=== PATIENT | female | born 1970 | race Caucasian/White ===

== ENCOUNTER → 2022-08-19 18:09 | Outpatient (CLI) | payer OTHER, BC, SELFPAY ==
[2022-08-19 14:36] LABS: Basophils # 0.1 K/mm3 (0-0.2); Basophils % 0.7 % (0.1-2.0); Eosinophils # 0.2 K/mm3 (0.0-0.4); Eosinophils % 1.8 % (0.1-12.0); Hemoglobin 14.3 g/dL (12.2-16.2); Lymphocytes # 2.1 K/mm3 (0.7-4.5); Mean Corpuscular HGB Conc 32.6 g/dL (31.8-35.4); Mean Corpuscular Hemoglobin 27.9 pg (27.0-31.2); Mean Corpuscular Volume 85.5 fl (81-99); Mean Platelet Volume 13.2 fl (7.4-10.4); Monocytes # 0.3 K/mm3 (0.1-1.0); Monocytes % 3.9 % (1.7-9.3); Neutrophils # 6.2 K/mm3 (1.8-7.8); Neutrophils % 69.6 % (37.0-80.0); Platelet Count 173 K/mm3 (142-424); Red Blood Count 5.15 M/mm3 (4.20-5.40); Red Cell Distribution Width 13.9 % (11.5-17.5); White Blood Count 8.8 K/mm3 (4.8-10.8)
[2022-08-19 14:56] LABS: Chloride 99 mmol/L (98-107); Potassium 4.9 mmoL/L (3.5-5.1); Sodium 131 mmol/L (136-145)
[2022-08-19 14:58] LABS: Alanine Aminotransferase 26 U/L (12-78); Aspartate Amino Transferase 27 U/L (14-36); Blood Urea Nitrogen 20 mg/dl (7-17); Estimated Glomerular Filt Rate 105 ml/min (>60); GFR (African American) 127 ML/MIN (>60)
[2022-08-19 14:59] LABS: Albumin Level 3.7 g/dl (3.5-5.0); Albumin/Globulin Ratio 1.1 (1.1-1.8); Alkaline Phosphatase 229 U/L (38-126); Anion Gap 10.9 mEq/L (5-15); Bilirubin,Total 1.2 mg/dl (0.2-1.3); Calcium 9.1 mg/dl (8.4-10.2); Carbon Dioxide 26 mmol/L (22.0-30.0); Cholesterol 180 mg/dl (140-200); Globulin 3.3 g/dL (1.3-3.2); HDL Cholesterol 36 mg/dl (40-60); Triglycerides 245 mg/dl (30-150); VLDL Cholesterol 49 mg/dL (0-40)
[2022-08-19 15:10] LABS: Glucose 560 mg/dl (74-100)
[2022-08-19 15:11] LABS: Direct LDL Cholesterol 103.53 mg/dL (100-129)
[2022-08-19 15:30] LABS: Thyroid Stimulating Hormone < 0.02 uIU/mL (0.465-4.68)
[2022-08-19 18:35] LABS: Hemoglobin A1C 12.8 % (4.0-6.0)
== END ==
PROVIDERS: PCP Family Medicine; Visit Provider Family Medicine
DX: E11.9 Type 2 diabetes mellitus without complications (principal); R53.83 Other fatigue; Z79.4 Long term (current) use of insulin; Z79.899 Other long term (current) drug therapy
CPT/HCPCS: 80053; 80061; 83036; 84443; 85025

== ENCOUNTER 2022-08-20 12:36 | Emergency (ER) | payer MEDICARE, BC, SELFPAY ==
[2022-08-20 12:38] VITALS: BP 108/55; PULSE 72; RESP 16; TEMP 36.7; O2SAT 99; BMI 38.9
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
--- NOTE | 2022-08-20 13:00 | PC.NURSE ---
DAKOTA CASTRO at
[2022-08-20 13:11] VITALS: BP 100/60; PULSE 74; RESP 16; TEMP 36.7
== END 2022-08-20 13:23 | disposition home or self-care (01) ==
PROVIDERS: Emergency Provider Student in an Organized Health Care Education/Training Program; PCP Family Medicine
DX: E11.40 Type 2 diabetes mellitus with diabetic neuropathy, unspecified (principal); K21.9 Gastro-esophageal reflux disease without esophagitis; Z86.79 Personal history of other diseases of the circulatory system
CPT/HCPCS: 99283; 99284

== ENCOUNTER → 2022-09-03 12:38 | Outpatient (CLI) | payer MEDICARE, BC, SELFPAY ==
--- NOTE | 2022-09-03 12:50 | CA_ITS ---
APPROVED REPORT EXAM: Comprehensive 2D, Doppler, and color-flow Echocardiogram Product Line Manager: Sara Vazquez RVT Ht: 5 ft 4 in Wt: 232lbs BSA: 2.08 BP: 128/82 mmHg Indications: MURMUR,DM,GERD,CABG,CAD,OBESITY 2D Dimensions LVOT 2.02 cm (M/F) 1.5-2.5 LA Volume 40.50 mL LA Volume Index 19.38 mL/m2 (M/F) 16-34 M-Mode Dimensions RVDd 4.59 cm (0.9-2.6) LA Diam 4.52 cm (1.9-4.0) LVDd 5.31 cm (3.5-5.7) Ao Diam 2.83 cm (2.0-3.7) LVDs 3.61 cm (3.5-5.7) IVSd 0.85 cm (0.6-1.1) PWd 1.02 cm (0.6-1.1) EF (Teich) 59.70% FS 32.00% EDV (Teich) 135.90 mL TAPSE 2.04 (<1.7) ESV (Teich) 54.80 mL LV Diastology E Decel Time 150.00 (160-240 msec) E/A Ratio 1.5 MED E' 6.20 (< 7 cm/sec) E'/MED E' Ratio 17.94 (>14) LAT E' 11.80 (<10 cm/sec) E/LAT E' Ratio 9.42 (>14) Aortic Valve AO Peak GR. 15.00 mmHg Mitral Valve MV E Max Zac. 111.00 (40-130 cm/s) MV A Velocity 74.00 (40-130 cm/s) E/A Ratio 1.49 MV Decel. Time 150.00 (160-240 ms) MV PHT 44.00 ms Pulmonary Valve PV Peak Velocity 126.00 (50-150 cm/s) Tricuspid Valve TR P. Velocity 252.00 cm/s RAP Estimate 10.00 mmHg RVSP 35.40 mmHg Left Ventricle Left atrium is mildly enlarged, left ventricle is normal size, mild concentric left ventricular hypertrophy, estimated ejection fraction 55% with no regional wall motion abnormality, there is abnormal septal motion. Right Ventricle Right atrium and right ventricle are moderately enlarged, contractility of the right ventricle is mildly reduced. Aortic Valve Aortic valve is minimally thickened and fibrosed there is no aortic stenosis aortic insufficiency. Mitral Valve Mitral valve is grossly normal, there is trace mitral regurgitation. Tricuspid Valve Tricuspid valve grossly normal, there is mid tricuspid regurgitation, tricuspid regurgitation jet velocity is inadequate for calculation of the right ventricular systolic pressure. Pulmonic Valve Pulmonic valve is poorly visualized. Great Vessels Aortic root is normal size. Inferior vena cava is normal size with normal inspiratory collapse. Pericardium No significant pericardial effusion noted. Conclusion 1. Biatrial enlargement, normal left ventricular size, mild concentric left ventricular hypertrophy, estimated ejection fraction 55% with no regional wall motion abnormality, there is abnormal septal motion. 2. Moderately enlarged right ventricle with mild reduced contractility. 3. Mild mitral and tricuspid regurgitation. 4. No significant pericardial effusion. 5. Inferior vena cava is normal size with normal inspiratory collapse. Electronically signed by : Hu Garg MD 09/03/2022 13:34:56
== END ==
PROVIDERS: PCP Family Medicine; Visit Provider Family Medicine
DX: R01.1 Cardiac murmur, unspecified (principal)
CPT/HCPCS: 93306

== ENCOUNTER 2022-09-10 10:31 | Emergency (ER) | payer MEDICARE, BC, SELFPAY ==
[2022-09-10 10:45] VITALS: BMI 40.1
[2022-09-10 11:02] VITALS: BP 148/68; PULSE 76; RESP 20; TEMP 36.9; O2SAT 99; BMI 40.5
--- NOTE | 2022-09-10 11:07 | EXP.UTC ---
Discharge Plan Disposition Patient Disposition: Home, Self-Care Condition: Good Prescriptions Prescriptions: New azithromycin [Zithromax] 250 mg tablet 250 mg PO UD DOSE PK Qty: 6 0RF Rx Instructions: Take two (2) tablets today, then one (1) tablet days #2 thru #5 benzonatate [benzonatate] 100 mg capsule 100 mg PO TIDP PRN (Reason: Cough) Qty: 30 0RF prednisone 10 mg tablet 10 mg PO BID 5 Days Qty: 10 0RF No Action glimepiride 4 mg tablet 4 mg PO DAILY isosorbide mononitrate 30 mg tablet extended release 24 hr 30 mg PO DAILY Jardiance 25 mg tablet 25 mg PO DAILY medroxyprogesterone 10 mg tablet 10 mg PO DAILY naproxen 500 mg tablet 500 mg PO BID aspirin [Adult Aspirin Regimen] 81 mg tablet,delayed release (DR/EC) 81 mg PO DAILY metoprolol succinate 25 mg tablet extended release 24 hr 25 mg PO BID furosemide 40 mg tablet 40 mg PO BID ferrous sulfate [Feosol] 325 mg (65 mg iron) tablet 325 mg PO BID quinapril 40 mg tablet 20 mg PO BID omeprazole 40 mg capsule,delayed release(DR/EC) 40 mg PO DAILY atorvastatin 40 mg tablet 40 mg PO DAILY (DME) Dexcom G6 Transformer Molder Misc See Rx Instructions .Route Qty: 1 0RF Rx Instructions: As directed (DME) Dexcom G6 Sensor Device See Rx Instructions .Route Qty: 3 3RF Rx Instructions: As directed (DME) Dexcom G6 Transmitter Device See Rx Instructions .Route Qty: 1 3RF Rx Instructions: As directed gabapentin 600 mg tablet 600 mg PO TID insulin degludec [Tresiba FlexTouch U-100] 100 unit/mL (3 mL) insulin pen 100 unit SQ HS Ozempic 2 mg/dose (8 mg/3 mL) pen injector 2 mg SQ WEEKLY Referrals Follow up/Referrals: Cong Trinh MD [Primary Care Provider] - See instructions Activity Restrictions/Add. Instructions Additional Instructions/Restrictions: Drink plenty of fluids. Take tylenol for pain or fever. Take the medications as directed. Follow up with your regular doctor. GO TO THE ER FOR ANY WORSENING SYMPTOMS Clinical Impressions Clinical Impression: Sinusitis, Bronchitis, Acute viral syndrome Instructions Patient Instructions: DI for Sinusitis, DI for Acute Bronchitis, DI for Viral Syndrome Discharge ED Provider: Alberto Morton [facility] [place] HPI General Stated complaint: Bodyaches headache coughing blood Mode of Arrival: Ambulatory Source of Information: Patient Limitations: No Limitations Time Seen by Provider: 09/10/22 11:02 Description of Symptoms (Recalled from Triage Doc. by RN): [place], body aches, stiffness, vomit, diarrhea, tired HEENT Symptoms (Recalled from RN notes): Yes Resp Symptoms (Recalled from RN notes): No Skin Symptoms (Recalled from RN notes): No MS Symptoms (Recalled from RN notes): No Functional Status (Recalled from RN notes): n/a History of Present Illness Provider Complaint: She states that for the past 4 days she has had sinus congestion, sore throat and chest congestion. She had a nose bleed yesterday, and since then she has had blood tinged sputum from her nose at times. Related Data Home Medications Medication Instructions Recorded Confirmed aspirin 81 mg tablet,delayed 81 mg PO DAILY . 08/12/22 09/10/22 release (Adult Aspirin Regimen) ferrous sulfate 325 mg (65 mg 325 mg PO BID . 08/12/22 09/10/22 iron) tablet (Feosol) furosemide 40 mg tablet 40 mg PO BID . 08/12/22 09/10/22 metoprolol succinate 25 mg 25 mg PO BID . 08/12/22 09/10/22 tablet,extended release 24 hr omeprazole 40 mg capsule,delayed 40 mg PO DAILY . 08/12/22 09/10/22 release quinapril 40 mg tablet 20 mg PO BID . 08/12/22 09/10/22 empagliflozin 25 mg tablet 25 mg PO DAILY . 08/19/22 09/10/22 (Jardiance) glimepiride 4 mg tablet 4 mg PO DAILY . 08/19/22 09/10/22 isosorbide mononitrate 30 mg 30 mg PO DAILY . 08/19/22 09/10/22 tablet,extended release 24 hr medroxyprogesterone 10 mg tablet
[2022-09-10 11:09] LABS: UTC Influenza A Antigen Negative (Negative)
[2022-09-10 11:10] LABS: UTC Influenza B Antigen Negative (Negative)
[2022-09-10 11:53] VITALS: BP 148/68; PULSE 76; RESP 20; TEMP 36.9; O2SAT 99
== END 2022-09-10 11:52 | disposition home or self-care (01) ==
PROVIDERS: Emergency Provider Nurse Practitioner Family; PCP Family Medicine
DX: J32.9 Chronic sinusitis, unspecified (principal); J40 Bronchitis, not specified as acute or chronic; B34.9 Viral infection, unspecified
CPT/HCPCS: 87804; 99212; 99214; C9803; G0463; U0003; U0005

== ENCOUNTER → 2022-10-01 07:21 | Outpatient (CLI) | payer MEDICARE, BC, SELFPAY ==
--- NOTE | 2022-10-01 07:24 | NM_ITS ---
APPROVED REPORT Exam: Nuclear Stress Test Indication: angina Patient Location: Outpatient Stress Tech: Keli Peters [place] Tech:GAURANG Mak RT(R)(N) Ht: 5 ft 4 in Wt: 235 lbs Bra Size: 4x HR: 77 bpm BP: 118/58 mmHg BSA: 2.10 m2 TID: 1.08 BMI: 40.3 History: angina Procedure: Patient received 0.4 mg of intravenous Lexiscan, resting heart rate 77 bpm, resting blood pressure 118/58 mmHg, with Lexiscan maximum heart rate achieved was 105 bpm which is Less than 85 % of the maximum predicted heart rate and blood pressure was 118/58 mmHg. With Lexiscan, patient denied any complaint of chest pain. Electrocardiogram Resting electrocardiogram shows sinus rhythm, with Lexiscan there is less than 1.[address] segment depression from the baseline EKG. The EKG portion of the Lexiscan is nondiagnostic. Cardiac Stress and Resting SPECT Images: Cardiac Stress and Resting SPECT images were obtained using technetium 99m Myoview 30.1 mCi stress and 10.82 mCi at rest. Gated SPECT analysis of segmental wall motion and calculation of the ejection fraction also done. Prone images were also obtained. Cardiac stress and rest SPECT and show uniform myocardial activity without segmental perfusion abnormality, computer derived ejection fraction is 57% with no regional wall motion abnormality, right ventricle is mildly enlarged with normal contractility. Conclusion: 1. The EKG portion of the Lexiscan is nondiagnostic. 2. No scintigraphic evidence of reversible ischemia seen, computer derived ejection fraction is 57% with no regional wall motion abnormality, right ventricle is mildly enlarged with normal contractility. 3. Normal Lexiscan Myoview study. Electronically signed by : Hu Garg MD 10/01/2022 15:17:19
--- NOTE | 2022-10-01 09:48 | CA_ITS ---
APPROVED REPORT Exam: Pharmacologic Technologist: Keli Rowe, Ht: 5 ft 4 in Wt: 238 lbs BSA: 2.11 m2 HR: 77 bpm BP: 118/58 mmHg Medical History Medications: Omeprazole,,,,, Aspirin,,,,, Gabapentin,,,,, Atorvastatin,,,,, Glimepiride,,,,, Naproxen,,,,, Prednisone,,,,, BenzONATATE,,,,, QuinAPRIL,,,,, JaRDiance,,,,, Tresiba,,,,, Zithromax,,,,, Stress Test Details Test: LEXISCAN Reason for pharmacologic stress test: physical limitation. HR Resting HR: 77 bpm Max Heart Rate (APMHR): 168.229178 bpm Max HR Achieved: 105 bpm Target HR (85% APMHR): 142.342231 bpm % of APMHR: 62.50 Recovery HR: 92 bpm BP Resting BP: 118/58 mmHg Max BP: 118/58 mmHg Recovery BP: 105.0/59.0 mmHg ECG Resting ECG: NSR, IVCD Clinical Reason for Termination: Completed Protocol Exercise duration: 04:01 min Highest Stage Achieved: Stress ECG Conclusion Symptoms: No CP Arrhythmias/Ectopy: None ST-T Changes: <1.5mm ST Segment changes Conclusion: Non-Diagnostic Test Summary REST . . . . . . . Resting REST 03:30 . . 77 . 118/ 58 . . Stage 1 01:00 . . 92 . . . . Stage 2 01:00 . . 99 . 112/ 54 . . Stage 3 01:00 . . 95 . 113/ 57 . . Stage 4 01:00 . . 91 . 114/ 57 . . Stage 4 01:01 . . 92 . 114/ 57 . Stop exercise at 04:01 RECOVERY 01:00 . . 98 . . . . RECOVERY 02:00 . . 95 . 102/ 59 . . RECOVERY 02:05 . . 92 . 102/ 59 . . Electronically signed by : Hu Garg MD 10/01/2022 11:09:54
== END ==
PROVIDERS: PCP Family Medicine; Visit Provider Nurse Practitioner Family
DX: E78.5 Hyperlipidemia, unspecified (principal); I10 Essential (primary) hypertension; Z95.1 Presence of aortocoronary bypass graft; I20.8 Other forms of angina pectoris
CPT/HCPCS: 78452; 93017; A9502; J2785

== ENCOUNTER 2022-10-21 20:40 | Emergency (ER) | payer MEDICARE, BC, SELFPAY ==
[2022-10-21 20:41] VITALS: BP 122/67; PULSE 87; RESP 16; TEMP 36.6; O2SAT 98; BMI 39.4
[2022-10-21 21:22] LABS: Basophils # 0.1 K/mm3 (0-0.2); Basophils % 0.6 % (0.1-2.0); Eosinophils # 0.2 K/mm3 (0.0-0.4); Eosinophils % 2.6 % (0.1-12.0); Hematocrit 42.7 % (37.0-47.0); Hemoglobin 13.6 g/dL (12.2-16.2); Lymphocytes # 2.8 K/mm3 (0.7-4.5); Lymphocytes % 36.4 % (10-50); Mean Corpuscular HGB Conc 31.9 g/dL (31.8-35.4); Mean Corpuscular Hemoglobin 28.1 pg (27.0-31.2); Mean Corpuscular Volume 87.9 fl (81-99); Mean Platelet Volume 10.9 fl (7.4-10.4); Monocytes # 0.4 K/mm3 (0.1-1.0); Monocytes % 5.1 % (1.7-9.3); Neutrophils # 4.3 K/mm3 (1.8-7.8); Neutrophils % 55.2 % (37.0-80.0); Platelet Count 157 K/mm3 (142-424); Red Blood Count 4.86 M/mm3 (4.20-5.40); Red Cell Distribution Width 13.6 % (11.5-17.5); White Blood Count 7.7 K/mm3 (4.8-10.8)
--- NOTE | 2022-10-21 21:25 | HMH.EDEXTP ---
Discharge Plan Disposition Patient Disposition: Home, Self-Care Chief Complaint: Extremity Injury, Lower Prescriptions Prescriptions: No Action glimepiride 4 mg tablet 4 mg PO DAILY Jardiance 25 mg tablet 25 mg PO DAILY medroxyprogesterone 10 mg tablet 10 mg PO DAILY naproxen 500 mg tablet 500 mg PO BID aspirin [Adult Aspirin Regimen] 81 mg tablet,delayed release (DR/EC) 81 mg PO DAILY metoprolol succinate 25 mg tablet extended release 24 hr 25 mg PO BID furosemide 40 mg tablet 40 mg PO BID ferrous sulfate [Feosol] 325 mg (65 mg iron) tablet 325 mg PO BID omeprazole 40 mg capsule,delayed release(DR/EC) 40 mg PO DAILY atorvastatin 40 mg tablet 40 mg PO DAILY gabapentin 600 mg tablet 600 mg PO TID insulin degludec [Tresiba FlexTouch U-100] 100 unit/mL (3 mL) insulin pen 100 unit SQ HS Ozempic 2 mg/dose (8 mg/3 mL) pen injector 2 mg SQ WEEKLY lisinopril 20 mg tablet 20 mg PO BID isosorbide mononitrate 60 mg tablet extended release 24 hr 60 mg PO DAILY (DME) Dexcom G6 Sensor Device See Rx Instructions .ROUTE Rx Instructions: As directed (DME) Dexcom G6 Traveler Changer Misc See Rx Instructions .ROUTE Rx Instructions: As directed (DME) Dexcom G6 Transmitter Device See Rx Instructions .ROUTE Rx Instructions: As directed Referrals Follow up/Referrals: Cong Trinh MD [Primary Care Provider] - See instructions Clinical Impressions Clinical Impression: Deep vein thrombosis, lower left extremity, Diabetes mellitus Instructions Patient Instructions: DI for Deep Vein Thrombosis Discharge ED Provider: Iraida (ED)Varun Extremity Problem HPI General Chief complaint: Extremity Injury, Lower Stated complaint: Leg pain Time Seen by Provider: 10/21/22 21:25 Mode of Arrival: Ambulatory Source of Information: Patient and Medical Record Limitations: No Limitations Description of Symptoms (Recalled from ER Triage Doc. by RN): pt arrives via private vehicle. c/o right knee pain for several days, denies injury. states she woke up today and she had a knot behind her left knee with severe pain swelling and redness. states she had a blood clot in 2017 in left leg. Denies any injury. History of Present Illness HPI Narrative: pt with atypical rt knee pain over the last few days and has pain and swelling lt lower leg with hx of dvt in past - has chronic venous stasis - MD Complaint: extremity pain, extremity swelling and joint swelling Onset (ago): day(s) Consistency: intermittent Location: left and lower extremity Associated symptoms: denies other symptoms Context: history of DVT Related Data Home Medications Medication Instructions Recorded Confirmed aspirin 81 mg tablet,delayed 81 mg PO DAILY heart health 08/12/22 10/21/22 release (Adult Aspirin Regimen) ferrous sulfate 325 mg (65 mg 325 mg PO BID Supplement 08/12/22 10/21/22 iron) tablet (Feosol) furosemide 40 mg tablet 40 mg PO BID swelling 08/12/22 10/21/22 metoprolol succinate 25 mg 25 mg PO BID High blood pressure 08/12/22 10/21/22 tablet,extended release 24 hr omeprazole 40 mg capsule,delayed 40 mg PO DAILY gerd 08/12/22 10/21/22 release empagliflozin 25 mg tablet 25 mg PO DAILY Diabetes 08/19/22 10/21/22 (Jardiance) glimepiride 4 mg tablet 4 mg PO DAILY high blood glucose 08/19/22 10/21/22 medroxyprogesterone 10 mg tablet 10 mg PO DAILY estrogen 08/19/22 10/21/22 naproxen 500 mg tablet 500 mg PO BID Pain 08/19/22 10/21/22 atorvastatin 40 mg tablet 40 mg PO DAILY High cholesterol 09/07/22 10/21/22 gabapentin 600 mg tablet 600 mg PO TID nerve pain 09/10/22 10/21/22 insulin degludec 100 unit/mL (3 100 unit SQ HS high blood glucose 09/10/22 10/21/22 mL) subcutaneous pen (Tresiba FlexTouch U-100 insulin) semaglutide 2 mg/dose (8 mg/3 mL) 2 mg SQ WEEKLY Diabetes 09/10/22 10/21/22 subcutaneous pen injector (
[2022-10-21 21:29] LABS: Alanine Aminotransferase 17 U/L (12-78); Albumin Level 3.7 g/dl (3.5-5.0); Albumin/Globulin Ratio 1.1 (1.1-1.8); Alkaline Phosphatase 149 U/L (38-126); Anion Gap 6.2 mEq/L (5-15); Aspartate Amino Transferase 23 U/L (14-36); Blood Urea Nitrogen 21 mg/dl (7-17); Calcium 8.8 mg/dl (8.4-10.2); Carbon Dioxide 28 mmol/L (22.0-30.0); Chloride 103 mmol/L (98-107); Creatinine Clearance Estimated 181 mL/min (50-200); Estimated Glomerular Filt Rate 105 ml/min (>60); GFR (African American) 127 ML/MIN (>60); Globulin 3.3 g/dL (1.3-3.2); Glucose 252 mg/dl (74-100); Potassium 4.2 mmoL/L (3.5-5.1); Sodium 133 mmol/L (136-145)
[2022-10-21 21:30] VITALS: BP 115/61; PULSE 82; O2SAT 96
[2022-10-21 21:35] LABS: C-Reactive Protein 10.5 mg/L (0-4)
[2022-10-21 21:59] LABS: Erythrocyte Sedimentation Rate 27 mm/hr (0-30)
[2022-10-21 22:00] VITALS: BP 109/67; PULSE 81; O2SAT 98
[2022-10-21 22:12] LABS: Hemoglobin A1C 11.7 % (4.0-6.0)
--- NOTE | 2022-10-21 22:14 | PC.NURSE ---
Pt/visitor updated on POC
[2022-10-21 22:16] VITALS: BP 110/70; PULSE 80; RESP 18; TEMP 36.6; O2SAT 99
== END 2022-10-21 22:29 | disposition home or self-care (01) ==
PROVIDERS: Emergency Provider Emergency Medicine; PCP Family Medicine
DX: M25.561 Pain in right knee (principal); R22.41 Localized swelling, mass and lump, right lower limb
CPT/HCPCS: 80053; 83036; 84145; 85025; 85651; 86140; 96372; 99284; 99285

== ENCOUNTER → 2022-10-22 12:56 | Outpatient (CLI) | payer MEDICARE, BC, SELFPAY ==
--- NOTE | 2022-10-22 | CA_ITS ---
FINAL REPORT TECHNIQUE: Ultrasound images of the deep venous system were obtained from the left groin to the calf veins. CLINICAL HISTORY: HTN, hyperlipidemia, DM II, 81 mg ASA daily, morbid obesity. Patient states her left leg became swollen yesterday with no known trauma. She noticed a knot behind the left knee. She states the leg has become discolored and hot to the touch. Patient also states he has a history of DVT in LLE many years ago. FINDINGS: The deep venous system is normally compressible. Normal flow is identified. IMPRESSION: No evidence of left lower extremity DVT. Reviewed, Interpreted and Dictated by Erick Rodgers MD Transcribed by Karen Mayberry Authenticated and [facility]
[2022-10-22 14:44] LABS: Alanine Aminotransferase 15 U/L (12-78); Albumin Level 3.5 g/dl (3.5-5.0); Albumin/Globulin Ratio 1.2 (1.1-1.8); Alkaline Phosphatase 149 U/L (38-126); Anion Gap 6.4 mEq/L (5-15); Aspartate Amino Transferase 22 U/L (14-36); Bilirubin,Total 1.1 mg/dl (0.2-1.3); Blood Urea Nitrogen 19 mg/dl (7-17); Calcium 8.5 mg/dl (8.4-10.2); Carbon Dioxide 27 mmol/L (22.0-30.0); Chloride 106 mmol/L (98-107); Chol/HDL Ratio 4.8 (1-3.5); Cholesterol 130 mg/dl (140-200); Estimated Glomerular Filt Rate 130 ml/min (>60); GFR (African American) 157 ML/MIN (>60); Glucose 113 mg/dl (74-100); HDL Cholesterol 27 mg/dl (40-60); Potassium 4.4 mmoL/L (3.5-5.1); Sodium 135 mmol/L (136-145); Total Protein,Serum 6.5 g/dl (6.3-8.2); Triglycerides 120 mg/dl (30-150); VLDL Cholesterol 24 mg/dL (0-40)
[2022-10-22 14:54] LABS: Direct LDL Cholesterol 74.98 mg/dL (100-129)
[2022-10-22 15:08] LABS: Basophils % 0.6 % (0.1-2.0); Eosinophils # 0.2 K/mm3 (0.0-0.4); Eosinophils % 2.6 % (0.1-12.0); Hematocrit 43.5 % (37.0-47.0); Lymphocytes # 2.1 K/mm3 (0.7-4.5); Lymphocytes % 35.6 % (10-50); Mean Corpuscular Hemoglobin 26.6 pg (27.0-31.2); Mean Corpuscular Volume 88.5 fl (81-99); Mean Platelet Volume 11.3 fl (7.4-10.4); Monocytes # 0.4 K/mm3 (0.1-1.0); Monocytes % 6.2 % (1.7-9.3); Neutrophils # 3.2 K/mm3 (1.8-7.8); Platelet Count 157 K/mm3 (142-424); Red Blood Count 4.91 M/mm3 (4.20-5.40); Red Cell Distribution Width 13.3 % (11.5-17.5); White Blood Count 5.9 K/mm3 (4.8-10.8)
[2022-10-22 17:43] LABS: Hemoglobin A1C 11.7 % (4.0-6.0)
== END ==
PROVIDERS: PCP Family Medicine; Visit Provider Family Medicine
DX: E78.5 Hyperlipidemia, unspecified (principal); I10 Essential (primary) hypertension; E11.9 Type 2 diabetes mellitus without complications; Z79.4 Long term (current) use of insulin; M79.605 Pain in left leg; Z86.718 Personal history of other venous thrombosis and embolism
CPT/HCPCS: 80053; 80061; 83036; 85025; 93971

== ENCOUNTER 2022-12-28 08:05 | Day surgery (SDC) | payer MEDICARE, BC, SELFPAY ==
[2022-12-27 10:21] VITALS: BMI 38.2
[2022-12-28 08:38] VITALS: BP 126/63; PULSE 68; RESP 18; TEMP 36.6; O2SAT 97
[2022-12-28 08:45] LABS: POC Glucose,Bedside 155 (70-110)
[2022-12-28 09:59] VITALS: BP 134/58; PULSE 72; RESP 16; O2SAT 100
[2022-12-28 10:04] VITALS: BP 124/58; PULSE 76; RESP 17; O2SAT 100
[2022-12-28 10:09] VITALS: BP 146/64; PULSE 75; RESP 16; O2SAT 100
[2022-12-28 10:14] VITALS: BP 131/60; PULSE 75; RESP 17; O2SAT 100
[2022-12-28 10:15] VITALS: BP 145/73; PULSE 65; RESP 18; TEMP 36.2; O2SAT 98
== END 2022-12-28 10:24 | disposition home or self-care (01) ==
LOC: OR 08:07
PROVIDERS: PCP Family Medicine; Visit Provider Ophthalmology
PROC: (CPT 66984; principal; 2022-12-28 10:00)
DX: E11.36 Type 2 diabetes mellitus with diabetic cataract (principal); H25.9 Unspecified age-related cataract
CPT/HCPCS: 66984; 82962; V2632

== ENCOUNTER → 2023-02-11 13:39 | Outpatient (CLI) | payer MEDICARE, BC, SELFPAY | PROVIDERS: PCP Family Medicine; Visit Provider Nurse Practitioner Family | DX: G47.30 Sleep apnea, unspecified (principal); R53.83 Other fatigue; R06.83 Snoring; R40.0 Somnolence; I25.10 Atherosclerotic heart disease of native coronary artery without angina pectoris; I10 Essential (primary) hypertension | CPT/HCPCS: G0399 ==

== ENCOUNTER → 2023-02-17 23:38 | Outpatient (CLI) | payer MEDICARE, BC, SELFPAY ==
[2023-02-17 17:54] LABS: Basophils % 0.3 % (0.1-2.0); Eosinophils # 0.1 K/mm3 (0.0-0.4); Eosinophils % 1.9 % (0.1-12.0); Hematocrit 40.9 % (37.0-47.0); Hemoglobin 13.2 g/dL (12.2-16.2); Lymphocytes # 1.6 K/mm3 (0.7-4.5); Lymphocytes % 25.2 % (10-50); Mean Corpuscular HGB Conc 32.3 g/dL (31.8-35.4); Mean Corpuscular Hemoglobin 27.2 pg (27.0-31.2); Mean Corpuscular Volume 84.1 fl (81-99); Mean Platelet Volume 12.6 fl (7.4-10.4); Monocytes # 0.3 K/mm3 (0.1-1.0); Monocytes % 5.1 % (1.7-9.3); Neutrophils # 4.3 K/mm3 (1.8-7.8); Neutrophils % 67.5 % (37.0-80.0); Platelet Count 156 K/mm3 (142-424); Red Blood Count 4.86 M/mm3 (4.20-5.40); Red Cell Distribution Width 13.5 % (11.5-17.5); White Blood Count 6.4 K/mm3 (4.8-10.8)
[2023-02-17 17:55] LABS: Alanine Aminotransferase 36 U/L (12-78); Albumin Level 3.4 g/dl (3.5-5.0); Alkaline Phosphatase 239 U/L (38-126); Anion Gap 12.3 mEq/L (5-15); Aspartate Amino Transferase 33 U/L (14-36); Blood Urea Nitrogen 16 mg/dl (7-17); Calcium 8.8 mg/dl (8.4-10.2); Carbon Dioxide 26 mmol/L (22.0-30.0); Chloride 107 mmol/L (98-107); Estimated Glomerular Filt Rate 105 ml/min (>60); GFR (African American) 127 ML/MIN (>60); Globulin 3.3 g/dL (1.3-3.2); Glucose 229 mg/dl (74-100); Potassium 4.3 mmoL/L (3.5-5.1); Sodium 141 mmol/L (136-145); Total Protein,Serum 6.7 g/dl (6.3-8.2)
== END ==
PROVIDERS: PCP Student in an Organized Health Care Education/Training Program; Visit Provider Student in an Organized Health Care Education/Training Program
DX: R19.7 Diarrhea, unspecified (principal)
CPT/HCPCS: 80053; 85025

== ENCOUNTER → 2023-02-18 14:28 | Outpatient (CLI) | payer MEDICARE, BC, SELFPAY ==
[2023-02-18 15:21] LABS: Occult Blood,Stool Negative (Negative)
== END ==
PROVIDERS: PCP Student in an Organized Health Care Education/Training Program; Visit Provider Student in an Organized Health Care Education/Training Program
DX: R19.7 Diarrhea, unspecified (principal)
CPT/HCPCS: 82272; 87045; G0328

== ENCOUNTER 2023-03-08 07:13 | Day surgery (SDC) | payer MEDICARE, BC, SELFPAY ==
[2023-03-02 09:26] VITALS: BMI 36.0
[2023-03-08 08:27] VITALS: BP 126/70; PULSE 65; RESP 18; TEMP 36.4; O2SAT 96
[2023-03-08 08:37] LABS: POC Glucose,Bedside 235 (70-110)
[2023-03-08 10:25] VITALS: BP 106/53; PULSE 56; RESP 17; O2SAT 100
[2023-03-08 10:30] VITALS: BP 106/54; PULSE 63; RESP 17; O2SAT 100
[2023-03-08 10:35] VITALS: BP 113/58; PULSE 57; RESP 17; O2SAT 100
[2023-03-08 10:40] VITALS: BP 102/50; PULSE 56; RESP 18; O2SAT 100
[2023-03-08 10:46] VITALS: BP 106/46; PULSE 56; RESP 16; TEMP 36.2; O2SAT 95
== END 2023-03-08 10:53 | disposition home or self-care (01) ==
LOC: OR 07:16
PROVIDERS: PCP Family Medicine; Visit Provider Ophthalmology
DX: E11.36 Type 2 diabetes mellitus with diabetic cataract (principal); H25.9 Unspecified age-related cataract
CPT/HCPCS: 66984; 82962; V2632

== ENCOUNTER 2023-03-29 20:48 | Emergency (ER) | payer MEDICARE, BC, SELFPAY ==
[2023-03-29 20:55] VITALS: BP 108/60; PULSE 88; RESP 17; TEMP 36.7; O2SAT 98; BMI 43.9
--- NOTE | 2023-03-29 21:08 | PC.NURSE ---
rounded on pt , no needs at this time
--- NOTE | 2023-03-29 21:09 | XR_ITS ---
PROCEDURE INFORMATION: Exam: XR Left Foot Exam date and time: 03/29/2023 9:13 PM Age: 52 years old Clinical indication: Injury or trauma; Other: Shut in door; Blunt trauma; Toes; Left; Additional info: Injury L big toe TECHNIQUE: Imaging protocol: Radiologic exam of the left foot. Views: 3 or more views. Total images: 3 COMPARISON: CA VENOUS DOPPLER LE LT 10/22/2022 1:14 PM FINDINGS: Bones/joints: Osteopenia. Acute nondisplaced fracture at the base of the proximal phalanx along the medial aspect of the MTP joint. No additional fracture or joint dislocation. Remote deformity proximal phalanx 3rd toe. Developmental fusion DIP joint 5th toe. Mild age-related degenerative changes at the tarsal articulations of the mid and hindfoot. No concerning bone lesions or calcifications. Large plantar calcaneal enthesophyte. Small calcaneal enthesophyte at the Achilles tendon insertion. Soft tissues: Mild soft tissue swelling of the great toe and 1st MTP joint. IMPRESSION: 1. Tiny acute nondisplaced fracture base of the proximal phalanx great toe. 2. Additional chronic findings.
--- NOTE | 2023-03-29 21:17 | PC.NURSE ---
cleaned toe with hibcleanse & saline
--- NOTE | 2023-03-29 22:25 | HMH.EDGENADL ---
Discharge Plan Disposition Patient Disposition: Home, Self-Care Condition: Good Prescriptions Prescriptions: New clindamycin HCl 300 mg capsule 300 mg PO Q12H 7 Days Qty: 14 0RF hydrocodone-acetaminophen 5-325 mg tablet 1 tab PO Q8H PRN (Reason: pain) Qty: 12 0RF No Action nitroglycerin 0.4 mg tablet, sublingual 0.4 mg sublingual Q5-15M PRN (Reason: .) Rx Instructions: do not exceed 3 doses per episode insulin aspart U-100 [Novolog PenFill U-100 Insulin] 100 unit/mL cartridge 25 unit SQ TID aspirin [Adult Aspirin Regimen] 81 mg tablet,delayed release (DR/EC) 81 mg PO DAILY Qty: 90 3RF atorvastatin 40 mg tablet 40 mg PO DAILY Qty: 90 3RF Rx Instructions: TAKE 1 TABLET BY MOUTH DAILY FOR HIGH CHOLESTEROL duloxetine 30 mg capsule,delayed release(DR/EC) 30 mg PO DAILY Qty: 90 3RF Jardiance 25 mg tablet 25 mg PO DAILY Qty: 90 0RF ferrous sulfate [Feosol] 325 mg (65 mg iron) tablet 325 mg PO BID Qty: 180 0RF furosemide 40 mg tablet 40 mg PO BID Qty: 180 0RF glimepiride 4 mg tablet 4 mg PO DAILY Qty: 90 0RF isosorbide mononitrate 60 mg tablet extended release 24 hr 60 mg PO DAILY Qty: 90 1RF lisinopril 20 mg tablet 20 mg PO BID Qty: 180 0RF omeprazole 40 mg capsule,delayed release(DR/EC) 40 mg PO DAILY Qty: 90 0RF Brilinta 90 mg tablet 90 mg PO BID Qty: 180 0RF medroxyprogesterone 10 mg tablet 10 mg PO DAILY Qty: 90 0RF gabapentin 600 mg tablet 600 mg PO TID Qty: 90 1RF insulin degludec [Tresiba FlexTouch U-100] 100 unit/mL (3 mL) insulin pen See Rx Instructions .ROUTE .COMPLEX Qty: 15 2RF Rx Instructions: INJECT 100 UNITS UNDER THE SKIN AT BEDTIME NIGHTLY KEEP IN REFRIGERATOR metoprolol tartrate 25 mg tablet 25 mg PO BID (DME) pen needle, diabetic [Unifine Pentips] 32 gauge x 1/4 needle See Rx Instructions .ROUTE Rx Instructions: Use 4 times daily or As directed Ozempic 1 mg/dose (4 mg/3 mL) pen injector 1 mg SQ WEEKLY Referrals Follow up/Referrals: Lilibeth Barger PA [Primary Care Provider] - See instructions Esther Thomas DPM [Staff Physician] - See instructions Activity Restrictions/Add. Instructions Additional Instructions/Restrictions: You were evaluated in the emergency department today. At this time, it is likely that your toenail will fall off. The wound was copiously irrigated and a dressing was applied. Please follow-up over the next 48 hours with podiatry. We are providing you with the information for Dr. Thomas. As recommend close follow-up with your primary care provider. Please product picker your prescription for antibiotics at the pharmacy and take the full course as prescribed. I sent in a pain medication for you to have as needed for severe pain. Do not drive or operate heavy machinery while taking narcotic pain medication. Return to the emergency department for new or worsening symptoms, such as significant increase in pain, increasing redness/warmth, pus draining from the wound, or other concerns. Clinical Impressions Clinical Impression: Injury of nail bed of toe, Fracture of left great toe Instructions Patient Instructions: DI for Toe Fracture, DI for Nail Avulsion Injury, DI for Nail Bed Injury Discharge ED Provider: Kelli Rivero General Adult HPI General Chief complaint: Extremity Injury, Lower Stated complaint: [id number]@home injured L big toe Time Seen by Provider: 03/29/23 21:07 Mode of Arrival: Family Vehicle Source of Information: Patient Limitations: No Limitations Description of Symptoms (Recalled from ER Triage Doc. by RN): 52 yo female presents with left great toe injury; my foot met a door . Patient states she is on Brilinta and has spent the last hour trying to get the bleeding to stop. No previous injuries/surgeries to the foot. Ambulated, albeit painful 8/10 with movement. History of Present Illness HPI narrat
[2023-03-29 22:42] VITALS: BP 118/68; PULSE 88; RESP 16; TEMP 36.6; O2SAT 99
--- NOTE | 2023-03-29 22:42 | PC.NURSE ---
post op shoe applied to left foot, neurovascular intact.
== END 2023-03-29 22:43 | disposition home or self-care (01) ==
PROVIDERS: Emergency Provider Emergency Medicine; PCP Physician Assistant
DX: S92.415A Nondisplaced fracture of proximal phalanx of left great toe, initial encounter for closed fracture (principal); E11.9 Type 2 diabetes mellitus without complications; I10 Essential (primary) hypertension; E78.5 Hyperlipidemia, unspecified; I20.9 Angina pectoris, unspecified; Z23 Encounter for immunization; W22.8XXA Striking against or struck by other objects, initial encounter
CPT/HCPCS: 73630; 90715; 96372; 99283

== ENCOUNTER → 2023-04-19 07:51 | Outpatient (CLI) | payer MEDICARE, BC, SELFPAY | PROVIDERS: PCP Physician Assistant; Visit Provider Internal Medicine Pulmonary Disease | DX: R06.09 Other forms of dyspnea (principal) | CPT/HCPCS: 94060; 94618; 94727; 94729 ==

== ENCOUNTER 2023-05-11 19:52 | Emergency (ER) | payer MEDICARE, BC, SELFPAY ==
[2023-05-11 19:53] VITALS: BP 115/76; PULSE 85; RESP 18; TEMP 36.9; O2SAT 98; BMI 34.3
[2023-05-11 19:57] VITALS: BP 115/76; PULSE 86; RESP 18; O2SAT 97
[2023-05-11 20:01] VITALS: BP 126/79; PULSE 91; RESP 20; O2SAT 96
--- NOTE | 2023-05-11 20:04 | XR_ITS ---
PROCEDURE INFORMATION: Exam: XR Left Hand Exam date and time: 05/11/2023 8:32 PM Age: 52 years old Clinical indication: Injury or trauma; Fall; Blunt trauma (contusions or hematomas); Hand; Left; Additional info: Fall left wrist/forearm pain TECHNIQUE: Imaging protocol: Radiologic exam of the left hand. Views: 3 or more views. COMPARISON: No relevant prior studies available. FINDINGS: Bones/joints: Small osseous density at the radioulnar articulation is better evaluated on the dedicated wrist radiographs. No additional fracture or dislocation. No aggressive osseous lesion. Soft tissues: Soft tissues otherwise within normal limits. IMPRESSION: No definite fracture of the carpal bones or more distal osseous structures.
--- NOTE | 2023-05-11 20:04 | XR_ITS ---
PROCEDURE INFORMATION: Exam: XR Left Wrist Exam date and time: 05/11/2023 8:32 PM Age: 52 years old Clinical indication: Injury or trauma; Fall; Blunt trauma (contusions or hematomas); Wrist; Left; Additional info: Fall left wrist/forearm pain TECHNIQUE: Imaging protocol: Radiologic exam of the left wrist. Views: 3 or more views. COMPARISON: No relevant prior studies available. FINDINGS: Bones/joints: There is a small osseous density projecting adjacent to the radioulnar articulation which could reflect a small minimally displaced fracture without a discrete donor site identified. No additional fracture or dislocation. No aggressive osseous lesion. Soft tissues: There is mild soft tissue swelling. Soft tissues otherwise within normal limits. IMPRESSION: Soft tissue swelling with a small osseous density adjacent to the radioulnar articulation. Findings could reflect a small minimally displaced fracture without a discrete donor site identified.
--- NOTE | 2023-05-11 20:05 | XR_ITS ---
PROCEDURE INFORMATION: Exam: XR Left Forearm Exam date and time: 05/11/2023 8:32 PM Age: 52 years old Clinical indication: Injury or trauma; Fall; Blunt trauma (contusions or hematomas); Arm, lower; Left; Additional info: Fall left wrist/forearm pain TECHNIQUE: Imaging protocol: Radiologic exam of the left forearm. Views: 2 views. COMPARISON: No relevant prior studies available. FINDINGS: Bones/joints: Normal. Soft tissues: Normal. IMPRESSION: No acute findings.
--- NOTE | 2023-05-11 20:20 | HMH.EDGENADL ---
Discharge Plan Disposition Patient Disposition: Home, Self-Care Chief Complaint: Extremity Injury, Upper Prescriptions Prescriptions: No Action nitroglycerin 0.4 mg tablet, sublingual 0.4 mg sublingual Q5-15M PRN (Reason: .) Rx Instructions: do not exceed 3 doses per episode insulin aspart U-100 [Novolog PenFill U-100 Insulin] 100 unit/mL cartridge 25 unit SQ TID aspirin [Adult Aspirin Regimen] 81 mg tablet,delayed release (DR/EC) 81 mg PO DAILY Qty: 90 3RF atorvastatin 40 mg tablet 40 mg PO DAILY Qty: 90 3RF Rx Instructions: TAKE 1 TABLET BY MOUTH DAILY FOR HIGH CHOLESTEROL duloxetine 30 mg capsule,delayed release(DR/EC) 30 mg PO DAILY Qty: 90 3RF Jardiance 25 mg tablet 25 mg PO DAILY Qty: 90 0RF ferrous sulfate [Feosol] 325 mg (65 mg iron) tablet 325 mg PO BID Qty: 180 0RF furosemide 40 mg tablet 40 mg PO BID Qty: 180 0RF glimepiride 4 mg tablet 4 mg PO DAILY Qty: 90 0RF isosorbide mononitrate 60 mg tablet extended release 24 hr 60 mg PO DAILY Qty: 90 1RF lisinopril 20 mg tablet 20 mg PO BID Qty: 180 0RF Brilinta 90 mg tablet 90 mg PO BID Qty: 180 0RF insulin degludec [Tresiba FlexTouch U-100] 100 unit/mL (3 mL) insulin pen See Rx Instructions .ROUTE .COMPLEX Qty: 15 2RF Rx Instructions: INJECT 100 UNITS UNDER THE SKIN AT BEDTIME NIGHTLY KEEP IN REFRIGERATOR medroxyprogesterone 10 mg tablet See Rx Instructions .ROUTE .COMPLEX Qty: 90 0RF Dose Instruction: TAKE 1 TABLET BY MOUTH DAILY FOR ESTROGEN Rx Instructions: TAKE 1 TABLET BY MOUTH DAILY FOR ESTROGEN omeprazole 40 mg capsule,delayed release(DR/EC) See Rx Instructions .ROUTE .COMPLEX Qty: 90 0RF Dose Instruction: TAKE 1 CAPSULE ORALLY DAILY FOR GERD Rx Instructions: TAKE 1 CAPSULE ORALLY DAILY FOR GERD gabapentin 600 mg tablet 600 mg PO TID Qty: 90 1RF metoprolol tartrate 25 mg tablet 25 mg PO BID (DME) pen needle, diabetic [Unifine Pentips] 32 gauge x 1/4 needle See Rx Instructions .Route Rx Instructions: Use 4 times daily or As directed Ozempic 1 mg/dose (4 mg/3 mL) pen injector 1 mg SQ WEEKLY Referrals Follow up/Referrals: Lilibeth Barger PA [Primary Care Provider] - See instructions Activity Restrictions/Add. Instructions Additional Instructions/Restrictions: Call your family doctor to establish care for this visit to the emergency department and schedule follow-up within 48 hours to ensure improvement. If you have any worsening of your condition or any other concerning signs or symptoms, return to the emergency department or your primary care doctor for further evaluation. Take Tylenol 1000 mg every 6 hours (4 times daily) and ibuprofen 400 mg every 6 hours (4 times daily) as needed with food and water to prevent GI upset and kidney damage. Clinical Impressions Clinical Impression: Left wrist sprain, Left elbow pain Discharge ED Provider: Timmy Catalan General Adult HPI General Chief complaint: Extremity Injury, Upper Stated complaint: AO05/11@1930 LT arm inj Time Seen by Provider: 05/11/23 19:54 Mode of Arrival: Ambulatory Source of Information: Patient Limitations: No Limitations Description of Symptoms (Recalled from ER Triage Doc. by RN): Patient was knocked over by family dog earlier today and landed on left wrist and arm. Patient is having left wrist and forearm 04/26 no treatment [employer]. History of Present Illness HPI narrative: Patient is 52 years old history of hypertension, hyperlipidemia, hypothyroidism, CAD, CO status post CABG currently on Plavix presenting with fall. Patient states that her dog tripped her just prior to arrival. Landed on outstretched left hand. Did not hit her head. Having pain in her left wrist and left elbow. No neurologic deficits. Related Data Home Medications Medication Instructions Recorded Confirmed nitroglycerin 0.4 mg sublingua
[2023-05-11 20:30] VITALS: BP 123/73; PULSE 77; RESP 16; O2SAT 99
[2023-05-11 21:00] VITALS: BP 120/79; PULSE 90; RESP 18; O2SAT 98
[2023-05-11 21:04] VITALS: BP 120/79; PULSE 85; RESP 14; TEMP 36.5; O2SAT 98
== END 2023-05-11 21:20 | disposition home or self-care (01) ==
PROVIDERS: Emergency Provider Emergency Medicine; PCP Physician Assistant
DX: S63.502A Unspecified sprain of left wrist, initial encounter (principal); M25.522 Pain in left elbow; I25.10 Atherosclerotic heart disease of native coronary artery without angina pectoris; I11.9 Hypertensive heart disease without heart failure; E78.5 Hyperlipidemia, unspecified; E11.9 Type 2 diabetes mellitus without complications; E03.9 Hypothyroidism, unspecified; K21.9 Gastro-esophageal reflux disease without esophagitis; G47.33 Obstructive sleep apnea (adult) (pediatric); Z79.01 Long term (current) use of anticoagulants; Z95.5 Presence of coronary angioplasty implant and graft; Z79.4 Long term (current) use of insulin; W19.XXXA Unspecified fall, initial encounter
CPT/HCPCS: 73090; 73110; 73130; 99283

== ENCOUNTER → 2023-06-13 10:14 | Outpatient (CLI) | payer MEDICARE, BC, SELFPAY ==
[2023-06-13 18:07] LABS: Influenza A, PCR Not Detected (NotDetected); Influenza B, PCR Not Detected (NotDetected)
[2023-06-13 19:50] LABS: Coronavirus 19, PCR Detected (NotDetected)
== END ==
PROVIDERS: PCP Internal Medicine; Visit Provider Internal Medicine
DX: U07.1 COVID-19 (principal); R06.09 Other forms of dyspnea; R11.2 Nausea with vomiting, unspecified; R09.81 Nasal congestion
CPT/HCPCS: 87636

== ENCOUNTER 2023-06-24 15:06 | Emergency (ER) | payer MEDICARE, BC, SELFPAY ==
--- NOTE | 2023-06-24 15:09 | XR_ITS ---
PROCEDURE INFORMATION: Exam: XR Right Knee Exam date and time: 06/24/2023 3:41 PM Age: 52 years old Clinical indication: Difficulty in walking and other: Pain and swelling at knee joint, anterior TECHNIQUE: Imaging protocol: Radiologic exam of the right knee. Views: 3 views. COMPARISON: No relevant prior studies available. FINDINGS: Bones/joints: There is tricompartmental osteoarthritis of the knee with loss of joint space, subchondral sclerosis, and productive changes. The osseous structures are intact, with no signs of acute fracture, dislocation, or malalignment. Age-related degenerative changes are observed. There is no evidence of abnormal bone density or destructive lesions. Small osseous excrescence of the medial tibia. Soft tissues: The soft tissues appear within normal limits. Surgical clips project in the soft tissues of the medial leg. IMPRESSION: At the time of imaging, the study shows no acute osseous abnormalities but does reveal signs of age-related degenerative changes.
[2023-06-24 15:20] VITALS: BP 102/64; PULSE 83; RESP 22; TEMP 36.5; O2SAT 98; BMI 35.2
--- NOTE | 2023-06-24 15:54 | EXP.UTC ---
Discharge Plan Disposition Patient Disposition: Home, Self-Care Condition: Good Prescriptions Prescriptions: No Action nitroglycerin 0.4 mg tablet, sublingual 0.4 mg sublingual Q5-15M PRN (Reason: .) Rx Instructions: do not exceed 3 doses per episode azithromycin [Zithromax Z-Jose] 250 mg tablet 250 mg PO .COMPLEX Qty: 6 0RF Rx Instructions: 2 tablets on day 1, one tablets on day 2 to 5. insulin aspart U-100 [Novolog PenFill U-100 Insulin] 100 unit/mL cartridge 25 unit SQ TID aspirin [Adult Aspirin Regimen] 81 mg tablet,delayed release (DR/EC) 81 mg PO DAILY Qty: 90 3RF atorvastatin 40 mg tablet 40 mg PO DAILY Qty: 90 3RF Rx Instructions: TAKE 1 TABLET BY MOUTH DAILY FOR HIGH CHOLESTEROL duloxetine 30 mg capsule,delayed release(DR/EC) 30 mg PO DAILY Qty: 90 3RF Jardiance 25 mg tablet 25 mg PO DAILY Qty: 90 0RF ferrous sulfate [Feosol] 325 mg (65 mg iron) tablet 325 mg PO BID Qty: 180 0RF furosemide 40 mg tablet 40 mg PO BID Qty: 180 0RF glimepiride 4 mg tablet 4 mg PO DAILY Qty: 90 0RF isosorbide mononitrate 60 mg tablet extended release 24 hr 60 mg PO DAILY Qty: 90 1RF lisinopril 20 mg tablet 20 mg PO BID Qty: 180 0RF Brilinta 90 mg tablet 90 mg PO BID Qty: 180 0RF insulin degludec [Tresiba FlexTouch U-100] 100 unit/mL (3 mL) insulin pen See Rx Instructions .ROUTE .COMPLEX Qty: 15 2RF Rx Instructions: INJECT 100 UNITS UNDER THE SKIN AT BEDTIME NIGHTLY KEEP IN REFRIGERATOR medroxyprogesterone 10 mg tablet See Rx Instructions .ROUTE .COMPLEX Qty: 90 0RF Dose Instruction: TAKE 1 TABLET BY MOUTH DAILY FOR ESTROGEN Rx Instructions: TAKE 1 TABLET BY MOUTH DAILY FOR ESTROGEN omeprazole 40 mg capsule,delayed release(DR/EC) See Rx Instructions .ROUTE .COMPLEX Qty: 90 0RF Dose Instruction: TAKE 1 CAPSULE ORALLY DAILY FOR GERD Rx Instructions: TAKE 1 CAPSULE ORALLY DAILY FOR GERD gabapentin 600 mg tablet 600 mg PO TID Qty: 90 1RF metoprolol tartrate 25 mg tablet 25 mg PO BID (DME) pen needle, diabetic [Unifine Pentips] 32 gauge x 1/4 needle See Rx Instructions .Route Rx Instructions: Use 4 times daily or As directed Ozempic 1 mg/dose (4 mg/3 mL) pen injector 1 mg SQ WEEKLY Referrals Follow up/Referrals: Lilibeth Barger PA [Primary Care Provider] - See instructions Activity Restrictions/Add. Instructions Additional Instructions/Restrictions: *weight bearing as tolerated *RICE, Rest the extremity, Ice 15-20 minutes 3-4 times daily, Compress- wear the janine wrap as discussed as much as possible to help reduce swelling and pain, Elevate the extremity when at rest *Knee immobilizer is for support and help control swelling, use it except in the shower. Be sure that is not to tight but not to loose either cannot use it for driving *Elevate when resting? *Ibuprofen 600-800mg every 6-8 hours as needed for pain an inflammation if you can take it. If need something more can take Tylenol in between doses of Ibuprofen to help Immediately follow up with your family doctor for new or worsening of symptoms, or no noticeable improvement over the next 3-5 days Clinical Impressions Clinical Impression: Knee sprain Qualifiers: Encounter type: initial encounter Involved ligament of knee: unspecified ligament Laterality: right Qualified Code(s): S83.91XA - Sprain of unspecified site of right knee, initial encounter Instructions Patient Instructions: How To Perform RICE (Rest, Ice, Compress, Elevate), How to Use a Knee Immobilizer, How to Use Crutches Discharge ED Provider: Inna Vaughn [facility] [place] Stated complaint: RT knee pain Mode of Arrival: Ambulatory Source of Information: Patient Limitations: No Limitations Time Seen by Provider: 06/24/23 15:54 Description of Symptoms (Recalled from Triage Doc. by RN): PATIENT C/O PAIN AND
[2023-06-24 16:20] VITALS: BP 102/64; PULSE 83; RESP 22; TEMP 36.5; O2SAT 98
== END 2023-06-24 16:49 | disposition home or self-care (01) ==
PROVIDERS: Emergency Provider Nurse Practitioner; PCP Physician Assistant
DX: S83.91XA Sprain of unspecified site of right knee, initial encounter (principal); M25.561 Pain in right knee; X50.0XXA Overexertion from strenuous movement or load, initial encounter; E11.9 Type 2 diabetes mellitus without complications; K21.9 Gastro-esophageal reflux disease without esophagitis; I10 Essential (primary) hypertension; E78.5 Hyperlipidemia, unspecified; Z79.4 Long term (current) use of insulin; Z79.85 Long-term (current) use of injectable non-insulin antidiabetic drugs; Z79.84 Long term (current) use of oral hypoglycemic drugs
CPT/HCPCS: 73562; 99212; 99214; G0463

== ENCOUNTER → 2023-06-30 23:00 | Outpatient (CLI) | payer MEDICARE, BC, SELFPAY ==
[2023-06-30 19:07] LABS: Amphetamine/Metha Screen,Urine Negative ng/ml (<1000)
[2023-06-30 19:09] LABS: Cannabinoid Screen,Urine Negative ng/ml (<50)
[2023-06-30 19:10] LABS: Barbiturates Screen,Urine Negative ng/ml (<200); Benzodiazepines Screen,Urine Negative ng/ml (<200)
[2023-06-30 19:11] LABS: Opiate Screen,Urine Negative ng/ml (<300)
[2023-06-30 19:12] LABS: Cocaine Screen,Urine Negative ng/ml (<300); Methadone Screen,Urine Negative ng/ml (<300)
[2023-06-30 19:14] LABS: Phencyclidine Screen,Urine Negative ng/ml (<25)
== END ==
PROVIDERS: Visit Provider Family Medicine
DX: Z79.899 Other long term (current) drug therapy (principal)
CPT/HCPCS: 80305; 87086

== ENCOUNTER 2023-07-26 13:13 | Outpatient (CLI) | payer MEDICARE, BC, SELFPAY ==
--- NOTE | 2023-07-26 13:13 | MM_ITS ---
PROCEDURE INFORMATION: Exam: MG Bilateral Screening 3D Mammography Exam date and time: 07/26/2023 1:22 PM Age: 53 years old Clinical indication: Screening examination TECHNIQUE: Imaging protocol: Bilateral Screening tomosynthesis and 2D mammography including computer-aided detection (CAD) when performed. COMPARISON: No relevant prior studies available. FINDINGS: MAMMOGRAPHY: Breast composition: There are scattered areas of fibroglandular density. Mass: None. Architectural distortion: None. Calcifications: No suspicious calcifications. Asymmetric density: None. Skin thickening: None. Axillary adenopathy: None. IMPRESSION: No mammographic evidence of malignancy. Annual screening is recommended unless otherwise clinically indicated. ASSESSMENT: BI-RADS Category 1: Negative
== END 2023-07-26 23:59 ==
LOC: RAD 13:13
PROVIDERS: Visit Provider Family Medicine
DX: Z12.31 Encounter for screening mammogram for malignant neoplasm of breast (principal)
CPT/HCPCS: 77063; 77067

== ENCOUNTER 2023-09-09 19:33 | Outpatient (CLI) | payer MEDICARE, BC, SELFPAY ==
[2023-09-09 17:27] LABS: Coronavirus 19, PCR Not Detected (NotDetected); Influenza A, PCR Not Detected (NotDetected); Influenza B, PCR Not Detected (NotDetected)
== END 2023-09-09 23:59 ==
LOC: LAB.DROPOF 19:34
PROVIDERS: PCP Family Medicine; Visit Provider Family Medicine
DX: R06.02 Shortness of breath (principal); J06.9 Acute upper respiratory infection, unspecified; J01.90 Acute sinusitis, unspecified
CPT/HCPCS: 87636

== ENCOUNTER 2023-09-10 04:25 | Emergency (ER) | payer MEDICARE, BC, SELFPAY ==
[2023-09-10 04:27] VITALS: BP 101/74; PULSE 88; RESP 17; TEMP 36.6; O2SAT 100; BMI 34.3
--- NOTE | 2023-09-10 04:31 | ED_ITS ---
Discharge Plan Disposition Patient Disposition: Home, Self-Care Prescriptions Prescriptions: No Action nitroglycerin 0.4 mg tablet, sublingual 0.4 mg sublingual Q5-15M PRN (Reason: .) Rx Instructions: do not exceed 3 doses per episode aspirin [Adult Aspirin Regimen] 81 mg tablet,delayed release (DR/EC) 81 mg PO DAILY Qty: 90 3RF duloxetine 30 mg capsule,delayed release(DR/EC) 30 mg PO DAILY Qty: 90 3RF Jardiance 25 mg tablet 25 mg PO DAILY Qty: 90 0RF ferrous sulfate [Feosol] 325 mg (65 mg iron) tablet 325 mg PO BID Qty: 180 0RF furosemide 40 mg tablet 40 mg PO BID Qty: 180 0RF glimepiride 4 mg tablet 4 mg PO DAILY Qty: 90 0RF insulin degludec [Tresiba FlexTouch U-100] 100 unit/mL (3 mL) insulin pen See Rx Instructions .ROUTE .COMPLEX Qty: 15 2RF Rx Instructions: INJECT 100 UNITS UNDER THE SKIN AT BEDTIME NIGHTLY KEEP IN REFRIGERATOR isosorbide mononitrate 60 mg tablet extended release 24 hr 60 mg PO DAILY Qty: 90 1RF lisinopril 20 mg tablet 20 mg PO BID Qty: 180 0RF medroxyprogesterone 10 mg tablet See Rx Instructions .ROUTE .COMPLEX Qty: 90 0RF Dose Instruction: TAKE 1 TABLET BY MOUTH DAILY FOR ESTROGEN Rx Instructions: TAKE 1 TABLET BY MOUTH DAILY FOR ESTROGEN metoprolol tartrate 25 mg tablet 25 mg PO BID Qty: 60 4RF omeprazole 40 mg capsule,delayed release(DR/EC) See Rx Instructions .ROUTE .COMPLEX Qty: 90 0RF Dose Instruction: TAKE 1 CAPSULE ORALLY DAILY FOR GERD Rx Instructions: TAKE 1 CAPSULE ORALLY DAILY FOR GERD clopidogrel [Plavix] 75 mg tablet 75 mg PO DAILY Qty: 90 3RF Ozempic 2 mg/dose (8 mg/3 mL) pen injector 2 mg SQ WEEKLY Qty: 3 2RF amoxicillin 500 mg tablet 500 mg PO BID 10 Days Qty: 20 0RF gabapentin 600 mg tablet See Rx Instructions .ROUTE .COMPLEX Qty: 90 0RF Dose Instruction: TAKE 1 TABLET BY MOUTH THREE TIMES DAILY FOR NERVE PAIN Rx Instructions: TAKE 1 TABLET BY MOUTH THREE TIMES DAILY FOR NERVE PAIN insulin aspart U-100 [Novolog PenFill U-100 Insulin] 100 unit/mL cartridge 25 unit SQ TID atorvastatin 40 mg tablet 40 mg PO DAILY Qty: 90 3RF Rx Instructions: TAKE 1 TABLET BY MOUTH DAILY FOR HIGH CHOLESTEROL (DME) pen needle, diabetic [Unifine Pentips] 32 gauge x 1/4 needle See Rx Instructions .Route Rx Instructions: Use 4 times daily or As directed Referrals Follow up/Referrals: Lilibeth Barger PA [Primary Care Provider] - See instructions Activity Restrictions/Add. Instructions Additional Instructions/Restrictions: Please use warm compresses today to help resolve your stye. Please keep your groin clean and dry. Recommend using [id number] antifungal cream. Clinical Impressions Clinical Impression: Hordeolum externum left upper eyelid, Tinea cruris Discharge ED Provider: Gerald Choe General Adult HPI General Chief complaint: Eye Problems Stated complaint: pain, swelling left eye Time Seen by Provider: 09/10/23 04:29 History of Present Illness HPI narrative: 53-year-old female with history as reported below presents with left eye pain and inguinal yeast infection. Reports she woke up with left eye pain and swelling in her left upper eyelid. She also reports chronic yeast infections in her groins. She denies any other symptoms. Reports normal vision. Reports no trauma to the eye. Related Data Home Medications Medication Instructions Recorded Confirmed nitroglycerin 0.4 mg sublingual 0.4 mg sublingual Q5-15M PRN . 12/24/22 09/09/23 tablet insulin aspart U-100 100 unit/mL 25 unit SQ TID Diabetes 02/03/23 09/09/23 subcutaneous cartridge (Novolog PenFill U-100 Insulin aspart) pen needle, diabetic 32 gauge x 03/29/23 09/09/23/4 (Unifine Pentips) Previous Rx's Medication Instructions Recorded atorvastatin 40 mg tablet 40 mg PO DAILY Cholesterol #90 tabs 03/22/23 aspirin 81 mg tablet,delayed 81 mg PO DAILY heart health #90 06/30/23 release (Adult Aspirin Regimen) tabs clopidogrel 75 mg tablet (Plavix) 75 mg PO DAILY #90 tabs 06/30/23 duloxetine 30 mg capsule,delayed 30 mg PO DAILY . #90 caps 06/30/23 release empagliflozin 25 mg tablet 25 mg PO DAILY Diabetes #90 tabs 06/30/23 (Jardiance) ferrous sulfate 325 mg (65 mg 325 mg PO BID Supplement #180 tabs 06/30/23 iron) tablet (Feosol) furosemide 40 mg tablet 40 mg PO BID swelling #180 tabs 06/30/23 glimepiride 4 mg tablet 4 mg PO DAILY high blood glucose 06/30/23 #90 tabs insulin degludec 100 unit/mL (3 See Rx Instructions .Route 06/30/23 mL) subcutaneous pen (Tresiba .COMPLEX Diabetes #15 mL FlexTouch U-100 insulin) isosorbide mononitrate 60 mg 60 mg PO DAILY High blood pressure 06/30/23 tablet,extended release 24 hr #90 tabs lisinopril 20 mg tablet 20 mg PO BID High blood pressure 06/30/23 #180 tabs medroxyprogesterone 10 mg tablet See Rx Instructions .Route 06/30/23 .COMPLEX #90 tabs metoprolol tartrate 25 mg tablet 25 mg PO BID htn #60 tabs 06/30/23 omeprazole 40 mg capsule,delayed See Rx Instructions .Route 06/30/23 release .COMPLEX #90 caps semaglutide 2 mg/dose (8 mg/3 mL) 2 mg (0.75 mL) SQ WEEKLY #3 mL 06/30/23 subcutaneous pen injector (Ozempic) amoxicillin 500 mg tablet 500 mg PO BID 10 days #20 tabs 09/09/23 gabapentin 600 mg tablet See Rx Instructions .Route 09/09/23 .COMPLEX #90 tabs Allergies Allergy/AdvReac Type Severity Reaction Status Date / Time metformin Allergy Intermediate Rash Verified 09/09/23 09:20 cephalexin [From Keflex] Allergy Verified 09/09/23 09:20 [facility] Disclaimer: The information contained in this section may have been updated after the patient was seen, as this information can be updated by other users. Medical History Dyspnea Edema of both lower extremities GERD (gastroesophageal reflux disease) HLD (hyperlipidemia) HTN (hypertension) PASHA (obstructive sleep apnea) Right ventricular dysfunction Type 2 diabetes mellitus Typical angina Surgical History History of open heart surgery History of right cataract extraction Family History Other Family history of diabetes mellitus type II Family history of hypertension Family history of myocardial infarction Social History Smoking Status: Never smoker alcohol intake: never current occupational status: unemployed Travel in the last 8 weeks: None caffeine: Yes ROS Obtained: Yes All systems reviewed & no additional complaints except as documented Physical Exam General General appearance: alert and in no apparent distress Head Head exam: atraumatic and normocephalic Eye Eye exam: Present PERRL, EOMI and other (Left upper eyelid hordeolum noted,); Absent conjunctival injection ENT ENT exam: Present normal oropharynx and normal external ear exam Neck Neck exam: Present normal inspection and full ROM Chest Chest inspection: Present normal inspection and symmetric chest wall rise; Absent tenderness Respiratory Respiratory exam: Present normal lung sounds bilaterally; Absent respiratory distress Cardiovascular Cardiovascular exam: Present regular rate and normal rhythm Abdominal Exam Abdominal exam: Present soft; Absent distention, tenderness or guarding Extremities Exam Extremities exam: Present normal inspection and other (Inguinal yeast infection noted); Absent edema or joint swelling Back Exam Back exam: Present normal inspection; Absent tenderness Neurological Exam Neurological exam: Present alert and oriented X3; Absent motor sensory deficit Psychiatric Psychiatric exam: Present normal affect and normal mood Skin Skin exam: Present warm, dry and normal color Lymphatic Lymphatic Findings: no adenopathy Medical Decision Making Medical Records Medical records reviewed: Yes I reviewed the patient's medical records. Papi Inquiry Pt receiving controlled substance: No Papi was queried for this patient: No Vital Signs: 09/10/23 04:27 Temperature 97.8 F Temperature Source Oral Pulse Rate [Left Radial] 88 Respiratory Rate 17 Blood Pressure [Right Arm] 101/74 L Blood Pressure Mean [Right Arm] 83 Blood Pressure Source [Right Arm] Automatic Cuff Blood Pressure Position [Right Arm] Sitting 02 Sat by Pulse Oximetry 100 Oxygen Delivery Method Room Air Lab Data Lab results reviewed: Yes I reviewed the patient's lab results. Orders (Tests/Meds): ED MEDICATIONS Discontinued Medications Generic Name Dose Route Start Last Admin Trade Name Freq PRN Reason Stop Dose Admin Erythromycin 1 gm 09/10/23 04:47 09/10/23 04:57 Erythromycin Base 1 Gm Oint...G. OP 09/10/23 04:48 1 gm ONCE ONE Administration Medical Decision Narrative: 53-year-old female with history as reported above presents with acute left upper eyelid pain and redness and swelling as well as chronic inguinal yeast infection. History was obtained interactive discussion with patient. On arrival, patient is [afebrile, hemodynamically stable, satting appropriately, alert, oriented x4, GCS 15], moving all extremities spontaneously. Full physical exam performed and significant for findings consistent with left upper eyelid hordeolum and chronic inguinal yeast infection. Differential includes but is not limited to hordeolum, chalazion, conjunctivitis, corneal abrasion, yeast infection, cellulitis. Patient was given erythromycin ointment for symptomatic management and correction of underlying abnormalities. Exam consistent with left upper eyelid hordeolum and yeast infection of the groin. Patient was instructed to use warm compresses multiple times per day at the left eye to improve symptoms as well as utilizing erythromycin ointment. Patient instructed regarding cleanliness keeping the groin dry, and using [id number] topical antifungals. Patient discharged in stable condition. Procedures Risk/Benefits of Procedure(s) Were Explained: Yes Critical Care Critical Care Time Critical Care Time: No
[2023-09-10] MEDS: ERYTHROMYCIN BASE 1 GM OINT...G. OP (04:57)
[2023-09-10 05:02] VITALS: BP 110/70; PULSE 80; RESP 17; TEMP 36.7; O2SAT 98
== END 2023-09-10 05:03 | disposition home or self-care (01) ==
PROVIDERS: Emergency Provider Emergency Medicine; PCP Physician Assistant
DX: H00.014 Hordeolum externum left upper eyelid (principal); B35.6 Tinea cruris; K21.9 Gastro-esophageal reflux disease without esophagitis; I10 Essential (primary) hypertension; E78.5 Hyperlipidemia, unspecified; E11.9 Type 2 diabetes mellitus without complications; G47.33 Obstructive sleep apnea (adult) (pediatric); I20.9 Angina pectoris, unspecified
CPT/HCPCS: 99283

== ENCOUNTER 2023-09-12 18:06 | Outpatient (CLI) | payer MEDICARE, BC, SELFPAY ==
[2023-09-26 19:06] LABS: Free Thyroxine Index 8.4 ug/dL (5.93-13.13); T4 (Thyroxine) 17.5 ug/dl (5.53-11.0); Triiodothryronine (T3) Uptake 48 % (23.5-40.5)
[2023-09-26 19:19] LABS: Thyroid Stimulating Hormone < 0.02 uIU/mL (0.465-4.68)
== END 2023-09-12 23:59 ==
LOC: LAB.DROPOF 09-26 18:06
PROVIDERS: PCP Family Medicine; Visit Provider Family Medicine
DX: E03.8 Other specified hypothyroidism (principal)
CPT/HCPCS: 84436; 84443; 84479

== ENCOUNTER 2023-10-04 10:13 | Outpatient (CLI) | payer MEDICARE, BC, SELFPAY ==
[2023-10-04 10:19] VITALS: BMI 35.6
[2023-10-04 11:01] VITALS: BP 123/68; PULSE 91; RESP 16; TEMP 36.8; O2SAT 98
[2023-10-04] MEDS: ONDANSETRON 4MG/2ML VIAL 8 MG IV (11:01)
[2023-10-04] MEDS: 0.9 % SODIUM CHLORIDE 1000ML 1,000 ML 999 ML IV (11:01)
[2023-10-04] MEDS: PANTOPRAZOLE 40MG VIAL 40 MG IV (11:15)
[2023-10-04 11:21] LABS: Basophils # 0.1 K/mm3 (0-0.2); Basophils % 0.7 % (0.1-2.0); Eosinophils # 0.1 K/mm3 (0.0-0.4); Eosinophils % 1.3 % (0.1-12.0); Hematocrit 42.8 % (37.0-47.0); Lymphocytes % 21.4 % (10-50); Mean Corpuscular HGB Conc 32.7 g/dL (31.8-35.4); Mean Corpuscular Hemoglobin 29.6 pg (27.0-31.2); Mean Corpuscular Volume 90.5 fl (81-99); Mean Platelet Volume 10.5 fl (7.4-10.4); Monocytes # 0.5 K/mm3 (0.1-1.0); Monocytes % 4.9 % (1.7-9.3); Neutrophils # 6.6 K/mm3 (1.8-7.8); Neutrophils % 71.6 % (37.0-80.0); Platelet Count 151 K/mm3 (142-424); Red Blood Count 4.73 M/mm3 (4.20-5.40); Red Cell Distribution Width 13.3 % (11.5-17.5); White Blood Count 9.2 K/mm3 (4.8-10.8)
[2023-10-04 11:24] LABS: Chloride 107 mmol/L (98-107); Potassium 3.9 mmoL/L (3.5-5.1); Sodium 137 mmol/L (136-145)
[2023-10-04 11:26] LABS: Amylase 40 U/L (30-110); Blood Urea Nitrogen 14 mg/dl (7-17); Creatinine Clearance Estimated 194 mL/min (50-200); Estimated Glomerular Filt Rate 129 ml/min (>60); GFR (African American) 156 ML/MIN (>60); Hemoglobin A1C 9.2 % (4.0-6.0)
[2023-10-04 11:27] LABS: Alanine Aminotransferase 34 U/L (12-78); Albumin Level 3.5 g/dl (3.5-5.0); Alkaline Phosphatase 219 U/L (38-126); Anion Gap 6.9 mEq/L (5-15); Aspartate Amino Transferase 36 U/L (14-36); Bilirubin,Total 1.9 mg/dl (0.2-1.3); Calcium 9.2 mg/dl (8.4-10.2); Carbon Dioxide 27 mmol/L (22.0-30.0); Globulin 3.4 g/dL (1.3-3.2); Glucose 185 mg/dl (74-100); Lipase 33 U/L (23-300); Total Protein,Serum 6.9 g/dl (6.3-8.2)
[2023-10-04 11:57] LABS: Thyroid Stimulating Hormone < 0.02 uIU/mL (0.465-4.68)
[2023-10-04 12:10] VITALS: BP 115/69; PULSE 81; RESP 16; TEMP 36.8; O2SAT 98
== END 2023-10-04 12:10 | disposition home or self-care (01) ==
LOC: INF 10:14
PROVIDERS: PCP Physician Assistant; Visit Provider Physician Assistant
DX: E86.0 Dehydration; R11.2 Nausea with vomiting, unspecified; R19.7 Diarrhea, unspecified; E11.40 Type 2 diabetes mellitus with diabetic neuropathy, unspecified; E66.9 Obesity, unspecified; Z68.35 Body mass index [BMI] 35.0-35.9, adult; Z79.4 Long term (current) use of insulin; R94.6 Abnormal results of thyroid function studies
CPT/HCPCS: 36415; 80053; 82150; 83036; 83690; 84443; 85025; 96360; 96375; J2405

== ENCOUNTER 2023-10-06 10:54 | Outpatient (CLI) | payer MEDICARE, BC, SELFPAY ==
[2023-10-06 11:00] LABS: Adenovirus F 40/41, stool Not Detected (NotDetected); Astrovirus Not Detected (NotDetected); Campylobacter Not Detected (NotDetected); Clostridium Difficile A/B, PCR Not Detected (NotDetected); Cryptosporidium Not Detected (NotDetected); Cyclospora Cayetanesis Not Detected (NotDetected); Entamoeba histolytica Not Detected (NotDetected); Enteroaggregative E coli Not Detected (NotDetected); Enteropathogenic E coli Not Detected (NotDetected); Enterotoxigenic E coli Not Detected (NotDetected); Giardia lamblia Not Detected (NotDetected); Norovirus Not Detected (NotDetected); Plesimonas Shigalloides, PCR Not Detected (NotDetected); Rotavirus A Not Detected (NotDetected); Salmonella, PCR Not Detected (NotDetected); Sapovirus Not Detected (NotDetected); Shiga-like toxin E coli Not Detected (NotDetected); Shigella Enterovasive E coli Not Detected (NotDetected); Vibrio Cholerae Not Detected (NotDetected); Vibrio, PCR Not Detected (NotDetected); Yersinia Entercolitica, PCR Not Detected (NotDetected)
== END 2023-10-06 23:59 ==
LOC: LAB.DROPOF 10:55
PROVIDERS: PCP Physician Assistant; Visit Provider Physician Assistant
DX: R19.7 Diarrhea, unspecified (principal); Z79.899 Other long term (current) drug therapy
CPT/HCPCS: 87506

== ENCOUNTER 2023-10-17 08:10 | Outpatient (CLI) | payer MEDICARE, BC, SELFPAY ==
--- NOTE | 2023-10-17 08:10 | US_ITS ---
FINAL REPORT CLINICAL HISTORY: Elevated liver enzymes COMPARISON: None FINDINGS: Sonographic images of the right upper quadrant were obtained. The pancreas is partially obscured.The liver has an unremarkable appearance. Multiple gallstones are noted in the gallbladder. There is no evidence of biliary ductal dilatation.The common duct measures 4mm. Limited images of the right kidney are unremarkable. IMPRESSION: Cholelithiasis. Reviewed, Interpreted and Dictated by Jeovany Self III, MD Transcribed by Ofelia Chambers Authenticated and [facility]
[2023-10-17 09:30] LABS: Alanine Aminotransferase 26 U/L (12-78); Albumin Level 3.2 g/dl (3.5-5.0); Alkaline Phosphatase 177 U/L (38-126); Aspartate Amino Transferase 27 U/L (14-36); Bilirubin,Indirect 1.6 mg/dL (0.0-0.9); Bilirubin,Total 1.6 mg/dl (0.2-1.3); Bilirubin,Unconjugated 1.5 mg/dL (0.0-1.1); Total Protein,Serum 6.2 g/dl (6.3-8.2)
[2023-10-18 05:13] LABS: HBsAg Screen Negative (Negative); HCV Ab Non Reactive (Non Reactive); Hep A Ab, IGM Negative (Negative); Hep B Core Ab, IgM Negative (Negative)
== END 2023-10-17 23:59 ==
PROVIDERS: PCP Physician Assistant; Visit Provider Physician Assistant
DX: R74.8 Abnormal levels of other serum enzymes (principal); R10.11 Right upper quadrant pain
CPT/HCPCS: 36415; 76705; 80074; 80076

== ENCOUNTER 2023-10-22 09:26 | Outpatient (CLI) | payer MEDICARE, BC, SELFPAY ==
[2023-10-22 11:24] LABS: Lactate Dehydrogenase 175 U/L (313-618)
== END 2023-10-22 23:59 ==
LOC: LAB 09:28
PROVIDERS: PCP Physician Assistant; Visit Provider Physician Assistant
DX: R17 Unspecified jaundice (principal)
CPT/HCPCS: 36415; 83615

== ENCOUNTER 2023-10-28 08:55 | Observation (INO) | payer MEDICARE, BC, SELFPAY ==
[2023-10-28] VITALS (19 sets, daily range): BP systolic 110–150; BP diastolic 43–90; PULSE 110–151; RESP 12–24; TEMP 36.7–36.9; O2SAT 98–100; BMI 36.0; BMI 35.5; BMI 35.3
--- NOTE | 2023-10-28 09:00 | ECG_ITS ---
APPROVED REPORT Exam: Resting ECG HR:140 bpm ECG Measurements Heart Rate 140 AXES WI 134 P 71 QRSd 95 QRS 72 QT 294 T 42 QTc 376 Conclusion Sinus tachycardia Incomplete right bundle branch block Electronically signed by : MAGNOLIA CARREON, 10/28/2023 14:29:50
--- NOTE | 2023-10-28 09:08 | XR_ITS ---
FINAL REPORT CLINICAL HISTORY: palpitations FINDINGS: SINGLE-VIEW CHEST There is cardiomegaly. The patient is status post median sternotomy. The lungs are clear. There is no pneumothorax. IMPRESSION: No acute cardiopulmonary process. Reviewed, Interpreted and Dictated by Jeovany Self III, MD Transcribed by Karen Mayberry Authenticated and . [facility]
[2023-10-28 09:12] LABS: Microscopic, Urine URINE MICROSCOPIC (MICROSCOPIC)
--- NOTE | 2023-10-28 09:12 | PC.NURSE ---
Dr. Catalan at [facility] for pt eval
[2023-10-28 09:15] LABS: Appearance,Urine CLEAR (Clear); Blood, Urine TRACE-I (Negative); Color,Urine YELLOW (Yellow); Glucose,Urine (UA) 3+ (Negative); Ketones,Urine 3+ (Negative); Leukocyte Esterase,Urine Negative (Negative); Nitrate,Urine Negative (Negative); PH,Urine 5.5 (5.0-8.5); Protein,Urine Negative (Negative); Specific Gravity, Urine 1.025 (1.005-1.030); Urobilinogen,Urine 0.2 EU/dl (0.2)
--- NOTE | 2023-10-28 09:18 | HMH.EDGENADL ---
Discharge Plan Disposition Patient Disposition: Admitted Chief Complaint: Nausea/Vomiting/Diarrhea Prescriptions Prescriptions: No Action clopidogrel [Plavix] 75 mg tablet 75 mg PO DAILY Qty: 90 3RF Ozempic 2 mg/dose (8 mg/3 mL) pen injector 2 mg SQ WEEKLY Qty: 3 2RF insulin glargine [Lantus Solostar U-100 Insulin] 100 unit/mL (3 mL) insulin pen 80 unit SQ HS Qty: 15 2RF insulin aspart U-100 [Novolog PenFill U-100 Insulin] 100 unit/mL cartridge 25 unit SQ TID (DME) pen needle, diabetic [BD Ultra-Fine Sary Pen Needle] 32 gauge x 5/32 needle See Rx Instructions .ROUTE .MEDSUPPLY Qty: 1200 Rx Instructions: As directed (DME) Monoject Safety Syringes 3 mL 21 gauge x 1 syringe See Rx Instructions .Route Qty: 30 1RF Rx Instructions: once daily or As directed (DME) pen needle, diabetic [Unifine Pentips] 32 gauge x 1/4 needle See Rx Instructions .Route Rx Instructions: Use 4 times daily or As directed furosemide 40 mg tablet 40 mg PO BID medroxyprogesterone 10 mg tablet 10 mg PO DAILY atorvastatin 40 mg tablet 40 mg PO DAILY gabapentin 600 mg tablet 600 mg PO TID lisinopril 20 mg tablet 20 mg PO BID omeprazole 40 mg capsule,delayed release(DR/EC) 40 mg PO DAILY aspirin [Adult Aspirin Regimen] 81 mg tablet,delayed release (DR/EC) 81 mg PO DAILY isosorbide mononitrate 60 mg tablet extended release 24 hr 60 mg PO DAILY ferrous sulfate [Feosol] 325 mg (65 mg iron) tablet 325 mg PO BID glimepiride 4 mg tablet 4 mg PO DAILY ondansetron 4 mg tablet,disintegrating 4 mg PO Q8HP PRN (Reason: nausea and vomiting) metoprolol tartrate 25 mg tablet 25 mg PO BID duloxetine 30 mg capsule,delayed release(DR/EC) 30 mg PO DAILY Jardiance 25 mg tablet 25 mg PO DAILY Referrals Follow up/Referrals: Lilibeth Barger PA [Primary Care Provider] - See instructions Clinical Impressions Clinical Impression: DKA (diabetic ketoacidosis), Vomiting, Metabolic acidosis Instructions Patient Instructions: DI for Diarrhea and Traveler's Diarrhea -- Adult, DI for Diarrhea and Traveler's Diarrhea -- Child, DI for Nausea -- Adult, DI for Nausea -- Child Discharge ED Provider: Timmy Catalan General Adult HPI General Chief complaint: Nausea/Vomiting/Diarrhea Stated complaint: abd pain, vomiting Time Seen by Provider: 10/28/23 09:04 Mode of Arrival: Ambulatory Source of Information: Patient Limitations: No Limitations Description of Symptoms (Recalled from ER Triage Doc. by RN): Patient states she has been having stomach pains, nausea and vomiting since Tuesday night. Unable to tolerate PO. Patient reports she has been taking ozempic since 2021 and has these episodes frequently. History of Present Illness HPI narrative: 53-year-old female history of 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 Patient states that she received her semaglutide injection 2 days previously. Shortly thereafter, started having severe epigastric pain and vomiting. Has been vomiting with any p.o. intake since that time. No pain, shortness of breath, diarrhea, flank pain, urinary symptoms, fevers or chills, cough, recent sick contacts, recent travel, any other medication changes patient states this happens every time she receives Ozempic injections, but reports she is told it is unrelated to her injections. Please note that above description of symptoms, in this electronic medical record under categorization of recalled from ER triage doctor by RN are reflective of an initial nursing assessment, however, is not reflective of my full history and physical exam that was personally taken and clarified. Consequentially, this preceding description of symptoms, which may include the patient's categorized chief complaint in the EMR, do not reflect my personal clinical impression, and the ultimate description of history of present illness and patient stated complaints should be deferred to this section of the note. Unless stated otherwise or congruent with this section of the note, additional signs, symptoms, or incongruence should be interpreted as inaccurate with my clinical impression. Related Data Home Medications Medication Instructions Recorded Confirmed insulin aspart U-100 100 unit/mL 25 unit SQ TID 02/03/23 10/28/23 subcutaneous cartridge (Novolog PenFill U-100 Insulin aspart) pen needle, diabetic 32 gauge x 03/29/23 10/28/23/ (Unifine Pentips) pen needle, diabetic 32 gauge x #1,200 ea 10/27/23 10/28/2332 (BD Ultra-Fine Sary Pen Needle) aspirin 81 mg tablet,delayed 81 mg PO DAILY 10/28/23 10/28/23 release (Adult Aspirin Regimen) atorvastatin 40 mg tablet 40 mg PO DAILY 10/28/23 10/28/23 duloxetine 30 mg capsule,delayed 30 mg PO DAILY 10/28/23 10/28/23 release empagliflozin 25 mg tablet 25 mg PO DAILY 10/28/23 10/28/23 (Jardiance) ferrous sulfate 325 mg (65 mg 325 mg PO BID 10/28/23 10/28/23 iron) tablet (Feosol) furosemide 40 mg tablet 40 mg PO BID 10/28/23 10/28/23 gabapentin 600 mg tablet 600 mg PO TID 10/28/23 10/28/23 glimepiride 4 mg tablet 4 mg PO DAILY 10/28/23 10/28/23 isosorbide mononitrate 60 mg 60 mg PO DAILY 10/28/23 10/28/23 tablet,extended release 24 hr lisinopril 20 mg tablet 20 mg PO BID 10/28/23 10/28/23 medroxyprogesterone 10 mg tablet 10 mg PO DAILY 10/28/23 10/28/23 metoprolol tartrate 25 mg tablet 25 mg PO BID 10/28/23 10/28/23 omeprazole 40 mg capsule,delayed 40 mg PO DAILY 10/28/23 10/28/23 release ondansetron 4 mg disintegrating 4 mg PO Q8HP PRN nausea and 10/28/23 10/28/23 tablet vomiting Previous Rx's Medication Instructions Recorded clopidogrel 75 mg tablet (Plavix) 75 mg PO DAILY #90 tabs 06/30/23 semaglutide 2 mg/dose (8 mg/3 mL) 2 mg (0.75 mL) SQ WEEKLY #3 mL 06/30/23 subcutaneous pen injector (Ozempic) syringe with needle, safety 3 mL #30 ea 09/19/23 21 gauge x 1 (Monoject Safety Syringes) insulin glargine 100 unit/mL (3 80 unit (0.8 mL) SQ HS #15 mL 10/04/23 mL) subcutaneous pen (Lantus Solostar U-100 Insulin) Allergies Allergy/AdvReac Type Severity Reaction Status Date / Time metformin Allergy Intermediate Rash Verified 10/27/23 13:41 cephalexin [From Keflex] Allergy Verified 10/27/23 13:41 PFSH PFS Disclaimer: The information contained in this section may have been updated after the patient was seen, as this information can be updated by other users. Medical History (Updated 10/28/23 @ 11:19 by Timmy Catalan MD) Hemolytic anemia Right ventricular dysfunction PASHA (obstructive sleep apnea) Edema of both lower extremities Dyspnea Typical angina HLD (hyperlipidemia) HTN (hypertension) GERD (gastroesophageal reflux disease) Type 2 diabetes mellitus Surgical History History of right cataract extraction History of open heart surgery Family History Other Family history of diabetes mellitus type II Family history of hypertension Family history of myocardial infarction Social History (Updated 10/04/23 @ 15:06 by Amee Jordan RN) Smoking Status: Never smoker alcohol intake: never current occupational status: unemployed Travel in the last 8 weeks: None caffeine: Yes ROS Obtained: Yes All systems reviewed & no additional complaints except as documented Physical Exam General General appearance: alert, in distress and other (Intermittently retching) Head Head exam: atraumatic and normocephalic Eye Eye exam: Present normal appearance, PERRL and EOMI ENT ENT exam: Present mucous membranes moist Neck Neck exam: Present normal inspection, full ROM and trachea midline Respiratory Respiratory exam: Present normal lung sounds bilaterally; Absent respiratory distress, wheezes, stridor, accessory muscle use or prolonged expiratory phase Cardiovascular Cardiovascular exam: Present normal rhythm and tachycardia Abdominal Exam Abdominal exam: Present soft and tenderness; Absent distention, guarding, rebound or rigidity Abdominal tenderness: Present epigastrium and mild Extremities Exam Extremities exam: Absent edema Neurological Exam Neurological exam: Present alert, oriented X3, CN II-XII intact and normal gait; Absent motor sensory deficit Skin Skin exam: Present warm and dry; Absent diaphoresis or erythema Medical Decision Making Medical Records Medical records reviewed: Yes I reviewed the patient's medical records. Papi Inquiry Pt receiving controlled substance: No Papi was queried for this patient: No Vital Signs: 10/28/23 08:56 10/28/23 09:02 10/28/23 10:04 Temperature 98.3 F Temperature Source Tympanic Pulse Rate 147 H 133 H Pulse Rate [Right] 151 H Respiratory Rate 20 20 Blood Pressure 144/83 H 150/72 H Blood Pressure [Right Arm] 144/83 H Blood Pressure Mean [Right Arm] 103 Blood Pressure Source [Right Arm] Automatic Cuff 02 Sat by Pulse Oximetry 98 99 100 Oxygen Delivery Method Room Air Room Air 10/28/23 10:57 10/28/23 11:00 Temperature Temperature Source Pulse Rate 128 H 130 H Pulse Rate [Right] Respiratory Rate 20 18 Blood Pressure 131/77 150/69 H Blood Pressure [Right Arm] Blood Pressure Mean [Right Arm] Blood Pressure Source [Right Arm] 02 Sat by Pulse Oximetry 99 100 Oxygen Delivery Method Lab Data Lab Results 10/28/23 08:59: Urine Color Yellow, Urine Appearance Clear, Urine pH 5.5, Ur Specific [place] 1.025, Urine Protein Negative, Urine Glucose (UA) 3+, Urine Ketones 3+, Urine Blood Trace-i, Urine Nitrate Negative, Urine Bilirubin Negative, Urine Urobilinogen 0.2, Ur Leukocyte Esterase Negative, Urine RBC None, Urine WBC Occasional, Ur Squamous Epith Cells Occasional, Urine Bacteria Trace 10/28/23 09:13: WBC 18.1 H, RBC 5.20, Hgb 15.2, Hct 48.7 H, MCV 93.5, MCH 29.1, MCHC 31.2 L, RDW 13.7, Plt Count 217, MPV 10.9 H, Neut % (Auto) 88.6 H, Lymph % (Auto) 8.9 L, [place] % (Auto) 2.1, Eos % (Auto) 0.0 L, Baso % (Auto) 0.4, Neut # (Auto) 16.1 H, Lymph # (Auto) 1.6, [place] # (Auto) 0.4, Eos # (Auto) 0.0, Baso # (Auto) 0.1, Total Counted 100, Neutrophils % (Manual) 90 H, Band Neutrophils % 1.0, Lymphocytes % (Manual) 5 L, Monocytes % (Manual) 4, Platelet Estimate Normal, RBC Morphology Normal, Sodium 145, Potassium 4.4, Chloride 108 H, Carbon Dioxide 14 L, Anion Gap 27.4 H, BUN 24 H, Creatinine 0.90, Estimated Creat Clear 109, Estimated GFR 65, Est GFR ( Amer) 79, Glucose 363 H, Lactate 4.4 H, Calcium 10.4 H, Total Bilirubin 2.3 H, AST 44 H, ALT 53, Alkaline Phosphatase 265 H, Troponin I < 0.01, Total Protein 7.9 D, Albumin 4.1, Globulin 3.8 H, Albumin/Globulin Ratio 1.1, Lipase 25 10/28/23 10:08: VBG pH 7.18 L, VBG pCO2 38.7, VBG pO2 65.1 H, VBG HCO3 14.1 L, VBG Total CO2 15.3 L, VBG O2 Saturation 88.3 H, VBG Base Excess -14.2 L, VBG Lactic Acid 5.4 H 10/28/23 09:13 10/28/23 09:13 Orders (Tests/Meds): ED MEDICATIONS Generic Name Dose Route Start Last Admin Trade Name Freq PRN Reason Stop Dose Admin Insulin Human Regular 100 unit 101 mls @ 9.621 mls/hr 10/28/23 10:16 / Sodium Chloride IV 11/27/23 10:15 .[id number] [facility] Protocol 0.1 UNITS/KG/HR Potassium Chloride/Sodium Chloride 1,000 mls @ 150 mls/hr 10/28/23 11:15 Kcl 20 Meq In Ns 1,000 Ml Iv Soln IV 11/27/23 11:14 .[id number] [facility] Discontinued Medications Generic Name Dose Route Start Last Admin Trade Name Freq PRN Reason Stop Dose Admin Aspirin 324 mg 10/28/23 09:06 10/28/23 09:22 Aspirin 81mg Chewable Tablet PO 10/28/23 09:07 324 mg ONCE ONE Administration Lactated Ringer's 1,000 mls @ 999 mls/hr 10/28/23 09:11 10/28/23 09:20 Lactated Ringer's 1000 Ml Bag IV 10/28/23 10:11 999 mls/hr .Q1H1M ONE Administration Lactated Ringer's 1,000 mls @ 999 mls/hr 10/28/23 10:11 Lactated Ringer's 1000 Ml Bag IV 10/28/23 11:11 .Q1H1M ONE Ampicillin Sodium/Sulbactam 100 mls @ 200 mls/hr 10/28/23 10:12 10/28/23 10:55 Sodium 3 gm/ Sodium Chloride IV 10/28/23 10:13 200 mls/hr ONCE ONE Administration Metoclopramide HCl 10 mg 10/28/23 09:16 10/28/23 09:22 Metoclopramide Hcl 10mg/2ml Vial IVP 10/28/23 09:17 10 mg ONCE ONE Administration Ondansetron HCl 4 mg 10/28/23 09:08 10/28/23 09:22 Ondansetron 4mg/2ml Vial IV 10/28/23 09:09 4 mg ONCE ONE Administration ORDERS Category Date Time Status XR chest portable Stat Exams 10/28/23 09:08 Completed Complete Blood Count Auto Diff Stat Lab 10/28/23 09:13 Completed Comprehensive Metabolic Panel Stat Lab 10/28/23 09:13 Completed Hemoglobin A1C Stat Lab 10/28/23 11:05 Ordered Lactic Acid Stat Lab 10/28/23 09:13 Completed Lipase Stat Lab 10/28/23 09:13 Completed Troponin I Q3H Lab 10/28/23 12:15 Ordered Troponin I Q3H Lab 10/28/23 15:15 Ordered Troponin I Stat Lab 10/28/23 09:13 Completed Urinalysis and Microscopic Stat Lab 10/28/23 08:59 Completed Blood Culture Stat Micro 10/28/23 10:35 Received VBG [Venous Blood Gas] Stat RT 10/28/23 10:08 Completed Venous Blood Gas Stat RT 10/28/23 11:05 Ordered Medical Decision Narrative: 53-year-old female history of 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 Patient states that she received her semaglutide injection 2 days previously. Shortly thereafter, started having severe epigastric pain and vomiting. Has been vomiting with any p.o. intake since that time. No pain, shortness of breath, diarrhea, flank pain, urinary symptoms, fevers or chills, cough, recent sick contacts, recent travel, any other medication changes patient states this happens every time she receives Ozempic injections, but reports she is told it is unrelated to her injections. History was obtained via conversation with patient. On arrival, patient hemodynamically stable, alert, oriented x4, appropriate, GCS 15, moving all extremities spontaneously, pupils equal and reactive to light. Full physical exam performed and significant for tired appearing woman in no acute distress. Actively vomiting. Tachycardic, abdomen is soft, but mildly tender in the epigastrium. No flank tenderness. Lungs are clear to auscultation bilaterally. Cardiac exam otherwise normal. Differential includes gastroparesis, medicine side effect, pancreatitis, esophagitis UTI, gastritis, enteritis, microvascular coronary artery disease, CHF, ACS, MO, coronary artery dissection, pneumothorax, PE, dissection, pericarditis, myocarditis, pneumothorax, aortic aneurysm, pneumonia, bronchitis, among others. Patient was given Zofran, 1 L LR, 10 mg Reglan for symptomatic management and correction of underlying abnormalities. Workup independently interpreted and significant for leukocytosis 18.1 with neutrophilia. Patient has VBG with pH 7.18, CO2 normal, bicarb low at 14, lactate 5.4. Uncompensated metabolic acidosis. Chemistry with glucose elevated at 363, kidney function normal, sodium 145, potassium 4.4. LFTs mildly elevated with alkaline phosphatase 265. Anion gap nearly 30. Troponin negative. Urinalysis with ketones without signs of infection. Chest x-ray without acute cardiopulmonary airspace disease. See radiology read for full review of final results. Independent interpretation of EKG shows sinus tachycardia 140 bpm with incomplete right bundle branch block morphology. No ST or T wave changes concerning for acute ischemia. AL, QRS, QT intervals within normal limits. [place] normal. Nexus/Macanese CT head/heart/[id number]/Wells/PERC/Age adjusted/YEARS/MELD. Patient's labs and appearance likely secondary to medication side effect and severe dehydration precipitating DKA. Hospitalist was contacted, case was discussed at length patient started on insulin drip. IV fluids with potassium started at a rate. On reevaluation, patient feeling much better, able to tolerate p.o. intake with sips and chips. Given patient presentation, workup, history, this most likely represents gastroparesis, vomiting, dehydration, medication side effect, and DKA. Because patient high risk for clinical decompensation, deemed appropriate for inpatient admission. Results were relayed to patient who voiced understanding and patient was agreeable to inpatient admission and management. Patient was admitted to the hospital for further definitive management. Critical Care Critical Care Time Critical Care Time: Yes (gi, endo) Attestation: On 10/28/23, the high probability of a clinically significant, sudden or life threatening deterioration of the following system(s) required my full and direct attention, intervention and personal management. The time I documented below is in addition to time spent performing reported procedures but includes the following listed in this critical care notation. Total Time Total Critical Care Time: 45
[2023-10-28] MEDS: LACTATED RINGERS 1000ML 1,000 ML 999 ML IV (09:20)
[2023-10-28 09:21] LABS: Bilirubin,Urine Negative (Negative)
--- NOTE | 2023-10-28 09:21 | PC.NURSE ---
Rounded on patient, cup of ice chips given at this time.
[2023-10-28] MEDS: METOCLOPRAMIDE HCL 10MG/2ML VIAL 10 MG IVP (09:22)
[2023-10-28] MEDS: ASPIRIN 81MG CHEWABLE TABLET 324 MG PO (09:22)
[2023-10-28] MEDS: ONDANSETRON 4MG/2ML VIAL 4 MG IV (09:22)
[2023-10-28 09:24] LABS: Basophils # 0.1 K/mm3 (0-0.2); Basophils % 0.4 % (0.1-2.0); Hematocrit 48.7 % (37.0-47.0); Hemoglobin 15.2 g/dL (12.2-16.2); Lymphocytes # 1.6 K/mm3 (0.7-4.5); Lymphocytes % 8.9 % (10-50); Mean Corpuscular HGB Conc 31.2 g/dL (31.8-35.4); Mean Corpuscular Hemoglobin 29.1 pg (27.0-31.2); Mean Corpuscular Volume 93.5 fl (81-99); Mean Platelet Volume 10.9 fl (7.4-10.4); Monocytes # 0.4 K/mm3 (0.1-1.0); Monocytes % 2.1 % (1.7-9.3); Neutrophils # 16.1 K/mm3 (1.8-7.8); Neutrophils % 88.6 % (37.0-80.0); Platelet Count 217 K/mm3 (142-424); Red Cell Distribution Width 13.7 % (11.5-17.5); White Blood Count 18.1 K/mm3 (4.8-10.8)
[2023-10-28 09:30] LABS: Bacteria,Urine Trace /lpf; Squamous Epithelial Cell,Urine Occasional #/hpf (0-5); WBC,Urine Occasional #/hpf (0-3)
[2023-10-28 09:34] LABS: MANUAL DIFFERENTIAL MANUAL DIFFERENTIAL (MANUAL DIFF)
[2023-10-28 09:35] LABS: Alanine Aminotransferase 53 U/L (12-78); Albumin Level 4.1 g/dl (3.5-5.0); Albumin/Globulin Ratio 1.1 (1.1-1.8); Alkaline Phosphatase 265 U/L (38-126); Anion Gap 27.4 mEq/L (5-15); Aspartate Amino Transferase 44 U/L (14-36); Bilirubin,Total 2.3 mg/dl (0.2-1.3); Blood Urea Nitrogen 24 mg/dl (7-17); Calcium 10.4 mg/dl (8.4-10.2); Carbon Dioxide 14 mmol/L (22.0-30.0); Chloride 108 mmol/L (98-107); Creatinine Clearance Estimated 109 mL/min (50-200); Estimated Glomerular Filt Rate 65 ml/min (>60); GFR (African American) 79 ML/MIN (>60); Globulin 3.8 g/dL (1.3-3.2); Glucose 363 mg/dl (74-100); Lipase 25 U/L (23-300); Potassium 4.4 mmoL/L (3.5-5.1); Sodium 145 mmol/L (136-145); Total Protein,Serum 7.9 g/dl (6.3-8.2)
[2023-10-28 09:47] LABS: Troponin I < 0.01 ng/ml (0.00-0.034)
--- NOTE | 2023-10-28 09:47 | PC.NURSE ---
Rounded on patient. Ice chips given.
[2023-10-28 10:08] LABS: VBG Base Excess -14.2 mmol/L (-2.4-2.3); VBG HCO3 14.1 mmol/L (23-30); VBG Oxygen Saturation 88.3 % (50-70); VBG PCO2 38.7 mmol/L (35-51); VBG PO2 65.1 mmol/L (28-40); VBG Total CO2 15.3 mmol/L (23-27)
[2023-10-28 10:11] LABS: Lactate Venous 5.4 mmol/L (0.4-2.0); VBG PH 7.18 mmol/L (7.31-7.41)
--- NOTE | 2023-10-28 10:15 | PC.NURSE ---
DR Catalan on phone with Dr Owens
--- NOTE | 2023-10-28 10:15 | PC.NURSE ---
lab contacted for collection of blood cultures
--- NOTE | 2023-10-28 10:32 | HMH.PHAINT1 ---
Pharmacy Intervention Comments: MEDICATION RECONCILIATION COMPLETED ON PATIENT USING EXTERNAL FILL HISTORY FROM PHARMACY. -SAMINA SANTIAGO, NURISD
[2023-10-28 10:36] LABS: Lactic Acid 4.4 mmol/L (0.7-2.1); Lymphocytes % 5 % (10-50); Monocytes % 4 % (2-9); Neutrophils % 90 % (42-76); Total Cells Counted 100
[2023-10-28 10:46] LABS: Platelet Estimate Normal; RBC Morphology Normal
[2023-10-28] MEDS: AMPICILLIN/SULBACTAM 3 GM in 0.9 % SODIUM CHLORIDE 100 ML IV (10:55)
[2023-10-28] MEDS: INSULIN REGULAR, HUMAN 100 UNIT in 0.9 % SODIUM CHLORIDE 100 ML 9 UNIT IV (11:20)
[2023-10-28] MEDS: 0.9% NaCl w/20mEq KCL 1,000 ML 150 ML IV ×2 (11:26→18:52)
--- NOTE | 2023-10-28 11:35 | PC.NURSE ---
on phone with Roman for admission
--- NOTE | 2023-10-28 11:40 | PC.NURSE ---
Called house for bed assignment.
--- NOTE | 2023-10-28 11:43 | P.HP_ITS ---
History of Present Illness *Admission Date: 10/28/23 *Reason for visit:: nausea and vomiting *History of present illness: Ms. Moraes is a 53-year-old female with history of obesity, diabetes, depression, neuropathy, hyperlipidemia, history of CABG, hypertension, who presented to the ER for evaluation of worsening abdominal pain, intractable nausea and vomiting, inability to tolerate p.o. intake for over 2 days. States she has been taking Ozempic for little over a year but has these episodes occasionally. She states she has been taking Ozempic for weight loss and diabetes. Recently took her Ozempic 2 to 3 days ago and within hours of her dose started having severe epigastric pain and vomiting. Developed nausea and vomiting to the point she was unable to tolerate any p.o. intake. Denied any blood in her vomit or stool. No shortness of breath or chest pain. No fever or chills. Presented to the ER because of inability to tolerate p.o. intake. Found to have high anion gap metabolic acidosis. Concern for DKA. Patient initiated on DKA drip/protocol and medicine was consulted for admission and further management. On arrival to the floor, patient is feeling better after receiving IV fluids. No further nausea or vomiting and is requesting ice chips. Stable on room air. [facility] Disclaimer: The information contained in this section may have been updated after the patient was seen, as this information can be updated by other users. Medical History CHF (congestive heart failure) Hemolytic anemia Right ventricular dysfunction PASHA (obstructive sleep apnea) Edema of both lower extremities Dyspnea Typical angina HLD (hyperlipidemia) HTN (hypertension) GERD (gastroesophageal reflux disease) Type 2 diabetes mellitus Surgical History H/O tubal ligation Previous section History of right cataract extraction History of open heart surgery Family History Other Breast cancer Family history of diabetes mellitus type II Family history of hypertension Family history of myocardial infarction Gout Hyperlipidemia Lung cancer Thyroid disorder Social History Smoking Status: Never smoker alcohol intake: never current occupational status: unemployed Travel in the last 8 weeks: None caffeine: Yes Review of Systems Review of Systems Review of systems (narrative): 14 point review of systems performed, pertinent positives and negatives as per HPI Meds Home Medications and Allergies Home Medications Medication Instructions Recorded Confirmed Type insulin aspart U-100 100 unit/mL 25 unit SQ TID 02/03/23 10/28/23 History subcutaneous cartridge (Novolog PenFill U-100 Insulin aspart) pen needle, diabetic 32 gauge x 03/29/23 10/28/23 History 1/ (Unifine Pentips) clopidogrel 75 mg tablet (Plavix) 75 mg PO DAILY #90 tabs 06/30/23 10/28/23 Rx syringe with needle, safety 3 mL #30 ea 09/19/23 10/28/23 Rx 21 gauge x 1 (Monoject Safety Syringes) insulin glargine 100 unit/mL (3 80 unit (0.8 mL) SQ HS #15 mL 10/04/23 10/28/23 Rx mL) subcutaneous pen (Lantus Solostar U-100 Insulin) pen needle, diabetic 32 gauge x #1,200 ea 10/27/23 10/28/23 History (BD Ultra-Fine Sary Pen Needle) aspirin 81 mg tablet,delayed 81 mg PO DAILY 10/28/23 10/28/23 History release (Adult Aspirin Regimen) atorvastatin 40 mg tablet 40 mg PO DAILY 10/28/23 10/28/23 History duloxetine 30 mg capsule,delayed 30 mg PO DAILY 10/28/23 10/28/23 History release empagliflozin 25 mg tablet 25 mg PO DAILY 10/28/23 10/28/23 History (Jardiance) ferrous sulfate 325 mg (65 mg 325 mg PO BID 10/28/23 10/28/23 History iron) tablet (Feosol) furosemide 40 mg tablet 40 mg PO BID 10/28/23 10/28/23 History gabapentin 600 mg tablet 600 mg PO TID 10/28/23 10/28/23 History glimepiride 4 mg tablet 4 mg PO DAILY 10/28/23 10/28/23 History isosorbide mononitrate 60 mg 60 mg PO DAILY 10/28/23 10/28/23 History tablet,extended release 24 hr lisinopril 20 mg tablet 20 mg PO BID 10/28/23 10/28/23 History medroxyprogesterone 10 mg tablet 10 mg PO DAILY 10/28/23 10/28/23 History metoprolol tartrate 25 mg tablet 25 mg PO BID 10/28/23 10/28/23 History omeprazole 40 mg capsule,delayed 40 mg PO DAILY 10/28/23 10/28/23 History release ondansetron 4 mg disintegrating 4 mg PO Q8HP PRN nausea and 10/28/23 10/28/23 History tablet vomiting New Prescriptions to Start Prescriptions: Allergies Allergy/AdvReac Type Severity Reaction Status Date / Time metformin Allergy Intermediate Rash Verified 10/27/23 13:41 cephalexin [From Keflex] Allergy Verified 10/27/23 13:41 Exam Data for Last 24 hours Vital signs and Labs for Last 24 Hours: Temp Pulse Resp BP Pulse Ox O2 Del Method 98.3 F 130 H 18 150/69 H 100 Room Air 10/28/23 08:56 10/28/23 11:00 10/28/23 11:00 10/28/23 11:00 10/28/23 11:00 10/28/23 09:02 Laboratory Results - last 24 hr 10/28/23 08:59: Urine Color Yellow, Urine Appearance Clear, Urine pH 5.5, Ur Specific [place] 1.025, Urine Protein Negative, Urine Glucose (UA) 3+, Urine Ketones 3+, Urine Blood Trace-i, Urine Nitrate Negative, Urine Bilirubin Negative, Urine Urobilinogen 0.2, Ur Leukocyte Esterase Negative, Urine RBC None, Urine WBC Occasional, Ur Squamous Epith Cells Occasional, Urine Bacteria Trace 10/28/23 09:13: WBC 18.1 H, RBC 5.20, Hgb 15.2, Hct 48.7 H, MCV 93.5, MCH 29.1, MCHC 31.2 L, RDW 13.7, Plt Count 217, MPV 10.9 H, Neut % (Auto) 88.6 H, Lymph % (Auto) 8.9 L, [place] % (Auto) 2.1, Eos % (Auto) 0.0 L, Baso % (Auto) 0.4, Neut # (Auto) 16.1 H, Lymph # (Auto) 1.6, [place] # (Auto) 0.4, Eos # (Auto) 0.0, Baso # (Auto) 0.1, Total Counted 100, Neutrophils % (Manual) 90 H, Band Neutrophils % 1.0, Lymphocytes % (Manual) 5 L, Monocytes % (Manual) 4, Platelet Estimate Normal, RBC Morphology Normal, Sodium 145, Potassium 4.4, Chloride 108 H, Carbon Dioxide 14 L, Anion Gap 27.4 H, BUN 24 H, Creatinine 0.90, Estimated Creat Clear 109, Estimated GFR 65, Est GFR ( Amer) 79, Glucose 363 H, Lactate 4.4 H, Calcium 10.4 H, Total Bilirubin 2.3 H, AST 44 H, ALT 53, Alkaline Phosphatase 265 H, Troponin I < 0.01, Total Protein 7.9 D, Albumin 4.1, Globulin 3.8 H, Albumin/Globulin Ratio 1.1, Lipase 25 10/28/23 10:08: VBG pH 7.18 L, VBG pCO2 38.7, VBG pO2 65.1 H, VBG HCO3 14.1 L, VBG Total CO2 15.3 L, VBG O2 Saturation 88.3 H, VBG Base Excess -14.2 L, VBG Lactic Acid 5.4 H I & O for Last 24 hours: Intake & Output 10/25/23 10/26/23 10/27/23 10/28/23 23:59 23:59 23:59 23:59 Weight 95.254 kg Constitutional Constitutional: mild distress, obese, chronically ill appearing and cooperative *Routine HEENT Exam Head: Present normocephalic Eye: Present EOMI and PERRL ENT: Present mucous membranes moist *Routine Neck Exam Neck: Present supple; Absent lymphadenopathy *Routine Respiratory Exam Respiratory: Present CTA bilaterally; Absent rhonchi, wheezes or crackles *Routine Cardiovascular Exam Cardiovascular: Present tachycardia *Routine Abdominal Exam Abdominal: Present soft, normoactive bowel sounds and tenderness *Routine Rectal Exam Rectal:: deferred *Routine Genitalia Exam Genitalia:: deferred *Routine Extremities Exam Extremities: Absent cyanosis, clubbing or edema Comments: Left leg larger than right, present since childhood. Varicose veins present. *Routine Skin Exam Skin: Present warm; Absent rash *Routine Neurological Exam Neurological: Present alert, oriented X3 and moving all extremities; Absent altered mental status Assessment and Plan *Assessment and plan (1) High anion gap metabolic acidosis: Status: Acute Category: Medical Code(s): E87.29 - Other acidosis (2) Vomiting: Status: Acute Category: Medical Code(s): R11.10 - Vomiting, unspecified (3) DKA (diabetic ketoacidosis): Status: Acute Category: Medical Code(s): E11.10 - Type 2 diabetes mellitus with ketoacidosis without coma (4) GERD (gastroesophageal reflux disease): Status: Acute Category: Medical Code(s): K21.9 - Gastro-esophageal reflux disease without esophagitis (5) HTN (hypertension): Status: Acute Qualifiers: Hypertension type: primary hypertension Qualified Code(s): I10 - Essential (primary) hypertension Category: Medical Code(s): I10 - Essential (primary) hypertension (6) HLD (hyperlipidemia): Status: Acute Qualifiers: Hyperlipidemia type: mixed hyperlipidemia Qualified Code(s): E78.2 - Mixed hyperlipidemia Category: Medical Code(s): E78.5 - Hyperlipidemia, unspecified (7) PASHA (obstructive sleep apnea): Status: Chronic Category: Medical Code(s): G47.33 - Obstructive sleep apnea (adult) (pediatric) (8) Neuropathic pain: Status: Chronic Category: Medical Code(s): M79.2 - Neuralgia and neuritis, unspecified (9) Diabetes mellitus: Status: Chronic Qualifiers: Diabetes mellitus complication status: with other specified complication Diabetes mellitus terminal gauger insulin use: without terminal gauger use Diabetes mellitus type: type 2 Qualified Code(s): E11.69 - Type 2 diabetes mellitus with other specified complication Category: Medical Code(s): E11.9 - Type 2 diabetes mellitus without complications (10) Coronary artery disease: Problem Comment: I am very concerned that this may reflect a cardiac origin. Agustina has multiple risk factors as a past history of coronary artery disease has had bypass surgery and I think we need to get an EKG just to make sure. Addendum: EKG does not reveal anything acute. There is an incomplete right bundle branch block. She is scheduled to see Dr. Lewis's team within a month. Status: Acute Qualifiers: Coronary Disease-Associated Artery/Lesion type: unspecified vessel or lesion type [place] vs. transplanted heart: [place] heart Associated angina: unspecified whether angina present Qualified Code(s): I25.10 - Atherosclerotic heart disease of [place] coronary artery without angina pectoris Category: Medical Code(s): I25.10 - Atherosclerotic heart disease of [place] coronary artery without angina pectoris (11) History of coronary artery bypass graft: Status: Acute Category: Surgical Code(s): Z95.1 - Presence of aortocoronary bypass graft Plan 53-year-old female who presented with nausea and vomiting. Found to have high anion gap metabolic acidosis. Discussed case with ER physician who request admission for treatment of DKA and further management with DKA protocol. Medicine agreed to admit for insulin drip, fluid resuscitation, further management. Seeing clinical improvement. Awaiting repeat labs to monitor anion gap closure. Stable on room air. Necessitating inpatient admission. Problems addressed as follows: High anion gap metabolic acidosis Poorly controlled diabetes Lactic acidosis DKA -Initial labs with anion gap of 27, bicarb 14, BUN 24 creatinine 0.9. Glucose 360. Lactate 4.4. Potassium normal at 4.4. Tachycardic. Urine with 3+ ketone s. pH 7.18. - A1c 9.0 -Initiated on DKA protocol with insulin drip and IV fluids. -Fingersticks every hour, titrate drip per protocol. Repeat BMP in 4 hours. Once gap closes, will transition to basal bolus regimen. -Patient on 80 units of glargine at home nightly and 25 units 3 times a day of mealtime insulin. - Discontinue as at this time. Will hold glimepiride and Jardiance movement and closure of anion gap - Zofran for nausea Leukocytosis: Suspect secondary to reactive process/D marginalization. Received Unasyn x 1 in the ER. Low concern for infection per patient's history. Urine does not appear infected. Will hold on further antibiotics. Repeat CBC in the morning to monitor for improvement. Repeat CMP and magnesium to monitor electrolytes and kidney function Hypertension History of CABG CAD -Continue metoprolol 25 mg twice daily, isosorbide mononitrate 60 daily. Hold Lasix in the setting of dehydration. Continue Plavix 75 Brett daily, Lipitor 40 daily as per an 81 mg daily Continue Cymbalta 30 mg daily for mood Class II obesity complicates all aspects of care GERD: Continue PPI with formulary conversion Full code Lovenox 40 mg subcu once Will advance diet pending closure in Gap
--- NOTE | 2023-10-28 12:05 | PC.NURSE ---
Report called to LISA Velasquez waiting stat clean on room for transfer.
--- NOTE | 2023-10-28 12:09 | PC.NURSE ---
BS 359 at this time.
[2023-10-28 12:20] LABS: Anion Gap 22.4 mEq/L (5-15); Blood Urea Nitrogen 23 mg/dl (7-17); Calcium 9.7 mg/dl (8.4-10.2); Carbon Dioxide 15 mmol/L (22.0-30.0); Chloride 107 mmol/L (98-107); Creatinine Clearance Estimated 163 mL/min (50-200); Estimated Glomerular Filt Rate 105 ml/min (>60); GFR (African American) 127 ML/MIN (>60); Glucose 380 mg/dl (74-100); Potassium 4.4 mmoL/L (3.5-5.1); Sodium 140 mmol/L (136-145)
--- NOTE | 2023-10-28 12:21 | PC.NURSE ---
arrived to floor by w/c from ED
[2023-10-28 12:45] LABS: Troponin I < 0.01 ng/ml (0.00-0.034)
[2023-10-28 13:14] LABS: POC Glucose,Bedside 290 (70-110)
--- OUTSIDE RECORDS SUMMARY | 2023-10-28 13:25 | XMS_ITS ---
Author Name Misha Mcgee Address [address] [place] [id number] Organization Unknown Address [address] [place] [id number] ALLERGIES AND ADVERSE REACTIONS No information ASSESSMENT No information CHIEF COMPLAINT No information MEDICATIONS No information OBJECTIVE DATA No information PHYSICAL EXAMINATION No information TREATMENT PLAN Planned Care Start Date Provider Encounter for Check-up [phone] [facility] PROBLEMS No information RESULTS No information REVIEW OF SYSTEMS No information SUBJECTIVE DATA No information VITAL SIGNS No information
[2023-10-28 14:10] LABS: Reflex Lactic Add Lactic Reflex
[2023-10-28 14:13] LABS: POC Glucose,Bedside 240 (70-110)
[2023-10-28 15:05] LABS: POC Glucose,Bedside 192 (70-110)
[2023-10-28 15:21] LABS: Chloride 110 mmol/L (98-107); Sodium 138 mmol/L (136-145)
[2023-10-28 15:22] LABS: Potassium 3.9 mmoL/L (3.5-5.1)
[2023-10-28 15:24] LABS: Blood Urea Nitrogen 24 mg/dl (7-17); Creatinine Clearance Estimated 161 mL/min (50-200); Estimated Glomerular Filt Rate 105 ml/min (>60); GFR (African American) 127 ML/MIN (>60)
[2023-10-28 15:25] LABS: Anion Gap 11.9 mEq/L (5-15); Calcium 9.5 mg/dl (8.4-10.2); Carbon Dioxide 20 mmol/L (22.0-30.0); Glucose 194 mg/dl (74-100)
[2023-10-28 15:45] LABS: Lactic Acid Follow Up (RFLX 1) 1.7 mmol/L (0.7-2.1)
[2023-10-28 15:48] LABS: Troponin I 0.01 ng/ml (0.00-0.034)
[2023-10-28 16:19] LABS: POC Glucose,Bedside 147 (70-110)
[2023-10-28] MEDS: INSULIN GLARGINE 100 UNITS/ML 3ML FLEXPEN 50 UNIT SQ ×2 (16:40→22:11)
--- NOTE | 2023-10-28 17:49 | PC.NURSE ---
insulin drip stopped at this time.
[2023-10-28 19:53] LABS: Chloride 110 mmol/L (98-107); Potassium 4.2 mmoL/L (3.5-5.1); Sodium 136 mmol/L (136-145)
[2023-10-28 19:56] LABS: Anion Gap 10.2 mEq/L (5-15); Blood Urea Nitrogen 22 mg/dl (7-17); Carbon Dioxide 20 mmol/L (22.0-30.0); Creatinine Clearance Estimated 161 mL/min (50-200); Estimated Glomerular Filt Rate 105 ml/min (>60); GFR (African American) 127 ML/MIN (>60)
[2023-10-28 19:57] LABS: Calcium 9.1 mg/dl (8.4-10.2); Glucose 259 mg/dl (74-100)
[2023-10-28] MEDS: PANTOPRAZOLE 40MG TABLET 40 MG PO (22:09)
[2023-10-28] MEDS: GABAPENTIN 600MG TABLET 600 MG PO (22:09)
[2023-10-28] MEDS: METOPROLOL TARTRATE 25MG TABLET 25 MG PO (22:10)
[2023-10-28] MEDS: humaLOG 100 UNITS/ML 3ML VIAL (SSI) SQ (22:11)
[2023-10-29] VITALS (9 sets, daily range): BP systolic 103–138; BP diastolic 55–70; PULSE 90–104; RESP 13–32; TEMP 36.4–36.8; O2SAT 95–100; BMI 35.3
[2023-10-29 06:17] LABS: POC Glucose,Bedside 79 (70-110)
[2023-10-29 06:18] LABS: POC Glucose,Bedside 219 (70-110)
[2023-10-29 07:19] LABS: Eosinophils # 0.2 K/mm3 (0.0-0.4); Red Cell Distribution Width 13.9 % (11.5-17.5)
--- NOTE | 2023-10-29 07:26 | EXP.DC.SUM ---
General Admission date:: 10/28/23 Discharge date: 10/29/23 HPI HPI HPI: Ms. Moraes is a 53-year-old female with history of obesity, diabetes, depression, neuropathy, hyperlipidemia, history of CABG, hypertension, who presented to the ER for evaluation of worsening abdominal pain, intractable nausea and vomiting, inability to tolerate p.o. intake for over 2 days. States she has been taking Ozempic for little over a year but has these episodes occasionally. She states she has been taking Ozempic for weight loss and diabetes. Recently took her Ozempic 2 to 3 days ago and within hours of her dose started having severe epigastric pain and vomiting. Developed nausea and vomiting to the point she was unable to tolerate any p.o. intake. Denied any blood in her vomit or stool. No shortness of breath or chest pain. No fever or chills. Presented to the ER because of inability to tolerate p.o. intake. Found to have high anion gap metabolic acidosis. Concern for DKA. Patient initiated on DKA drip/protocol and medicine was consulted for admission and further management. On arrival to the floor, patient is feeling better after receiving IV fluids. No further nausea or vomiting and is requesting ice chips. Stable on room air. Hospital Course Hospital Course Hospital Course: 53-year-old female who presented with nausea and vomiting. Found to have high anion gap metabolic acidosis. Discussed case with ER physician who request admission for treatment of DKA and further management with DKA protocol. Medicine agreed to admit for insulin drip, fluid resuscitation, further management. Saw clinical improvement with fluid resuscitation. Gap closed within 12 hours. Able to transition to basal bolus regimen. Patient tolerating advancement in diet. Stable to discharge home to continue home diabetes regimen. Glucose well-controlled, 85 on morning of discharge. Problems addressed as follows: High anion gap metabolic acidosis Poorly controlled diabetes Lactic acidosis DKA -Initial labs with anion gap of 27, bicarb 14, BUN 24 creatinine 0.9. Glucose 360. Lactate 4.4. Potassium normal at 4.4. Tachycardic. Urine with 3+ ketones. pH 7.18. A1c 9.0. Initiated on DKA protocol with insulin drip and fluids. Slow rapid improvement in anion gap. Once gap closed, was transitioned back to basal bolus regimen with Lantus administered per home regimen. Tolerating p.o. intake with no further nausea or vomiting. Recommend resuming home regimen at discharge. Would recommend discontinuing Ozempic given her nausea and vomiting after receiving her injection. Strongly concerned this is causing worsening nausea and vomiting and intolerability. May benefit from transitioning to different GLP-1 such as Victoza which she has tolerated in the past per her report. Resume home glimepiride and Jardiance. Close follow-up with PCP for further management. Leukocytosis: Suspect secondary to reactive process/Demarginalization. Received Unasyn x 1 in the ER. Low concern for infection per patient's history. Urine does not appear infected. No further antibiotics during admission. White cell count normalized to 9.5 by following morning. She is afebrile, having no focal symptoms of infection, normalized white count, no antibiotics at discharge. Hypertension History of CABG CAD -Continue metoprolol 25 mg twice daily, isosorbide mononitrate 60 daily. Held Lasix in the setting of dehydration, okay to resume at discharge for fluid management.. Continue Plavix 75 Brett daily, Lipitor 40 daily as per an 81 mg daily Continue Cymbalta 30 mg daily for mood GERD: Continue PPI with formulary conversion Exam Data for Last 24 hours Vital signs and Labs for Last 24 Hours: Temp Pulse Resp BP Pulse Ox O2 Del Method 98.4 F 99 H 20 135/70 100 Room Air 10/28/23 16:00 10/29/23 06:00 10/29/23 06:00 10/29/23 06:00 10/29/23 06:00 10/29/23 06:00 Laboratory Results - last 24 hr 10/28/23 08:59: Urine Color Yellow, Urine Appearance Clear, Urine pH 5.5, Ur Specific [place] 1.025, Urine Protein Negative, Urine Glucose (UA) 3+, Urine Ketones 3+, Urine Blood Trace-i, Urine Nitrate Negative, Urine Bilirubin Negative, Urine Urobilinogen 0.2, Ur Leukocyte Esterase Negative, Urine RBC None, Urine WBC Occasional, Ur Squamous Epith Cells Occasional, Urine Bacteria Trace 10/28/23 09:13: WBC 18.1 H, RBC 5.20, Hgb 15.2, Hct 48.7 H, MCV 93.5, MCH 29.1, MCHC 31.2 L, RDW 13.7, Plt Count 217, MPV 10.9 H, Neut % (Auto) 88.6 H, Lymph % (Auto) 8.9 L, [place] % (Auto) 2.1, Eos % (Auto) 0.0 L, Baso % (Auto) 0.4, Neut # (Auto) 16.1 H, Lymph # (Auto) 1.6, [place] # (Auto) 0.4, Eos # (Auto) 0.0, Baso # (Auto) 0.1, Total Counted 100, Neutrophils % (Manual) 90 H, Band Neutrophils % 1.0, Lymphocytes % (Manual) 5 L, Monocytes % (Manual) 4, Platelet Estimate Normal, RBC Morphology Normal, Sodium 145, Potassium 4.4, Chloride 108 H, Carbon Dioxide 14 L, Anion Gap 27.4 H, BUN 24 H, Creatinine 0.90, Estimated Creat Clear 109, Estimated GFR 65, Est GFR ( Amer) 79, Glucose 363 H, Hemoglobin A1c 9.0 H, Lactate 4.4 H, Calcium 10.4 H, Total Bilirubin 2.3 H, AST 44 H, ALT 53, Alkaline Phosphatase 265 H, Troponin I < 0.01, Total Protein 7.9 D, Albumin 4.1, Globulin 3.8 H, Albumin/Globulin Ratio 1.1, Lipase 25 10/28/23 10:08: VBG pH 7.18 L, VBG pCO2 38.7, VBG pO2 65.1 H, VBG HCO3 14.1 L, VBG Total CO2 15.3 L, VBG O2 Saturation 88.3 H, VBG Base Excess -14.2 L, VBG Lactic Acid 5.4 H 10/28/23 12:05: Sodium 140, Potassium 4.4, Chloride 107, Carbon Dioxide 15 L, Anion Gap 22.4 H, BUN 23 H, Creatinine 0.60 D, Estimated Creat Clear 163, Estimated GFR 105, Est GFR ( Amer) 127 D, Glucose 380 H, Calcium 9.7, Troponin I < 0.01 10/28/23 13:07: POC Glucose 290 H 10/28/23 14:05: POC Glucose 240 H 10/28/23 14:57: POC Glucose 192 H 10/28/23 15:00: Sodium 138, Potassium 3.9, Chloride 110 H, Carbon Dioxide 20 L, Anion Gap 11.9, BUN 24 H, Creatinine 0.60, Estimated Creat Clear 161, Estimated GFR 105, Est GFR ( Amer) 127, Glucose 194 H D, Lactate 1.7, Calcium 9.5, Troponin I 0.01 10/28/23 16:12: POC Glucose 147 H 10/28/23 19:40: Sodium 136, Potassium 4.2, Chloride 110 H, Carbon Dioxide 20 L, Anion Gap 10.2, BUN 22 H, Creatinine 0.60, Estimated Creat Clear 161, Estimated GFR 105, Est GFR ( Amer) 127, Glucose 259 H D, Calcium 9.1 10/28/23 21:40: POC Glucose 219 H 10/29/23 06:01: POC Glucose 79 I & O for Last 24 hours: Intake & Output 10/26/23 10/27/23 10/28/23 10/29/23 23:59 23:59 23:59 23:59 Intake Total 700.508 / 700.508 Output Total 250 / 250 300 / 300 Balance 450.508 / 450.508 -300 / -300 Weight 93.95 kg 93.95 kg Constitutional Constitutional: no acute distress, obese and chronically ill appearing *Routine HEENT Exam Head: Present normocephalic Eye: Present EOMI and PERRL ENT: Present mucous membranes moist *Routine Neck Exam Neck: Present supple; Absent lymphadenopathy *Routine Respiratory Exam Respiratory: Present CTA bilaterally *Routine Cardiovascular Exam Cardiovascular: Present RRR *Routine Abdominal Exam Abdominal: Present soft and normoactive bowel sounds; Absent tenderness *Routine Rectal Exam Patient deferred: visual exam *Routine Exam Patient deferred: external exam *Routine Extremities Exam Extremities: Present edema (Asymmetric, left worse than right. At baseline per report however.); Absent cyanosis or clubbing *Routine Skin Exam Skin: Present intact and warm; Absent rash *Routine Neurological Exam Neurological: Present alert, oriented X3 and moving all extremities; Absent altered mental status Results Data Completed and Pending Labs on day of discharge: Labs from last 24 hours 10/29/23 10/28/23 10/28/23 06:01 21:40 19:40 WBC RBC Hgb Hct MCV MCH MCHC RDW Plt Count MPV Neut % (Auto) Lymph % (Auto) [place] % (Auto) Eos % (Auto) Baso % (Auto) Neut # (Auto) Lymph # (Auto) [place] # (Auto) Eos # (Auto) Baso # (Auto) Total Counted Neutrophils % (Manual) Band Neutrophils % Lymphocytes % (Manual) Monocytes % (Manual) Platelet Estimate RBC Morphology VBG pH VBG pCO2 VBG pO2 VBG HCO3 VBG Total CO2 VBG O2 Saturation VBG Base Excess VBG Lactic Acid Sodium 136 Potassium 4.2 Chloride 110 H Carbon Dioxide 20 L Anion Gap 10.2 BUN 22 H Creatinine 0.60 Estimated Creat Clear 161 Estimated GFR 105 Est GFR ( Amer) 127 Glucose 259 H D POC Glucose 79 219 H Hemoglobin A1c Lactate Calcium 9.1 Total Bilirubin AST ALT Alkaline Phosphatase Troponin I Total Protein Albumin Globulin Albumin/Globulin Ratio Lipase Urine Color Urine Appearance Urine pH Ur Specific [place] Urine Protein Urine Glucose (UA) Urine Ketones Urine Blood Urine Nitrate Urine Bilirubin Urine Urobilinogen Ur Leukocyte Esterase Urine RBC Urine WBC Ur Squamous Epith Cells Urine Bacteria 10/28/23 10/28/23 10/28/23 16:12 15:00 14:57 WBC RBC Hgb Hct MCV MCH MCHC RDW Plt Count MPV Neut % (Auto) Lymph % (Auto) [place] % (Auto) Eos % (Auto) Baso % (Auto) Neut # (Auto) Lymph # (Auto) [place] # (Auto) Eos # (Auto) Baso # (Auto) Total Counted Neutrophils % (Manual) Band Neutrophils % Lymphocytes % (Manual) Monocytes % (Manual) Platelet Estimate RBC Morphology VBG pH VBG pCO2 VBG pO2 VBG HCO3 VBG Total CO2 VBG O2 Saturation VBG Base Excess VBG Lactic Acid Sodium 138 Potassium 3.9 Chloride 110 H Carbon Dioxide 20 L Anion Gap 11.9 BUN 24 H Creatinine 0.60 Estimated Creat Clear 161 Estimated GFR 105 Est GFR ( Amer) 127 Glucose 194 H D POC Glucose 147 H 192 H Hemoglobin A1c Lactate 1.7 Calcium 9.5 Total Bilirubin AST ALT Alkaline Phosphatase Troponin I 0.01 Total Protein Albumin Globulin Albumin/Globulin Ratio Lipase Urine Color Urine Appearance Urine pH Ur Specific [place] Urine Protein Urine Glucose (UA) Urine Ketones Urine Blood Urine Nitrate Urine Bilirubin Urine Urobilinogen Ur Leukocyte Esterase Urine RBC Urine WBC Ur Squamous Epith Cells Urine Bacteria 10/28/23 10/28/23 10/28/23 14:05 13:07 12:05 WBC RBC Hgb Hct MCV MCH MCHC RDW Plt Count MPV Neut % (Auto) Lymph % (Auto) [place] % (Auto) Eos % (Auto) Baso % (Auto) Neut # (Auto) Lymph # (Auto) [place] # (Auto) Eos # (Auto) Baso # (Auto) Total Counted Neutrophils % (Manual) Band Neutrophils % Lymphocytes % (Manual) Monocytes % (Manual) Platelet Estimate RBC Morphology VBG pH VBG pCO2 VBG pO2 VBG HCO3 VBG Total CO2 VBG O2 Saturation VBG Base Excess VBG Lactic Acid Sodium 140 Potassium 4.4 Chloride 107 Carbon Dioxide 15 L Anion Gap 22.4 H BUN 23 H Creatinine 0.60 D Estimated Creat Clear 163 Estimated GFR 105 Est GFR ( Amer) 127 D Glucose 380 H POC Glucose 240 H 290 H Hemoglobin A1c Lactate Calcium 9.7 Total Bilirubin AST ALT Alkaline Phosphatase Troponin I < 0.01 Total Protein Albumin Globulin Albumin/Globulin Ratio Lipase Urine Color Urine Appearance Urine pH Ur Specific [place] Urine Protein Urine Glucose (UA) Urine Ketones Urine Blood Urine Nitrate Urine Bilirubin Urine Urobilinogen Ur Leukocyte Esterase Urine RBC Urine WBC Ur Squamous Epith Cells Urine Bacteria 10/28/23 10/28/23 10/28/23 10:08 09:13 08:59 WBC 18.1 H RBC 5.20 Hgb 15.2 Hct 48.7 H MCV 93.5 MCH 29.1 MCHC 31.2 L RDW 13.7 Plt Count 217 MPV 10.9 H Neut % (Auto) 88.6 H Lymph % (Auto) 8.9 L [place] % (Auto) 2.1 Eos % (Auto) 0.0 L Baso % (Auto) 0.4 Neut # (Auto) 16.1 H Lymph # (Auto) 1.6 [place] # (Auto) 0.4 Eos # (Auto) 0.0 Baso # (Auto) 0.1 Total Counted 100 Neutrophils % (Manual) 90 H Band Neutrophils % 1.0 Lymphocytes % (Manual) 5 L Monocytes % (Manual) 4 Platelet Estimate Normal RBC Morphology Normal VBG pH 7.18 L VBG pCO2 38.7 VBG pO2 65.1 H VBG HCO3 14.1 L VBG Total CO2 15.3 L VBG O2 Saturation 88.3 H VBG Base Excess -14.2 L VBG Lactic Acid 5.4 H Sodium 145 Potassium 4.4 Chloride 108 H Carbon Dioxide 14 L Anion Gap 27.4 H BUN 24 H Creatinine 0.90 Estimated Creat Clear 109 Estimated GFR 65 Est GFR ( Amer) 79 Glucose 363 H POC Glucose Hemoglobin A1c 9.0 H Lactate 4.4 H Calcium 10.4 H Total Bilirubin 2.3 H AST 44 H ALT 53 Alkaline Phosphatase 265 H Troponin I < 0.01 Total Protein 7.9 D Albumin 4.1 Globulin 3.8 H Albumin/Globulin Ratio 1.1 Lipase 25 Urine Color Yellow Urine Appearance Clear Urine pH 5.5 Ur Specific [place] 1.025 Urine Protein Negative Urine Glucose (UA) 3+ Urine Ketones 3+ Urine Blood Trace-i Urine Nitrate Negative Urine Bilirubin Negative Urine Urobilinogen 0.2 Ur Leukocyte Esterase Negative Urine RBC None Urine WBC Occasional Ur Squamous Epith Cells Occasional Urine Bacteria Trace DS: Diagnosis Discharge Diagnosis (1) High anion gap metabolic acidosis: Status: Acute Code(s): E87.29 - Other acidosis (2) Vomiting: Status: Acute Code(s): R11.10 - Vomiting, unspecified (3) DKA (diabetic ketoacidosis): Status: Acute Code(s): E11.10 - Type 2 diabetes mellitus with ketoacidosis without coma (4) GERD (gastroesophageal reflux disease): Status: Acute Code(s): K21.9 - Gastro-esophageal reflux disease without esophagitis (5) HTN (hypertension): Status: Acute Code(s): I10 - Essential (primary) hypertension Qualifiers: Hypertension type: primary hypertension Qualified Code(s): I10 - Essential (primary) hypertension (6) HLD (hyperlipidemia): Status: Acute Code(s): E78.5 - Hyperlipidemia, unspecified Qualifiers: Hyperlipidemia type: mixed hyperlipidemia Qualified Code(s): E78.2 - Mixed hyperlipidemia (7) PASHA (obstructive sleep apnea): Status: Chronic Code(s): G47.33 - Obstructive sleep apnea (adult) (pediatric) (8) Neuropathic pain: Status: Chronic Code(s): M79.2 - Neuralgia and neuritis, unspecified (9) Diabetes mellitus: Status: Chronic Code(s): E11.9 - Type 2 diabetes mellitus without complications Qualifiers: Diabetes mellitus complication status: with other specified complication Diabetes mellitus video games storywriter insulin use: without video games storywriter use Diabetes mellitus type: type 2 Qualified Code(s): E11.69 - Type 2 diabetes mellitus with other specified complication (10) Coronary artery disease: Status: Acute Code(s): I25.10 - Atherosclerotic heart disease of [place] coronary artery without angina pectoris Qualifiers: Associated angina: unspecified whether angina present Coronary Disease-Associated Artery/Lesion type: unspecified vessel or lesion type [place] vs. transplanted heart: [place] heart Qualified Code(s): I25.10 - Atherosclerotic heart disease of [place] coronary artery without angina pectoris Problem details: I am very concerned that this may reflect a cardiac origin. Agustina has multiple risk factors as a past history of coronary artery disease has had bypass surgery and I think we need to get an EKG just to make sure. Addendum: EKG does not reveal anything acute. There is an incomplete right bundle branch block. She is scheduled to see Dr. Lewis's team within a month. (11) History of coronary artery bypass graft: Status: Acute Code(s): Z95.1 - Presence of aortocoronary bypass graft Meds Home Medications and Allergies Home Medications Medication Instructions Recorded Confirmed Type insulin aspart U-100 100 unit/mL 25 unit SQ TID 02/03/23 10/28/23 History subcutaneous cartridge (Novolog PenFill U-100 Insulin aspart) pen needle, diabetic 32 gauge x 03/29/23 10/28/23 History 1/ (Unifine Pentips) clopidogrel 75 mg tablet (Plavix) 75 mg PO DAILY #90 tabs 06/30/23 10/28/23 Rx syringe with needle, safety 3 mL #30 ea 09/19/23 10/28/23 Rx 21 gauge x 1 (Monoject Safety Syringes) insulin glargine 100 unit/mL (3 80 unit (0.8 mL) SQ HS #15 mL 10/04/23 10/28/23 Rx mL) subcutaneous pen (Lantus Solostar U-100 Insulin) pen needle, diabetic 32 gauge x #1,200 ea 10/27/23 10/28/23 History (BD Ultra-Fine Sary Pen Needle) aspirin 81 mg tablet,delayed 81 mg PO DAILY 10/28/23 10/28/23 History release (Adult Aspirin Regimen) atorvastatin 40 mg tablet 40 mg PO DAILY 10/28/23 10/28/23 History duloxetine 30 mg capsule,delayed 30 mg PO DAILY 10/28/23 10/28/23 History release empagliflozin 25 mg tablet 25 mg PO DAILY 10/28/23 10/28/23 History (Jardiance) ferrous sulfate 325 mg (65 mg 325 mg PO BID 10/28/23 10/28/23 History iron) tablet (Feosol) furosemide 40 mg tablet 40 mg PO BID 10/28/23 10/28/23 History gabapentin 600 mg tablet 600 mg PO TID 10/28/23 10/28/23 History glimepiride 4 mg tablet 4 mg PO DAILY 10/28/23 10/28/23 History isosorbide mononitrate 60 mg 60 mg PO DAILY 10/28/23 10/28/23 History tablet,extended release 24 hr lisinopril 20 mg tablet 20 mg PO BID 10/28/23 10/28/23 History medroxyprogesterone 10 mg tablet 10 mg PO DAILY 10/28/23 10/28/23 History metoprolol tartrate 25 mg tablet 25 mg PO BID 10/28/23 10/28/23 History omeprazole 40 mg capsule,delayed 40 mg PO DAILY 10/28/23 10/28/23 History release ondansetron 4 mg disintegrating 4 mg PO Q8HP PRN nausea and 10/28/23 10/28/23 History tablet vomiting New Prescriptions to Start Prescriptions: Allergies Allergy/AdvReac Type Severity Reaction Status Date / Time metformin Allergy Intermediate Rash Verified 10/27/23 13:41 cephalexin [From Keflex] Allergy Verified 10/27/23 13:41 Discharge Plan Disposition Patient Disposition: Home, Self-Care Condition: Fair Follow up Plan Follow up with: Lilibeth Barger PA [Primary Care Provider] - Enter time for follow up Prescriptions/Medication Reconciliation: Continued clopidogrel [Plavix] 75 mg tablet 75 mg PO DAILY Qty: 90 3RF insulin glargine [Lantus Solostar U-100 Insulin] 100 unit/mL (3 mL) insulin pen 80 unit SQ HS Qty: 15 2RF insulin aspart U-100 [Novolog PenFill U-100 Insulin] 100 unit/mL cartridge 25 unit SQ TID (DME) pen needle, diabetic [BD Ultra-Fine Sary Pen Needle] 32 gauge x 5/32 needle See Rx Instructions .ROUTE .MEDSUPPLY Qty: 1200 Rx Instructions: As directed (DME) Monoject Safety Syringes 3 mL 21 gauge x 1 syringe See Rx Instructions .Route Qty: 30 1RF Rx Instructions: once daily or As directed (DME) pen needle, diabetic [Unifine Pentips] 32 gauge x 1/4 needle See Rx Instructions .Route Rx Instructions: Use 4 times daily or As directed furosemide 40 mg tablet 40 mg PO BID medroxyprogesterone 10 mg tablet 10 mg PO DAILY atorvastatin 40 mg tablet 40 mg PO DAILY gabapentin 600 mg tablet 600 mg PO TID lisinopril 20 mg tablet 20 mg PO BID omeprazole 40 mg capsule,delayed release(DR/EC) 40 mg PO DAILY aspirin [Adult Aspirin Regimen] 81 mg tablet,delayed release (DR/EC) 81 mg PO DAILY isosorbide mononitrate 60 mg tablet extended release 24 hr 60 mg PO DAILY ferrous sulfate [Feosol] 325 mg (65 mg iron) tablet 325 mg PO BID glimepiride 4 mg tablet 4 mg PO DAILY ondansetron 4 mg tablet,disintegrating 4 mg PO Q8HP PRN (Reason: nausea and vomiting) metoprolol tartrate 25 mg tablet 25 mg PO BID duloxetine 30 mg capsule,delayed release(DR/EC) 30 mg PO DAILY Jardiance 25 mg tablet 25 mg PO DAILY Problem Reconciliation Problems Reviewed?: Yes Patient Discharge Instructions ACTIVITY: Continue current activity DIET: advance to your usual diet and diabetic diet Patient Instructions: Diabetic Ketoacidosis, DI for Diabetic Ketoacidosis Providers Primary Care Provider: Lilibeth Barger Admit Provider: Alberto Owens Attending Provider: Alberto Owens
[2023-10-29 07:30] LABS: Chloride 111 mmol/L (98-107)
[2023-10-29 07:31] LABS: Sodium 138 mmol/L (136-145)
[2023-10-29 07:33] LABS: Alanine Aminotransferase 42 U/L (12-78); Aspartate Amino Transferase 55 U/L (14-36); Blood Urea Nitrogen 18 mg/dl (7-17); Creatinine Clearance Estimated 193 mL/min (50-200); Estimated Glomerular Filt Rate 129 ml/min (>60); GFR (African American) 156 ML/MIN (>60)
[2023-10-29 07:34] LABS: Albumin Level 3.2 g/dl (3.5-5.0); Alkaline Phosphatase 190 U/L (38-126); Bilirubin,Total 1.8 mg/dl (0.2-1.3); Calcium 9.5 mg/dl (8.4-10.2); Carbon Dioxide 24 mmol/L (22.0-30.0); Globulin 3.3 g/dL (1.3-3.2); Glucose 85 mg/dl (74-100); Magnesium 2.1 mg/dl (1.6-2.3); Total Protein,Serum 6.5 g/dl (6.3-8.2)
[2023-10-29 07:47] LABS: Basophils # 0.1 K/mm3 (0-0.2); Eosinophils % 1.8 % (0.1-12.0); Hematocrit 42.1 % (37.0-47.0); Lymphocytes % 31.6 % (10-50); Mean Corpuscular HGB Conc 31.9 g/dL (31.8-35.4); Mean Corpuscular Hemoglobin 28.5 pg (27.0-31.2); Mean Corpuscular Volume 89.4 fl (81-99); Mean Platelet Volume 10.6 fl (7.4-10.4); Monocytes # 0.5 K/mm3 (0.1-1.0); Monocytes % 5.1 % (1.7-9.3); Neutrophils # 5.7 K/mm3 (1.8-7.8); Neutrophils % 60.5 % (37.0-80.0); Platelet Count 159 K/mm3 (142-424); Red Blood Count 4.71 M/mm3 (4.20-5.40); White Blood Count 9.5 K/mm3 (4.8-10.8)
[2023-10-29 07:50] LABS: Hemoglobin 13.4 g/dL (12.2-16.2)
[2023-10-29] MEDS: EMPAGLIFLOZIN 10MG TABLET 20 MG PO (09:20)
[2023-10-29] MEDS: CLOPIDOGREL 75MG TAB 75 MG PO (09:21)
[2023-10-29] MEDS: GABAPENTIN 600MG TABLET 600 MG PO (09:21)
[2023-10-29] MEDS: ASPIRIN EC 81MG TABLET 81 MG PO (09:21)
[2023-10-29] MEDS: METOPROLOL TARTRATE 25MG TABLET 25 MG PO (09:21)
[2023-10-29] MEDS: ATORVASTATIN 40MG TABLET 40 MG PO (09:21)
[2023-10-29] MEDS: ISOSORBIDE MONO 60MG TAB.ER.24H 60 MG PO (09:21)
[2023-10-29] MEDS: humaLOG 100 UNITS/ML 3ML VIAL (SSI) SQ (12:38)
[2023-10-29 12:40] LABS: POC Glucose,Bedside 159 (70-110)
--- NOTE | 2023-10-31 13:17 | SW/DCPLANNER ---
Follow up phone call: patient stated that she is doing well at home at this time. Patient did not have any further questions/needs.
--- NOTE | 2023-11-01 01:29 | PC.NURSE ---
[id number] to dr landis prelim blood cx reports.
== END 2023-10-29 13:36 | disposition home or self-care (01) ==
LOC: ER 11:18 → 2ND 12:02
PROVIDERS: Admitting Provider Internal Medicine Adolescent Medicine; Emergency Provider Emergency Medicine; PCP Physician Assistant; Visit Provider Internal Medicine Adolescent Medicine
DX: E11.10 Type 2 diabetes mellitus with ketoacidosis without coma (principal); I11.0 Hypertensive heart disease with heart failure; I25.10 Atherosclerotic heart disease of native coronary artery without angina pectoris; Z95.1 Presence of aortocoronary bypass graft; Z79.4 Long term (current) use of insulin; Z79.85 Long-term (current) use of injectable non-insulin antidiabetic drugs; I25.2 Old myocardial infarction; I50.9 Heart failure, unspecified; M79.2 Neuralgia and neuritis, unspecified; E66.9 Obesity, unspecified; Z68.35 Body mass index [BMI] 35.0-35.9, adult; E86.0 Dehydration; Z79.899 Other long term (current) drug therapy
CPT/HCPCS: 36415; 71045; 80048; 80053; 81001; 82803; 82962; 83036; 83605; 83690; 83735; 84484; 85007; 85025; 87040; 93005; 99291; G0378; J2405

== ENCOUNTER 2023-12-01 08:31 | Day surgery (SDC) | payer MEDICARE, BC, SELFPAY ==
[2023-11-30 10:31] VITALS: BMI 36.0
[2023-12-01] VITALS (11 sets, daily range): BP systolic 123–158; BP diastolic 64–78; PULSE 66–83; RESP 16–24; TEMP 36.1–36.6; O2SAT 94–99; BMI 36.0
[2023-12-01 08:53] LABS: POC Glucose,Bedside 123 (70-110)
[2023-12-01] MEDS: LACTATED RINGERS 1000ML 1,000 ML 25 ML IV (09:05)
--- NOTE | 2023-12-01 09:05 | EXP.ANES.CKL ---
[facility] Disclaimer: The information contained in this section may have been updated after the patient was seen, as this information can be updated by other users. Medical History Deep vein thrombosis, lower left extremity CHF (congestive heart failure) Hemolytic anemia Right ventricular dysfunction PASHA (obstructive sleep apnea) Edema of both lower extremities Dyspnea Typical angina HLD (hyperlipidemia) HTN (hypertension) GERD (gastroesophageal reflux disease) Type 2 diabetes mellitus Surgical History H/O tubal ligation Previous section History of right cataract extraction History of open heart surgery Family History Other Breast cancer Family history of diabetes mellitus type II Family history of hypertension Family history of myocardial infarction Gout Hyperlipidemia Lung cancer Thyroid disorder Social History Smoking Status: Never smoker alcohol intake: never substance use type: denies use current occupational status: unemployed Travel in the last 8 weeks: None caffeine: Yes [facility] Anesthesia Checklist Patient Identification Patient Identification: Arm Band Structural Data Admitted From: Home Planned Operative Procedure/s: Laparoscopic Cholecystectomy Consent for Planned Operative Procedure(s) Verified: Yes Verified Documents: Surgical Consent and History and Physical NPO Status Verified Time NPO: 00:00 Additional verifications Anesthesia Reactions: No Hx Blood Transfusions: No Blood Transfusion Reaction: No Airway Assessment Mallampati Score:: Class II C-Spine Mobility Assessed: Yes TMJ Mobility Assessed: Yes Dentition: Edentulous Neurological Assessment Level of Consciousness: Awake, Alert and Appropriate Anesthesia Plan Anesthesia Risk discussed: Yes Anesthesia Plan: Verified ASA Class: III Anesthesia Type: General
[2023-12-01] MEDS: CLINDAMYCIN PHOSPHATE/D5W 900 MG/50 ML PIGGYBACK 106 MG IV (09:35)
[2023-12-01] MEDS: LIDOCAINE 1% 20ML MDV 20 ML (09:59)
--- NOTE | 2023-12-01 10:38 | P.OP_ITS ---
Date of procedure: 12/01/23 Pre-op Diagnosis:: Chronic calculus cholecystitis Post-op Diagnosis:: Same Procedure performed:: Laparoscopic cholecystectomy Surgeon:: Enzo Peterson MD CAREER SERVICES REPRESENTATIVE:: Alberto Chiu Anesthesia: GETUlices Estimated blood loss (mL): 15 Operative findings:: Gallbladder distention Fairly severe infundibular thickening Significant pericholecystic fat stranding Operative note:: After informed consent was obtained, the patient was taken to the operating room and placed in the supine position. General anesthesia was induced and the abdomen was prepped and draped in a sterile fashion. After infiltration with local anesthetic an supraumbilical incision was made. A Veress needle was placed in position. The abdomen was insufflated. A 5 mm optical trocar was placed in position. Under direct visualization, a 12 mm trocar was placed in the subxiphoid position and 2 additional 5 mm trocars were placed in the right upper quadrant. The gallbladder was elevated up and over the liver margin. The tissue around the cystic duct was carefully dissected. 3 clips were placed proximally and the duct was transected with harmonic nimisha. Harmonic nimisha were then utilized to dissect the gallbladder away from the liver margin with careful attention to the control of the cystic artery. The gallbladder was placed in a retrieval bag and removed through the subxiphoid trocar site. The right upper quadrant was thoroughly irrigated. No active bleeding or bile leak was noted. Fascia at the subxiphoid trocar site was reapproximated utilizing the NeoClose device. The remaining trocars were removed. All wounds were irrigated and skin was closed with 4-0 Monocryl in a mattress fashion to facilitate hemostasis. The patient's anesthetic agents were reversed and extubation was completed prior to transfer to recovery in stable condition. Condition: stable Disposition: PACU Specimens:: Gallbladder Complications:: No immediate
--- NOTE | 2023-12-01 10:51 | EXP.ANES.I ---
[facility] Anesthesia Record Part I Anesthesia Record I Intake, IV Amount: 800 Hydration: Adequate Estimated blood loss (mL): 15 Urine output (mL): 0 Blood Products used (#): none Blood Pressure: 123/75 SaO2: 94 Pulse Rate: 81 Airway Patency: Patent Respiratory Rate: 24 Temperature: 97 F Patient is:: Drowsy and Stable Stable to PACU at:: 10:43
[2023-12-01] MEDS: HYDROMORPHONE 2MG/ML SYRINGE 0.5 MG IV (11:05)
--- NOTE | 2023-12-02 08:30 | P.PNANES_ITS ---
[facility] Anesthesia Record Part II Anesthesia Record Part II Discharge Time: 11:13 Destination: Surgical Day Care (OP Surgery) PACU nurse assessment reviewed?: Yes Patient Condition:: Good Anesthesia Complications:: None Swallowing reflex intact?: Yes Airway Patency: Patent Cyanosis?: No Blood Pressure: 144/69 SaO2: 95 Respiratory Rate: 16 Pulse Rate: 80 Temperature: 97.8 F Mental Status: Alert & Oriented Pain level:: 4 Nausea and/or vomitting:: None Intake, IV Amount: 0 Hydration: Adequate
[2023-12-02 08:31] VITALS: BP 144/69; PULSE 80; RESP 16; TEMP 36.6; O2SAT 95
== END 2023-12-01 12:21 | disposition home or self-care (01) ==
PROVIDERS: PCP Physician Assistant; Visit Provider Surgery
PROC: 0FT44ZZ Resection of Gallbladder, Percutaneous Endoscopic Approach (ICD-10-PCS; CPT 47562; principal; 2023-12-01 09:45)
DX: K80.10 Calculus of gallbladder with chronic cholecystitis without obstruction (principal); E11.9 Type 2 diabetes mellitus without complications
CPT/HCPCS: 47562; 82962; 88304; 96374; J3490; J2405

== ENCOUNTER 2023-12-02 06:25 | Emergency (ER) | payer MEDICARE, BC, SELFPAY ==
[2023-12-02] VITALS (7 sets, daily range): BP systolic 97–121; BP diastolic 52–61; PULSE 90–112; RESP 18; TEMP 37; O2SAT 95–100; BMI 36.0
--- NOTE | 2023-12-02 07:06 | ED_ITS ---
Discharge Plan Disposition Patient Disposition: Home, Self-Care Condition: Good Prescriptions Prescriptions: New methocarbamol 500 mg tablet 500 mg PO Q8H Qty: 90 0RF No Action clopidogrel [Plavix] 75 mg tablet 75 mg PO DAILY Qty: 90 3RF (DME) Dexcom G7 Sensor Device See Rx Instructions .Route Qty: 1 0RF Rx Instructions: As directed (DME) Dexcom G7 Servomechanism Assembler Misc See Rx Instructions .Route Qty: 1 0RF Rx Instructions: As directed insulin aspart U-100 [Novolog PenFill U-100 Insulin] 100 unit/mL cartridge See Rx Instructions .ROUTE .COMPLEX Rx Instructions: sliding scale; (DME) pen needle, diabetic [BD Ultra-Fine Sary Pen Needle] 32 gauge x 5/32 needle See Rx Instructions .ROUTE .MEDSUPPLY Qty: 1200 Rx Instructions: As directed (DME) Monoject Safety Syringes 3 mL 21 gauge x 1 syringe See Rx Instructions .Route Qty: 30 1RF Rx Instructions: once daily or As directed ferrous sulfate [FeroSul] 325 mg (65 mg iron) tablet See Rx Instructions .ROUTE .COMPLEX Qty: 180 0RF Dose Instruction: TAKE 1 TABLET BY MOUTH TWICE DAILY Rx Instructions: TAKE 1 TABLET BY MOUTH TWICE DAILY insulin glargine [Lantus Solostar U-100 Insulin] 100 unit/mL (3 mL) insulin pen See Rx Instructions .ROUTE .COMPLEX Qty: 15 5RF Dose Instruction: INJECT 80 UNITS UNDER THE SKIN AT BEDTIME NIGHTLY Rx Instructions: INJECT 80 UNITS UNDER THE SKIN AT BEDTIME NIGHTLY (DME) pen needle, diabetic [Unifine Pentips] 32 gauge x 1/4 needle See Rx Instructions .Route Rx Instructions: Use 4 times daily or As directed furosemide 40 mg tablet 40 mg PO BID medroxyprogesterone 10 mg tablet 10 mg PO DAILY atorvastatin 40 mg tablet 40 mg PO DAILY gabapentin 600 mg tablet 600 mg PO TID lisinopril 20 mg tablet 20 mg PO BID omeprazole 40 mg capsule,delayed release(DR/EC) 40 mg PO DAILY aspirin [Adult Aspirin Regimen] 81 mg tablet,delayed release (DR/EC) 81 mg PO DAILY isosorbide mononitrate 60 mg tablet extended release 24 hr 60 mg PO DAILY glimepiride 4 mg tablet 4 mg PO DAILY metoprolol tartrate 25 mg tablet 25 mg PO BID duloxetine 30 mg capsule,delayed release(DR/EC) 30 mg PO DAILY Jardiance 25 mg tablet 25 mg PO DAILY hydrocodone-acetaminophen 5-325 mg tablet 1 tab PO Q6H PRN (Reason: post-op pain) Qty: 17 0RF Referrals Follow up/Referrals: Lilibeth Barger PA [Primary Care Provider] - See instructions Activity Restrictions/Add. Instructions Additional Instructions/Restrictions: As we discussed, your ultrasound thankfully does not show any evidence of a blood clot in your leg at this time, given that your pain has resolved, and it was described as crampy, it is unlikely at this time that you have a blood clot, infection, and we did not see any significant electrolyte abnormalities on your labs. I have prescribed a muscle relaxant for you to take as needed. Please return with any new or worsening symptoms. Please continue to stay hydrated. Clinical Impressions Clinical Impression: Left leg pain Instructions Patient Instructions: DI for Leg Pain Discharge ED Provider: Romeo Roth General Adult HPI General Chief complaint: PAIN Stated complaint: gallbladder surgery 11/30,high sugar,leg cramp Time Seen by Provider: 12/02/23 07:06 Mode of Arrival: Wheelchair Source of Information: Patient Limitations: No Limitations Description of Symptoms (Recalled from ER Triage Doc. by RN): 53 F presents from home with c/o high blood sugar and left lower calf pain with discoloration. Patient reports chronic pain to this area; however, she reports it is worse and she noticed discoloration to her whole calve. Patient states at 0300 her FSBS was 600. She gave herself 80u Lantus and 25u Novalog. At 0425 she rechecked her sugar and it was 555 so she gave another 25u of Novolog. She rechecked at 0530 and her FSBS went down to 488. History of Present Illness HPI narrative: The patient presents with multiple concerns. She reports an extremely high blood sugar level of 603, which significantly dropped to 5 after medication. The patient mentions undergoing gallbladder removal the previous day. She is experiencing severe cramping and locking in the left leg, which began around 5:30, with the pain extending from the toes up the leg, described as sharp. The patient recalls a similar pain episode two years ago and a history of a blood clot in the same leg. The patient is currently on Plavix for blood thinning and was prescribed 325mg of hydrocodone and Tylenol post-surgery. She managed her hyperglycemia prior to arrival with 80 units of Lantus and 50 units of Novolog. The patient notes a past medical history of a blood clot while living in [place] and previous occurrences of phlebitis in the leg. Please note that above description of symptoms, in this electronic medical record under categorization of recalled from ER triage doctor by RN are reflective of an initial nursing assessment, however, is not reflective of my full history and physical exam that was personally taken and clarified. Consequentially, this preceding description of symptoms, which may include the patient's categorized chief complaint in the EMR, do not reflect my personal clinical impression, and the ultimate description of history of present illness and patient stated complaints should be deferred to this section of the note. Unless stated otherwise or congruent with this section of the note, additional signs, symptoms, or incongruence should be interpreted as inaccurate with my clinical impression. Related Data Home Medications Medication Instructions Recorded Confirmed pen needle, diabetic 32 gauge x 03/29/23 12/02/2307/21 (Unifine Pentips) pen needle, diabetic 32 gauge x #1,200 ea 10/27/23 12/02/23 (BD Ultra-Fine Sary Pen Needle) aspirin 81 mg tablet,delayed 81 mg PO DAILY 10/28/23 12/02/23 release (Adult Aspirin Regimen) atorvastatin 40 mg tablet 40 mg PO DAILY 10/28/23 12/02/23 duloxetine 30 mg capsule,delayed 30 mg PO DAILY 10/28/23 12/02/23 release empagliflozin 25 mg tablet 25 mg PO DAILY 10/28/23 12/02/23 (Jardiance) furosemide 40 mg tablet 40 mg PO BID 10/28/23 12/02/23 gabapentin 600 mg tablet 600 mg PO TID 10/28/23 12/02/23 glimepiride 4 mg tablet 4 mg PO DAILY 10/28/23 12/02/23 isosorbide mononitrate 60 mg 60 mg PO DAILY 10/28/23 12/02/23 tablet,extended release 24 hr lisinopril 20 mg tablet 20 mg PO BID 10/28/23 12/02/23 medroxyprogesterone 10 mg tablet 10 mg PO DAILY 10/28/23 12/02/23 metoprolol tartrate 25 mg tablet 25 mg PO BID 10/28/23 12/02/23 omeprazole 40 mg capsule,delayed 40 mg PO DAILY 10/28/23 12/02/23 release insulin aspart U-100 100 unit/mL See Rx Instructions .Route .COMPLEX 11/08/23 12/02/23 subcutaneous cartridge (Novolog PenFill U-100 Insulin aspart) Previous Rx's Medication Instructions Recorded clopidogrel 75 mg tablet (Plavix) 75 mg PO DAILY #90 tabs 06/30/23 syringe with needle, safety 3 mL #30 ea 09/19/23 21 gauge x 1 (Monoject Safety Syringes) blood-glucose meter,continuous #1 ea 11/01/23 (Dexcom G7 Servomechanism Assembler) blood-glucose sensor (Dexcom G7 #1 ea 11/01/23 Sensor device) ferrous sulfate 325 mg (65 mg See Rx Instructions .Route 11/15/23 iron) tablet (FeroSul) .COMPLEX #180 tabs hydrocodone 5 mg-acetaminophen 325 1 tab PO Q6H PRN post-op pain #17 12/01/23 mg tablet tabs insulin glargine 100 unit/mL (3 See Rx Instructions .Route 12/02/23 mL) subcutaneous pen (Lantus .COMPLEX #15 mL Solostar U-100 Insulin) methocarbamol 500 mg tablet 500 mg PO Q8H #90 tabs 12/02/23 Allergies Allergy/AdvReac Type Severity Reaction Status Date / Time metformin Allergy Intermediate Rash Verified 12/01/23 08:46 cephalexin [From Keflex] Allergy Verified 12/01/23 08:46 semaglutide [From Ozempic] AdvReac Intermediate Gastrointestinal Verified 12/01/23 08:46 Upset PFSH PFS Disclaimer: The information contained in this section may have been updated after the patient was seen, as this information can be updated by other users. Medical History Deep vein thrombosis, lower left extremity CHF (congestive heart failure) Hemolytic anemia Right ventricular dysfunction PASHA (obstructive sleep apnea) Edema of both lower extremities Dyspnea Typical angina HLD (hyperlipidemia) HTN (hypertension) GERD (gastroesophageal reflux disease) Type 2 diabetes mellitus Surgical History H/O tubal ligation Previous section History of right cataract extraction History of open heart surgery Family History Other Breast cancer Family history of diabetes mellitus type II Family history of hypertension Family history of myocardial infarction Gout Hyperlipidemia Lung cancer Thyroid disorder Social History Smoking Status: Never smoker alcohol intake: never substance use type: denies use current occupational status: unemployed Travel in the last 8 weeks: None caffeine: Yes ROS Obtained: Yes other As per HPI Physical Exam General General appearance: alert and in no apparent distress Head Head exam: atraumatic and normocephalic Eye Eye exam: Present normal appearance Neck Neck exam: Present normal inspection Chest Chest inspection: Present normal inspection and symmetric chest wall rise Respiratory Respiratory exam: Present normal lung sounds bilaterally; Absent respiratory distress Cardiovascular Cardiovascular exam: Present regular rate and normal rhythm Abdominal Exam Abdominal exam: Present soft Neurological Exam Neurological exam: Present alert and oriented X3 Psychiatric Psychiatric exam: Present normal affect and normal mood Skin Skin exam: Present warm and dry Other Other exam information: Bilateral lower extremities with venous stasis changes, asymmetry of lower extremities, however this is previously documented, negative Homans' sign, distal pulses palpable and equal Medical Decision Making Medical Records Medical records reviewed: Yes I reviewed the patient's medical records. Papi Inquiry Pt receiving controlled substance: No Vital Signs: 12/02/23 06:28 12/02/23 07:00 12/02/23 07:30 Temperature 98.6 F Temperature Source Oral Pulse Rate 96 H 97 H Pulse Rate [Left] 112 H Respiratory Rate 18 Blood Pressure 108/57 L 121/55 L Blood Pressure [Right Arm] 118/56 L Blood Pressure Mean [Right Arm] 76 Blood Pressure Position [Right Arm] Sitting 02 Sat by Pulse Oximetry 99 100 98 Oxygen Delivery Method Room Air Room Air Room Air 12/02/23 08:00 12/02/23 08:32 12/02/23 09:00 Temperature Temperature Source Pulse Rate 101 H 102 H 100 H Pulse Rate [Left] Respiratory Rate Blood Pressure 97/55 L 116/52 L 100/61 L Blood Pressure [Right Arm] Blood Pressure Mean [Right Arm] Blood Pressure Position [Right Arm] 02 Sat by Pulse Oximetry 99 98 99 Oxygen Delivery Method Room Air Room Air Room Air 12/02/23 09:21 Temperature 98.6 F Temperature Source Oral Pulse Rate 90 Pulse Rate [Left] Respiratory Rate 18 Blood Pressure 100/54 L Blood Pressure [Right Arm] Blood Pressure Mean [Right Arm] Blood Pressure Position [Right Arm] 02 Sat by Pulse Oximetry Oxygen Delivery Method Room Air Lab Data Lab Results 12/02/23 08:14: WBC 12.5 H, RBC 4.73, Hgb 13.5, Hct 42.3, MCV 89.6, MCH 28.5, MCHC 31.8, RDW 14.0, Plt Count 164, MPV 10.7 H, Neut % (Auto) 73.9, Lymph % (Auto) 16.1, Sandoval % (Auto) 9.2, Eos % (Auto) 0.4, Baso % (Auto) 0.3, Neut # (Auto) 9.2 H, Lymph # (Auto) 2.0, Sandoval # (Auto) 1.1 H, Eos # (Auto) 0.1, Baso # (Auto) 0.0, PT 15.1 H, INR 1.43 H, Sodium 134 L, Potassium 3.7, Chloride 101, Carbon Dioxide 22, Anion Gap 14.7, BUN 26 H, Creatinine 0.60, Estimated Creat Clear 163, Estimated GFR 105, Est GFR ( Amer) 127, Glucose 82, Calcium 9.9, Magnesium 2.0, Total Bilirubin 2.0 H, AST 59 H, ALT 68, Alkaline Phosphatase 219 H, Total Protein 7.4, Albumin 3.8, Globulin 3.6 H, Albumin/Globulin Ratio 1.1 12/02/23 08:14 12/02/23 08:14 Orders (Tests/Meds): ED MEDICATIONS Discontinued Medications Generic Name Dose Route Start Last Admin Trade Name Freq PRN Reason Stop Dose Admin Lactated Ringer's 1,000 mls @ 999 mls/hr 12/02/23 07:17 12/02/23 08:16 Lactated Ringer's 1000 Ml Bag IV 12/02/23 08:17 999 mls/hr .Q1H1M ONE Administration ORDERS Category Date Time Status CBC w/Auto Diff [Complete Blood Count Auto Diff] Stat Lab 12/02/23 08:14 Completed CMP [Comprehensive Metabolic Panel] Stat Lab 12/02/23 08:14 Completed MAG [Magnesium] Stat Lab 12/02/23 08:14 Completed PT INR [Prothrombin Time INR] Stat Lab 12/02/23 08:14 Completed CA venous doppler LE LT Stat Y 12/02/23 07:17 Completed Medical Decision Narrative: Patient with history and exam per above presenting for evaluation of left lower extremity pain Diagnoses considered include DVT, venous stasis dermatitis, no clinical evidence to suggest acute PAD, given equal and palpable pulses, brisk capillary refill, and no neurovascular deficits ED workup and treatment included: ED MEDICATIONS Discontinued Medications Generic Name Dose Route Start Last Admin Trade Name Freq PRN Reason Stop Dose Admin Lactated Ringer's 1,000 mls @ 999 mls/hr 12/02/23 07:17 12/02/23 08:16 Lactated Ringer's 1000 Ml Bag IV 12/02/23 08:17 999 mls/hr .Q1H1M ONE Administration ORDERS Category Date Time Status CBC w/Auto Diff [Complete Blood Count Auto Diff] Stat Lab 12/02/23 08:14 Completed CMP [Comprehensive Metabolic Panel] Stat Lab 12/02/23 08:14 Completed MAG [Magnesium] Stat Lab 12/02/23 08:14 Completed PT INR [Prothrombin Time INR] Stat Lab 12/02/23 08:14 Completed CA venous doppler LE LT Stat Y 12/02/23 07:17 Completed Labs were independently interpreted by me, significant for leukocytosis to 12.5 postoperatively, similarly, postoperatively, AST 59, ALT 68, T. bili 2.0 Imaging was independently visualized and interpreted by me, significant for no evidence of DVT. Please refer to radiology report for full details. My clinical impression at this time is most consistent with chronic venous stasis dermatitis, unclear etiology of cramping sensation previously reported however patient reports complete resolution of symptoms upon repeat evaluation. I discussed my clinical impression with patient and answered all questions. At this time, the evidence for any other entities in the differential is insufficient to warrant any further testing or ED observation. This was explained to the patient. The patient was advised that persistent or worsening symptoms require further evaluation. I confirmed the patient's understanding of this discussion. Critical Care Critical Care Time Critical Care Time: No
--- NOTE | 2023-12-02 07:17 | CA_ITS ---
FINAL REPORT TECHNIQUE: Color Doppler, duplex Doppler and compression sonography of the left lower extremity deep venous systems was performed. CLINICAL HISTORY: unilateral postop pain, swelling, Pt on ASA 81 mg qd and Plavix qd FINDINGS: There is no evidence of deep venous thrombosis from the level of the groin to the calf. The veins are patent and compressible. IMPRESSION: No evidence of deep venous thrombosis left lower extremity. Reviewed, Interpreted and Dictated by Jeovany Self III, MD Transcribed by Beba Gonzalez Authenticated and [facility]
[2023-12-02] MEDS: LACTATED RINGERS 1000ML 1,000 ML 999 ML IV (08:16)
[2023-12-02 08:34] LABS: Alanine Aminotransferase 68 U/L (12-78); Albumin Level 3.8 g/dl (3.5-5.0); Albumin/Globulin Ratio 1.1 (1.1-1.8); Alkaline Phosphatase 219 U/L (38-126); Anion Gap 14.7 mEq/L (5-15); Aspartate Amino Transferase 59 U/L (14-36); Blood Urea Nitrogen 26 mg/dl (7-17); Calcium 9.9 mg/dl (8.4-10.2); Carbon Dioxide 22 mmol/L (22.0-30.0); Chloride 101 mmol/L (98-107); Creatinine Clearance Estimated 163 mL/min (50-200); Estimated Glomerular Filt Rate 105 ml/min (>60); GFR (African American) 127 ML/MIN (>60); Globulin 3.6 g/dL (1.3-3.2); Glucose 82 mg/dl (74-100); Potassium 3.7 mmoL/L (3.5-5.1); Sodium 134 mmol/L (136-145); Total Protein,Serum 7.4 g/dl (6.3-8.2)
--- NOTE | 2023-12-02 08:52 | PC.NURSE ---
confirmed that ice chips were okay. Brought cup of ice to pt , unclamped fluids and put side rail up. turned lights off per pt request. Visitor left
[2023-12-02 08:53] LABS: Basophils % 0.3 % (0.1-2.0); Eosinophils # 0.1 K/mm3 (0.0-0.4); Eosinophils % 0.4 % (0.1-12.0); Hematocrit 42.3 % (37.0-47.0); Hemoglobin 13.5 g/dL (12.2-16.2); Lymphocytes % 16.1 % (10-50); Mean Corpuscular HGB Conc 31.8 g/dL (31.8-35.4); Mean Corpuscular Hemoglobin 28.5 pg (27.0-31.2); Mean Corpuscular Volume 89.6 fl (81-99); Mean Platelet Volume 10.7 fl (7.4-10.4); Monocytes # 1.1 K/mm3 (0.1-1.0); Monocytes % 9.2 % (1.7-9.3); Neutrophils # 9.2 K/mm3 (1.8-7.8); Neutrophils % 73.9 % (37.0-80.0); Platelet Count 164 K/mm3 (142-424); Red Blood Count 4.73 M/mm3 (4.20-5.40); White Blood Count 12.5 K/mm3 (4.8-10.8)
[2023-12-02 09:04] LABS: INR 1.43 (0.9-1.1); Prothrombin Time 15.1 seconds (10.1-12.5)
== END 2023-12-02 09:33 | disposition home or self-care (01) ==
PROVIDERS: Emergency Provider Emergency Medicine; PCP Physician Assistant
DX: M79.662 Pain in left lower leg (principal); E11.9 Type 2 diabetes mellitus without complications; K21.9 Gastro-esophageal reflux disease without esophagitis; I11.0 Hypertensive heart disease with heart failure; I50.9 Heart failure, unspecified; E78.5 Hyperlipidemia, unspecified; Z79.4 Long term (current) use of insulin; Z79.84 Long term (current) use of oral hypoglycemic drugs; Z86.718 Personal history of other venous thrombosis and embolism
CPT/HCPCS: 80053; 83735; 85025; 85610; 93971; 96360; 99284

== ENCOUNTER 2023-12-05 15:46 | Emergency (ER) | payer MEDICARE, BC, SELFPAY ==
[2023-12-05 16:10] VITALS: BP 124/62; PULSE 81; RESP 20; TEMP 36.7; O2SAT 97; BMI 36.0
--- NOTE | 2023-12-05 16:29 | EXP.UTC ---
Discharge Plan Disposition Patient Disposition: Home, Self-Care Condition: Good Prescriptions Prescriptions: New hydroxyzine HCl 25 mg tablet 25 mg PO TID PRN (Reason: itching) Qty: 6 0RF No Action clopidogrel [Plavix] 75 mg tablet 75 mg PO DAILY Qty: 90 3RF (DME) Dexcom G7 Sensor Device See Rx Instructions .Route Qty: 1 0RF Rx Instructions: As directed (DME) Dexcom G7 Aerobics Teacher Misc See Rx Instructions .Route Qty: 1 0RF Rx Instructions: As directed insulin aspart U-100 [Novolog PenFill U-100 Insulin] 100 unit/mL cartridge See Rx Instructions .ROUTE .COMPLEX Rx Instructions: sliding scale; (DME) pen needle, diabetic [BD Ultra-Fine Sary Pen Needle] 32 gauge x 5/32 needle See Rx Instructions .ROUTE .MEDSUPPLY Qty: 1200 Rx Instructions: As directed (DME) Monoject Safety Syringes 3 mL 21 gauge x 1 syringe See Rx Instructions .Route Qty: 30 1RF Rx Instructions: once daily or As directed ferrous sulfate [FeroSul] 325 mg (65 mg iron) tablet See Rx Instructions .ROUTE .COMPLEX Qty: 180 0RF Dose Instruction: TAKE 1 TABLET BY MOUTH TWICE DAILY Rx Instructions: TAKE 1 TABLET BY MOUTH TWICE DAILY insulin glargine [Lantus Solostar U-100 Insulin] 100 unit/mL (3 mL) insulin pen See Rx Instructions .ROUTE .COMPLEX Qty: 15 5RF Dose Instruction: INJECT 80 UNITS UNDER THE SKIN AT BEDTIME NIGHTLY Rx Instructions: INJECT 80 UNITS UNDER THE SKIN AT BEDTIME NIGHTLY (DME) pen needle, diabetic [Unifine Pentips] 32 gauge x 1/4 needle See Rx Instructions .Route Rx Instructions: Use 4 times daily or As directed furosemide 40 mg tablet 40 mg PO BID medroxyprogesterone 10 mg tablet 10 mg PO DAILY atorvastatin 40 mg tablet 40 mg PO DAILY gabapentin 600 mg tablet 600 mg PO TID lisinopril 20 mg tablet 20 mg PO BID omeprazole 40 mg capsule,delayed release(DR/EC) 40 mg PO DAILY aspirin [Adult Aspirin Regimen] 81 mg tablet,delayed release (DR/EC) 81 mg PO DAILY isosorbide mononitrate 60 mg tablet extended release 24 hr 60 mg PO DAILY glimepiride 4 mg tablet 4 mg PO DAILY metoprolol tartrate 25 mg tablet 25 mg PO BID duloxetine 30 mg capsule,delayed release(DR/EC) 30 mg PO DAILY Jardiance 25 mg tablet 25 mg PO DAILY methocarbamol 500 mg tablet 500 mg PO Q8H Qty: 90 0RF hydrocodone-acetaminophen 5-325 mg tablet 1 tab PO Q6H PRN (Reason: post-op pain) Qty: 17 0RF Referrals Follow up/Referrals: Lilibeth Barger PA [Primary Care Provider] - See instructions Activity Restrictions/Add. Instructions Additional Instructions/Restrictions: Stop taking the Tizanadine and if you continue to have muscle spasms follow up with your Family Doctor You was prescribed hydroxyzine this is for itching take as needed as prescribed Straight to ER if any life threateing symptoms Clinical Impressions Clinical Impression: Itching Instructions Patient Instructions: Hydroxyzine Discharge ED Provider: Inna Vaughn [facility] HPI General Stated complaint: itchy, poss reaction to meds Mode of Arrival: Ambulatory Source of Information: Patient Limitations: No Limitations Time Seen by Provider: 12/05/23 16:32 Description of Symptoms (Recalled from Triage Doc. by RN): PATIENT REPORTS HAVING A CHOLECYSTECTOMY 4 DAYS AGO AND WAS GIVEN TIZANIDINE TO TAKE. SHE REPORTS MEDICATION HAS BEEN MAKING HER ITCH HEENT Symptoms (Recalled from RN notes): No Resp Symptoms (Recalled from RN notes): No Skin Symptoms (Recalled from RN notes): Yes MS Symptoms (Recalled from RN notes): No Functional Status (Recalled from RN notes): WNL History of Present Illness Provider Complaint: Patient states that she had Cholecystectomy about 4 days ago and was having muscle spasms and was prescribed Tizanadine States after she started taking it she has been itching all over and digging at her skin and cant stand it anymore Related Data Home Medications Medication Instructions Recorded Confirmed pen needle, diabetic 32 gauge x 03/29/23 12/02/2307/21 (Unifine Pentips) pen needle, diabetic 32 gauge x #1,200 ea 10/27/23 12/02/23 (BD Ultra-Fine Sary Pen Needle) aspirin 81 mg tablet,delayed 81 mg PO DAILY 10/28/23 12/02/23 release (Adult Aspirin Regimen) atorvastatin 40 mg tablet 40 mg PO DAILY 10/28/23 12/02/23 duloxetine 30 mg capsule,delayed 30 mg PO DAILY 10/28/23 12/02/23 release empagliflozin 25 mg tablet 25 mg PO DAILY 10/28/23 12/02/23 (Jardiance) furosemide 40 mg tablet 40 mg PO BID 10/28/23 12/02/23 gabapentin 600 mg tablet 600 mg PO TID 10/28/23 12/02/23 glimepiride 4 mg tablet 4 mg PO DAILY 10/28/23 12/02/23 isosorbide mononitrate 60 mg 60 mg PO DAILY 10/28/23 12/02/23 tablet,extended release 24 hr lisinopril 20 mg tablet 20 mg PO BID 10/28/23 12/02/23 medroxyprogesterone 10 mg tablet 10 mg PO DAILY 10/28/23 12/02/23 metoprolol tartrate 25 mg tablet 25 mg PO BID 10/28/23 12/02/23 omeprazole 40 mg capsule,delayed 40 mg PO DAILY 10/28/23 12/02/23 release insulin aspart U-100 100 unit/mL See Rx Instructions .Route .COMPLEX 11/08/23 12/02/23 subcutaneous cartridge (Novolog PenFill U-100 Insulin aspart) Previous Rx's Medication Instructions Recorded clopidogrel 75 mg tablet (Plavix) 75 mg PO DAILY #90 tabs 06/30/23 syringe with needle, safety 3 mL #30 ea 09/19/23 21 gauge x 1 (Monoject Safety Syringes) blood-glucose meter,continuous #1 ea 11/01/23 (Dexcom G7 Aerobics Teacher) blood-glucose sensor (Dexcom G7 #1 11/01/23 Sensor device) ferrous sulfate 325 mg (65 mg See Rx Instructions .Route 11/15/23 iron) tablet (FeroSul) .COMPLEX #180 tabs hydrocodone 5 mg-acetaminophen 325 1 tab PO Q6H PRN post-op pain #17 12/01/23 mg tablet tabs insulin glargine 100 unit/mL (3 See Rx Instructions .Route 12/02/23 mL) subcutaneous pen (Lantus .COMPLEX #15 mL Solostar U-100 Insulin) methocarbamol 500 mg tablet 500 mg PO Q8H #90 tabs 12/02/23 hydroxyzine HCl 25 mg tablet 25 mg PO TID PRN itching #6 tabs 12/05/23 Allergies Allergy/AdvReac Type Severity Reaction Status Date / Time metformin Allergy Intermediate Rash Verified 12/01/23 08:46 cephalexin [From Keflex] Allergy Verified 12/01/23 08:46 semaglutide [From Ozempic] AdvReac Intermediate Gastrointestinal Verified 12/01/23 08:46 Upset Worker's Comp Is this a Worker's Comp case?: No [facility] Disclaimer: The information contained in this section may have been updated after the patient was seen, as this information can be updated by other users. Medical History Deep vein thrombosis, lower left extremity CHF (congestive heart failure) Hemolytic anemia Right ventricular dysfunction PASHA (obstructive sleep apnea) Edema of both lower extremities Dyspnea Typical angina HLD (hyperlipidemia) HTN (hypertension) GERD (gastroesophageal reflux disease) Type 2 diabetes mellitus Surgical History H/O tubal ligation Previous section History of right cataract extraction History of open heart surgery Family History Other Breast cancer Family history of diabetes mellitus type II Family history of hypertension Family history of myocardial infarction Gout Hyperlipidemia Lung cancer Thyroid disorder Social History Smoking Status: Never smoker alcohol intake: never substance use type: denies use current occupational status: unemployed Travel in the last 8 weeks: None caffeine: Yes ROS Obtained: Yes All systems reviewed & no additional complaints except as documented and Yes Systems reviewed as appropriate & no additional complaints except as documented Constitutional Constitutional: Reports system reviewed and no additional complaints, except as documented and Reports as per HPI Cardiovascular Cardiovascular: Reports system reviewed and no additional complaints, except as documented and Reports as per HPI Respiratory Respiratory: Reports system reviewed and no additional complaints, except as documented and Reports as per HPI Gastrointestinal Gastrointestingal: Reports system reviewed and no additional complaints, except as documented and as per HPI Integumentary/Breasts Skin/Breast: Reports system reviewed and no additional complaints, except as documented, Reports as per HPI, Reports pruritus and Reports rash Physical Exam General General appearance: alert and in no apparent distress ENT ENT exam: Present mucous membranes moist Respiratory Respiratory exam: Present normal lung sounds bilaterally; Absent respiratory distress or wheezes Cardiovascular Cardiovascular exam: Present regular rate, normal rhythm and normal heart sounds Neurological Exam Neurological exam: Present alert, oriented X3 and normal gait Skin Skin exam: Present dry and other (patient has scratches on arms and chest where she has been itching fine rash noted) Medical Decision Making Papi Inquiry Pt receiving controlled substance: No Papi was queried for this patient: No Vital Signs: 12/05/23 16:10 Temperature 98.1 F Temperature Source Oral Pulse Rate [Left Brachial] 81 Respiratory Rate 20 Blood Pressure [Left Arm] 124/62 Blood Pressure Mean [Left Arm] 82 Blood Pressure Source [Left Arm] Automatic Cuff Blood Pressure Position [Left Arm] Sitting 02 Sat by Pulse Oximetry 97 Medical Decision Narrative: Patient is a diabetic and states that her finger stick blood sugars have been running in the 100's at home states that she has taken steriods before in the past without any complications with her blood sugar Patient educated that injection may raise blood sugar slightly but should return to normal Medications was discussed with pharmacy and will given injection of Solu Medrol and dc home with hydrozyzine and recommend stopping the tizanidine
[2023-12-05] MEDS: METHYLPREDNISOLONE SOD SUCC 125MG VIAL 125 MG IM (16:58)
[2023-12-05 17:19] VITALS: BP 124/62; PULSE 81; RESP 20; TEMP 36.7; O2SAT 97
== END 2023-12-05 17:23 | disposition home or self-care (01) ==
PROVIDERS: Emergency Provider Nurse Practitioner; PCP Physician Assistant
DX: L29.9 Pruritus, unspecified (principal)
CPT/HCPCS: 96372; 99212; 99214; G0463

== ENCOUNTER 2024-01-05 14:40 | Outpatient (CLI) | payer MEDICARE, BC, SELFPAY ==
--- NOTE | 2024-01-05 | US_ITS ---
FINAL REPORT CLINICAL HISTORY: HTN, DM, HLD, hx GA, CAD, prevoius CABG 2017, bilateral claudication, bilateral rest pain COMPARISON: None FINDINGS: LOWER EXTREMITY SEGMENTAL PRESSURE MEASUREMENTS FINDINGS: Pressure indices are as follows: RIGHT LOWER EXTREMITY: Upper thigh: 1.16 Calf: 1.03 Ankle, posterior tibial artery: 1.01 Ankle, dorsalis pedis: 0.96 Toe: 0.89 Comments: Ankle-brachial index is 1.01 LEFT LOWER EXTREMITY: Upper thigh: 1.11 Calf: 1.11 Ankle, posterior tibial artery: 1.07 Ankle, dorsalis pedis: 0.97 Toe: 0.68 Comments: Ankle-brachial index measures 1.07 IMPRESSION: Ankle-brachial indices are within normal limits. Reviewed, Interpreted and Dictated by Rosalio Saini MD Transcribed by Izabela Ohara Authenticated and [facility]
== END 2024-01-05 23:59 | disposition home or self-care (01) ==
PROVIDERS: PCP Physician Assistant; Visit Provider Physician Assistant
DX: R09.89 Other specified symptoms and signs involving the circulatory and respiratory systems (principal)
CPT/HCPCS: 93923

== ENCOUNTER 2024-01-09 08:44 | Outpatient (CLI) | payer MEDICARE, BC, SELFPAY ==
--- NOTE | 2024-01-09 08:45 | MR_ITS ---
FINAL REPORT CLINICAL HISTORY: LLE swelling COMPARISON: None FINDINGS: Multiplanar MR imaging of the left lower leg was performed without contrast. Marrow signal: Unremarkable. Musculature: Normal MR appearance without edema, hemorrhage, or mass. Other: Moderate diffuse edema in the subcutaneous fatty tissues. No discrete mass. Subcutaneous edema extends the entire length of the imaged calf. IMPRESSION: Extensive subcutaneous edema, nonspecific, left greater than right. Reviewed, Interpreted and Dictated by Rosalio Saini MD Transcribed by Ofelia Chambers Authenticated and [facility]
== END 2024-01-09 23:59 | disposition home or self-care (01) ==
LOC: RAD 08:45
PROVIDERS: PCP Physician Assistant; Visit Provider Physician Assistant
DX: M79.605 Pain in left leg (principal); R22.42 Localized swelling, mass and lump, left lower limb
CPT/HCPCS: 73718

== ENCOUNTER 2024-05-03 10:13 | Outpatient (CLI) | payer MEDICARE, BC, SELFPAY | END 2024-05-03 23:59 | disposition home or self-care (01) | LOC: RT 10:14 | PROVIDERS: PCP Family Medicine; Visit Provider Internal Medicine Pulmonary Disease | DX: R06.02 Shortness of breath (principal) | CPT/HCPCS: 94060; 94618; 94726; 94729 ==

== ENCOUNTER 2024-05-15 11:20 | Outpatient (CLI) | payer MEDICARE, BC, SELFPAY ==
[2024-05-15 12:02] LABS: Basophils % 0.5 % (0.1-2.0); Eosinophils # 0.2 K/mm3 (0.0-0.4); Hematocrit 41.3 % (37.0-47.0); Hemoglobin 13.3 g/dL (12.2-16.2); Lymphocytes # 1.9 K/mm3 (0.7-4.5); Lymphocytes % 24.9 % (10-50); Mean Corpuscular HGB Conc 32.2 g/dL (31.8-35.4); Mean Corpuscular Volume 83.9 fl (81-99); Mean Platelet Volume 10.4 fl (7.4-10.4); Monocytes # 0.4 K/mm3 (0.1-1.0); Monocytes % 5.2 % (1.7-9.3); Neutrophils # 5.1 K/mm3 (1.8-7.8); Neutrophils % 66.4 % (37.0-80.0); Platelet Count 138 K/mm3 (142-424); Red Blood Count 4.92 M/mm3 (4.20-5.40); Red Cell Distribution Width 14.2 % (11.5-17.5); White Blood Count 7.7 K/mm3 (4.8-10.8)
[2024-05-15 12:31] LABS: Albumin Level 3.3 g/dl (3.5-5.0); Chloride 105 mmol/L (98-107)
[2024-05-15 12:32] LABS: Potassium 4.1 mmoL/L (3.5-5.1); Sodium 139 mmol/L (136-145)
[2024-05-15 12:34] LABS: Alanine Aminotransferase 23 U/L (12-78); Anion Gap 13.1 mEq/L (5-15); Aspartate Amino Transferase 24 U/L (14-36); Bilirubin,Unconjugated 1.1 mg/dL (0.0-1.1); Blood Urea Nitrogen 20 mg/dl (7-17); Carbon Dioxide 25 mmol/L (22.0-30.0); Estimated Glomerular Filt Rate 129 ml/min (>60); GFR (African American) 156 ML/MIN (>60); Total Protein,Serum 6.4 g/dl (6.3-8.2)
[2024-05-15 12:35] LABS: Alkaline Phosphatase 225 U/L (38-126); Bilirubin,Indirect 1.1 mg/dL (0.0-0.9); Bilirubin,Total 1.1 mg/dl (0.2-1.3); Calcium 8.9 mg/dl (8.4-10.2); Chol/HDL Ratio 2.3 (1-3.5); Cholesterol 103 mg/dl (140-200); Glucose 180 mg/dl (74-100); HDL Cholesterol 44 mg/dl (40-60); Magnesium 1.9 mg/dl (1.6-2.3); Triglycerides 83 mg/dl (30-150); VLDL Cholesterol 17 mg/dL (0-40)
[2024-05-15 12:46] LABS: Direct LDL Cholesterol 41.65 mg/dL (100-129)
[2024-05-15 12:52] LABS: Free T4 (Free Thyroxine) 2.85 ng/dl (0.78-2.19)
[2024-05-15 12:53] LABS: Hemoglobin A1C 7.3 % (4.0-6.0)
[2024-05-15 13:04] LABS: Thyroid Stimulating Hormone < 0.02 uIU/mL (0.465-4.68)
== END 2024-05-15 23:59 | disposition home or self-care (01) ==
LOC: LAB 11:21
PROVIDERS: PCP Family Medicine; Visit Provider Nurse Practitioner
DX: E11.9 Type 2 diabetes mellitus without complications (principal); I25.10 Atherosclerotic heart disease of native coronary artery without angina pectoris; G47.33 Obstructive sleep apnea (adult) (pediatric); I10 Essential (primary) hypertension; K21.9 Gastro-esophageal reflux disease without esophagitis; E78.2 Mixed hyperlipidemia
CPT/HCPCS: 80048; 80061; 80076; 83036; 83735; 84439; 84443; 85025

== ENCOUNTER 2024-05-17 13:44 | Outpatient (CLI) | payer MEDICARE, BC, SELFPAY ==
[2024-05-18 11:57] LABS: Thyroid Peroxidase Antibodies 16 IU/mL (0-34); Triiodothyronine (T3) Free 7.8 pg/mL (2.0-4.4)
== END 2024-05-17 23:59 | disposition home or self-care (01) ==
LOC: LAB 13:44
PROVIDERS: PCP Family Medicine; Visit Provider Family Medicine
DX: R79.89 Other specified abnormal findings of blood chemistry (principal)
CPT/HCPCS: 36415; 84481; 86376

== ENCOUNTER 2024-05-24 12:39 | Outpatient (CLI) | payer MEDICARE, BC, SELFPAY ==
--- NOTE | 2024-05-24 12:39 | US_ITS ---
FINAL REPORT CLINICAL HISTORY: thyroid issues COMPARISON: None FINDINGS: Sonographic images of the thyroid gland were obtained. The right thyroid lobe measures 61 mm. in length. The left thyroid lobe measures 61 mm. in length. The thyroid isthmus measures 11 mm. The thyroid gland is diffusely enlarged and heterogeneous in echotexture. There are numerous nodules in both lobes of the thyroid gland. The largest nodule in the right lobe measures 25 x 22 x 18 mm in size, is solid, isoechoic, contains macrocalcifications, a TI-RADS category 4 nodule. The largest nodule on the left measures 29 x 25 x 15 mm in size, is solid, isoechoic, a TI-RADS category 3 nodule. Numerous other nodules are noted bilaterally. The overall appearance is consistent with multinodular goiter. IMPRESSION: The largest nodule in each thyroid lobe, measure up to 25 mm in greatest dimension on the right, and 29 mm in greatest dimension on the left. Would recommend ultrasound-guided fine-needle aspiration of the dominant nodule in each thyroid lobe. Findings are consistent overall with multinodular goiter. Reviewed, Interpreted and Dictated by Jeovany Self III, MD Transcribed by Izabela Ohara Authenticated and [facility]
== END 2024-05-24 23:59 | disposition home or self-care (01) ==
LOC: RAD 12:39
PROVIDERS: PCP Family Medicine; Visit Provider Family Medicine
DX: R79.89 Other specified abnormal findings of blood chemistry (principal)
CPT/HCPCS: 76536

== ENCOUNTER 2024-06-22 13:30 | Outpatient (CLI) | payer MEDICARE, BC, SELFPAY ==
[2024-06-22 17:52] LABS: Coronavirus 19, PCR Not Detected (NotDetected); Influenza A, PCR Not Detected (NotDetected); Influenza B, PCR Not Detected (NotDetected)
== END 2024-06-22 23:59 | disposition home or self-care (01) ==
LOC: LAB.DROPOF 06-24 08:58
PROVIDERS: PCP Family Medicine; Visit Provider Family Medicine
DX: R06.02 Shortness of breath (principal)
CPT/HCPCS: 87636

== ENCOUNTER 2024-07-30 09:57 | Outpatient (CLI) | payer MEDICARE, MEDICAID, SELFPAY ==
--- NOTE | 2024-07-30 10:09 | US_ITS ---
FINAL REPORT TECHNIQUE: Real-time grayscale and color ultrasound of the soft tissues of the neck was performed. CLINICAL HISTORY: left sided lymphdenopathy COMPARISON: none FINDINGS: Ultrasound images of the area of concern in the left neck were obtained. The submandibular and parotid glands are normal bilaterally. There are few scattered nodes seen in the neck. However, there is a dominant soft tissue mass in the left neck accounting for the palpable abnormality measuring 29 x 27 x 18 mm, probably an enlarged lymph node. There is a second mildly enlarged left neck node measuring 20 x 14 x 10 mm. IMPRESSION: Left neck adenopathy in the region of palpable abnormality raising the question of metastatic adenopathy. Consider CT scan or MRI evaluation with contrast. Reviewed, Interpreted and Dictated by Rosalio Saini MD Transcribed by Ofelia Chambers Authenticated and [facility]
== END 2024-07-30 23:59 | disposition home or self-care (01) ==
LOC: RAD 10:00
PROVIDERS: PCP Family Medicine; Visit Provider Nurse Practitioner
DX: R59.1 Generalized enlarged lymph nodes (principal)
CPT/HCPCS: 76536

== ENCOUNTER 2024-08-03 22:29 | Emergency (ER) | payer MEDICARE, MEDICAID, SELFPAY ==
[2024-08-03 22:30] VITALS: BP 164/81; PULSE 99; RESP 18; TEMP 36.8; O2SAT 98; BMI 46.3
[2024-08-03] MEDS: OXYMETAZOLINE NASAL SPRAY 0.05% 15ML NS (22:48)
--- NOTE | 2024-08-03 22:49 | PC.NURSE ---
rounded on pt at this time. Had pt blow nose, administered afrin, and pt is now doing nasal decompression per Dr Molina.
--- NOTE | 2024-08-03 23:09 | PC.NURSE ---
pts nose has stopped bleeding at this time. MD Molina notified.
--- NOTE | 2024-08-03 23:23 | ED_ITS ---
Discharge Plan Disposition Patient Disposition: Home, Self-Care Condition: Good Prescriptions Prescriptions: New Children's Saline Nasal [place] 0.65 % aerosol,spray 1 spray intranasal Q3H PRN (Reason: dry nasal passages) Qty: 30 0RF No Action (DME) Dexcom G7 Tennis Instructor Misc See Rx Instructions .Route Qty: 1 0RF Rx Instructions: As directed nitroglycerin 0.4 mg tablet, sublingual 0.4 mg sublingual Q5M PRN Rx Instructions: do not exceed 3 doses per episode atorvastatin 40 mg tablet See Rx Instructions .ROUTE .COMPLEX Qty: 90 1RF Dose Instruction: TAKE 1 TABLET ORALLY DAILY FOR CHOLESTEROL Rx Instructions: TAKE 1 TABLET ORALLY DAILY FOR CHOLESTEROL aspirin [Adult Aspirin Regimen] 81 mg tablet,delayed release (DR/EC) 81 mg PO DAILY Qty: 90 1RF isosorbide mononitrate 60 mg tablet extended release 24 hr See Rx Instructions .ROUTE .COMPLEX Qty: 100 1RF Dose Instruction: TAKE 1 TABLET BY MOUTH ONCE DAILY Rx Instructions: TAKE 1 TABLET BY MOUTH ONCE DAILY lisinopril 20 mg tablet See Rx Instructions .ROUTE .COMPLEX Qty: 180 1RF Dose Instruction: TAKE 1 TABLET BY MOUTH TWICE DAILY Rx Instructions: TAKE 1 TABLET BY MOUTH TWICE DAILY clopidogrel [Plavix] 75 mg tablet 75 mg PO DAILY Qty: 90 1RF duloxetine 30 mg capsule,delayed release(DR/EC) 30 mg PO DAILY Qty: 90 1RF Jardiance 25 mg tablet 25 mg PO DAILY Qty: 90 1RF medroxyprogesterone 10 mg tablet See Rx Instructions .ROUTE .COMPLEX Qty: 90 1RF Dose Instruction: TAKE 1 TABLET BY MOUTH ONCE DAILY FOR ESTROGEN Rx Instructions: TAKE 1 TABLET BY MOUTH ONCE DAILY FOR ESTROGEN metoprolol tartrate 25 mg tablet See Rx Instructions .ROUTE .COMPLEX Qty: 180 1RF Dose Instruction: TAKE 1 TABLET BY MOUTH TWICE DAILY FOR HYPERTENSION Rx Instructions: TAKE 1 TABLET BY MOUTH TWICE DAILY FOR HYPERTENSION ferrous sulfate [FeroSul] 325 mg (65 mg iron) tablet See Rx Instructions .ROUTE .COMPLEX Qty: 180 1RF Dose Instruction: TAKE 1 TABLET BY MOUTH TWICE DAILY Rx Instructions: TAKE 1 TABLET BY MOUTH TWICE DAILY furosemide 40 mg tablet See Rx Instructions .ROUTE .COMPLEX Qty: 180 1RF Dose Instruction: TAKE 1 TABLET BY MOUTH TWICE DAILY Rx Instructions: TAKE 1 TABLET BY MOUTH TWICE DAILY gabapentin 600 mg tablet 600 mg PO TID Qty: 90 5RF insulin aspart U-100 [Novolog FlexPen U-100 Insulin] 100 unit/mL (3 mL) insulin pen 25 unit SQ BID Qty: 15 5RF Mounjaro 5 mg/0.5 mL pen injector See Rx Instructions .ROUTE .COMPLEX Qty: 2 5RF Dose Instruction: INJECT 5 MG (0.5 ML) SUBCUTANEOUSLY WEEKLY Rx Instructions: INJECT 5 MG (0.5 ML) SUBCUTANEOUSLY WEEKLY terbinafine HCl [Lamisil AT] 1 % cream 1 applic topical BID Qty: 30 1RF Rx Instructions: apply 2x/day to affected area until clear cetirizine [All Day Allergy (cetirizine)] 10 mg tablet 10 mg PO DAILY Qty: 14 0RF azelastine 137 mcg (0.1 %) spray,non-aerosol 137 mcg intranasal BID Qty: 8.22 2RF Rx Instructions: administer into each nostril (DME) Dexcom G7 Sensor Device See Rx Instructions .ROUTE .COMPLEX Qty: 3 10RF Dose Instruction: DIRECTED (EVERY 10 DAYS) Rx Instructions: DIRECTED (EVERY 10 DAYS) levocetirizine 5 mg tablet 5 mg PO HS Qty: 120 4RF (DME) Monoject Safety Syringes 3 mL 21 gauge x 1 syringe See Rx Instructions .Route Qty: 30 1RF Rx Instructions: once daily or As directed (DME) pen needle, diabetic [BD Ultra-Fine Sary Pen Needle] 32 gauge x 5/32 needle See Rx Instructions .ROUTE .COMPLEX Qty: 100 12RF Dose Instruction: USE FOUR TIMES DAILY Rx Instructions: USE FOUR TIMES DAILY omeprazole 40 mg capsule,delayed release(DR/EC) See Rx Instructions .ROUTE .COMPLEX Qty: 90 2RF Dose Instruction: TAKE 1 CAPSULE BY MOUTH ONCE DAILY FOR GERD Rx Instructions: TAKE 1 CAPSULE BY MOUTH ONCE DAILY FOR GERD (DME) pen needle, diabetic [BD Ultra-Fine Sary Pen Needle] 32 gauge x 5/32 needle See Rx Instructions .ROUTE .COMPLEX Qty: 100 0RF Dose Instruction: USE FOUR TIMES DAILY Rx Instructions: USE FOUR TIMES DAILY insulin glargine [Lantus Solostar U-100 Insulin] 100 unit/mL (3 mL) insulin pen See Rx Instructions .ROUTE .COMPLEX Qty: 15 5RF Dose Instruction: INJECT 80 UNITS UNDER THE SKIN AT BEDTIME NIGHTLY Rx Instructions: INJECT 80 UNITS UNDER THE SKIN AT BEDTIME NIGHTLY glimepiride 4 mg tablet 4 mg PO DAILY Referrals Follow up/Referrals: Nora Leiva APRN [Nurse Practitioner] - See instructions (epistaxis) Jorden Michael MD [Primary Care Provider] - See instructions Activity Restrictions/Add. Instructions Additional Instructions/Restrictions: You were evaluated in the ER and are appropriate for discharge at this time. If you start having bleeding from your nose again, blow your nose, put 2 sprays of the oxymetazoline spray in that nostril, and apply the nasal clamp for 30 minutes. If you continue bleeding after that, return to the ER. Do not use the provided oxymetazoline nasal spray for more than 3 days in a row. Use the prescribed saline spray every 3-4 hours if needed for moisturizing the nasal passages. Call Nora Leiva's office and make an appointment for follow up of your nosebleed. Return to the ER with new, worsening, or otherwise concerning symptoms Clinical Impressions Clinical Impression: Epistaxis Print Language Print Language: Moldovan Discharge ED Provider: Taz Molina General Adult HPI General Chief complaint: Recheck/Abnormal Lab/Rx Stated complaint: Nose bleed for 1 hour,diabetic,on blood thinner Time Seen by Provider: 08/03/24 23:11 Mode of Arrival: Ambulatory Source of Information: Patient Limitations: No Limitations Description of Symptoms (Recalled from ER Triage Doc. by RN): Pt to ED with c/o nose bleed that started around 2000 tonight. Pt reports she takes 75mg plavix daily, and 81mg asa daily. Pt reports the bleeding has slowed down since it started, but she can't get it to stop History of Present Illness HPI narrative: 54-year-old female with history of open heart surgery and multivessel CABG who takes Plavix and aspirin daily presents to the ER for complaints of nosebleed fr om the left naris that started around 8 PM, approximately 3 hours prior to arrival. Patient reports the bleeding slowed since it started but she continues having mild oozing. She does not feel short of breath, lightheaded, or weak. She did not try any other interventions at home. Patient denies any injuries, she states she gets nosebleeds once to twice a month. She already has established care with ENT for other reasons but has never seen them for nosebleed. She denies any other symptoms, no recent illness or trauma. She has no shortness of breath, dizziness, lightheadedness, weakness. Related Data Home Medications ?Medication ?Instructions ?Recorded ?Confirmed glimepiride 4 mg tablet 4 mg PO DAILY 10/28/23 07/31/24 nitroglycerin 0.4 mg sublingual 0.4 mg sublingual Q5M PRN 12/19/23 07/31/24 tablet Previous Rx's ?Medication ?Instructions ?Recorded syringe with needle, safety 3 mL #30 ea 09/19/23 21 gauge x 1 (Monoject Safety Syringes) blood-glucose meter,continuous #1 ea 11/01/23 (Dexcom G7 Tennis Instructor) pen needle, diabetic 32 gauge x #100 ea 01/06/24 (BD Ultra-Fine Sary Pen Needle) omeprazole 40 mg capsule,delayed See Rx Instructions .Route 01/30/24 release .COMPLEX #90 caps aspirin 81 mg tablet,delayed 81 mg PO DAILY #90 tabs 05/29/24 release (Adult Aspirin Regimen) atorvastatin 40 mg tablet See Rx Instructions .Route 05/29/24 .COMPLEX #90 tabs clopidogrel 75 mg tablet (Plavix) 75 mg PO DAILY #90 tabs 05/29/24 duloxetine 30 mg capsule,delayed 30 mg PO DAILY #90 caps 05/29/24 release empagliflozin 25 mg tablet 25 mg PO DAILY #90 tabs 05/29/24 (Jardiance) ferrous sulfate 325 mg (65 mg See Rx Instructions .Route 05/29/24 iron) tablet (FeroSul) .COMPLEX #180 tabs furosemide 40 mg tablet See Rx Instructions .Route 05/29/24 .COMPLEX #180 tabs gabapentin 600 mg tablet 600 mg PO TID #90 tabs 05/29/24 insulin aspart U-100 100 unit/mL 25 unit (0.25 mL) SQ BID Diabetes 05/29/24 (3 mL) subcutaneous pen (Novolog #15 mL FlexPen U-100 Insulin aspart) isosorbide mononitrate 60 mg See Rx Instructions .Route 05/29/24 tablet,extended release 24 hr .COMPLEX #100 tabs lisinopril 20 mg tablet See Rx Instructions .Route 05/29/24 .COMPLEX #180 tabs medroxyprogesterone 10 mg tablet See Rx Instructions .Route 05/29/24 .COMPLEX #90 tabs metoprolol tartrate 25 mg tablet See Rx Instructions .Route 05/29/24 .COMPLEX #180 tabs terbinafine HCl 1 % topical cream 1 applic topical BID #30 grams 05/29/24 (Lamisil AT) tirzepatide 5 mg/0.5 mL See Rx Instructions .Route 05/29/24 subcutaneous pen injector .COMPLEX #2 mL (Mounjaro) pen needle, diabetic 32 gauge x #100 ea 06/04/24/32 (BD Ultra-Fine Sary Pen Needle) azelastine 137 mcg (0.1 %) nasal 137 mcg (0.137 mL) intranasal BID 06/22/24 spray #8.22 mL blood-glucose sensor (Dexcom G7 #3 ea 06/22/24 Sensor device) cetirizine 10 mg tablet (All Day 10 mg PO DAILY allergy symptoms 06/22/24 Allergy (cetirizine)) #14 tabs insulin glargine 100 unit/mL (3 See Rx Instructions .Route 07/19/24 mL) subcutaneous pen (Lantus .COMPLEX #15 mL Solostar U-100 Insulin) levocetirizine 5 mg tablet 5 mg PO HS #120 tabs 07/31/24 sodium chloride 0.65 % nasal spray 1 spray intranasal Q3H PRN dry 08/03/24 aerosol (Children's Saline Nasal nasal passages #30 mL [place]) Allergies Allergy/AdvReac Type Severity Reaction Status Date / Time metformin Allergy Intermediate Rash Verified 07/31/24 09:42 cephalexin (From Keflex) Allergy Verified 07/31/24 09:42 semaglutide (From Ozempic) AdvReac Intermediate Gastrointestinal Verified 07/31/24 09:42 Upset PFSH PFS Disclaimer: The information contained in this section may have been updated after the patient was seen, as this information can be updated by other users. 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 Multinodular goiter Diabetes mellitus Hyperthyroidism Elevated serum free T4 level Recurrent acute sinusitis Cholelithiasis Deep vein thrombosis, lower left extremity CHF (congestive heart failure) Hemolytic anemia Right ventricular dysfunction PASHA (obstructive sleep apnea) Edema of both lower extremities Dyspnea Typical angina HLD (hyperlipidemia) HTN (hypertension) GERD (gastroesophageal reflux disease) Type 2 diabetes mellitus Surgical History History of cataract removal with insertion of prosthetic lens History of laparoscopic cholecystectomy H/O tubal ligation Previous section History of right cataract extraction History of open heart surgery Family History Other Breast cancer Family history of diabetes mellitus type II Family history of hypertension Family history of myocardial infarction Gout Hyperlipidemia Lung cancer Thyroid disorder Social History Smoking Status: Never smoker alcohol intake: never substance use type: denies use current occupational status: unemployed Travel in the last 8 weeks: None caffeine: Yes Have you lived/traveled outside [place] in past 30 days?: No Contact w/someone who lives/traveled outside [place] past 30 days?: No Exposure to someone with infectious disease in past 14 days?: No Do you have a fever (greater than 100.4 F or 38 C)?: No Have you tested positive for COVID-19: No Exposed to someone with COVID-19 in past 14 days?: No Do you have a sore throat?: No Do you have a cough?: No Do you have any weakness?: No Do you have any diarrhea?: No Are you experiencing any unusual bleeding?: Yes Do you have any muscle aches/pain?: No Do you have any abdominal pain?: No Are you experiencing loss of taste or smell?: No Other Medical History Have you received the Flu Vaccine for this season: No Have you received the Pneumonia Vaccine: No ROS Obtained: Yes Systems reviewed as appropriate & no additional complaints except as documented per hpi Physical Exam General General appearance: alert and in no apparent distress Head Head exam: atraumatic and normocephalic Eye Eye exam: Present PERRL and EOMI ENT ENT exam: Present mucous membranes moist and other (Small blood in the left anterior nare without significant active bleeding. No blood running down the posterior throat) Neck Neck exam: Present normal inspection and full ROM Chest Chest inspection: Present symmetric chest wall rise Respiratory Respiratory exam: Absent respiratory distress or stridor Cardiovascular Cardiovascular exam: Present regular rate and normal rhythm Extremities Exam Extremities exam: Present full ROM and normal capillary refill Neurological Exam Neurological exam: Present alert and oriented X3; Absent motor sensory deficit Psychiatric Psychiatric exam: Present normal affect and normal mood Skin Skin exam: Present warm and dry Medical Decision Making Medical Records Medical records reviewed: Yes I reviewed the patient's medical records. Screening: Per USPSTF and CDC recommendations, given the prevalence of disease in our region, it is our hospital?s policy to screen for HIV and viral Hepatitis for all patients aged 18 and over and those with ongoing risk factors. MR Comment: Patient was evaluated by ENT on 07/31/2024 and I reviewed this progress note which demonstrates patient is being evaluated for eustachian tube dysfunction. Patient was also having ultrasound for this, possible metastatic adenopathy Papi Inquiry Pt receiving controlled substance: No Vital Signs: 08/03/24 22:30 08/03/24 23:28 Temperature 98.3 F 98.3 F Temperature Source Oral Oral Pulse Rate 97 H Pulse Rate [Left Radial] 99 H Respiratory Rate 18 18 Blood Pressure 150/78 H Blood Pressure [Right Arm] 164/81 H Blood Pressure Mean [Right Arm] 108 Blood Pressure Source Automatic Cuff Blood Pressure Source [Right Arm] Automatic Cuff Blood Pressure Position Sitting Blood Pressure Position [Right Arm] Sitting 02 Sat by Pulse Oximetry 98 Oxygen Delivery Method Room Air Room Air Orders (Tests/Meds): ED MEDICATIONS Discontinued Medications Generic Name Dose Route Start Last Admin Trade Name Freq PRN Reason Stop Dose Admin Oxymetazoline HCl 1 ml 08/03/24 22:47 08/03/24 22:48 Oxymetazoline Nasal [place] 0.05% 15ml NS 08/03/24 22:48 1 ml ONCE ONE Administration Medical Decision Narrative: In summary, 54-year-old female with comorbidities described in the HPI presents to the ER for ongoing epistaxis. On evaluation patient has very small left anterior nosebleed. Remainder of exam benign. Differential diagnosis includes but not limited to anterior nosebleed, posterior nosebleed, I considered coagulopathy but we already know patient is on antiplatelet medications, considered anemia but have no evidence of this clinically since patient does not have tachycardia, hypotension, she is not pale or lightheaded, not short of breath, normal capillary refill. She also appears to have had a slow nosebleed without significant blood loss. I do not believe labs or imaging are indicated at this time. Oxymetazoline spray was applied. Shortly thereafter patient's nosebleed had resolved. She was not having any ongoing bleeding. She is appropriate for discharge at this time. Oxymetazoline was provided to the patient and she was instructed on home use of this medication. I also prescribed saline nasal spray to maintain good moisture of the mucosa. Since she already follows with ENT I instructed her to call the office for close follow-up for possible cauterization. Patient was given instructions on symptomatic management, follow up instructions, and return precautions for the emergency department. Patient indicated understanding to verbal and written instructions and was discharged in stable condition. Critical Care Critical Care Time Critical Care Time: No
[2024-08-03 23:28] VITALS: BP 150/78; PULSE 97; RESP 18; TEMP 36.8; O2SAT 96
== END 2024-08-03 23:30 | disposition home or self-care (01) ==
PROVIDERS: Emergency Provider Student in an Organized Health Care Education/Training Program; PCP Family Medicine
DX: R04.0 Epistaxis (principal)
CPT/HCPCS: 99283

== ENCOUNTER 2024-08-16 13:15 | Outpatient (CLI) | payer MEDICARE, MEDICAID, SELFPAY ==
--- NOTE | 2024-08-16 13:16 | CT_ITS ---
FINAL REPORT TECHNIQUE: Thin section axial CT images with coronal reformats were obtained through the neck after the administration of IV contrast. This study was performed with techniques to keep radiation doses as low as reasonably achievable (ALARA). Individualized dose reduction techniques using automated exposure control or adjustment of mA and/or kV according to the patient''s size were employed. CLINICAL HISTORY: swelling and tenderness in the neck, abnormal U/S FINDINGS: The paranasal sinuses are well aerated. There are a multitude of scattered cervical lymph nodes. Some of the nodes are enlarged measuring up to 1.6 cm in greatest dimension. There is heterogeneous complex thyroid parenchyma consistent with multinodular goiter. The patient is status post median sternotomy. IMPRESSION: Multinodular goiter. Scattered lymph nodes, favor reactive. Reviewed, Interpreted and Dictated by Erick Rodgers MD Transcribed by Karen Mayberry Authenticated and [facility]
[2024-08-16 13:44] LABS: Blood Urea Nitrogen 19 mg/dl (7-17); Estimated Glomerular Filt Rate 129 ml/min (>60); GFR (African American) 156 ML/MIN (>60)
[2024-08-16] MEDS: IOPAMIDOL-370 (76%);100ML BOTTLE 75 ML IV (14:22)
[2024-08-16] MEDS: SODIUM CHLORIDE 0.9% 10ML SYR (RAD ONLY) 10 ML IV (14:22)
== END 2024-08-16 23:59 | disposition home or self-care (01) ==
LOC: RAD 13:16
PROVIDERS: PCP Family Medicine; Visit Provider Nurse Practitioner
DX: R59.1 Generalized enlarged lymph nodes (principal)
CPT/HCPCS: 70491; 82565; 84520; Q9967

== ENCOUNTER 2024-09-03 11:00 | Outpatient (CLI) | payer MEDICARE, MEDICAID, SELFPAY ==
[2024-09-03 18:26] LABS: Basophils # 0.1 K/mm3 (0-0.2); Basophils % 0.6 % (0.1-2.0); Eosinophils # 0.3 K/mm3 (0.0-0.4); Hematocrit 44.6 % (37.0-47.0); Hemoglobin 13.9 g/dL (12.2-16.2); Lymphocytes # 1.8 K/mm3 (0.7-4.5); Lymphocytes % 23.8 % (10-50); Mean Corpuscular HGB Conc 31.2 g/dL (31.8-35.4); Mean Corpuscular Hemoglobin 26.4 pg (27.0-31.2); Mean Corpuscular Volume 84.8 fl (81-99); Mean Platelet Volume 13.6 fl (7.4-10.4); Monocytes # 0.6 K/mm3 (0.1-1.0); Monocytes % 8.3 % (1.7-9.3); Neutrophils # 4.9 K/mm3 (1.8-7.8); Neutrophils % 63.2 % (37.0-80.0); Platelet Count 176 K/mm3 (142-424); Red Blood Count 5.26 M/mm3 (4.20-5.40); Red Cell Distribution Width 13.7 % (11.5-17.5); White Blood Count 7.7 K/mm3 (4.8-10.8)
[2024-09-03 19:27] LABS: Albumin Level 3.7 g/dl (3.5-5.0); Chloride 103 mmol/L (98-107); Potassium 4.5 mmoL/L (3.5-5.1); Sodium 138 mmol/L (136-145)
[2024-09-03 19:30] LABS: Alanine Aminotransferase 26 U/L (12-78); Albumin/Globulin Ratio 1.2 (1.1-1.8); Alkaline Phosphatase 281 U/L (38-126); Anion Gap 12.5 mEq/L (5-15); Aspartate Amino Transferase 28 U/L (14-36); Bilirubin,Total 1.3 mg/dl (0.2-1.3); Blood Urea Nitrogen 20 mg/dl (7-17); Carbon Dioxide 27 mmol/L (22.0-30.0); Cholesterol 123 mg/dl (140-200); Estimated Glomerular Filt Rate 104 ml/min (>60); GFR (African American) 126 ML/MIN (>60); Glucose 159 mg/dl (74-100); Total Protein,Serum 6.7 g/dl (6.3-8.2); Triglycerides 112 mg/dl (30-150); VLDL Cholesterol 22 mg/dL (0-40)
[2024-09-03 19:31] LABS: Chol/HDL Ratio 2.7 (1-3.5); HDL Cholesterol 45 mg/dl (40-60)
[2024-09-03 19:42] LABS: Direct LDL Cholesterol 46.28 mg/dL (100-129)
[2024-09-03 19:59] LABS: Thyroid Stimulating Hormone < 0.02 uIU/mL (0.465-4.68)
[2024-09-03 21:38] LABS: Hemoglobin A1C 7.8 % (4.0-6.0)
== END 2024-09-03 23:59 | disposition home or self-care (01) ==
LOC: LAB.DROPOF 09-04 15:20
PROVIDERS: PCP Family Medicine; Visit Provider Family Medicine
DX: E11.69 Type 2 diabetes mellitus with other specified complication (principal); D64.9 Anemia, unspecified; E04.9 Nontoxic goiter, unspecified; Z79.4 Long term (current) use of insulin; Z79.84 Long term (current) use of oral hypoglycemic drugs; Z79.85 Long-term (current) use of injectable non-insulin antidiabetic drugs
CPT/HCPCS: 80053; 80061; 83036; 84443; 85025

== ENCOUNTER 2024-09-20 12:42 | Emergency (ER) | payer MEDICARE, MEDICAID, SELFPAY ==
[2024-09-20 12:45] VITALS: BP 135/67; PULSE 72; RESP 18; TEMP 36.9; O2SAT 98; BMI 47.2
--- NOTE | 2024-09-20 12:52 | XR_ITS ---
FINAL REPORT CLINICAL HISTORY: wrist injury COMPARISON: None FINDINGS: RIGHT WRIST THREE VIEW FINDINGS: Three views show no evidence of an acute, displaced fracture or dislocation of the visualized bony architecture. There is an oval dense calcification along the dorsal carpus which may be due to remote injury or degenerative change. The joint spaces appear normal. IMPRESSION: No acute bony abnormality. Reviewed, Interpreted and Dictated by Rosalio Saini MD Transcribed by Ofelia Chambers Authenticated and [facility]
--- NOTE | 2024-09-20 12:55 | ED_ITS ---
<Statement entered by Taz Molina MD - 09/22/24 08:21> I was consulted by the THIAGO, and we discussed the complexity of the problems being addressed. I approved the treatment and management plan for this patient's care in the emergency department, thus performing a substantive portion of the medical decision making. Taz Molina MD, ADAN, FACEP Discharge Plan Disposition Patient Disposition: Home, Self-Care Condition: Good Prescriptions Prescriptions: No Action (DME) Dexcom G7 Coagulating Bath Operator Misc See Rx Instructions .Route Qty: 1 0RF Rx Instructions: As directed nitroglycerin 0.4 mg tablet, sublingual 0.4 mg sublingual Q5M PRN Rx Instructions: do not exceed 3 doses per episode atorvastatin 40 mg tablet See Rx Instructions .ROUTE .COMPLEX Qty: 90 1RF Dose Instruction: TAKE 1 TABLET ORALLY DAILY FOR CHOLESTEROL Rx Instructions: TAKE 1 TABLET ORALLY DAILY FOR CHOLESTEROL aspirin [Adult Aspirin Regimen] 81 mg tablet,delayed release (DR/EC) 81 mg PO DAILY Qty: 90 1RF isosorbide mononitrate 60 mg tablet extended release 24 hr See Rx Instructions .ROUTE .COMPLEX Qty: 100 1RF Dose Instruction: TAKE 1 TABLET BY MOUTH ONCE DAILY Rx Instructions: TAKE 1 TABLET BY MOUTH ONCE DAILY lisinopril 20 mg tablet See Rx Instructions .ROUTE .COMPLEX Qty: 180 1RF Dose Instruction: TAKE 1 TABLET BY MOUTH TWICE DAILY Rx Instructions: TAKE 1 TABLET BY MOUTH TWICE DAILY clopidogrel [Plavix] 75 mg tablet 75 mg PO DAILY Qty: 90 1RF duloxetine 30 mg capsule,delayed release(DR/EC) 30 mg PO DAILY Qty: 90 1RF Jardiance 25 mg tablet 25 mg PO DAILY Qty: 90 1RF medroxyprogesterone 10 mg tablet See Rx Instructions .ROUTE .COMPLEX Qty: 90 1RF Dose Instruction: TAKE 1 TABLET BY MOUTH ONCE DAILY FOR ESTROGEN Rx Instructions: TAKE 1 TABLET BY MOUTH ONCE DAILY FOR ESTROGEN metoprolol tartrate 25 mg tablet See Rx Instructions .ROUTE .COMPLEX Qty: 180 1RF Dose Instruction: TAKE 1 TABLET BY MOUTH TWICE DAILY FOR HYPERTENSION Rx Instructions: TAKE 1 TABLET BY MOUTH TWICE DAILY FOR HYPERTENSION ferrous sulfate [FeroSul] 325 mg (65 mg iron) tablet See Rx Instructions .ROUTE .COMPLEX Qty: 180 1RF Dose Instruction: TAKE 1 TABLET BY MOUTH TWICE DAILY Rx Instructions: TAKE 1 TABLET BY MOUTH TWICE DAILY furosemide 40 mg tablet See Rx Instructions .ROUTE .COMPLEX Qty: 180 1RF Dose Instruction: TAKE 1 TABLET BY MOUTH TWICE DAILY Rx Instructions: TAKE 1 TABLET BY MOUTH TWICE DAILY gabapentin 600 mg tablet 600 mg PO TID Qty: 90 5RF insulin aspart U-100 [Novolog FlexPen U-100 Insulin] 100 unit/mL (3 mL) insulin pen 25 unit SQ BID Qty: 15 5RF Mounjaro 5 mg/0.5 mL pen injector See Rx Instructions .ROUTE .COMPLEX Qty: 2 5RF Dose Instruction: INJECT 5 MG (0.5 ML) SUBCUTANEOUSLY WEEKLY Rx Instructions: INJECT 5 MG (0.5 ML) SUBCUTANEOUSLY WEEKLY terbinafine HCl [Lamisil AT] 1 % cream 1 applic topical BID Qty: 30 1RF Rx Instructions: apply 2x/day to affected area until clear mupirocin 2 % ointment 1 applic topical TID Qty: 22 2RF cetirizine [All Day Allergy (cetirizine)] 10 mg tablet 10 mg PO DAILY Qty: 14 0RF (DME) valuklik G7 Sensor Device See Rx Instructions .ROUTE .COMPLEX Qty: 3 10RF Dose Instruction: DIRECTED (EVERY 10 DAYS) Rx Instructions: DIRECTED (EVERY 10 DAYS) levocetirizine 5 mg tablet 5 mg PO HS Qty: 120 4RF (DME) Monoject Safety Syringes 3 mL 21 gauge x 1 syringe See Rx Instructions .Route Qty: 30 1RF Rx Instructions: once daily or As directed (DME) pen needle, diabetic [BD Ultra-Fine Sary Pen Needle] 32 gauge x 5/32 needle See Rx Instructions .ROUTE .COMPLEX Qty: 100 12RF Dose Instruction: USE FOUR TIMES DAILY Rx Instructions: USE FOUR TIMES DAILY omeprazole 40 mg capsule,delayed release(DR/EC) See Rx Instructions .ROUTE .COMPLEX Qty: 90 2RF Dose Instruction: TAKE 1 CAPSULE BY MOUTH ONCE DAILY FOR GERD Rx Instructions: TAKE 1 CAPSULE BY MOUTH ONCE DAILY FOR GERD insulin glargine [Lantus Solostar U-100 Insulin] 100 unit/mL (3 mL) insulin pen See Rx Instructions .ROUTE .COMPLEX Qty: 15 5RF Dose Instruction: INJECT 80 UNITS UNDER THE SKIN AT BEDTIME NIGHTLY Rx Instructions: INJECT 80 UNITS UNDER THE SKIN AT BEDTIME NIGHTLY (DME) pen needle, diabetic [BD Ultra-Fine Sary Pen Needle] 32 gauge x 5/32 needle See Rx Instructions .ROUTE .COMPLEX Qty: 100 0RF Dose Instruction: USE FOUR TIMES DAILY Rx Instructions: USE FOUR TIMES DAILY glimepiride 4 mg tablet 4 mg PO DAILY Children's Saline Nasal [place] 0.65 % aerosol,spray 1 spray intranasal Q3H PRN (Reason: dry nasal passages) Qty: 30 0RF Referrals Follow up/Referrals: Jorden Michael MD [Primary Care Provider] - See instructions Activity Restrictions/Add. Instructions Additional Instructions/Restrictions: Please wash your wounds with soap and water pat dry. Apply bacitracin over the abrasions. If he you have any increasing intractable headache change in level of consciousness protracted or intractable vomiting return to the emergency department. Clinical Impressions Clinical Impression: Abrasions of multiple sites Fall Qualifiers: Encounter type: initial encounter Qualified Code(s): W19.XXXA - Unspecified fall, initial encounter Print Language Print Language: Ukrainian Discharge ED Provider: Taz Molina General Adult HPI General Chief complaint: Extremity Injury, Upper Stated complaint: [id number] in face and R arm Time Seen by Provider: 09/20/24 12:55 Mode of Arrival: Wheelchair Source of Information: Patient and Relative Description of Symptoms (Recalled from ER Triage Doc. 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 Pt states she was getting out of her vehicle and was atempting to step up on the side walk. Pt has abrasions to her face/bilateral knees, and is having right wrist pain. Pt did not have LOC, pt is on plavix. Pt is A&Ox4, GCS 15. History of Present Illness HPI narrative: Patient presents for evaluation of a fall injury. Patient was getting out of a car tripped falling face work onto the sidewalk. She did not lose consciousness but injured her right wrist scraped both knees and hit her forehead on the sidewalk. She denies any neck pain but reports pain in her forehead. She has no vision changes no nausea no vomiting. She was able to ambulate and get up and came to the ER for evaluation. Related Data Home Medications ?Medication ?Instructions ?Recorded ?Confirmed glimepiride 4 mg tablet 4 mg PO DAILY 10/28/23 09/03/24 nitroglycerin 0.4 mg sublingual 0.4 mg sublingual Q5M PRN 12/19/23 09/03/24 tablet Previous Rx's ?Medication ?Instructions ?Recorded syringe with needle, safety 3 mL #30 ea 09/19/23 21 gauge x 1 (Monoject Safety Syringes) blood-glucose meter,continuous #1 ea 11/01/23 (Dexcom G7 Coagulating Bath Operator) pen needle, diabetic 32 gauge x #100 ea 01/06/24 (BD Ultra-Fine Sary Pen Needle) omeprazole 40 mg capsule,delayed See Rx Instructions .Route 01/30/24 release .COMPLEX #90 caps aspirin 81 mg tablet,delayed 81 mg PO DAILY #90 tabs 05/29/24 release (Adult Aspirin Regimen) atorvastatin 40 mg tablet See Rx Instructions .Route 05/29/24 .COMPLEX #90 tabs clopidogrel 75 mg tablet (Plavix) 75 mg PO DAILY #90 tabs 05/29/24 duloxetine 30 mg capsule,delayed 30 mg PO DAILY #90 caps 05/29/24 release empagliflozin 25 mg tablet 25 mg PO DAILY #90 tabs 05/29/24 (Jardiance) ferrous sulfate 325 mg (65 mg See Rx Instructions .Route 05/29/24 iron) tablet (FeroSul) .COMPLEX #180 tabs furosemide 40 mg tablet See Rx Instructions .Route 05/29/24 .COMPLEX #180 tabs gabapentin 600 mg tablet 600 mg PO TID #90 tabs 05/29/24 insulin aspart U-100 100 unit/mL 25 unit (0.25 mL) SQ BID Diabetes 05/29/24 (3 mL) subcutaneous pen (Novolog #15 mL FlexPen U-100 Insulin aspart) isosorbide mononitrate 60 mg See Rx Instructions .Route 05/29/24 tablet,extended release 24 hr .COMPLEX #100 tabs lisinopril 20 mg tablet See Rx Instructions .Route 05/29/24 .COMPLEX #180 tabs medroxyprogesterone 10 mg tablet See Rx Instructions .Route 05/29/24 .COMPLEX #90 tabs metoprolol tartrate 25 mg tablet See Rx Instructions .Route 05/29/24 .COMPLEX #180 tabs terbinafine HCl 1 % topical cream 1 applic topical BID #30 grams 05/29/24 (Lamisil AT) tirzepatide 5 mg/0.5 mL See Rx Instructions .Route 05/29/24 subcutaneous pen injector .COMPLEX #2 mL (Mounjaro) blood-glucose sensor (Dexcom G7 #3 ea 06/22/24 Sensor device) cetirizine 10 mg tablet (All Day 10 mg PO DAILY allergy symptoms 06/22/24 Allergy (cetirizine)) #14 tabs levocetirizine 5 mg tablet 5 mg PO HS #120 tabs 07/31/24 sodium chloride 0.65 % nasal spray 1 spray intranasal Q3H PRN dry 08/03/24 aerosol (Children's Saline Nasal nasal passages #30 mL [place]) insulin glargine 100 unit/mL (3 See Rx Instructions .Route 08/07/24 mL) subcutaneous pen (Lantus .COMPLEX #15 mL Solostar U-100 Insulin) pen needle, diabetic 32 gauge x #100 ea 08/10/24 (BD Ultra-Fine Sary Pen Needle) mupirocin 2 % topical ointment 1 applic topical TID #22 grams 08/29/24 Allergies Allergy/AdvReac Type Severity Reaction Status Date / Time metformin Allergy Intermediate Rash Verified 09/03/24 10:13 cephalexin (From Keflex) Allergy Unknown Verified 09/20/24 13:12 allergy reaction semaglutide (From Ozempic) AdvReac Intermediate Gastrointestinal Verified 09/03/24 10:13 Upset PFS PFS Disclaimer: The information contained in this section may have been updated after the patient was seen, as this information can be updated by other users. 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 Multinodular goiter Diabetes mellitus Hyperthyroidism Elevated serum free T4 level Recurrent acute sinusitis Cholelithiasis Deep vein thrombosis, lower left extremity CHF (congestive heart failure) Hemolytic anemia Right ventricular dysfunction PASHA (obstructive sleep apnea) Edema of both lower extremities Dyspnea Typical angina HLD (hyperlipidemia) HTN (hypertension) GERD (gastroesophageal reflux disease) Type 2 diabetes mellitus Surgical History History of cataract removal with insertion of prosthetic lens History of laparoscopic cholecystectomy H/O tubal ligation Previous section History of right cataract extraction History of open heart surgery Family History Other Breast cancer Family history of diabetes mellitus type II Family history of hypertension Family history of myocardial infarction Gout Hyperlipidemia Lung cancer Thyroid disorder Social History Smoking Status: Current every day smoker alcohol intake: never substance use type: denies use current occupational status: unemployed Travel in the last 8 weeks: None caffeine: Yes Have you lived/traveled outside [place] in past 30 days?: No Contact w/someone who lives/traveled outside [place] past 30 days?: No Exposure to someone with infectious disease in past 14 days?: No Do you have a fever (greater than 100.4 F or 38 C)?: No Have you tested positive for COVID-19: No Exposed to someone with COVID-19 in past 14 days?: No Do you have a sore throat?: No Do you have a cough?: No Do you have any weakness?: No Do you have any diarrhea?: No Are you experiencing any unusual bleeding?: No Do you have any muscle aches/pain?: Yes Do you have any abdominal pain?: No Are you experiencing loss of taste or smell?: No Other Medical History Have you received the Flu Vaccine for this season: No Have you received the Pneumonia Vaccine: No ROS Obtained: Yes Systems reviewed as appropriate & no additional complaints except as documented Physical Exam General General appearance: alert and in no apparent distress Respiratory Respiratory exam: Present normal lung sounds bilaterally Cardiovascular Cardiovascular exam: Present regular rate and normal heart sounds Neurological Exam Neurological exam: Present alert and oriented X3 Medical Decision Making Medical Records Medical records reviewed: Yes I reviewed the patient's medical records. Screening: Per USPSTF and CDC recommendations, given the prevalence of disease in our region, it is our hospital?s policy to screen for HIV and viral Hepatitis for all patients aged 18 and over and those with ongoing risk factors. Papi Inquiry Pt receiving controlled substance: No Vital Signs: 09/20/24 12:45 09/20/24 13:00 09/20/24 13:31 Temperature 98.4 F Temperature Source Oral Pulse Rate 74 71 Pulse Rate [Right] 72 Respiratory Rate 18 Blood Pressure 132/62 119/62 Blood Pressure [Right Arm] 135/67 Blood Pressure Mean [Right Arm] 89 Blood Pressure Source [Right Arm] Automatic Cuff Blood Pressure Position [Right Arm] Sitting 02 Sat by Pulse Oximetry 98 99 95 Oxygen Delivery Method Room Air Room Air Room Air 09/20/24 14:20 Temperature 98.4 F Temperature Source Pulse Rate 77 Pulse Rate [Right] Respiratory Rate 16 Blood Pressure 141/56 H Blood Pressure [Right Arm] Blood Pressure Mean [Right Arm] Blood Pressure Source [Right Arm] Blood Pressure Position [Right Arm] 02 Sat by Pulse Oximetry Oxygen Delivery Method Room Air Lab Data Lab results reviewed: Yes I reviewed the patient's lab results. Orders (Tests/Meds): ED MEDICATIONS Discontinued Medications Generic Name Dose Route Start Last Admin Trade Name Freq PRN Reason Stop Dose Admin Acetaminophen 1,000 mg 09/20/24 13:07 09/20/24 13:43 Acetaminophen 500mg Tab PO 09/20/24 13:08 Not Given ONCE ONE Bacitracin 1 gm 09/20/24 13:46 09/20/24 14:11 Bacitracin Zinc Oint 30gm Tube TP 09/20/24 13:47 1 ml ONCE ONE Administration Oxycodone HCl 5 mg 09/20/24 13:07 09/20/24 13:37 Oxycodone 5mg Immediate Release Tablet PO 09/20/24 13:08 5 mg ONCE ONE Administration Tetanus/Reduced Diphtheria/Acell Pertussis 0.5 ml 09/20/24 13:07 09/20/24 13:36 Tet/Diphth/Pert-Adult 0.5ml Syringe IM 09/20/24 13:08 0.5 ml .ONCE ONE Administration ORDERS Category Date Time Status CT cervical spine wo con Stat Cat Scan 09/20/24 13:[address] facial bones wo con Stat Cat Scan 09/20/24 13:[address] head/brain wo con Stat Cat Scan 09/20/24 13:05 Taken Knee XR left 3 views [XR knee LT 3V] Stat Exams 09/20/24 13:05 Taken Knee XR right 3 views [XR knee RT 3V] Stat Exams 09/20/24 13:05 Taken Wrist XR right minimum 3 views [XR wrist RT min 3V] Exams 09/20/24 12:52 Completed Stat XR forearm RT 2V Stat Exams 09/20/24 13:02 Taken XR hand RT min 3V Stat Exams 09/20/24 13:02 Completed Medical Decision Narrative: In summary patient is a 54-year-old female who presents to the emergency department for evaluation of a fall. Patient is patient is hemodynamically stable upon arrival, afebrile. Physical exam is remarkable for an abrasion to the center of her forehead but no palpable bony deformity. There is no ecchymosis around the orbits. Patient's extraocular movements are intact without pain. Pupils equal round reactive to light. There is no cervical spine tenderness patient has ecchymosis at the distal lateral right forearm but again no bony deformity. Patient is neurovascular intact distally in the hand. She does have painful but full range of motion. Patient has abrasions to both knees but again no palpable bony deformity. Patient does have full range of motion however it is uncomfortable. She is neurovascular intact distally.. Differential diagnosis includes closed head injury versus skull fracture versus wrist fracture versus fracture of the knees versus C-spine injury etc. Initial workup will be conducted with CT scan of the head and C-spine and facial bones plain films of the distal right upper extremity and bilateral knees. Initial interventions include Tylenol and oxycodone until bleed is ruled out. Initial workup reviewed by me and my informal interpretation of her imaging shows no evidence of acute intracranial injury C-spine injury or other bony abnormality prior to radiology read. Upon repeat evaluation patient is remaining with a Jason Coma Score 15 and is ambulatory in the emergency department. Given this patient is appropriate for discharge with a prescription for Bactrim applied to her abrasions wound care instructions and strict return precautions. Critical Care Critical Care Time Critical Care Time: No
[2024-09-20 13:00] VITALS: BP 132/62; PULSE 74; O2SAT 99
--- NOTE | 2024-09-20 13:00 | PC.NURSE ---
pt brought from triage to RM 2. 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 pt denies LOC. she is on plavix. pt c/o bilateral knee pain that is aching in nature and 5/10. pt reports R wrist pain that radiates to her RFA, sharp in nature and 10/10. pt presents with an abrasion to her forehead with scant dried blood. pt states her forehead aches and is a 6/10. pt denies taking any medication for pain CLUB DIRECTOR.
--- NOTE | 2024-09-20 13:02 | XR_ITS ---
FINAL REPORT CLINICAL HISTORY: fall COMPARISON: None FINDINGS: 2 views of the right forearm were obtained. There is no acute fracture or dislocation. The joints are intact. Osteopenia is noted. There are no soft tissue abnormalities. IMPRESSION: No acute process. Reviewed, Interpreted and Dictated by Rosalio Saini MD Transcribed by Ofelia Chambers Authenticated and [facility]
--- NOTE | 2024-09-20 13:02 | XR_ITS ---
FINAL REPORT CLINICAL HISTORY: fall COMPARISON: None FINDINGS: Three views of the right hand show no evidence of acute displaced fracture or dislocation of the visualized bony architecture. The joint spaces appear normal. There is a dense calcification along the dorsal carpus which may be due to remote injury or degenerative change. IMPRESSION: No acute bony abnormality. Reviewed, Interpreted and Dictated by Rosalio Saini MD Transcribed by Ofelia Chambers Authenticated and . [facility]
--- NOTE | 2024-09-20 13:05 | CT_ITS ---
FINAL REPORT TECHNIQUE: Thin section axial CT with coronal and sagittal reconstruction without IV contrast. This study was performed with techniques to keep radiation doses as low as reasonably achievable, (ALARA). Individualized dose reduction techniques using automated exposure control or adjustment of mA and/or kV according to the patient''s size were employed. CLINICAL HISTORY: Fall face first on sidewalk COMPARISON: None FINDINGS: No facial fracture is present. Paranasal sinuses are clear. The TMJs are intact. IMPRESSION: No acute findings. Reviewed, Interpreted and Dictated by Rosalio Saini MD Transcribed by Ofelia Chambers Authenticated and [facility]
--- NOTE | 2024-09-20 13:05 | CT_ITS ---
FINAL REPORT TECHNIQUE: Thin section axial CT with coronal sagittal reconstruction without contrast. This study was performed with techniques to keep radiation doses as low as reasonably achievable, (ALARA). Individualized dose reduction techniques using automated exposure control or adjustment of mA and/or kV according to the patient''s size were employed. CLINICAL HISTORY: Fall face first on sidewalk COMPARISON: None FINDINGS: No fracture is seen. Alignment is normal. There is degenerative canal stenosis at C4-5 and C5-6. No gross disk abnormalities are seen. IMPRESSION: No acute fracture or malalignment. Reviewed, Interpreted and Dictated by Rosalio Saini MD Transcribed by Ofelia Chambers Authenticated and [facility]
--- NOTE | 2024-09-20 13:05 | CT_ITS ---
FINAL REPORT TECHNIQUE: Noncontrast exam. Coronal and sagittal images were obtained and reviewed. This study was performed with techniques to keep radiation doses as low as reasonably achievable, (ALARA). Individualized dose reduction techniques using automated exposure control or adjustment of mA and/or kV according to the patient''s size were employed. CLINICAL HISTORY: Fall face first on sidewalk COMPARISON: None FINDINGS: No abnormal density is seen. Ventricles are normal. There is no hemorrhage. No mass effect is seen. Bone windows show no evidence of fracture. IMPRESSION: No acute findings Reviewed, Interpreted and Dictated by Rosalio Saini MD Transcribed by Ofelia Chambers Authenticated and [facility]
--- NOTE | 2024-09-20 13:05 | XR_ITS ---
FINAL REPORT CLINICAL HISTORY: Fall on sidewalk COMPARISON: None FINDINGS: Three views of the left knee were obtained. There is no acute fracture or dislocation. Osteopenia is noted. There are mild degenerative changes. There is no soft tissue abnormality. IMPRESSION: No acute bony abnormality Reviewed, Interpreted and Dictated by Rosalio Saini MD Transcribed by Ofelia Chambers Authenticated and [facility]
--- NOTE | 2024-09-20 13:05 | XR_ITS ---
FINAL REPORT CLINICAL HISTORY: Fall on sidewalk COMPARISON: None FINDINGS: Three views of the right knee were obtained. There is no acute fracture or dislocation. Osteopenia is noted. There are mild degenerative changes. There is no soft tissue abnormality. IMPRESSION: No acute bony abnormality. Reviewed, Interpreted and Dictated by Rosalio Saini MD Transcribed by Ofelia Chambers Authenticated and [facility]
[2024-09-20 13:31] VITALS: BP 119/62; PULSE 71; O2SAT 95
[2024-09-20] MEDS: TET/DIPHTH/PERT-ADULT 0.5ML SYRINGE 0.5 ML IM (13:36)
[2024-09-20] MEDS: OXYCODONE 5MG IMMEDIATE RELEASE TABLET 5 MG PO (13:37)
[2024-09-20] MEDS: BACITRACIN ZINC OINT 30GM TUBE TP (14:11)
--- NOTE | 2024-09-20 14:18 | PC.NURSE ---
placed ointment on pt face and knees per Don order
[2024-09-20 14:20] VITALS: BP 141/56; PULSE 77; RESP 16; TEMP 36.9; O2SAT 95
== END 2024-09-20 14:26 | disposition home or self-care (01) ==
PROVIDERS: Emergency Provider Student in an Organized Health Care Education/Training Program; PCP Family Medicine
DX: S09.90XA Unspecified injury of head, initial encounter (principal); S80.211A Abrasion, right knee, initial encounter; S80.212A Abrasion, left knee, initial encounter; S60.811A Abrasion of right wrist, initial encounter; W01.0XXA Fall on same level from slipping, tripping and stumbling without subsequent striking against object, initial encounter
CPT/HCPCS: 70450; 70486; 72125; 73090; 73110; 73130; 73562; 90471; 90715; 99285

== ENCOUNTER 2024-09-24 14:02 | Outpatient (CLI) | payer MEDICARE, MEDICAID, SELFPAY ==
--- NOTE | 2024-09-24 14:17 | XR_ITS ---
FINAL REPORT CLINICAL HISTORY: rib pain fall last week COMPARISON: None FINDINGS: LEFT RIBS WITH CHEST A single PA view of the chest and three views of the left ribs were obtained. The heart is mildly enlarged. Sternotomy wires are noted. The mediastinum is otherwise within normal limits. There are mild chronic changes at the lung bases. The lungs are otherwise clear. There is no pneumothorax. There is no acute displaced rib fracture. IMPRESSION: No acute cardiopulmonary process. No displaced rib fracture with no pneumothorax Reviewed, Interpreted and Dictated by Erick Rodgers MD Transcribed by Padmini Branch Authenticated and [facility]
== END 2024-09-24 23:59 | disposition home or self-care (01) ==
LOC: RAD 14:03
PROVIDERS: PCP Family Medicine; Visit Provider Family Medicine
DX: R07.81 Pleurodynia (principal)
CPT/HCPCS: 71101

== ENCOUNTER 2024-12-03 11:14 | Outpatient (CLI) | payer MEDICARE, MEDICAID, SELFPAY ==
[2024-12-03 19:55] LABS: Hemoglobin A1C 7.5 % (4.0-6.0)
[2024-12-03 20:42] LABS: Albumin Level 3.4 g/dl (3.5-5.0); Chloride 108 mmol/L (98-107); Potassium 4.1 mmoL/L (3.5-5.1); Sodium 140 mmol/L (136-145)
[2024-12-03 20:44] LABS: Alanine Aminotransferase 20 U/L (12-78); Anion Gap 11.1 mEq/L (5-15); Aspartate Amino Transferase 20 U/L (14-36); Blood Urea Nitrogen 16 mg/dl (7-17); Carbon Dioxide 25 mmol/L (22.0-30.0); Estimated Glomerular Filt Rate 104 ml/min (>60); GFR (African American) 126 ML/MIN (>60)
[2024-12-03 20:45] LABS: Albumin/Globulin Ratio 1.1 (1.1-1.8); Alkaline Phosphatase 252 U/L (38-126); Bilirubin,Total 0.8 mg/dl (0.2-1.3); Calcium 9.1 mg/dl (8.4-10.2); Chol/HDL Ratio 2.4 (1-3.5); Cholesterol 93 mg/dl (140-200); Globulin 3.1 g/dL (1.3-3.2); Glucose 132 mg/dl (74-100); HDL Cholesterol 39 mg/dl (40-60); Total Protein,Serum 6.5 g/dl (6.3-8.2); Triglycerides 79 mg/dl (30-150); VLDL Cholesterol 16 mg/dL (0-40)
[2024-12-03 21:05] LABS: Direct LDL Cholesterol 38.83 mg/dL (100-129)
[2024-12-03 21:09] LABS: T4 (Thyroxine) 14.9 ug/dl (5.53-11.0)
[2024-12-03 21:14] LABS: Free T4 (Free Thyroxine) 4.11 ng/dl (0.78-2.19)
[2024-12-03 21:22] LABS: Thyroid Stimulating Hormone < 0.02 uIU/mL (0.465-4.68)
[2024-12-04 08:33] LABS: Gamma Glutamyl Transpeptidase 26 U/L (12-43)
== END 2024-12-03 23:59 | disposition home or self-care (01) ==
LOC: LAB.DROPOF 20:28
PROVIDERS: PCP Family Medicine; Visit Provider Family Medicine
DX: E05.90 Thyrotoxicosis, unspecified without thyrotoxic crisis or storm (principal); E11.69 Type 2 diabetes mellitus with other specified complication; R74.8 Abnormal levels of other serum enzymes
CPT/HCPCS: 80053; 80061; 82977; 83036; 84436; 84439; 84443

== ENCOUNTER 2024-12-24 09:18 | Outpatient (CLI) | payer MEDICARE, MEDICAID, SELFPAY ==
--- OUTSIDE RECORDS SUMMARY | 2024-12-25 15:08 | XMS_ITS | Clinical Summary ---
Author Organization [facility] Address [address] [place] [address] Care Team Providers Care Director Payer Name Role Phone Unavailable Primary Care Provider Unavailabl e Social History Tobacco Use Types Packs/Day Years Used Date Smoking Tobacco: Never Assessed Comments Unknown Sex and Gender Information Value Date Recorded Sex Assigned at Not on file Legal Sex Female 4:55 PM EDT Gender Identity Not on file Sexual Orientation Not on file Plan of Treatment Health Maintenance Due Date Last Done Comments [facility]-Depression Screening 1970 [facility]-/Child/Adol SDOH Screenings 1970 [facility]- SDOH Screenings 1988 [facility]-Adult SDOH Screenings 1988 [facility]-Hepatitis B Vaccines (1 of 3 - 19+ 3-dose series) 1989 [facility]-Pap Smear 1991 [facility]-Cervical Cancer Screening 2000 [facility]-HPV/Cotest 2000 CT Colonography 2015 Colonoscopy 2015 FIT-DNA 2015 FIT 2015 FOBT 2015 Sigmoidoscopy 2015 [facility]-Colorectal Cancer Screening 2015 [facility]-Pneumococcal Vaccine: 50 + Years (1 of 1 - PCV) 2020 [facility]-Zoster Vaccines (1 of 2) 2020 [id number]-32 Vaccine (1 - 20 24-25 season) 2024 [facility]-Influenza Vaccine (Seaso n Ended) 2025 [facility]-DTaP,Tdap,and Td Vaccine s (2 - Td or Tdap) 03/29/2033 03/29/2023 HPV Vaccines Aged Out No longer eligi ble based on patient's age to complete this topic [facility]-HIB Vaccines Aged Out No longer e ligible based on patient's age to complete this topic [facility]-Hepatitis A Vaccines Aged Out No longer eligible based on patient's age to complete this topic [facility]-IPV Vaccines Aged Out No longer e ligible based on patient's age to complete this topic [facility]-Rotavirus Vaccines Aged Out No lo nger eligible based on patient's age to complete this topic Insurance [employer]
== END 2024-12-24 23:59 | disposition home or self-care (01) ==
LOC: LAB.DROPOF 12-25 15:06
PROVIDERS: PCP Student in an Organized Health Care Education/Training Program; Visit Provider Student in an Organized Health Care Education/Training Program
DX: R52 Pain, unspecified (principal)
CPT/HCPCS: 87635

== ENCOUNTER 2024-12-26 15:41 | Outpatient (CLI) | payer MEDICARE, MEDICAID, SELFPAY ==
--- NOTE | 2024-12-26 15:43 | XR_ITS ---
FINAL REPORT CLINICAL HISTORY: cough COMPARISON: 09/24/2024 FINDINGS: CHEST 2 VIEWS PA AND LATERAL The heart is normal in size. Patient is status post median sternotomy. There are mild chronic changes in both lungs. The lungs are otherwise clear. There is no pneumothorax. IMPRESSION: No acute process. Reviewed, Interpreted and Dictated by Erick Rodgers MD Transcribed by Karen Mayberry Authenticated and [facility]
--- OUTSIDE RECORDS SUMMARY | 2024-12-26 15:44 | XMS_ITS | Clinical Summary ---
Author Organization [facility] Address [address] [place] [address] Care Team Providers Care Director Of Casino Marketing Name Role Phone Unavailable Primary Care Provider [...] 2020 [facility]-Zoster Vaccines (1 of 2) 2020 [id number]-42 Vaccine (1 - 20 24-25 season) 2024 [...]
== END 2024-12-26 23:59 | disposition home or self-care (01) ==
LOC: RAD 15:42
PROVIDERS: PCP Family Medicine; Visit Provider Family Medicine
DX: R05.9 Cough, unspecified (principal); Z98.890 Other specified postprocedural states
CPT/HCPCS: 71046

== ENCOUNTER 2025-03-04 11:55 | Outpatient (CLI) | payer MEDICARE, MEDICAID, SELFPAY ==
--- OUTSIDE RECORDS SUMMARY | 2024-12-20 09:09 | XMS_ITS | Encounter Summary ---
Author Organization [facility] Address [address] [place] [address] Care Team Providers Care Renewable Energy Trader Name Role Phone Jorden Michael MD Primary Care Provider +1- [phone] Reason for Referral * Diagnostic Imaging (Routine) - Closed Specialty Diagnoses / Procedures Referred By Mirta haines Referred To Contact Radiology Diagnoses Thyroid nodule Procedures US Thyroid Kalyan Huston MD [address] [place] [address] Phone: tel: fax: Referral ID Status Reason Start Date Expiration Date Visits Re quested Visits Authorized [id number] Closed 12/20/2024 03/21/2026 1 1 Reason for Visit * Diagnostic Imaging (Routine) - Closed Specialty Diagnoses / Procedures Referred By Mirta haines Referred To Contact Radiology Diagnoses Thyroid nodule Procedures US Thyroid Kalyan Huston MD [address] [place] [address] Phone: tel: fax: Referral ID Status Reason Start Date Expiration Date Visits Re quested Visits Authorized [id number] Closed 12/20/2024 03/21/2026 1 1 Encounter Details Date Type Department Care Team (Late st Contact Info) Description 12/20/2024 9:09 AM EDT Hospital Encounter [facility] [address] [facility] [address] [place] [address] [phone] Thyroid nodule Social History Tobacco Use Types [...] Care Team (Late st Contact Info) Description 08/30/2025 9:15 AM EST Office Visit [facility] [address] [place] [address] Kalyan Huston MD [address] [facility] [address] [place] [address] documented as of this encounter Procedures Procedure [...] goiter documented in this encounter Care Teams Renewable Energy Trader Relationship Specialty Start Date End Date Jorden Michael MD [address] [address] PCP - General Family Medicine 12/06/24 documented as of this encounter
--- OUTSIDE RECORDS SUMMARY | 2025-02-21 11:15 | XMS_ITS | Encounter Summary ---
Author Organization [facility] Address [address] [place] [address] Care Team Providers Care Pipeman Name Role Phone Jorden Michael MD Primary Care Provider +1- [phone] Reason for Visit * Reason Comments Other thyrotoxicosis without thyrotoxic crisis or storm Encounter Details Date Type Department Care Team (Late st Contact Info) Description 02/21/2025 11:15 AM EDT Office Visit [facility] [address] [place] [phone] Noel Orellana MD [address] [place], [place] [phone] Toxic multinodular goiter (Primary Dx); Other thyrotoxicosis [...] Reports ~2001 having a thyroid ultrasound in [place] and the provider did an FNA of [...] Description 08/30/2025 9:15 AM EST Office Visit [facility] [address] [employer] [address] [phone] Noel Orellana MD [address] [address] documented as of this encounter Procedures Procedure [...] - 200.0 ng/dl 02/22/2025 2:30 AM EDT [facility] Blood Structure of left upper limb / Unknown Venipuncture / Unknown 02/21/2025 10:37 AM EDT 02/21/2025 10:38 AM EDT Narrative [facility] - 02/22/2025 2:30 AM EDT Results may be falsely increased if patient taking Biotin. us Noel Orellana MD LAB BLOOD ORDERABLES Final Result Performing Organization Address [facility] Co de Phone Number [facility]
[address] [place] [address], * (ABNORMAL) T4, Free (02/21/2025 10:37 AM EDT) Free T4 2.11(H) 0.92 - 1.68 ng/dL 02/22/2025 2:30 AM EDT [facility] Blood Structure of left upper limb / Unknown Venipuncture / Unknown 02/21/2025 10:37 AM EDT 02/21/2025 10:38 AM EDT us Noel Orellana MD LAB BLOOD ORDERABLES Final Result Performing Organization Address [facility] Co de Phone Number [facility]
[address] [place] [phone], * (ABNORMAL) TSH (02/21/2025 10:37 AM EDT) TSH <0.005(L) 0.270 - 4.200 uIU/mL 02/22/2025 2:30 AM EDT [facility] Blood Structure of left upper limb / Unknown Venipuncture / Unknown 02/21/2025 10:37 AM EDT 02/21/2025 10:38 AM EDT us Noel Orellana MD LAB BLOOD ORDERABLES Final Result Performing Organization Address [facility] Co de Phone Number [facility]
[address] [place] [address], documented in this encounter Visit Diagnoses Diagnosis Toxic multinodular goiter- Primary Toxic multinodular goiter without mention of thyrotoxic crisis or storm Other thyrotoxicosis without thyrotoxic crisis or storm documented in this encounter Care Teams Pipeman Relationship Specialty Start Date End Date Jorden Michael MD [facility] [place] [address] PCP - General Family Medicine 12/06/24 documented as of this encounter
[2025-03-04 16:01] LABS: Hemoglobin A1C 8.0 % (4.0-6.0)
[2025-03-04 16:46] LABS: Albumin Level 3.6 g/dl (3.5-5.0); Chloride 106 mmol/L (98-107)
[2025-03-04 16:47] LABS: Potassium 4.1 mmoL/L (3.5-5.1)
[2025-03-04 16:49] LABS: Alanine Aminotransferase 16 U/L (12-78); Albumin/Globulin Ratio 1.1 (1.1-1.8); Alkaline Phosphatase 262 U/L (38-126); Aspartate Amino Transferase 21 U/L (14-36); Bilirubin,Total 1.2 mg/dl (0.2-1.3); Blood Urea Nitrogen 19 mg/dl (7-17); Carbon Dioxide 24 mmol/L (22.0-30.0); Creatinine,Serum 0.60 mg/dl (0.52-1.04); Estimated Glomerular Filt Rate 104 ml/min (>60); GFR (African American) 126 ML/MIN (>60); Globulin 3.3 g/dL (1.3-3.2); Total Protein,Serum 6.9 g/dl (6.3-8.2)
[2025-03-04 16:50] LABS: Calcium 8.8 mg/dl (8.4-10.2); Cholesterol 116 mg/dl (140-200); Glucose 106 mg/dl (74-100); HDL Cholesterol 45 mg/dl (40-60); Triglycerides 96 mg/dl (30-150)
[2025-03-04 17:02] LABS: Anion Gap 10.1 mEq/L (5-15); Sodium 136 mmol/L (136-145)
--- OUTSIDE RECORDS SUMMARY | 2025-03-06 09:37 | XMS_ITS | Encounter Summary ---
Author Organization Healthcare Address [address] [place] [address] Care Team Providers Care Supervisor P[employer] Name Role Phone Unavailable Primary Care Provider Unavailabl e Encounter Details Date Type Department Care Team (Late st Contact Info) Description 07/30/2024 Orders Only External Location [address] [place] [address] Provider, External Social History Tobacco Use Types Packs/Day Years [...] Care Team (Late st Contact Info) Description 08/15/2025 9:00 AM EST Consult Medical Office Building Surgical Specialties [address] [facility], [address] [place] [address] Dave Palacios MD [address] [address] documented as of this encounter Procedures Procedure Name Priority Date/Time Associated Diagnosis Comments US OUTSIDE IMAGES 07/30/2024 10:18 AM EST documented in this encounter Results * US OUTSIDE IMAGES (07/30/2024 10:18 AM EST) Anatomical Region Laterality Modality Ultrasound 07/30/2024 10:1 8 AM EST us External Provider IMG US PROCEDURES Final Result documented in this encounter Visit Diagnoses Not on filedocumented in this encounter
--- OUTSIDE RECORDS SUMMARY | 2025-03-06 09:37 | XMS_ITS | Clinical Summary ---
Author Organization Healthcare Address [address] [place] [address] Care Team Providers Care Process Controller Name Role Phone Unavailable Primary Care Provider Unavailabl e Social History Tobacco Use Types Packs/Day Years Used Date Smoking Tobacco: Never Assessed Comments Unknown Sex and Gender Information Value Date Recorded Sex Assigned at Not on file Legal Sex Female 4:55 PM EDT Gender Identity Not on file Sexual Orientation Not on file Plan of Treatment Upcoming Encounters Date Type Department Care Team ([facility] st Contact Info) Description 08/15/2025 9:00 AM EST Consult Medical Office Building Surgical Specialties [address] [facility], [address] [place] [address] Dave Palacios MD [address] [place] [address] Health Maintenance Due Date Last Done Comments [facility]-Depression Screening 1970 [facility]-HIV Screening 1970 [facility]-Hepatitis C Screening 1970 [facility]-Medicare Annual Wellness (AWV) 1970 [facility]-/Child/Adol SDOH Screenings 1970 [facility]- SDOH Screenings 1988 [facility]-Adult SDOH Screenings 1988 [facility]-Hepatitis B Vaccines (1 of 3 - 19+ 3-dose series) 1989 [facility]-Pap Smear 1991 [facility]-Cervical Cancer Screening 2000 [facility]-HPV/Cotest 2000 CT Colonography 2015 Colonoscopy 2015 FIT-DNA 2015 FIT 2015 FOBT 2015 Sigmoidoscopy 2015 [facility]-Colorectal Cancer Screening 2015 [facility]-Breast Cancer Screening 2020 [id number] Vaccine (1 - 2023-25 season) 2024 [facility]-Zoster Vaccines (2 of 2) 01/23/2025 11/28/2024 [facility]-Influenza Vaccine (#1) 2025 04/27/2024 [facility]-DTaP,Tdap,and Td Vaccine s (3 - Td or Tdap) 09/20/2034 09/20/2024, 03/29/2023 [facility]-Pneumococcal Vaccine: 50 + Years Completed 04/27/2024 HPV Vaccines Aged Out No longer eligi [...] patient's age to complete this topic Insurance [employer] MEDICARE
--- OUTSIDE RECORDS SUMMARY | 2025-03-06 09:37 | XMS_ITS | Encounter Summary ---
Author Organization Healthcare Address [address] [place] [id number] Care Team Providers Care Servicer Coin Machines Name Role Phone Unavailable Primary Care Provider Unavailabl e Encounter Details Date Type Department Care Team (Late st Contact Info) Description 10/01/2022 Orders Only External Location [address] [place] [address] Jacque Araiza, YEIMI [address] [facility] [address] [phone] Social History Tobacco Use Types Packs/Day Years [...] Medical Office Building Surgical Specialties [address] [facility], [address] [place] [address] Dave Palacios MD [address] [address] documented as of this encounter Procedures Procedure Name Priority Date/Time Associated Diagnosis Comments NM OUTSIDE IMAGES 10/01/2022 10:27 AM EDT documented in this encounter Results * NM OUTSIDE IMAGES (10/01/2022 10:27 AM EDT) Anatomical Region Laterality Modality Nuclear Medicine 10/01/2022 10:2 7 AM EDT us Jacque Araiza DIRECTOR MEDICAL SURGICAL IMG NM PROCEDURES Final Resu lt documented in this encounter Visit Diagnoses Not on filedocumented in this encounter
--- OUTSIDE RECORDS SUMMARY | 2025-03-06 09:37 | XMS_ITS | Encounter Summary ---
Author Organization [facility] Address [address] [place] [phone] Care Team Providers Care Poly Packer And Heat Sealer Name Role Phone Jorden Michael MD Primary Care Provider +1- [phone] Encounter Details Date Type Department Care Team (Latest Contact Info) Description 02/21/2025 Travel Social History Tobacco Use Types Packs/Day Years [...] Description 08/30/2025 9:15 AM EST Office Visit [facility] [address] [facility] [address] [place] [phone] Kalyan Huston MD [address] [place] [address] documented as of this encounter Visit Diagnoses Not on filedocumented in this encounter Care Teams Poly Packer And Heat Sealer Relationship Specialty Start Date End Date Jorden Michael MD [address] [address] PCP - General Family Medicine 12/06/24 documented as of this encounter
--- OUTSIDE RECORDS SUMMARY | 2025-03-06 09:37 | XMS_ITS | Clinical Summary ---
Author Organization [facility] Address [address] [place] [address] Care Team Providers Care Oil Mixer Name Role Phone Jorden Michael MD Primary Care Provider [phone]- [phone] Allergies Active Allergy Reactions Criticality Noted Date Comments Metformin Hives 12/20/2024 Medications Aspirin Low Dose 81 MG EC tablet Take 1 tablet by mouth Daily. 11/22/19 25 Active atorvastatin (LIPITOR) 40 MG tablet Take 1 tablet by mouth Daily. 12/19/19 25 Active clopidogrel (PLAVIX) 75 MG tablet Take 1 tablet by mouth Daily. 09/19/19 25 Active Continuous Glucose Sensor ([employer]ra G7 Sensor) [facility] USE DIRECTED TO TEST BLOOD GLUCOSE LEVEL CHANGE SENSOR EVERY 10 DAYS 11/22/19 25 Active DULoxetine (CYMBALTA) 30 MG capsule Take 1 capsule by mouth Daily. 11/19/19 25 Active Jardiance 25 MG tablet tablet Take 1 tablet by mouth Daily. 10/01/19 25 Active FeroSul 325 (65 Fe) MG tablet Take 1 tablet by mouth Daily With Breakfast. 12/16/19 25 Active furosemide (LASIX) 40 MG tablet Take 1 tablet by mouth Daily. 11/13/19 25 Active gabapentin (NEURONTIN) 600 MG tablet Take 1 tablet by mouth 3 (Three) Times a Day. 12/03/19 25 Active glimepiride (AMARYL) 4 MG tablet Take 1 tablet by mouth Every Morning Before Breakfast. 11/28/19 25 Active NovoLOG FlexPen 100 UNIT/ML solution pen-injector sc pen Inject under the skin into the appropriate area as directed. 12/12/19 25 Active Lantus SoloStar 100 UNIT/ML injection pen Inject under the skin into the appropriate area as directed. 12/01/19 25 Active BD Pen Needle Sary Ultrafine 32G X 4 MM misc 12/11/19 25 Active isosorbide mononitrate (IMDUR) 60 MG 24 hr tablet 12/19/19 25 Active levocetirizine (XYZAL) 5 MG tablet Take 1 tablet by mouth Every Evening. 10/11/19 25 Active lisinopril (PRINIVIL,ZESTRIL) 20 MG tablet Take 1 tablet by mouth Daily. 12/19/19 25 Active medroxyPROGESTERon e (PROVERA) 10 MG tablet Take 1 tablet by mouth Daily. 11/13/19 25 Active metoprolol tartrate (LOPRESSOR) 25 MG tablet Take 1 tablet by mouth 2 (Two) Times a Day. 12/19/19 25 Active omeprazole (priLOSEC) 40 MG capsule Take 1 capsule by mouth Daily. 11/13/19 25 Active tamsulosin (FLOMAX) 0.4 MG capsule 24 hr capsule Take 1 capsule by mouth Daily. 12/20/19 25 Active Mounjaro 5 MG/0.5ML solution auto-injector ADMINISTER 5 MG UNDER THE SKIN WEEKLY 11/29/19 25 Active methIMAzole (TAPAZOLE) 10 MG tabletIndications: Other thyrotoxicosis without thyrotoxic crisis or storm Take 1 tablet by mouth Daily. 90 tablet 02/23/20 25 026 Active methIMAzole (TAPAZOLE) 5 MG tabletIndications: Other thyrotoxicosis without thyrotoxic crisis or storm Take 1 tablet by mouth Daily. 90 tablet 12/28/19 25 025 Discontin ued(Reord er) Active Problems Problem Noted Date Diagnosed Date Toxic multinodular goiter 02/21/2025 Assessment & Plan (02/21/2025 10:50 AM EDT): -Suspect this is most likely a toxic [...] any dose adjustments need to be made Other thyrotoxicosis without thyrotoxic crisis o r storm 12/20/2024 Assessment & Plan (12/20/2024 9:39 AM EDT): -Probably a toxic multinodular goiter -Patient has significant compressive symptoms likely due to her enlarged thyroid -Patient has upcoming nuclear medicine uptake and scan at [facility] next week, will get results of that -Check TSH, FT4, total T3 and TrAb today -Recommend surgical consultation for definitive treatment of toxic multinodular goiter with compressive symptoms Thyroid nodule 12/20/2024 Assessment & Plan (12/20/2024 9:39 AM EDT): -Diffusely large and heterogenous thyroid gland with multiple nodules -Patient with significant compressive symptoms -Suspect it is a toxic multinodular goiter, awaiting uptake and scan to be done next week -Recommend surgical referral for definitive treatment of toxic multinodular goiter with compressive symptoms Encounters Date Type Department Care Team Description 02/21/2025 11:15 AM EDT Office Visit [facility] [address] [place] [address] Kalyan Huston MD Toxic multinodular goiter (Primary Dx); Other thyrotoxicosis without thyrotoxic crisis or storm 02/21/2025 Travel 12/20/2024 9:15 AM EDT Office Visit [facility] [address] [place] [address] Kalyan Huston MD Other thyrotoxicosis without thyrotoxic crisis or storm (Primary Dx); Thyroid nodule 12/20/2024 9:09 AM EDT Hospital Encounter [facility] [address] [place] [address] Thyroid nodule 12/20/2024 Travel from Last 3 Months Social History Tobacco Use Types Packs/Day Years Used Date Smoking Tobacco: Never Smokeless Tobacco: Never Tobacco Cessation:Counseling Given: Not Answered Alcohol Use Standard Drinks/Week Comments Not Currently 0 (1 standard drink = 0.6 oz pur e alcohol) Comments No Sex and Gender Information Value Date Recorded Sex Assigned at Not on file Legal Sex Female 3:55 PM EDT Gender Identity Not on file Sexual Orientation Not on file Last Filed Vital Signs Vital Sign Reading [...] Mass Index 47.24 02/21/2025 10:08 AM EDT Plan of Treatment Upcoming Encounters Date Type Department Care Team (Late st Contact Info) Description 08/30/2025 9:15 AM EST Office Visit [facility] [address] [place] [address] Kalyan Huston MD [address] [place] [address] Health Maintenance Due Date Last Done Comments Annual Gynecologic Pelvic and Breast Exam 1970 PAP SMEAR 1991 MAMMOGRAM 2010 COLOGUARD 2015 COLON CANCER SCREENING 5 YEA R SIGMOIDOSCOPY 2015 COLONOSCOPY 2015 COLORECTAL CANCER SCREENING 2015 CT COLONOGRAPHY 2015 FECAL OCCULT BLOOD TEST 2015 FIT Testing (1 year) 2015 COVID-19 Vaccine ( season) 2024 ANNUAL WELLNESS VISIT 12/13/2024 HEPATITIS C SCREENING 12/13/2024 ZOSTER VACCINE (2 of 2) 01/23/2025 11/28/2024 INFLUENZA VACCINE 04/17/2025 04/27/2024 TDAP/TD VACCINES (3 - Td or Tdap) 09/20/2034 025, 03/29/2023 Pneumococcal Vaccine 50+ Completed 04/27/2024 Procedures Procedure Name Priority Date/Time Associated Diagnosis Comments T3 Routine 02/21/2025 10:37 AM EDT Toxic multinodular goiter T4, FREE Routine 02/21/2025 10:37 AM EDT Toxic multinodular goiter TSH Routine 02/21/2025 10:37 AM EDT Toxic multinodular goiter CBC AND DIFFERENTIAL Routine 12/20/2024 9:29 AM EDT Other thyrotoxicosis without thyrotoxic crisis or storm CBC WITH AUTO DIFFERENTIAL Routine 12/20/2024 9:29 AM EDT Other thyrotoxicosis without thyrotoxic crisis or storm COMPREHENSIVE METABOLIC PANEL Routine 12/20/2024 9:29 AM EDT Other thyrotoxicosis without thyrotoxic crisis or storm THYROTROPIN RECEPTOR ANTIBODY Routine 12/20/2024 9:29 AM EDT Other thyrotoxicosis without thyrotoxic crisis or storm T3 Routine 12/20/2024 9:29 AM EDT Other thyrotoxicosis without thyrotoxic crisis or storm T4, FREE Routine 12/20/2024 9:29 AM EDT Other thyrotoxicosis without thyrotoxic crisis or storm TSH Routine 12/20/2024 9:29 AM EDT Other thyrotoxicosis without thyrotoxic crisis or storm US THYROID Routine 12/20/2024 9:09 AM EDT Thyroid nodule from Last 3 Months Results * (ABNORMAL) T3 (02/21/2025 10:37 AM EDT) Only the most recent of2 resultswithin the time period is included. T3, Total 230.0(H) 80.0 - 200.0 ng/dl 02/22/2025 2:30 AM EDT [facility] Blood Structure of left upper limb / Unknown Venipuncture / Unknown 02/21/2025 10:37 AM EDT 02/21/2025 10:38 AM EDT Narrative [facility] - 02/22/2025 2:30 AM EDT Results may be falsely increased if patient taking Biotin. Kalyan Huston MD LAB BLOOD ORDERABLES Final Result Performing Organization Address City/[facility]/ZIP Co de Phone Number [facility]
[address] [place] [address], * (ABNORMAL) TSH (02/21/2025 10:37 AM EDT) Only the most recent of2 resultswithin the time period is included. TSH <0.005(L) 0.270 - 4.200 uIU/mL 02/22/2025 2:30 AM EDT [facility] Blood Structure of left upper limb / Unknown Venipuncture / Unknown 02/21/2025 10:37 AM EDT 02/21/2025 10:38 AM EDT Kalyan Huston MD LAB BLOOD ORDERABLES Final Result Performing Organization Address [facility] de Phone Number [facility]
[address] [place] [address], * (ABNORMAL) T4, Free (02/21/2025 10:37 AM EDT) Only the most recent of2 resultswithin the time period is included. Free T4 2.11(H) 0.92 - 1.68 ng/dL 02/22/2025 2:30 AM EDT [facility] Blood Structure of left upper limb / Unknown Venipuncture / Unknown 02/21/2025 10:37 AM EDT 02/21/2025 10:38 AM EDT Kalyan Huston MD LAB BLOOD ORDERABLES Final Result Performing Organization Address City/[facility]/ZIP Co de Phone Number [facility]
[address] [place] [address], * (ABNORMAL) CBC Auto Differential (12/20/2024 9:29 AM EDT) [facility] Signature WBC 7.87 3.40 - 10.80 10*3/mm3 12/20/2024 2:15 PM EDT [facility] RBC 4.70 3.77 - 5.28 10*6/mm3 12/20/2024 2:15 PM EDT [facility] Hemoglobin 12.6 12.0 - 15.9 g/dL 12/20/2024 2:15 PM EDT [facility] Hematocrit 40.4 34.0 - 46.6 % 12/20/2024 2:15 PM EDT [facility] MCV 86.0 79.0 - 97.0 fL 12/20/2024 2:15 PM EDT [facility] MCH 26.8 26.6 - 33.0 pg 12/20/2024 2:15 PM EDT [facility] MCHC 31.2(L) 31.5 - 35.7 g/dL 12/20/2024 2:15 PM EDT [facility] RDW 13.6 12.3 - 15.4 % 12/20/2024 2:15 PM EDT [facility] RDW-SD 42.2 37.0 - 54.0 fl 12/20/2024 2:15 PM EDT [facility] MPV 13.0(H) 6.0 - 12.0 fL 12/20/2024 2:15 PM EDT [facility] Platelets 155 140 - 450 10*3/mm3 12/20/2024 2:15 PM EDT [facility] Neutrophil % 66.3 42.7 - 76.0 % 12/20/2024 2:15 PM EDT [facility] Lymphocyte % 22.5 19.6 - 45.3 % 12/20/2024 2:15 PM EDT [facility] Monocyte % 7.2 5.0 - 12.0 % 12/20/2024 2:15 PM EDT [facility] Eosinophil % 3.2 0.3 - 6.2 % 12/20/2024 2:15 PM EDT [facility] Basophil % 0.5 0.0 - 1.5 % 12/20/2024 2:15 PM EDT [facility] Immature Grans % 0.3 0.0 - 0.5 % 12/20/2024 2:15 PM EDT [facility] Neutrophils, Absolute 5.22 1.70 - 7.00 10*3/mm3 12/20/2024 2:15 PM EDT [facility] Lymphocytes, Absolute 1.77 0.70 - 3.10 10*3/mm3 12/20/2024 2:15 PM EDT [facility] Monocytes, Absolute 0.57 0.10 - 0.90 10*3/mm3 12/20/2024 2:15 PM EDT [facility] Eosinophils, Absolute 0.25 0.00 - 0.40 10*3/mm3 12/20/2024 2:15 PM EDT [facility] Basophils, Absolute 0.04 0.00 - 0.20 10*3/mm3 12/20/2024 2:15 PM EDT [facility] Immature Grans, Absolute 0.02 0.00 - 0.05 10*3/mm3 12/20/2024 2:15 PM EDT [facility] nRBC 0.0 0.0 - 0.2 /100 WBC 12/20/2024 2:15 PM EDT [facility] Blood Venipuncture / Unknown 12/20/2024 9:29 AM EDT 12/20/2024 9:29 AM EDT Kalyan Huston MD LAB BLOOD ORDERABLES Final Result [facility]
[address] [place] [address], * Thyrotropin Receptor Antibody (12/20/2024 9:29 AM EDT) Pathologist [facility] Thyrotropin Receptor Antibody <1.10 0.00 - 1.75 IU/L 12/21/2024 9:08 PM EDT [facility] Blood Structure of left upper limb / Unknown Venipuncture / Unknown 12/20/2024 9:29 AM EDT 12/20/2024 9:29 AM EDT Narrative [facility] - 12/21/2024 9:08 PM EDT Performed at: [address] [place] [id number] Gun Perforator: Angely Witt MD, Phone: [phone] Kalyan Huston MD LAB BLOOD ORDERABLES Final Result [facility] [address] [place] [address], * (ABNORMAL) Comprehensive Metabolic Panel (12/20/2024 9:29 AM EDT) [facility] Glucose 180(H) 65 - 99 mg/dL 12/20/2024 2:38 PM EDT [facility] BUN 26.0(H) 6.0 - 20.0 mg/dL 12/20/2024 2:38 PM EDT [facility] Creatinine 0.63 0.57 - 1.00 mg/dL 12/20/2024 2:38 PM EDT [facility] Sodium 140 136 - 145 mmol/L 12/20/2024 2:38 PM EDT [facility] Potassium 4.6 3.5 - 5.2 mmol/L 12/20/2024 2:38 PM EDT [facility] Chloride 107 98 - 107 mmol/L 12/20/2024 2:38 PM EDT [facility] CO2 23.1 22.0 - 29.0 mmol/L 12/20/2024 2:38 PM EDT [facility] Calcium 9.0 8.6 - 10.5 mg/dL 12/20/2024 2:38 PM EDT [facility] Total Protein 6.8 6.0 - 8.5 g/dL 12/20/2024 2:38 PM T [facility] Albumin 3.3(L) 3.5 - 5.2 g/dL 12/20/2024 2:38 PM T [facility] ALT (SGPT) 15 1 - 33 U/L 12/20/2024 2:38 PM T [facility] AST (SGOT) 13 1 - 32 U/L 12/20/2024 2:38 PM T [facility] Alkaline Phosphatase 233(H) 39 - 117 U/L 12/20/2024 2:38 PM [facility] Total Bilirubin 0.8 0.0 - 1.2 mg/dL 12/20/2024 2:38 PM [facility] Globulin 3.5 gm/dL 12/20/2024 2:38 PM [facility] A/G Ratio 0.9 g/dL 12/20/2024 2:38 PM [facility] BUN/Creatinine Ratio 41.3(H) 7.0 - 25.0 12/20/2024 2:38 PM [facility] Anion Gap 9.9 5.0 - 15.0 mmol/L 12/20/2024 2:38 PM [facility] eGFR 105.6 >60.0 mL/min/1.7 3 12/20/2024 2:38 PM [facility] Blood Venipuncture / Unknown 12/20/2024 9:29 AM EDT 12/20/2024 9:29 AM T [facility] - 12/20/2024 2:38 PM EDT GFR Categories in Chronic Kidney Disease (CKD) GFR Category GFR (mL/min/1.73) Interpretation G1 90 or greater Normal or high (1) G2 60-89 Mild decrease (1) G3a 45-59 Mild to moderate decrease G3b 30-44 Moderate to severe decrease G4 15-29 Severe decrease G5 14 or less Kidney failure (1)In the absence of evidence of kidney disease, neither GFR category G1 or G2 fulfill the criteria for CKD. eGFR calculation 2020 CKD-EPI creatinine equation, which does not include race as a factor Kalyan Huston MD LAB BLOOD ORDERABLES Final Result [facility]
[address] [place] [address], * US Thyroid (12/20/2024 9:09 AM EDT) Narrative SYSTEMGENERATED, DOCUMENTATION - 12/20/2024 9:09 AM EDT Please see performing physician's note for result. Kalyan Huston MD IMG US ORDERABLES Final Res ult from Last 3 Months Insurance [employer] MEDICAID [place] AETNA MEDICARE ADVANTAGE [facility] Care Teams Oil Mixer Relationship Specialty Start Date End Date Jorden Michael MD [address] [place] [address] PCP - General Family Medicine 12/06/24
--- OUTSIDE RECORDS SUMMARY | 2025-03-06 09:37 | XMS_ITS | Encounter Summary ---
Author Organization Healthcare Address [address] [place] [address] Care Team Providers Care Staff Auditor Name Role Phone Unavailable Primary Care Provider Unavailabl e Encounter Details Date Type Department Care Team (Late st Contact Info) Description 08/16/2024 Orders Only External Location [address] [place] [address] Provider, External Social History Tobacco Use Types [...] Medical Office Building Surgical Specialties [address] [facility], [address] [place] [address] Dave Palacios MD [address] [address] documented as of this encounter Procedures Procedure Name Priority Date/Time Associated Diagnosis Comments CT NEURO OUTSIDE IMAGES 08/16/2024 2:12 PM EST documented in this encounter Results * CT NEURO OUTSIDE IMAGES (08/16/2024 2:12 PM EST) Anatomical Region Laterality Modality Computed Tomogra phy 08/16/2024 2:12 PM EST us External Provider IMG CT PROCEDURES Final Result documented in this encounter Visit Diagnoses Not on filedocumented in this encounter
--- OUTSIDE RECORDS SUMMARY | 2025-03-06 09:37 | XMS_ITS | Encounter Summary ---
Author Organization Healthcare Address [address] [place] [address] Care Team Providers Care Mechanical Service Representative Name Role Phone Unavailable Primary Care Provider Unavailabl e Encounter Details Date Type Department Care Team (Late st Contact Info) Description 05/24/2024 Orders Only External Location [address] [place] [address] Provider, External Social History Tobacco Use Types [...] Medical Office Building Surgical Specialties [address] [facility], [address] [place] [address] Dave Palacios MD [address] [address] documented as of this encounter Procedures Procedure Name Priority Date/Time Associated Diagnosis Comments US OUTSIDE IMAGES 05/24/2024 1:08 PM EST documented in this encounter Results * US OUTSIDE IMAGES (05/24/2024 1:08 PM EST) Anatomical Region Laterality Modality Ultrasound 05/24/2024 1:08 PM EST us External Provider IMG US PROCEDURES Final Result documented in this encounter Visit Diagnoses Not on filedocumented in this encounter
== END 2025-03-04 23:59 | disposition home or self-care (01) ==
LOC: LAB.DROPOF 03-06 09:35
PROVIDERS: PCP Family Medicine; Visit Provider Family Medicine
DX: E11.9 Type 2 diabetes mellitus without complications (principal); E05.90 Thyrotoxicosis, unspecified without thyrotoxic crisis or storm
CPT/HCPCS: 80053; 80061; 83036

== ENCOUNTER 2025-04-10 16:35 | Outpatient (CLI) | payer MEDICARE, MEDICAID, SELFPAY ==
--- OUTSIDE RECORDS SUMMARY | 2024-12-20 09:09 | XMS_ITS | Encounter Summary ---
Author Organization [facility] Address [address] [place] [address] Care Team Providers Care Room Cleaner Name Role Phone Jorden Michael MD Primary Care Provider +1- [phone] Reason for Referral * Diagnostic Imaging (Routine) - Closed Specialty Diagnoses / Procedures Referred By Mirta haines Referred To Contact Radiology Diagnoses Thyroid nodule Procedures US Thyroid Kalyan Huston MD [address] [place] [address] Phone: tel: fax: Referral ID Status Reason Start Date Expiration Date Visits Re quested Visits Authorized [id number] Closed 12/20/2024 03/21/2026 1 1 Reason for Visit * Diagnostic Imaging (Routine) - Closed Specialty Diagnoses / Procedures Referred By Mirta haines Referred To Contact Radiology Diagnoses Thyroid nodule Procedures US Thyroid Kalyan Huston MD [address] [place] [address] Phone: tel: fax: Referral ID Status Reason Start Date Expiration Date Visits Re quested Visits Authorized [id number] Closed 12/20/2024 03/21/2026 1 1 Encounter Details Date Type Department Care Team (Late st Contact Info) Description 12/20/2024 9:09 AM EDT Hospital Encounter [facility] [address] [facility] BYR [address] [place] [address] [phone] Thyroid nodule Social History Tobacco Use Types [...] Description 08/30/2025 9:15 AM EST Office Visit [facility] [address] [place] [address] Kalyan Huston MD [address] [facility] [address] [place] [address] documented as of this encounter Procedures Procedure [...] goiter documented in this encounter Care Teams Room Cleaner Relationship Specialty Start Date End Date Jorden Michael MD [address] [address] PCP - General Family Medicine 12/06/24 documented as of this encounter
--- OUTSIDE RECORDS SUMMARY | 2025-02-21 11:15 | XMS_ITS | Encounter Summary ---
Author Organization [facility] Address [address] [place] [address] Care Team Providers Care Sculpture Instructor Name Role Phone Jorden Michael MD Primary Care Provider +1- [phone] Reason for Visit * Reason Comments Other thyrotoxicosis without thyrotoxic crisis or storm Encounter Details Date Type Department Care Team (Late st Contact Info) Description 02/21/2025 11:15 AM EDT Office Visit [facility] [address] [place] [phone] Noel Orellana MD [address] [place], [place] [id number] Toxic multinodular goiter (Primary Dx); Other thyrotoxicosis without thyrotoxic crisis or storm Social History Tobacco Use Types Packs/Day Years [...] on file documented as of this encounter Last Filed Vital Signs Vital Sign Reading Time Taken Comments Blood Pressure 124/74 02/21/2025 10:08 AM EDT Pulse 75 02/21/2025 10:08 AM EDT Temperature - - Respiratory Rate - - Oxygen Saturation 96% 02/21/2025 10:08 AM EDT Inhaled Oxygen Concentration - - Weight 125 kg (275 lb 3.2 oz) 02/21/2025 10:08 A M EDT Height 162.6 cm (5' 4 ) 02/21/2025 10:08 AM EDT Body Mass Index 47.24 02/21/2025 10:08 AM EDT documented in this encounter Progress Notes * Noel Orellana MD - 02/21/2025 11:15 AM EDTAddended by: NOEL ORELLANA on: 02/22/2025 12:32 PM Modules accepted: Orders * Noel Orellana MD - 02/21/2025 11:15 AM EDT Chief complaint/Reason for consult: Toxic multinodular goiter HPI: Ms. Moraes is a 54-year-old female with T2DM, hyperlipidemia, CAD with history of CABG, hypertension, GERD and PASHA who comes for follow-up of toxic multinodular goiter. She was last seen 12/20/2024 and reports since that time feeling much better, specifically less palpitations. Currently taking methimazole 5 mg daily, denies issues with it. Nuclear medicine uptake and scan ordered at last visit, she reports missing the appointment due to transportation issues. Labs 12/03/2024 TSH <0.02 FT4 4.11 TT4 14.9 Labs 09/03/2024 TSH <0.02 Labs 12/20/2024 TSH < 0.005 FT4 2.70 TT3 251 TrAb negative Ultrasound on 07/30/2024 with a left sided lymphadenopathy with lymph nodes measuring up to 20 mm and 29 mm, no mention of thyroid gland CT neck done 08/16/2024 with multinodular goiter and scattered lymph nodes that are favored to be reactive Reports ~2001 having a thyroid ultrasound in [place] and the provider did an FNA of a nodule (not sure which side or which one) that came back as benign but I do not have these records. Ultrasound 12/20/2024 with diffusely enlarged and heterogenous thyroid gland, several nodules. 2.71 cm right mid lobe nodule, 2.49 cm right mid lobe nodule, 2.59 cm right lateral isthmus nodule, 2.62 cm left mid thyroid lobe nodule and a 2.86 cm left mid thyroid lobe nodule Referral for endocrine surgery was sent at last visit and she reports planning to see them 03/07/2025. Review of Systems Constitutional: Negative for activity change and unexpected weight change. HENT: Positive for trouble swallowing. Eyes: Negative for visual disturbance. Respiratory: Negative for shortness of breath. Cardiovascular: Negative for palpitations. Gastrointestinal: Negative for abdominal pain. Endocrine: Negative for cold intolerance and heat intolerance. Musculoskeletal: Positive for arthralgias and gait problem. Psychiatric/Behavioral: Negative for agitation. Physical Exam Vitals reviewed. Constitutional: General: She is not in acute distress. Appearance: She is obese. HENT: Head: Normocephalic. Nose: Nose normal. Eyes: Conjunctiva/sclera: Conjunctivae normal. Neck: Comments: Diffusely enlarged and heterogenous thyroid gland Cardiovascular: Rate and Rhythm: Normal rate. Pulmonary: Effort: Pulmonary effort is normal. Abdominal: Tenderness: There is no guarding. Musculoskeletal: General: No deformity. Cervical back: Neck supple. Skin: General: Skin is warm and dry. Neurological: Mental Status: She is alert and oriented to person, place, and time. Psychiatric: Mood and Affect: Mood normal. Assessment and plan: Diagnoses and all orders for this visit: 1. Toxic multinodular goiter (Primary) Assessment & Plan: -Suspect this is most likely a toxic multinodular goiter although nuclear medicine uptake and scan has not been completed -Patient with surgical consultation in about 2 weeks for thyroidectomy due to compressive symptoms and thyrotoxicosis; if she chooses against surgery then I would recommend completing the nuclear medicine uptake and scan -For now continue methimazole 5 mg daily, will repeat labs today and determine if any dose adjustments need to be made Orders: - TSH; Future - T4, Free; Future - T3; Future - TSH - T4, Free - T3 Return in about 6 months (around 08/24/2025) for Hypothyroidism. Electronically signed by Noel Orellana MD Addendum Labs 02/21/2025 TSH <0.005 FT4 2.11 TT3 230 Commend increasing methimazole to 10 mg daily Spoke to patient on the phone with change * Noel Orellana MD - 02/21/2025 10:50 AM EDTAssociated Problem(s): Toxic multinodular goiter -Suspect this is most likely a toxic multinodular goiter although nuclear medicine uptake and scan has not been completed -Patient with surgical consultation in about 2 weeks for thyroidectomy due to compressive symptoms and thyrotoxicosis; if she chooses against surgery then I would recommend completing the nuclear medicine uptake and scan -For now continue methimazole 5 mg daily, will repeat labs today and determine if any dose adjustments need to be made documented in this encounter Plan of Treatment Upcoming Encounters Date Type Department Care Team (Late st Contact Info) Description 08/30/2025 9:15 AM EST Office Visit [facility] [address] [employer] [address] [phone] Noel Orellana MD [address] [address] documented as of this encounter Procedures Procedure Name Priority Date/Time Associated Diagnosis Comments T3 Routine 02/21/2025 10:37 AM EDT Toxic multinodular goiter TSH Routine 02/21/2025 10:37 AM EDT Toxic multinodular goiter T4, FREE Routine 02/21/2025 10:37 AM EDT Toxic multinodular goiter documented in this encounter Results * (ABNORMAL) T3 (02/21/2025 10:37 AM EDT) T3, Total 230.0(H) 80.0 - 200.0 ng/dl 02/22/2025 2:30 AM EDT [facility] Blood Structure of left upper limb / Unknown Venipuncture / Unknown 02/21/2025 10:37 AM EDT 02/21/2025 10:38 AM EDT Narrative [facility] - 02/22/2025 2:30 AM EDT Results may be falsely increased if patient taking Biotin. us Noel Orellana MD LAB BLOOD ORDERABLES Final Result Performing Organization Address [facility] Co de Phone Number [facility]
[address] [place] [address], * (ABNORMAL) T4, Free (02/21/2025 10:37 AM EDT) Free T4 2.11(H) 0.92 - 1.68 ng/dL 02/22/2025 2:30 AM EDT [facility] Blood Structure of left upper limb / Unknown Venipuncture / Unknown 02/21/2025 10:37 AM EDT 02/21/2025 10:38 AM EDT us Noel Orellana MD LAB BLOOD ORDERABLES Final Result Performing Organization Address [facility] Co de Phone Number [facility]
[address] [phone], * (ABNORMAL) TSH (02/21/2025 10:37 AM EDT) TSH <0.005(L) 0.270 - 4.200 uIU/mL 02/22/2025 2:30 AM EDT [facility] Blood Structure of left upper limb / Unknown Venipuncture / Unknown 02/21/2025 10:37 AM EDT 02/21/2025 10:38 AM EDT us Noel Orellana MD LAB BLOOD ORDERABLES Final Result Performing Organization Address [facility] Co de Phone Number [facility]
[address] [place] [address], documented in this encounter Visit Diagnoses Diagnosis Toxic multinodular goiter- Primary Toxic multinodular goiter without mention of thyrotoxic crisis or storm Other thyrotoxicosis without thyrotoxic crisis or storm documented in this encounter Care Teams Sculpture Instructor Relationship Specialty Start Date End Date Jorden Michael MD [facility] [place] [address] PCP - General Family Medicine 12/06/24 documented as of this encounter
--- OUTSIDE RECORDS SUMMARY | 2025-04-10 16:37 | XMS_ITS | Clinical Summary ---
Author Organization [facility] Address [address] [place] [address] Care Team Providers Care Instructor Bus [employer] Taxi Name Role Phone Jorden Michael MD Primary Care Provider +1- [phone] Allergies Active Allergy Reactions Criticality Noted Date Comments Metformin Hives 12/20/2024 Medications Aspirin Low Dose 81 MG EC tablet Take 1 tablet by mouth Daily. 11/22/19 25 Active atorvastatin (LIPITOR) 40 MG tablet Take 1 tablet by mouth Daily. 12/19/19 25 Active clopidogrel (PLAVIX) 75 MG tablet Take 1 tablet by mouth Daily. 09/19/19 25 Active Continuous Glucose Sensor ([employer] G7 Sensor) [facility] USE DIRECTED TO TEST BLOOD GLUCOSE LEVEL [...] Daily. 90 tablet 02/23/20 25 026 Active Active Problems Problem Noted Date Diagnosed Date [...] upcoming nuclear medicine uptake and scan at [facility] next week, will get results of that [...] Description 02/21/2025 11:15 AM EDT Office Visit [facility] [address] [facility] [address] [place] [address] Kalyan Huston MD Toxic multinodular goiter (Primary Dx); Other thyrotoxicosis without thyrotoxic crisis or storm 02/21/2025 Travel from Last 3 Months Social History [...] Description 08/30/2025 9:15 AM EST Office Visit [facility] [address] [place] [phone] Kalyan Huston MD [address] [place] [address] Health Maintenance Due Date Last Done Comments Annual Gynecologic Pelvic and Breast Exam 1970 PAP SMEAR 1991 MAMMOGRAM 2010 COLOGUARD 2015 COLON CANCER SCREENING 5 YEA R SIGMOIDOSCOPY 2015 COLONOSCOPY 2015 COLORECTAL CANCER SCREENING 2015 CT COLONOGRAPHY 2015 FECAL OCCULT BLOOD TEST 2015 FIT Testing (1 year) 2015 ANNUAL WELLNESS VISIT 12/13/2024 HEPATITIS C SCREENING 12/13/2024 ZOSTER VACCINE (2 of 2) 01/23/2025 11/28/2024 INFLUENZA VACCINE 02/15/2025 04/27/2024 TDAP/TD VACCINES (3 - Td or Tdap) 09/20/2034 025, 03/29/2023 Pneumococcal Vaccine 50+ Completed 04/27/2024 Procedures Procedure Name Priority Date/Time Associated Diagnosis Comments T3 Routine 02/21/2025 10:37 AM EDT Toxic multinodular goiter T4, FREE Routine 02/21/2025 10:37 AM EDT Toxic multinodular goiter TSH Routine 02/21/2025 10:37 AM EDT Toxic multinodular goiter from Last 3 Months Results * (ABNORMAL) T3 (02/21/2025 10:37 AM EDT) T3, Total 230.0(H) 80.0 - 200.0 ng/dl 02/22/2025 2:30 AM EDT [facility] Blood Structure of left upper limb / Unknown Venipuncture / Unknown 02/21/2025 10:37 AM EDT 02/21/2025 10:38 AM EDT Narrative [facility] - 02/22/2025 2:30 AM EDT Results may be falsely increased if patient taking Biotin. us Kalyan Huston MD LAB BLOOD ORDERABLES Final Result Performing Organization Address [facility] Co de Phone Number [facility]
[address] [place] [address], * (ABNORMAL) TSH (02/21/2025 10:37 AM EDT) TSH <0.005(L) 0.270 - 4.200 uIU/mL 02/22/2025 2:30 AM EDT [facility] Blood Structure of left upper limb / Unknown Venipuncture / Unknown 02/21/2025 10:37 AM EDT 02/21/2025 10:38 AM EDT Kalyan Huston MD LAB BLOOD ORDERABLES Final Result Performing Organization Address [facility] Co de Phone Number [facility]
[address] [place] [address], * (ABNORMAL) T4, Free (02/21/2025 10:37 AM EDT) Free T4 2.11(H) 0.92 - 1.68 ng/dL 02/22/2025 2:30 AM EDT [facility] Blood Structure of left upper limb / Unknown Venipuncture / Unknown 02/21/2025 10:37 AM EDT 02/21/2025 10:38 AM EDT us Kalyan Huston MD LAB BLOOD ORDERABLES Final Result Performing Organization Address City/[facility]/ZIP Co de Phone Number [facility]
[address] [place] [address], from Last 3 Months Insurance [employer] MEDICAID [place] AETNA MEDICARE ADVANTAGE [facility] Care Teams Instructor Bus [employer] Taxi Relationship Specialty Start Date End Date Jorden Michael MD [facility] [address] [address] PCP - General Family Medicine 12/06/24
--- OUTSIDE RECORDS SUMMARY | 2025-04-10 16:37 | XMS_ITS | Encounter Summary ---
Author Organization Healthcare Address [address] [place] [address] Care Team Providers Care Signals Collection Technician Name Role Phone Unavailable Primary Care Provider Unavailabl e Encounter Details Date Type Department Care Team (Late st Contact Info) Description 08/16/2024 Orders Only External Location [address] [place] [address] Provider, External Social History Tobacco Use Types [...] Medical Office Building Surgical Specialties [address] [facility], [address] [place] [address] Dave Palacios MD [address] [address] documented as of this encounter [...]
--- OUTSIDE RECORDS SUMMARY | 2025-04-10 16:37 | XMS_ITS | Clinical Summary ---
Author Organization Healthcare Address [address] [id number] Care Team Providers Care Community Midwife Name Role Phone Unavailable Primary Care Provider Unavailabl e Social History Tobacco Use Types Packs/Day Years Used Date Smoking Tobacco: Never Assessed Comments Unknown Sex and Gender Information Value Date Recorded Sex Assigned at Not on file Legal Sex Female 4:55 PM EDT Gender Identity Not on file Sexual Orientation Not on file Plan of Treatment Upcoming Encounters Date Type Department Care Team ([facility] st Contact Info) Description 08/15/2025 9:00 AM EST Consult Medical Office Building Surgical Specialties [address] [facility], [address] [place] [address] Dave Palacios MD [address] [place] [address] Health Maintenance Due Date Last Done Comments [facility]-Depression Screening 1970 [facility]-/Child/Adol SDOH Screenings 1970 [facility]- SDOH Screenings 1988 [facility]-Adult SDOH Screenings 1988 [facility]-Hepatitis B Vaccines (1 of 3 - 19+ 3-dose series) 1989 [facility]-Pap Smear 1991 [facility]-Cervical Cancer Screening 2000 [facility]-HPV/Cotest 2000 CT Colonography 2015 Colonoscopy 2015 FIT-DNA 2015 FIT 2015 FOBT 2015 Sigmoidoscopy 2015 [facility]-Colorectal Cancer Screening 2015 [facility]-Zoster Vaccines (2 of 2) 01/23/2025 11/28/2024 [id number] Vaccine ( season) 2025 [facility]-Influenza Vaccine (#1) 2025 04/27/2024 [facility]-DTaP,Tdap,and Td [...]
--- OUTSIDE RECORDS SUMMARY | 2025-04-10 16:37 | XMS_ITS | Encounter Summary ---
Author Organization Healthcare Address [address] [place] [address] Care Team Providers Care Medical Aides Teacher Name Role Phone Unavailable Primary Care Provider Unavailabl e Encounter Details Date Type Department Care Team (Late st Contact Info) Description 05/24/2024 Orders Only External Location [address] [place] [address] Provider, External Social History Tobacco Use Types [...] Medical Office Building Surgical Specialties [address] [facility], [address] [place] [address] Dave Palacios MD [address] [address] documented as of this encounter [...]
--- OUTSIDE RECORDS SUMMARY | 2025-04-10 16:37 | XMS_ITS | Encounter Summary ---
Author Organization Healthcare Address [address] [id number] Care Team Providers Care Bilingual Patient Support Caseworker Name Role Phone Unavailable Primary Care Provider Unavailabl e Encounter Details Date Type Department Care Team (Late st Contact Info) Description 10/01/2022 Orders Only External Location [address] [place] [address] Jacque Araiza, YEIMI [address] [facility] [address] [id number] Social History Tobacco Use Types Packs/Day Years [...] Medical Office Building Surgical Specialties [address] [facility], [address] [place] [address] Dave Palacios MD [address] [address] documented as of this encounter Procedures Procedure Name Priority Date/Time Associated Diagnosis Comments NM OUTSIDE IMAGES 10/01/2022 10:27 AM EDT documented in this encounter Results * NM OUTSIDE IMAGES (10/01/2022 10:27 AM EDT) Anatomical Region Laterality Modality Nuclear Medicine 10/01/2022 10:2 7 AM EDT us Jacuqe Araiza LAYER UP IMG NM PROCEDURES Final Resu lt documented in this encounter Visit Diagnoses Not on filedocumented in this encounter
--- OUTSIDE RECORDS SUMMARY | 2025-04-10 16:37 | XMS_ITS | Encounter Summary ---
Author Organization Healthcare Address [address] [place] [address] Care Team Providers Care Actuarial Science Professor Name Role Phone Unavailable Primary Care Provider Unavailabl e Encounter Details Date Type Department Care Team (Late st Contact Info) Description 07/30/2024 Orders Only External Location [address] [place] [address] Provider, External Social History Tobacco Use Types [...] Medical Office Building Surgical Specialties [address] [facility], [address] [place] [address] Dave Palacios MD [address] [address] documented as of this encounter [...]
--- OUTSIDE RECORDS SUMMARY | 2025-04-10 16:37 | XMS_ITS | Encounter Summary ---
Author Organization [facility] Address [address] [place] [id number] Care Team Providers Care Dramatic Reader Name Role Phone Jorden Michael MD Primary Care Provider +1- [phone] Encounter Details Date Type Department Care Team [...] Description 08/30/2025 9:15 AM EST Office Visit [facility] [address] [facility] 100 [place] [address] Kalyan Huston MD [address] [place] [address] documented as of this encounter Visit Diagnoses Not on filedocumented in this encounter Care Teams Dramatic Reader Relationship Specialty Start Date End Date Jorden Michael MD [address] [address] PCP - General Family Medicine 12/06/24 documented as of this encounter
== END 2025-04-10 23:59 | disposition home or self-care (01) ==
LOC: RAD 16:35
PROVIDERS: PCP Family Medicine; Visit Provider Student in an Organized Health Care Education/Training Program
DX: J06.9 Acute upper respiratory infection, unspecified (principal); J18.9 Pneumonia, unspecified organism

== ENCOUNTER 2025-04-11 09:11 | Outpatient (CLI) | payer MEDICARE, MEDICAID, SELFPAY ==
--- OUTSIDE RECORDS SUMMARY | 2024-12-20 09:09 | XMS_ITS | Encounter Summary ---
Author Organization [facility] Address [address] [place] [address] Care Team Providers Care Master Printer Name Role Phone Jorden Michael MD Primary Care Provider +1- [phone] Reason for Referral * Diagnostic Imaging (Routine) - Closed Specialty Diagnoses / Procedures Referred By Mirta haines Referred To Contact Radiology Diagnoses Thyroid nodule Procedures US Thyroid Kalyan Huston MD [address] [place] [address] Phone: tel: fax: Referral ID Status Reason Start Date Expiration Date Visits Re quested Visits Authorized [id number] Closed 12/20/2024 03/21/2026 1 1 Reason for Visit * Diagnostic Imaging (Routine) - Closed Specialty Diagnoses / Procedures Referred By Mirta haines Referred To Contact Radiology Diagnoses Thyroid nodule Procedures US Thyroid Kalyan Huston MD [address] [place] [address] Phone: tel: fax: Referral ID Status Reason Start Date Expiration Date Visits Re quested Visits Authorized [id number] Closed 12/20/2024 03/21/2026 1 1 Encounter Details Date Type Department Care Team (Late st Contact Info) Description 12/20/2024 9:09 AM EDT Hospital Encounter [facility] [address] [employer] [facility] [address] [place] [address] [phone] Thyroid nodule Social History Tobacco Use Types [...] Description 08/30/2025 9:15 AM EST Office Visit [facility] [address] [place] [address] Kalyan Huston MD [address] [facility] [address] [place] [address] documented as of this encounter Procedures Procedure [...] goiter documented in this encounter Care Teams Master Printer Relationship Specialty Start Date End Date Jorden Michael MD [address] [address] PCP - General Family Medicine 12/06/24 documented as of this encounter
--- OUTSIDE RECORDS SUMMARY | 2025-02-21 11:15 | XMS_ITS | Encounter Summary ---
Author Organization [facility] Address [address] [place] [address] Care Team Providers Care Utility Operator Name Role Phone Jorden Michael MD Primary Care Provider +1- [phone] Reason for Visit * Reason Comments Other thyrotoxicosis without thyrotoxic crisis or storm Encounter Details Date Type Department Care Team (Late st Contact Info) Description 02/21/2025 11:15 AM EDT Office Visit [facility] [address] [place] [phone] Noel Orellana MD [address] [place], [place] [phone] Toxic multinodular goiter (Primary Dx); Other thyrotoxicosis [...] Reports ~2001 having a thyroid ultrasound in [place] and the provider did an FNA of [...] Description 08/30/2025 9:15 AM EST Office Visit [facility] [address] [phone] Noel Orellana MD [address] [address] documented as of this encounter Procedures Procedure [...] - 200.0 ng/dl 02/22/2025 2:30 AM EDT [facility] Blood Structure of left upper limb / Unknown Venipuncture / Unknown 02/21/2025 10:37 AM EDT 02/21/2025 10:38 AM EDT Narrative [facility] - 02/22/2025 2:30 AM EDT Results may be falsely increased if patient taking Biotin. us Noel Orellana MD LAB BLOOD ORDERABLES Final Result Performing Organization Address [facility] Co de Phone Number [facility]
[address] [place] [address], * (ABNORMAL) T4, Free (02/21/2025 10:37 AM EDT) Free T4 2.11(H) 0.92 - 1.68 ng/dL 02/22/2025 2:30 AM EDT [facility] Blood Structure of left upper limb / Unknown Venipuncture / Unknown 02/21/2025 10:37 AM EDT 02/21/2025 10:38 AM EDT us Noel Orellana MD LAB BLOOD ORDERABLES Final Result Performing Organization Address [facility] Co de Phone Number [facility]
[address] [place] [phone], * (ABNORMAL) TSH (02/21/2025 10:37 AM EDT) TSH <0.005(L) 0.270 - 4.200 uIU/mL 02/22/2025 2:30 AM EDT [facility] Blood Structure of left upper limb / Unknown Venipuncture / Unknown 02/21/2025 10:37 AM EDT 02/21/2025 10:38 AM EDT us Noel Orlelana MD LAB BLOOD ORDERABLES Final Result Performing Organization Address [facility] Co de Phone Number [facility]
[address] [place] [address], documented in this encounter Visit Diagnoses Diagnosis Toxic multinodular goiter- Primary Toxic multinodular goiter without mention of thyrotoxic crisis or storm Other thyrotoxicosis without thyrotoxic crisis or storm documented in this encounter Care Teams Utility Operator Relationship Specialty Start Date End Date Jorden Michael MD [facility] [place] [address] PCP - General Family Medicine 12/06/24 documented as of this encounter
--- NOTE | 2025-04-11 09:13 | XR_ITS ---
FINAL REPORT CLINICAL HISTORY: shortness of breath, persistent worsening cough FINDINGS: PA and lateral views of the chest are obtained. There is no prior exam for comparison. Prior median sternotomy. The cardiac and mediastinal silhouettes are within normal limits. Right lower lobe opacity could be atelectasis or pneumonia. There is no pleural effusion, pneumothorax, or acute osseous abnormality. IMPRESSION: Right lower lobe opacity, atelectasis versus pneumonia. Reviewed, Interpreted and Dictated by Lula Mares MD Transcribed by Ofelia Chambers Authenticated and [facility]
--- OUTSIDE RECORDS SUMMARY | 2025-04-11 09:15 | XMS_ITS | Clinical Summary ---
Author Organization [facility] Address [address] [place] [address] Care Team Providers Care Multifocal Lens Assembler Name Role Phone Jorden Michael MD Primary Care Provider +1- [phone] Allergies Active Allergy Reactions Criticality Noted Date Comments Metformin Hives 12/20/2024 Medications Aspirin Low Dose 81 MG EC tablet Take 1 tablet by mouth Daily. 11/22/19 25 Active atorvastatin (LIPITOR) 40 MG tablet Take 1 tablet by mouth Daily. 12/19/19 25 Active clopidogrel (PLAVIX) 75 MG tablet Take 1 tablet by mouth Daily. 09/19/19 25 Active Continuous Glucose Sensor ([employer] G7 Sensor) [facility] USE DIRECTED TO TEST BLOOD GLUCOSE LEVEL [...] upcoming nuclear medicine uptake and scan at [facility] next week, will get results of [...] Description 02/21/2025 11:15 AM EDT Office Visit [facility] ENDOCRINOLOGY [address] [facility] [address] [place] [address] Kalyan Huston MD Toxic multinodular goiter (Primary [...] Description 08/30/2025 9:15 AM EST Office Visit [facility] ENDOCRINOLOGY [address] [place] [address] Kalyan Huston MD [address] [place] [address] Health Maintenance Due Date Last Done Comments [...] - 200.0 ng/dl 02/22/2025 2:30 AM EDT [facility] Blood Structure of left upper limb / Unknown Venipuncture / Unknown 02/21/2025 10:37 AM EDT 02/21/2025 10:38 AM EDT Narrative [facility] - 02/22/2025 2:30 AM EDT Results may be falsely increased if patient taking Biotin. us Kalyan Huston MD LAB BLOOD ORDERABLES Final Result Performing Organization Address [facility] Co de Phone Number [facility]
[address] [place] [address], * (ABNORMAL) TSH (02/21/2025 10:37 AM EDT) TSH <0.005(L) 0.270 - 4.200 uIU/mL 02/22/2025 2:30 AM EDT [facility] Blood Structure of left upper limb / Unknown Venipuncture / Unknown 02/21/2025 10:37 AM EDT 02/21/2025 10:38 AM EDT Kalyan Huston MD LAB BLOOD ORDERABLES Final Result Performing Organization Address [facility] Co de Phone Number [facility]
[address] [place] [address], * (ABNORMAL) T4, Free (02/21/2025 10:37 AM EDT) Free T4 2.11(H) 0.92 - 1.68 ng/dL 02/22/2025 2:30 AM EDT [facility] Blood Structure of left upper limb / Unknown Venipuncture / Unknown 02/21/2025 10:37 AM EDT 02/21/2025 10:38 AM EDT us Kalyan Huston MD LAB BLOOD ORDERABLES Final Result Performing Organization Address City/[facility]/ZIP Co de Phone Number [facility]
[address] [place] [address], from Last 3 Months Insurance [employer] MEDICAID [place] AETNA MEDICARE ADVANTAGE SNP Care Teams Multifocal Lens Assembler Relationship Specialty Start Date End Date Jorden Michael MD [facility] [address] [address] PCP - General Family Medicine 12/06/24
--- OUTSIDE RECORDS SUMMARY | 2025-04-11 09:15 | XMS_ITS | Clinical Summary ---
Author Organization Healthcare Address [address] [id number] Care Team Providers Care Gold Wheel Blocker And Polisher Name Role Phone Unavailable Primary Care Provider Unavailabl e Social History Tobacco Use Types Packs/Day Years Used Date Smoking Tobacco: Never Assessed Comments Unknown Sex and Gender Information Value Date Recorded Sex Assigned at Not on file Legal Sex Female 4:55 PM EDT Gender Identity Not on file Sexual Orientation Not on file Plan of Treatment Upcoming Encounters Date Type Department Care Team ([facility] st Contact Info) Description 08/15/2025 9:00 AM EST Consult Medical Office Building Surgical Specialties [address] [facility], [address] [place] [address] Dave Palacios MD [address] [place] [address] Health Maintenance Due Date Last [...] [facility]-Zoster Vaccines (2 of 2) 01/23/2025 11/28/2024 [id number] Vaccine ( season) 2025 [facility]-Influenza Vaccine (#1) [...]
--- OUTSIDE RECORDS SUMMARY | 2025-04-11 09:15 | XMS_ITS | Encounter Summary ---
Author Organization Healthcare Address [address] [place] [address] Care Team Providers Care Manager Economic Name Role Phone Unavailable Primary Care Provider Unavailabl e Encounter Details Date Type Department Care Team (Late st Contact Info) Description 05/24/2024 Orders Only External Location [address] [place] [address] Provider, External Social History Tobacco Use Types [...] Medical Office Building Surgical Specialties [address] [facility], [address] [place] [address] Dave Palacios MD [address] [address] documented as of this encounter [...]
--- OUTSIDE RECORDS SUMMARY | 2025-04-11 09:15 | XMS_ITS | Encounter Summary ---
Author Organization Healthcare Address [address] [id number] Care Team Providers Care Franchise Sales Representative Name Role Phone Unavailable Primary Care Provider Unavailabl e Encounter Details Date Type Department Care Team (Late st Contact Info) Description 10/01/2022 Orders Only External Location [address] [place] [address] Jacque Araiza, YEIMI 1210 [facility] [address] [address] Social History Tobacco Use Types Packs/Day Years [...] Medical Office Building Surgical Specialties [address] [facility], [address] [place] [address] Dave Palacios MD [address] [address] documented as of this encounter Procedures Procedure Name Priority Date/Time Associated Diagnosis Comments NM OUTSIDE IMAGES 10/01/2022 10:27 AM EDT documented in this encounter Results * NM OUTSIDE IMAGES (10/01/2022 10:27 AM EDT) Anatomical Region Laterality Modality Nuclear Medicine 10/01/2022 10:2 7 AM EDT us Jacque Araiza TITLE VEHICLE SERVICE ATTENDANT IMG NM PROCEDURES Final Resu lt documented in this encounter Visit Diagnoses Not on filedocumented in this encounter
--- OUTSIDE RECORDS SUMMARY | 2025-04-11 09:15 | XMS_ITS | Encounter Summary ---
Author Organization Healthcare Address [address] [place] [address] Care Team Providers Care Medical Record Transcriber Name Role Phone Unavailable Primary Care Provider Unavailabl e Encounter Details Date Type Department Care Team (Late st Contact Info) Description 07/30/2024 Orders Only External Location [address] [place] [address] Provider, External Social History Tobacco Use Types [...] Medical Office Building Surgical Specialties [address] [facility], [address] [place] [address] Dave Palacios MD [address] [address] documented as of this encounter [...]
--- OUTSIDE RECORDS SUMMARY | 2025-04-11 09:16 | XMS_ITS | Encounter Summary ---
Author Organization Healthcare Address [address] [place] [address] Care Team Providers Care Uke Operator Name Role Phone Unavailable Primary Care Provider Unavailabl e Encounter Details Date Type Department Care Team (Late st Contact Info) Description 08/16/2024 Orders Only External Location [address] [place] [address] Provider, External Social History Tobacco Use Types [...] Medical Office Building Surgical Specialties [address] [facility], [address] [place] [address] Dave Palacios MD [address] [address] documented as of this [...]
--- OUTSIDE RECORDS SUMMARY | 2025-04-11 09:16 | XMS_ITS | Encounter Summary ---
Author Organization [facility] Address [address] [place] [id number] Care Team Providers Care Flake Miller Helper Name Role Phone Jorden Michael MD Primary Care Provider +1- [phone] Encounter Details Date Type Department Care Team [...] Office Visit [facility] ENDOCR[facility]OLOGY [address] [facility] 100 [place] [phone] Kalyan Huston MD [address] [place] [address] documented as of this encounter Visit Diagnoses Not on filedocumented in this encounter Care Teams Flake Miller Helper Relationship Specialty Start Date End Date Jorden Michael MD [address] [address] PCP - General Family Medicine 12/06/24 documented as of this encounter
== END 2025-04-11 23:59 | disposition home or self-care (01) ==
LOC: RAD 09:11
PROVIDERS: PCP Family Medicine; Visit Provider Student in an Organized Health Care Education/Training Program
DX: J06.9 Acute upper respiratory infection, unspecified (principal); R91.8 Other nonspecific abnormal finding of lung field; Z98.890 Other specified postprocedural states
CPT/HCPCS: 71046

== ENCOUNTER 2025-05-13 14:55 | Outpatient (CLI) | payer MEDICARE, MEDICAID, SELFPAY ==
--- OUTSIDE RECORDS SUMMARY | 2024-12-20 09:09 | XMS_ITS | Encounter Summary ---
Author Organization [facility] Address [address] [place] [address] Care Team Providers Care Computational Chemist Name Role Phone Jorden Michael MD Primary Care Provider +1- [phone] Reason for Referral * Diagnostic Imaging (Routine) - Closed Specialty Diagnoses / Procedures Referred By Mirta haines Referred To Contact Radiology Diagnoses Thyroid nodule Procedures US Thyroid Kalyan Huston MD [address] [place] [address] Phone: tel: fax: Referral ID Status Reason Start Date Expiration Date Visits Re quested Visits Authorized [id number] Closed 12/20/2024 03/21/2026 1 1 Reason for Visit * Diagnostic Imaging (Routine) - Closed Specialty Diagnoses / Procedures Referred By Mirta haines Referred To Contact Radiology Diagnoses Thyroid nodule Procedures US Thyroid Kalyan Huston MD [address] [place] [address] Phone: tel: fax: Referral ID Status Reason Start Date Expiration Date Visits Re quested Visits Authorized [id number] Closed 12/20/2024 03/21/2026 1 1 Encounter Details Date Type Department Care Team (Late st Contact Info) Description 12/20/2024 9:09 AM EDT Hospital Encounter [facility] [address] [employer] [facility] [address] [place] [address] [phone] Thyroid nodule Social History Tobacco Use Types [...] Description 08/30/2025 9:15 AM EST Office Visit [facility] [address] [place] [address] Kalyan Huston MD [address] [facility] [address] [place] [address] documented as of this encounter Procedures Procedure [...] goiter documented in this encounter Care Teams Computational Chemist Relationship Specialty Start Date End Date Jorden Michael MD [address] [address] PCP - General Family Medicine 12/06/24 documented as of this encounter
--- NOTE | 2025-05-13 14:57 | XR_ITS ---
FINAL REPORT CLINICAL HISTORY: pneumonia..pt had pneumonia a couple months ago and still feels bad and is coughing stuff up COMPARISON: 04/11/2025 FINDINGS: 2 views of the chest were obtained . The heart mildly enlarged. Patient is status post median sternotomy. The mediastinum is within normal limits. The lungs are clear. There is no pneumothorax. Osseous structures are unremarkable. IMPRESSION: No acute cardiopulmonary process. Reviewed, Interpreted and Dictated by Erick Rodgers MD Transcribed by Korina Granger Authenticated and . [facility]
--- OUTSIDE RECORDS SUMMARY | 2025-05-13 15:44 | XMS_ITS | Encounter Summary ---
Author Organization Healthcare Address [address] [place] [address] Care Team Providers Care Hospitality Host Name Role Phone Unavailable Primary Care Provider Unavailabl e Encounter Details Date Type Department Care Team (Late st Contact Info) Description 07/30/2024 Orders Only External Location [address] [place] [address] Provider, External Social History Tobacco Use Types [...] Building Surgical Specialties [address] [facility], [address] [place] [address] Dave Palacios MD [address] [address] documented as of this encounter [...]
--- OUTSIDE RECORDS SUMMARY | 2025-05-13 15:44 | XMS_ITS | Clinical Summary ---
Author Organization Healthcare Address [address] [id number] Care Team Providers Care Vending Machine Servicer Name Role Phone Unavailable Primary Care Provider Unavailabl e Social History Tobacco Use Types Packs/Day Years Used Date Smoking Tobacco: Never Assessed Comments Unknown Sex and Gender Information Value Date Recorded Sex Assigned at Not on file Legal Sex Female 4:55 PM EDT Gender Identity Not on file Sexual Orientation Not on file Plan of Treatment Upcoming Encounters Date Type Department Care Team ([facility] st Contact Info) Description 08/15/2025 9:00 AM EST Consult Medical Office Building Surgical Specialties [address] [facility], [address] [place] [address] Dave Palacios MD [address] [place] [address] Health Maintenance Due Date Last Done Comments [facility]-Depression Screening 1970 [facility]-Infant/Child/Adol SDOH Screenings 1970 [facility]- SDOH Screenings 1988 [facility]-Adult SDOH Screenings 1988 [facility]-Hepatitis B Vaccines (1 of 3 - 19+ 3-dose series) 1989 [facility]-Pap Smear 1991 [facility]-Cervical Cancer Screening 2000 [facility]-HPV/Cotest 2000 CT Colonography 2015 Colonoscopy 2015 FIT-DNA 2015 FIT 2015 FOBT 2015 Sigmoidoscopy 2015 [facility]-Colorectal Cancer Screening 2015 [facility]-Zoster Vaccines (2 of 2) 01/23/2025 11/28/2024 [id number] Vaccine ( season) 2025 [facility]-Influenza Vaccine (#1) [...]
--- OUTSIDE RECORDS SUMMARY | 2025-05-13 15:44 | XMS_ITS | Clinical Summary ---
Author Organization [facility] Address [address] [place] [address] Care Team Providers Care Reservations Sales Supervisor Name Role Phone Jorden Michael MD Primary Care Provider +1- [phone] Allergies Active Allergy Reactions Criticality Noted Date Comments Metformin Hives 12/20/2024 Medications Aspirin Low Dose 81 MG EC tablet Take 1 tablet by mouth Daily. 11/22/19 25 Active atorvastatin (LIPITOR) 40 MG tablet Take 1 tablet by mouth Daily. 12/19/19 25 Active clopidogrel (PLAVIX) 75 MG tablet Take 1 tablet by mouth Daily. 09/19/19 25 Active Continuous Glucose Sensor ([employer] G7 Sensor) [facility] USE DIRECTED TO TEST BLOOD GLUCOSE LEVEL [...] upcoming nuclear medicine uptake and scan at [facility] next week, will get results of that [...] Description 02/21/2025 11:15 AM EDT Office Visit [facility] ENDOCRINOLOGY [address] [facility] [address] [place] [address] Kalyan Huston MD Toxic multinodular goiter (Primary [...] Description 08/30/2025 9:15 AM EST Office Visit [facility] END[facility]CR[facility]Y [address] [place] [address] Kalyan Huston MD [address] [place] [address] Health Maintenance Due Date Last Done Comments [...] - 200.0 ng/dl 02/22/2025 2:30 AM EDT [facility] Blood Structure of left upper limb / Unknown Venipuncture / Unknown 02/21/2025 10:37 AM EDT 02/21/2025 10:38 AM EDT Narrative [facility] - 02/22/2025 2:30 AM EDT Results may be falsely increased if patient taking Biotin. us Kalyan Huston MD LAB BLOOD ORDERABLES Final Result Performing Organization Address [facility] Co de Phone Number [facility]
[address] [place] [address], * (ABNORMAL) TSH (02/21/2025 10:37 AM EDT) TSH <0.005(L) 0.270 - 4.200 uIU/mL 02/22/2025 2:30 AM EDT [facility] Blood Structure of left upper limb / Unknown Venipuncture / Unknown 02/21/2025 10:37 AM EDT 02/21/2025 10:38 AM EDT Kalyan Huston MD LAB BLOOD ORDERABLES Final Result Performing Organization Address [facility] Co de Phone Number [facility]
[address] [place] [address], * (ABNORMAL) T4, Free (02/21/2025 10:37 AM EDT) Free T4 2.11(H) 0.92 - 1.68 ng/dL 02/22/2025 2:30 AM EDT [facility] Blood Structure of left upper limb / Unknown Venipuncture / Unknown 02/21/2025 10:37 AM EDT 02/21/2025 10:38 AM EDT us Kalyan Huston MD LAB BLOOD ORDERABLES Final Result Performing Organization Address City/[facility]/ZIP Co de Phone Number [facility]
[address] [place] [address], from Last 3 Months Insurance [employer] MEDICAID [place] AETNA MEDICARE ADVANTAGE SNP Care Teams Reservations Sales Supervisor Relationship Specialty Start Date End Date Jorden Michael MD [facility] [address] [address] PCP - General Family Medicine 12/06/24
--- OUTSIDE RECORDS SUMMARY | 2025-05-13 15:44 | XMS_ITS | Encounter Summary ---
Author Organization Healthcare Address [address] [place] [address] Care Team Providers Care Bologna Maker Name Role Phone Unavailable Primary Care Provider Unavailabl e Encounter Details Date Type Department Care Team (Late st Contact Info) Description 05/24/2024 Orders Only External Location [address] [place] [address] Provider, External Social History Tobacco Use Types [...] Building Surgical Specialties [address] [facility], [address] [place] [address] Dave Palacios MD [address] [address] documented as of this encounter [...]
--- OUTSIDE RECORDS SUMMARY | 2025-05-13 15:44 | XMS_ITS | Encounter Summary ---
Author Organization Healthcare Address [address] [place] [phone] Care Team Providers Care Medical Instrument Cable Fabricator Name Role Phone Unavailable Primary Care Provider Unavailabl e Encounter Details Date Type Department Care Team (Late st Contact Info) Description 10/01/2022 Orders Only External Location [address] [place] [address] Jacque Araiza, YEIMI 1210 [facility] [address] [id number] Social History Tobacco Use Types Packs/Day Years [...] Medical Office Building Surgical Specialties [address] [facility], [address] [place] [address] Dave Palacios MD [address] [address] documented as of this encounter Procedures Procedure Name Priority Date/Time Associated Diagnosis Comments NM OUTSIDE IMAGES 10/01/2022 10:27 AM EDT documented in this encounter Results * NM OUTSIDE IMAGES (10/01/2022 10:27 AM EDT) Anatomical Region Laterality Modality Nuclear Medicine 10/01/2022 10:2 7 AM EDT us Jacque Araiza CITRIX ARCHITECT IMG NM PROCEDURES Final Resu lt documented in this encounter Visit Diagnoses Not on filedocumented in this encounter
--- OUTSIDE RECORDS SUMMARY | 2025-05-13 15:44 | XMS_ITS | Encounter Summary ---
Author Organization Healthcare Address [address] [place] [address] Care Team Providers Care Manager Retirement Name Role Phone Unavailable Primary Care Provider Unavailabl e Encounter Details Date Type Department Care Team (Late st Contact Info) Description 08/16/2024 Orders Only External Location [address] [place] [address] Provider, External Social History Tobacco Use Types [...] Medical Office Building Surgical Specialties [address] [facility], [address] [place] [address] Dave Palacios MD [address] [address] documented as of this encounter [...]
== END 2025-05-13 23:59 | disposition home or self-care (01) ==
LOC: RAD 14:55
PROVIDERS: PCP Family Medicine; Visit Provider Family Medicine
DX: J18.9 Pneumonia, unspecified organism (principal); I51.7 Cardiomegaly; Z98.890 Other specified postprocedural states
CPT/HCPCS: 71046

== ENCOUNTER 2025-06-11 17:31 | Emergency (ER) | payer MEDICARE, MEDICAID, SELFPAY ==
--- OUTSIDE RECORDS SUMMARY | 2024-12-20 08:09 | XMS_ITS | Encounter Summary ---
Author Organization [facility] Address [address] [place] [address] Care Team Providers Care Regional Dedicated Truck Driver Name Role Phone Jorden Michael MD Primary Care Provider +1- [phone] Reason for Referral * Diagnostic Imaging (Routine) - Closed Specialty Diagnoses / Procedures Referred By Mirta haines Referred To Contact Radiology Diagnoses Thyroid nodule Procedures US Thyroid Kalyan Huston MD [address] [place] [address] Phone: tel: fax: Referral ID Status Reason Start Date Expiration Date Visits Re quested Visits Authorized [id number] Closed 12/20/2024 03/21/2026 1 1 Reason for Visit * Diagnostic Imaging (Routine) - Closed Specialty Diagnoses / Procedures Referred By Mirta haines Referred To Contact Radiology Diagnoses Thyroid nodule Procedures US Thyroid Kalyan Huston MD [address] [place] [address] Phone: tel: fax: Referral ID Status Reason Start Date Expiration Date Visits Re quested Visits Authorized [id number] Closed 12/20/2024 03/21/2026 1 1 Encounter Details Date Type Department Care Team (Late st Contact Info) Description 12/20/2024 9:09 AM EDT Hospital Encounter [facility] [address] [facility] [address] [place] [address] [phone] Thyroid nodule Social History Tobacco Use Types Packs/Day Years Used Date Smoking Tobacco: Never Smokeless Tobacco: Never Alcohol Use Standard Drinks/Week Comments Not Currently 0 (1 standard drink = 0.6 oz pur e alcohol) Comments No Sex and Gender Information Value Date Recorded Sex Assigned at Not on file Legal Sex Female 3:55 PM EDT Gender Identity Not on file Sexual Orientation Not on file documented as of this encounter Plan of Treatment Upcoming Encounters Date Type Department Care Team (Late st Contact Info) Description 11/07/2025 2:45 PM EDT Office Visit [facility] [address] [facility] [address] [place] [address] Kalyan Huston MD [address] [facility] [address] [place] [address] documented as of this encounter Procedures Procedure Name Priority Date/Time Associated Diagnosis Comments US THYROID Routine 12/20/2024 9:09 AM EDT Thyroid nodule documented in this encounter Results * US Thyroid (12/20/2024 9:09 AM EDT) Narrative SYSTEMGENERATED, DOCUMENTATION - 12/20/2024 9:09 AM EDT Please see performing physician's note for result. us Kalyan Huston MD IMG US ORDERABLES Final Res ult documented in this encounter Visit Diagnoses Diagnosis Thyroid nodule Nontoxic uninodular goiter documented in this encounter Care Teams Regional Dedicated Truck Driver Relationship Specialty Start Date End Date Jorden Michael MD [address] [id number] PCP - General Family Medicine 12/06/24 documented as of this encounter
[2025-06-11 17:32] VITALS: BP 162/67; PULSE 92; RESP 17; TEMP 37.1; O2SAT 96; BMI 43.7
--- OUTSIDE RECORDS SUMMARY | 2025-06-11 18:00 | XMS_ITS | Encounter Summary ---
Author Organization Healthcare Address [address] [place] [address] Care Team Providers Care Merchandise Pickup/Receiving Associate Name Role Phone Unavailable Primary Care Provider Unavailabl e Encounter Details Date Type Department Care Team (Late st Contact Info) Description 08/16/2024 Orders Only External Location [address] [place] [address] Provider, External Social History Tobacco Use Types [...] Building Surgical Specialties [address] [facility], [address] [place] [address] Dave Palacios MD [address] [address] documented as of this encounter [...]
--- OUTSIDE RECORDS SUMMARY | 2025-06-11 18:00 | XMS_ITS | Clinical Summary ---
Author Organization Healthcare Address [address] [place] [address] Care Team Providers Care Operational Communication Chief Name Role Phone Unavailable Primary Care Provider Unavailabl e Social History Tobacco Use Types Packs/Day Years Used Date Smoking Tobacco: Never Assessed Comments Unknown Sex and Gender Information Value Date Recorded Sex Assigned at Not on file Legal Sex Female 4:55 PM EDT Gender Identity Not on file Sexual Orientation Not on file Plan of Treatment Upcoming Encounters Date Type Department Care Team ([facility] st Contact Info) Description 08/15/2025 9:00 AM EST Consult Medical Office Building Surgical Specialties [address] [facility], [address] [place] [address] Dave Palacios MD [address] [place] [address] Health Maintenance Due Date Last Done Comments [facility]-Depression Screening 1970 [facility]-HIV Screening 1970 [facility]-Hepatitis C Screening 1970 [facility]-Medicare Annual Wellness (AWV) 1970 [facility]-Infant/Child/Adol SDOH Screenings 1970 [facility]- SDOH Screenings 1988 [facility]-Adult SDOH Screenings 1988 [facility]-Hepatitis B Vaccines (1 of 3 - 19+ 3-dose series) 1989 [facility]-Pap Smear 1991 [facility]-Cervical Cancer Screening 2000 [facility]-HPV/Cotest 2000 CT Colonography 2015 Colonoscopy 2015 FIT-DNA 2015 FIT 2015 FOBT 2015 Sigmoidoscopy 2015 [facility]-Colorectal Cancer Screening 2015 [facility]-Breast Cancer Screening 2020 [facility]-Zoster Vaccines (2 of 2) 01/23/2025 11/28/2024 [id number] Vaccine (1 - 2024- season) 2025 [facility]-Influenza Vaccine (#1) 2025 04/27/2024 [...]
--- OUTSIDE RECORDS SUMMARY | 2025-06-11 18:00 | XMS_ITS | Clinical Summary ---
Author Organization [facility] Address [address] [place] [address] Care Team Providers Care Combine Inspector Name Role Phone Jorden Michael MD Primary Care Provider [phone]- [phone] Allergies Active Allergy Reactions Criticality Noted Date Comments Metformin Hives 12/20/2024 Medications Aspirin Low Dose 81 MG EC tablet Take 1 tablet by mouth Daily. Active atorvastatin (LIPITOR) 40 MG tablet Take 1 tablet by mouth Daily. Active clopidogrel (PLAVIX) 75 MG tablet Take 1 tablet by mouth Daily. Active Continuous Glucose Sensor (Ravn G7 Sensor) [facility] USE DIRECTED TO TEST BLOOD GLUCOSE LEVEL CHANGE SENSOR EVERY 10 DAYS Active DULoxetine (CYMBALTA) 30 MG capsule Take 1 capsule by mouth Daily. Active Jardiance 25 MG tablet tablet Take 1 tablet by mouth Daily. Active FeroSul 325 (65 Fe) MG tablet Take 1 tablet by mouth Daily With Breakfast. Active furosemide (LASIX) 40 MG tablet Take 1 tablet by mouth Daily. 025 Active gabapentin (NEURONTIN) 600 MG tablet Take 1 tablet by mouth 3 (Three) Times a Day. 025 Active glimepiride (AMARYL) 4 MG tablet Take 1 tablet by mouth Every Morning Before Breakfast. 025 Active NovoLOG FlexPen 100 UNIT/ML solution pen-injector sc pen Inject under the skin into the appropriate area as directed. 025 Active Lantus SoloStar 100 UNIT/ML injection pen Inject under the skin into the appropriate area as directed. Active BD Pen Needle Asry Ultrafine 32G X 4 MM misc Active isosorbide mononitrate (IMDUR) 60 MG 24 hr tablet Active levocetirizine (XYZAL) 5 MG tablet Take 1 tablet by mouth Every Evening. Active lisinopril (PRINIVIL,ZESTRIL ) 20 MG tablet Take 1 tablet by mouth Daily. Active medroxyPROGESTERo ne (PROVERA) 10 MG tablet Take 1 tablet by mouth Daily. Active metoprolol tartrate (LOPRESSOR) 25 MG tablet Take 1 tablet by mouth 2 (Two) Times a Day. Active omeprazole (priLOSEC) 40 MG capsule Take 1 capsule by mouth Daily. Active tamsulosin (FLOMAX) 0.4 MG capsule 24 hr capsule Take 1 capsule by mouth Daily. Active Mounjaro 5 MG/0.5ML solution auto-injector ADMINISTER 5 MG UNDER THE SKIN WEEKLY Active methIMAzole (TAPAZOLE) 10 MG tabletIndications :Other thyrotoxicosis without thyrotoxic crisis or storm TAKE ONE (1) TABLET BY MOUTH ONCE DAILY 90 tablet Active methIMAzole (TAPAZOLE) 10 MG tabletIndications :Other thyrotoxicosis without thyrotoxic crisis or storm Take 1 tablet by mouth Daily. 90 tablet 2024 Discontinued Active Problems Problem Noted Date Diagnosed Date [...] upcoming nuclear medicine uptake and scan at [facility] next week, will get results of [...] Encounters Date Type Department Care Team Description 05/30/2025 [facility] ENDOCRINOLOGY [address] [address] Kalyan Huston MD Other thyrotoxicosis without thyrotoxic crisis or storm from Last 3 Months Social History Tobacco [...] 11/07/2025 2:45 PM EDT Office Visit [facility] ENDOCRINOLOGY [address] [place] [address] Kalyan Huston MD [address] [place] [address] Health Maintenance Due Date Last Done Comments [...] 025, 03/29/2023 Pneumococcal Vaccine 50+ Completed 04/27/2024 Insurance [employer] MEDICAID [place] [employer] MEDICARE ADVANTAGE [facility] Care Teams Combine Inspector Relationship Specialty Start Date End Date Jorden Michael MD [address] [place] [address] PCP - General Family Medicine 12/06/24
--- OUTSIDE RECORDS SUMMARY | 2025-06-11 18:00 | XMS_ITS | Encounter Summary ---
Author Organization Healthcare Address [address] [place] [id number] Care Team Providers Care Client Relations Associate Name Role Phone Unavailable Primary Care Provider Unavailabl e Encounter Details Date Type Department Care Team (Late st Contact Info) Description 10/01/2022 Orders Only External Location [address] [place] [address] Jacque Araiza, YEIMI [address] [facility] [address] [id number] Social History Tobacco Use Types Packs/Day Years [...] Specialties [address] [facility], [address] [place] [address] Dave Palacios MD [address] [address] documented as of this encounter Procedures Procedure Name Priority Date/Time Associated Diagnosis Comments NM OUTSIDE IMAGES 10/01/2022 10:27 AM EDT documented in this encounter Results * NM OUTSIDE IMAGES (10/01/2022 10:27 AM EDT) Anatomical Region Laterality Modality Nuclear Medicine 10/01/2022 10:2 7 AM EDT us Jacque Araiza EMBEDDER IMG NM PROCEDURES Final Resu lt documented in this encounter Visit Diagnoses Not on filedocumented in this encounter
--- OUTSIDE RECORDS SUMMARY | 2025-06-11 18:00 | XMS_ITS | Encounter Summary ---
Author Organization [facility] Address [address] [place] [address] Care Team Providers Care Grain Elevator Man Name Role Phone Jorden Michael MD Primary Care Provider +1- [phone] Reason for Visit * Reason Comments Med Refill Encounter Details Date Type Department Care Team (Late st Contact Info) Description 05/30/2025 Refill [facility] ENDOCRINOLOGY [address] [place] [id number] Kalyan Huston MD [address] [place], [place] [id number] Other thyrotoxicosis without thyrotoxic crisis or storm [...] on file documented as of this encounter Miscellaneous Notes * Telephone Encounter - Doris Collado MA - 05/31/2025 8:26 AM EST Rx Refill Note Requested Prescriptions Pending Prescriptions Disp Refills methIMAzole (TAPAZOLE) 10 MG tablet [Pharmacy Med Name: METHIMAZOLE 10MG TABLET] 90 tablet 0 Sig: TAKE ONE (1) TABLET BY MOUTH ONCE DAILY Last office visit with prescribing clinician: 02/21/2025 Next office visit with prescribing clinician: 11/07/2025 Doris Collado MA 05/31/25, 08:26 EST documented in this encounter Plan of Treatment Upcoming Encounters Date Type Department Care Team (Late st Contact Info) Description 11/07/2025 2:45 PM EDT Office Visit [facility] ENDOCRINOLOGY [address] [facility] [address] [place] [address] Kalyan Huston MD [address] [facility] [address] [place] [address] documented as of this encounter Visit Diagnoses Diagnosis Other thyrotoxicosis without thyrotoxic crisis or storm documented in this encounter Care Teams Grain Elevator Man Relationship Specialty Start Date End Date Jorden Michael MD [address] [place] [id number] PCP - General Family Medicine 12/06/24 documented as of this encounter
--- OUTSIDE RECORDS SUMMARY | 2025-06-11 18:00 | XMS_ITS | Encounter Summary ---
Author Organization Healthcare Address [address] [place] [address] Care Team Providers Care Medical Affairs Manager Name Role Phone Unavailable Primary Care Provider Unavailabl e Encounter Details Date Type Department Care Team (Late st Contact Info) Description 07/30/2024 Orders Only External Location [address] [place] [address] Provider, External Social History Tobacco Use Types [...] [facility], [address] [place] [address] Dave Palacios MD [address] [address] documented as of this encounter [...]
--- OUTSIDE RECORDS SUMMARY | 2025-06-11 18:00 | XMS_ITS | Encounter Summary ---
Author Organization Healthcare Address [address] [place] [address] Care Team Providers Care Call Or Contact Centre Coach Name Role Phone Unavailable Primary Care Provider Unavailabl e Encounter Details Date Type Department Care Team (Late st Contact Info) Description 05/24/2024 Orders Only External Location [address] [place] [address] Provider, External Social History Tobacco Use Types [...] Office Building Surgical Specialties [address] [facility], [address] [place] [address] Dave Palacios MD [address] [address] documented as of this [...]
--- NOTE | 2025-06-11 18:04 | [facility].EDGENADL ---
Discharge Plan Disposition Patient Disposition: Home, Self-Care Prescriptions Prescriptions: New cefdinir 300 mg capsule 300 mg PO BID 7 Days Qty: 14 0RF No Action (DME) Dexcom G7 Gas Appliance Adjuster Misc See Rx Instructions .Route Qty: 1 0RF Rx Instructions: As directed nitroglycerin 0.4 mg tablet, sublingual 0.4 mg sublingual Q5M PRN Rx Instructions: do not exceed 3 doses per episode fluconazole 150 mg tablet 150 mg PO Q3D Qty: 2 0RF (DME) Dexcom G7 Sensor Device See Rx Instructions .ROUTE .COMPLEX Qty: 3 10RF Dose Instruction: DIRECTED (EVERY 10 DAYS) Rx Instructions: DIRECTED (EVERY 10 DAYS) levocetirizine 5 mg tablet 5 mg PO HS Qty: 120 4RF methimazole 5 mg tablet 10 mg PO albuterol sulfate 90 mcg/actuation aerosol powdr breath activated 1 inh inhalation Q6H PRN (Reason: sob) Qty: 1 3RF (DME) Monoject Safety Syringes 3 mL 21 gauge x 1 syringe See Rx Instructions .Route Qty: 30 1RF Rx Instructions: once daily or As directed (DME) pen needle, diabetic [BD Ultra-Fine Sary Pen Needle] 32 gauge x 5/32 needle See Rx Instructions .ROUTE .COMPLEX Qty: 100 12RF Dose Instruction: USE FOUR TIMES DAILY Rx Instructions: USE FOUR TIMES DAILY medroxyprogesterone 10 mg tablet See Rx Instructions .ROUTE .COMPLEX Qty: 90 1RF Dose Instruction: TAKE 1 TABLET BY MOUTH ONCE DAILY FOR ESTROGEN Rx Instructions: TAKE 1 TABLET BY MOUTH ONCE DAILY FOR ESTROGEN gabapentin 600 mg tablet 600 mg PO TID Qty: 90 5RF isosorbide mononitrate 60 mg tablet extended release 24 hr See Rx Instructions .ROUTE .COMPLEX Qty: 100 0RF Dose Instruction: TAKE 1 TABLET BY MOUTH ONCE DAILY Rx Instructions: TAKE 1 TABLET BY MOUTH ONCE DAILY Jardiance 25 mg tablet 25 mg PO DAILY Qty: 90 1RF duloxetine 30 mg capsule,delayed release(DR/EC) 30 mg PO DAILY Qty: 90 1RF clopidogrel [Plavix] 75 mg tablet 75 mg PO DAILY Qty: 90 1RF atorvastatin 40 mg tablet See Rx Instructions .ROUTE .COMPLEX Qty: 90 0RF Dose Instruction: TAKE 1 TABLET BY MOUTH DAILY FOR CHOLESTEROL Rx Instructions: TAKE 1 TABLET BY MOUTH DAILY FOR CHOLESTEROL lisinopril 20 mg tablet See Rx Instructions .ROUTE .COMPLEX Qty: 180 0RF Dose Instruction: TAKE 1 TABLET BY MOUTH TWICE DAILY Rx Instructions: TAKE 1 TABLET BY MOUTH TWICE DAILY metoprolol tartrate 25 mg tablet See Rx Instructions .ROUTE .COMPLEX Qty: 180 0RF Dose Instruction: TAKE 1 TABLET BY MOUTH TWICE DAILY FOR HYPERTENSION Rx Instructions: TAKE 1 TABLET BY MOUTH TWICE DAILY FOR HYPERTENSION insulin glargine [Lantus Solostar U-100 Insulin] 100 unit/mL (3 mL) insulin pen See Rx Instructions .ROUTE .COMPLEX Qty: 15 5RF Dose Instruction: INJECT 80 UNITS UNDER THE SKIN AT BEDTIME NIGHTLY Rx Instructions: INJECT 80 UNITS UNDER THE SKIN AT BEDTIME NIGHTLY Mounjaro 7.5 mg/0.5 mL pen injector 7.5 mg SQ WEEKLY Qty: 2 2RF (DME) pen needle, diabetic 32 gauge x 5/32 needle See Rx Instructions .ROUTE .COMPLEX Qty: 100 0RF Dose Instruction: USE FOUR TIMES DAILY Rx Instructions: USE FOUR TIMES DAILY aspirin [Adult Aspirin Regimen] 81 mg tablet,delayed release (DR/EC) 81 mg PO DAILY Qty: 90 1RF ferrous sulfate [FeroSul] 325 mg (65 mg iron) tablet See Rx Instructions .ROUTE .COMPLEX Qty: 180 0RF Dose Instruction: TAKE 1 TABLET BY MOUTH TWICE DAILY Rx Instructions: TAKE 1 TABLET BY MOUTH TWICE DAILY omeprazole 40 mg capsule,delayed release(DR/EC) See Rx Instructions .ROUTE .COMPLEX Qty: 90 3RF Dose Instruction: TAKE 1 CAPSULE BY MOUTH ONCE DAILY FOR GERD Rx Instructions: TAKE 1 CAPSULE BY MOUTH ONCE DAILY FOR GERD furosemide 40 mg tablet See Rx Instructions .ROUTE .COMPLEX Qty: 180 1RF Dose Instruction: TAKE 1 TABLET BY MOUTH TWICE DAILY Rx Instructions: TAKE 1 TABLET BY MOUTH TWICE DAILY insulin aspart U-100 [Novolog FlexPen U-100 Insulin] 100 unit/mL (3 mL) insulin pen 50 unit SQ BID Qty: 15 6RF glimepiride 4 mg tablet 4 mg PO DAILY Referrals Follow up/Referrals: Jorden Michael MD [Primary Care Provider, Family Practice] - See instructions Activity Restrictions/Add. Instructions Additional Instructions/Restrictions: You were found to have a urinary tract infection today. You are being sent a course of cefdinir. Take this as prescribed. You were also incidentally found to have a lung nodule. I am giving you follow-up with Dr. Kent. Call their office to schedule follow-up appointment. You do have bulging disks in your back, likely explaining some of your symptoms. You also found to have a cyst in one of your kidneys but your primary care doctor can follow-up on. If you develop any new or worsening symptoms, or if you become concerned for your health for any reason, return to the emergency department for evaluation. Clinical Impressions Clinical Impression: Urinary tract infection, Lung nodule, Bulging lumbar disc, Hemorrhage of cyst of [place] kidney Instructions Patient Instructions: DI for Low Back Pain Print Language Print Language: Upper Sorbian Discharge ED Provider: Akhil Hugo General Adult HPI <KEMAR John - Last Filed: 06/11/25 18:56> General Chief complaint: Back Pain/Injury Stated complaint: lower back pain Time Seen by Provider: 06/11/25 17:55 Mode of Arrival: Ambulatory Source of Information: Patient Description of Symptoms (Recalled from ER Triage Doc. by RN): pt to the ED with bilateral lower back pain x 2 weeks that is getting worse. pt repors shes not sleeping well and it is a sharp pain that radiates down her legs. pt denies any loss of bowel or bladder and denies any injury History of Present Illness HPI narrative: 54-year-old female presents the emergency department with ongoing right sided and left-sided lower back pain that has been going on for greater than 1 week, patient endorses radicular type symptomatology that is posterior lateral down her right leg stopping at the knee, denies any numbness tingling, denies any saddle anesthesia, denies any urinary bladder or bowel dysfunction, denies fever chills chest pain shortness of breath cough congestion, denies any abdominal pain, does admit to left-sided flank pain that radiates into the left side lower abdomen, that occurred last night, which prompted emergency department visit, denies any urinary type symptomatology, admits to constipation, denies any diarrhea hematuria melena hematochezia hematemesis no radicular symptomatology on the left lower extremity no upper or lower extremity weakness, patient is a non-smoker denies any alcohol or drug use, other past medical history is consistent with T2DM, hypothyroidism, obesity, history of CABG x 2 on dual antiplatelet therapy of Plavix and aspirin, PASHA, hyperlipidemia, hypertension, GERD. Initial triage vitals are unremarkable Please note that above description of symptoms, in this electronic medical record under categorization of recalled from ER triage doctor by RN are reflective of an initial nursing assessment, however, is not reflective of my full history and physical exam that was personally taken and clarified. Consequentially, this preceding description of symptoms, which may include the patient's categorized chief complaint in the EMR, do not reflect my personal clinical impression, and the ultimate description of history of present illness and patient stated complaints should be deferred to this section of the note. Unless stated otherwise or congruent with this section of the note, additional signs, symptoms, or incongruence should be interpreted as inaccurate with my clinical impression. Onset (ago): week(s) Related Data Home Medications ?Medication ?Instructions ?Recorded ?Confirmed glimepiride 4 mg tablet 4 mg PO DAILY 10/28/23 05/13/25 nitroglycerin 0.4 mg sublingual 0.4 mg sublingual Q5M PRN 12/19/23 05/13/25 tablet methimazole 5 mg tablet 10 mg PO 03/04/25 05/13/25 Previous Rx's ?Medication ?Instructions ?Recorded syringe with needle, safety 3 mL #30 ea 09/19/23 21 gauge x 1 (Monoject Safety Syringes) blood-glucose,biomedical scientist,cont #1 ea 11/01/23 (Dexcom G7 Gas Appliance Adjuster) pen needle, diabetic 32 gauge x #100 ea 01/06/24/32 (BD Ultra-Fine Sary Pen Needle) blood-glucose sensor (Dexcom G7 #3 ea 06/22/24 Sensor device) levocetirizine 5 mg tablet 5 mg PO HS #120 tabs 07/31/24 medroxyprogesterone 10 mg tablet See Rx Instructions .Route 11/21/24 .COMPLEX #90 tabs gabapentin 600 mg tablet 600 mg PO TID #90 tabs 11/26/24 isosorbide mononitrate 60 mg See Rx Instructions .Route 12/18/24 tablet,extended release 24 hr .COMPLEX #100 tabs empagliflozin 25 mg tablet 25 mg PO DAILY #90 tabs 12/31/24 (Jardiance) clopidogrel 75 mg tablet (Plavix) 75 mg PO DAILY #90 tabs 02/01/25 duloxetine 30 mg capsule,delayed 30 mg PO DAILY #90 caps 02/01/25 release albuterol sulfate 90 mcg/actuation 1 inh inhalation Q6H PRN sob #1 ea 03/04/25 breath activated powder inhaler atorvastatin 40 mg tablet See Rx Instructions .Route 03/15/25 .COMPLEX #90 ea lisinopril 20 mg tablet See Rx Instructions .Route 03/15/25 .COMPLEX #180 tabs metoprolol tartrate 25 mg tablet See Rx Instructions .Route 03/15/25 .COMPLEX #180 tabs insulin glargine 100 unit/mL (3 See Rx Instructions .Route 03/19/25 mL) subcutaneous pen (Lantus .COMPLEX #15 mL Solostar U-100 Insulin) tirzepatide 7.5 mg/0.5 mL 7.5 mg (0.5 mL) SQ WEEKLY #2 mL 03/25/25 subcutaneous pen injector (Mounjaro) aspirin 81 mg tablet,delayed 81 mg PO DAILY #90 tabs 03/28/25 release (Adult Aspirin Regimen) pen needle, diabetic 32 gauge x #100 ea 03/28/25 ferrous sulfate 325 mg (65 mg See Rx Instructions .Route 04/29/25 iron) tablet (FeroSul) .COMPLEX #180 tabs omeprazole 40 mg capsule,delayed See Rx Instructions .Route 05/10/25 release .COMPLEX #90 caps fluconazole 150 mg tablet 150 mg PO Q3D 2 doses #2 tabs 05/13/25 furosemide 40 mg tablet See Rx Instructions .Route 05/19/25 .COMPLEX #180 tabs insulin aspart U-100 100 unit/mL 50 unit (0.5 mL) SQ BID for 06/03/25 (3 mL) subcutaneous pen (Novolog diabetes mellitus #15 mL FlexPen U-100 Insulin aspart) cefdinir 300 mg capsule 300 mg PO BID 7 days #14 caps 06/11/25 Allergies Allergy/AdvReac Type Severity Reaction Status Date / Time metformin Allergy Intermediate Rash Verified 05/13/25 14:11 cephalexin (From Keflex) Allergy Unknown Verified 05/13/25 14:11 allergy reaction semaglutide (From Ozempic) AdvReac Intermediate Gastrointestinal Verified 05/13/25 14:11 Upset PFSH <KEMAR John - Last Filed: 06/11/25 18:56> PFS Disclaimer: The information contained in this section may have been updated after the patient was seen, as this information can be updated by other users. 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 species Multinodular goiter Diabetes mellitus Hyperthyroidism Elevated serum free T4 level Recurrent acute sinusitis Cholelithiasis Deep vein thrombosis, lower left extremity CHF (congestive heart failure) Hemolytic anemia Right ventricular dysfunction PASHA (obstructive sleep apnea) Edema of both lower extremities Dyspnea Typical angina HLD (hyperlipidemia) HTN (hypertension) GERD (gastroesophageal reflux disease) Type 2 diabetes mellitus Surgical History History of cataract removal with insertion of prosthetic lens History of laparoscopic cholecystectomy H/O tubal ligation Previous section History of right cataract extraction History of open heart surgery Family History Other Breast cancer Family history of diabetes mellitus type II Family history of hypertension Family history of myocardial infarction Gout Hyperlipidemia Lung cancer Thyroid disorder Social History Smoking Status: Never smoker alcohol intake: never substance use type: denies use current occupational status: unemployed Travel in the last 8 weeks?: None caffeine: Yes Have you lived/traveled outside [place] in past 30 days?: No Contact w/someone who lives/traveled outside [place] past 30 days?: No Exposure to someone with infectious disease in past 14 days?: No Do you have a fever (greater than 100.4 F or 38 C)?: No Have you tested positive for COVID-19?: No Exposed to someone with COVID-19 in past 14 days?: No Do you have a sore throat?: No Do you have a cough?: No Do you have any weakness?: No Do you have any diarrhea?: No Are you experiencing any unusual bleeding?: No Do you have any muscle aches/pain?: No Do you have any abdominal pain?: No Are you experiencing loss of taste or smell?: No Other Medical History Have you received the Flu Vaccine for this season: No Have you received the Pneumonia Vaccine: Yes <KEMAR John - Last Filed: 06/11/25 18:56> ROS Obtained: Yes All systems reviewed & no additional complaints except as documented Physical Exam <KEAMR John - Last Filed: 06/11/25 18:56> General General appearance: alert and in no apparent distress Head Head exam: atraumatic and normocephalic Eye Eye exam: Present PERRL and EOMI ENT ENT exam: Present mucous membranes moist Neck Neck exam: Present normal inspection Chest Chest inspection: Present normal inspection and symmetric chest wall rise Respiratory Respiratory exam: Present normal lung sounds bilaterally; Absent respiratory distress, wheezes or stridor Cardiovascular Cardiovascular exam: Present regular rate and normal rhythm Abdominal Exam Abdominal exam: Present soft; Absent tenderness, guarding or rebound Extremities Exam Extremities exam: Present normal inspection Back Exam Back exam: Present CVA tenderness (L) and paraspinal tenderness; Absent CVA tenderness (R), vertebral tenderness, sciatic notch tenderness (L), straight leg raise (R) or straight leg raise (L) Neurological Exam Neurological exam: Present alert, oriented X3 and other (5 out of 5 strength in the bilateral lower and upper extremities no gross sensation deficit.) Psychiatric Psychiatric exam: Present normal affect Skin Skin exam: Present warm and dry Medical Decision Making <KEMAR John - Last Filed: 06/11/25 18:56> Medical Records Medical records reviewed: Yes I reviewed the patient's medical records. Screening: Per USPSTF and CDC recommendations, given the prevalence of disease in our region, it is our hospital?s policy to screen for HIV and viral Hepatitis for all patients aged 18 and over and those with ongoing risk factors. Papi Inquiry Pt receiving controlled substance: No Papi was queried for this patient: No Vital Signs: 06/11/25 17:32 06/11/25 21:32 Temperature 98.7 F 98.7 F Temperature Source Oral Oral Pulse Rate 92 H Pulse Rate [Left Radial] 92 H Respiratory Rate 17 17 Blood Pressure 162/67 H Blood Pressure [Right Arm] 162/67 H Blood Pressure Mean [Right Arm] 98 Blood Pressure Source Automatic Cuff Blood Pressure Source [Right Arm] Automatic Cuff Blood Pressure Position [Right Arm] Sitting 02 Sat by Pulse Oximetry 96 Oxygen Delivery Method Room Air Lab Data Lab results reviewed: Yes I reviewed the patient's lab results. Lab Results 06/11/25 19:00: WBC 9.3, RBC 5.24, Hgb 14.1, Hct 43.9, MCV 83.8, MCH 26.9 L, MCHC 32.1, RDW 14.0, Plt Count 154, MPV 12.7 H, Neut % (Auto) 65.6, Lymph % (Auto) 23.7, [place] % (Auto) 7.2, Eos % (Auto) 2.9, Baso % (Auto) 0.4, Neut # (Auto) 6.1, Lymph # (Auto) 2.2, [place] # (Auto) 0.7, Eos # (Auto) 0.3, Baso # (Auto) 0.0, Sodium 142, Potassium 4.0, Chloride 103, Carbon Dioxide 28, Anion Gap 15.0, BUN 16, Creatinine 0.80, Estimated Creat Clear 69, Estimated GFR 75, Est GFR ( Amer) 90, Glucose 90, Lactate 1.2, Calcium 8.9, Total Bilirubin 0.9, AST 25, ALT 21, Alkaline Phosphatase 195 H, Total Protein 7.6, Albumin 4.0, Globulin 3.6 H, Albumin/Globulin Ratio 1.1, Lipase 24 06/11/25 20:16: Urine Color Yellow, Urine Appearance Clear, Urine pH 5.5, Ur Specific [place] 1.015, Urine Protein Negative, Urine Glucose (UA) 3+, Urine Ketones Negative, Urine Blood 1+ A, Urine Nitrate Negative, Urine Bilirubin Negative, Urine Urobilinogen 0.2, Ur Leukocyte Esterase Negative, Urine RBC 10-20, Urine WBC 20-50, Ur Squamous Epith Cells 10-20, Urine Bacteria 1+, Urine Mucus 4+, Urine Yeast Occasional 06/11/25 19:00 06/11/25 19:00 Orders (Tests/Meds): ED MEDICATIONS Discontinued Medications Generic Name Dose Route Start Last Admin Trade Name Freq PRN Reason Stop Dose Admin Cefdinir 300 mg 06/11/25 21:02 06/11/25 21:20 Cefdinir 300mg Capsule PO 06/11/25 21:03 300 mg ONCE ONE Administration Iopamidol 75 ml 06/11/25 19:42 06/11/25 19:43 Iopamidol-370 (76%);100ml Bottle IV 06/11/25 19:43 75 ml ONCE ONE Administration Ketorolac Tromethamine 15 mg 06/11/25 18:16 06/11/25 19:06 Ketorolac 15mg/Ml Vial IV 06/11/25 18:17 15 mg ONCE ONE Administration Ondansetron HCl 4 mg 06/11/25 18:16 06/11/25 19:06 Ondansetron 4mg/2ml Vial IV 06/11/25 18:17 4 mg ONCE ONE Administration Sodium Chloride 10 ml 06/11/25 19:42 06/11/25 19:43 Sodium Chloride 0.9% 10ml Syr (Rad Only) IV 06/11/25 19:43 10 ml ONCE ONE Administration ORDERS Category Date Time Status CT abdomen pelvis w con Stat Cat Scan 06/11/25 18:[address] lumbar spine wo con Stat Cat Scan 06/11/25 18:15 Completed Complete Blood Count Auto Diff Stat Lab 06/11/25 19:00 Completed Comprehensive Metabolic Panel Stat Lab 06/11/25 19:00 Completed Lactic Acid Stat Lab 06/11/25 19:00 Completed Lipase Stat Lab 06/11/25 19:00 Completed Urinalysis and Microscopic Stat Lab 06/11/25 20:16 Completed Urine Culture Stat Micro 06/11/25 20:16 Received Medical Decision Narrative: 54-year-old female presents the emergency department with back pain for 1 to 2 weeks, see HPI for detailed past medical history, differential diagnose include but not limited to, acute UTI, acute pyelonephritis, nephrolithiasis, ureterolithiasis, colitis, ileitis, diverticulitis, pancreatitis, acute lumbar sacral strain, degenerative disc disease, herniated nucleus pulposus among others. Will obtain basic laboratory studies, lactic acid of lipase level urinalysis, CT lumbar spine without contrast, CT and pelvis with contrast, will give 15 mg IV Toradol and 4 mg of Zofran for pain and nausea. I discussed this patient's case with the attending physician at shift change, he will be assuming the patient's care/workup, disposition is pending laboratory studies urinalysis scan and clinical reevaluation <Akhil Hugo MD - Last Filed: 06/12/25 11:07> Vital Signs: 06/11/25 17:32 06/11/25 21:32 Temperature 98.7 F 98.7 F Temperature Source Oral Oral Pulse Rate 92 H Pulse Rate [Left Radial] 92 H Respiratory Rate 17 17 Blood Pressure 162/67 H Blood Pressure [Right Arm] 162/67 H Blood Pressure Mean [Right Arm] 98 Blood Pressure Source Automatic Cuff Blood Pressure Source [Right Arm] Automatic Cuff Blood Pressure Position [Right Arm] Sitting 02 Sat by Pulse Oximetry 96 Oxygen Delivery Method Room Air Lab Data Lab Results 06/11/25 19:00: WBC 9.3, RBC 5.24, Hgb 14.1, Hct 43.9, MCV 83.8, MCH 26.9 L, MCHC 32.1, RDW 14.0, Plt Count 154, MPV 12.7 H, Neut % (Auto) 65.6, Lymph % (Auto) 23.7, [place] % (Auto) 7.2, Eos % (Auto) 2.9, Baso % (Auto) 0.4, Neut # (Auto) 6.1, Lymph # (Auto) 2.2, [place] # (Auto) 0.7, Eos # (Auto) 0.3, Baso # (Auto) 0.0, Sodium 142, Potassium 4.0, Chloride 103, Carbon Dioxide 28, Anion Gap 15.0, BUN 16, Creatinine 0.80, Estimated Creat Clear 69, Estimated GFR 75, Est GFR ( Amer) 90, Glucose 90, Lactate 1.2, Calcium 8.9, Total Bilirubin 0.9, AST 25, ALT 21, Alkaline Phosphatase 195 H, Total Protein 7.6, Albumin 4.0, Globulin 3.6 H, Albumin/Globulin Ratio 1.1, Lipase 24 06/11/25 20:16: Urine Color Yellow, Urine Appearance Clear, Urine pH 5.5, Ur Specific [place] 1.015, Urine Protein Negative, Urine Glucose (UA) 3+, Urine Ketones Negative, Urine Blood 1+ A, Urine Nitrate Negative, Urine Bilirubin Negative, Urine Urobilinogen 0.2, Ur Leukocyte Esterase Negative, Urine RBC 10-20, Urine WBC 20-50, Ur Squamous Epith Cells 10-20, Urine Bacteria 1+, Urine Mucus 4+, Urine Yeast Occasional Orders (Tests/Meds): ED MEDICATIONS Discontinued Medications Generic Name Dose Route Start Last Admin Trade Name Freq PRN Reason Stop Dose Admin Cefdinir 300 mg 06/11/25 21:02 06/11/25 21:20 Cefdinir 300mg Capsule PO 06/11/25 21:03 300 mg ONCE ONE Administration Iopamidol 75 ml 06/11/25 19:42 06/11/25 19:43 Iopamidol-370 (76%);100ml Bottle IV 06/11/25 19:43 75 ml ONCE ONE Administration Ketorolac Tromethamine 15 mg 06/11/25 18:16 06/11/25 19:06 Ketorolac 15mg/Ml Vial IV 06/11/25 18:17 15 mg ONCE ONE Administration Ondansetron HCl 4 mg 06/11/25 18:16 06/11/25 19:06 Ondansetron 4mg/2ml Vial IV 06/11/25 18:17 4 mg ONCE ONE Administration Sodium Chloride 10 ml 06/11/25 19:42 06/11/25 19:43 Sodium Chloride 0.9% 10ml Syr (Rad Only) IV 06/11/25 19:43 10 ml ONCE ONE Administration ORDERS Category Date Time Status CT abdomen pelvis w con Stat Cat Scan 06/11/25 18:[address] lumbar spine wo con Stat Cat Scan 06/11/25 18:15 Completed Complete Blood Count Auto Diff Stat Lab 06/11/25 19:00 Completed Comprehensive Metabolic Panel Stat Lab 06/11/25 19:00 Completed Lactic Acid Stat Lab 06/11/25 19:00 Completed Lipase Stat Lab 06/11/25 19:00 Completed Urinalysis and Microscopic Stat Lab 06/11/25 20:16 Completed Urine Culture Stat Micro 06/11/25 20:16 Received Medical Decision Narrative: 54-year-old female presents the emergency department with back pain for 1 to 2 weeks, see HPI for detailed past medical history, differential diagnose include but not limited to, acute UTI, acute pyelonephritis, nephrolithiasis, ureterolithiasis, colitis, ileitis, diverticulitis, pancreatitis, acute lumbar sacral strain, degenerative disc disease, herniated nucleus pulposus among others. Will obtain basic laboratory studies, lactic acid of lipase level urinalysis, CT lumbar spine without contrast, CT and pelvis with contrast, will give 15 mg IV Toradol and 4 mg of Zofran for pain and nausea. I discussed this patient's case with the attending physician at shift change, he will be assuming the patient's care/workup, disposition is pending laboratory studies urinalysis scan and clinical reevaluation Akhil Hugo MD: I was consulted by the THIAGO, and we discussed the complexity of the problems being addressed. I approve the treatment and management plan for this patient's care in the emergency department, thus performing a substantive portion of the medical decision making. Patient CT imaging was interpreted by me personally. No acute findings within abdomen pelvis except for panniculitis. Patient has a left kidney hemorrhagic cyst as well as lung nodule. Patient was then discharged from the emergency department There is no acute lumbar fracture or malalignment. Patient does have mild posterior disc bulge at L3-L4 with narrowing of spinal canal at this level and facet joint arthritis at L4-L5 where there is mild to moderate narrowing of the spinal cord. See radiology note for details. On reassessment, patient remains in stable condition. She has no red flag symptoms for cauda equina. Urinalysis does show evidence of infection with 20-50 white blood cells. Will give a dose of cefdinir and prescribe course of cefdinir for patient to go home with. Patient was given follow-up with pulmonology for the lung nodule until follow-up with her primary care doctor regarding her renal cyst. All questions were answered. Return precautions were given. She was then discharged from the emergency department in stable condition. Critical Care <KEMAR John - Last Filed: 06/11/25 18:56> Critical Care Time Critical Care Time: No
--- NOTE | 2025-06-11 18:15 | CT_ITS ---
PROCEDURE INFORMATION: Exam: CT Lumbar Spine Without Contrast Exam date and time: 06/11/2025 7:38 PM Age: 54 years old Clinical indication: Other: Lower back pain right-sided radiculopathy TECHNIQUE: Imaging protocol: Computed tomography of the lumbar spine without contrast. Radiation optimization: All CT scans at this facility use at least one of these dose optimization techniques: automated exposure control; mA and/or kV adjustment per patient size (includes targeted exams where dose is matched to clinical indication); or iterative reconstruction. COMPARISON: US ABDOMEN LIMITED 10/17/2023 9:24 AM FINDINGS: Bones/joints: Normal alignment of the lumbar vertebral bodies. No compression fracture or spondylolysis appreciated. Multilevel degenerative disc disease which is moderately advanced and most prominent at L2-L3 and L4-L5. Mild facet joint arthritis lower lumbar spine. No acute abnormality of the upper sacrum appreciated. There are mild degenerative changes involving the sacroiliac joints. No large disc extrusion is appreciated. There is at least mild narrowing of the right neural foramen at L2-L3. There is a mild posterior disc bulge at L3-L4 where there is mild narrowing of the spinal canal and right neural foramen. There is facet joint arthritis at L4-L5 where there is [id number] narrowing of the spinal canal and narrowing of the neural foramina. Gallbladder and biliary ducts: Surgical clips gallbladder fossa. Vasculature: Mild atherosclerotic plaquing abdominal aorta with no aneurysm appreciated. Extensive calcification involving the distal splenic artery. Soft tissues: Unremarkable. IMPRESSION: No acute lumbar spine fracture. Multilevel moderately advanced degenerative disc disease and mild facet joint arthritis. Mild posterior disc bulge at L3-L4 with mild narrowing of the spinal canal at this level and facet joint arthritis at L4-L5 where there is [id number] narrowing of the spinal canal. Other findings above.
--- NOTE | 2025-06-11 18:15 | CT_ITS ---
PROCEDURE INFORMATION: Exam: CT Abdomen And Pelvis With Contrast Exam date and time: 06/11/2025 7:41 PM Age: 54 years old Clinical indication: Abdominal pain; Flank; Left; Additional info: Left-sided flank pain/back pain TECHNIQUE: Imaging protocol: Computed tomography of the abdomen and pelvis with contrast. Radiation optimization: All CT scans at this facility use at least one of these dose optimization techniques: automated exposure control; mA and/or kV adjustment per patient size (includes targeted exams where dose is matched to clinical indication); or iterative reconstruction. Contrast material: ISOVUE; Contrast volume: 75 ml; Contrast route: IV; COMPARISON: CT LUMBAR SPINE WO CON 06/11/2025 7:38 PM FINDINGS: Lungs: Noncalcified 5 mm nodule posterior right middle lobe. Calcified granuloma posterolateral left lower lobe. No acute basilar infiltrate appreciated. Liver: Normal. No mass. Gallbladder and biliary ducts: Surgical clips gallbladder fossa. Normal common duct. Pancreas: Moderate pancreatic atrophy. Spleen: Normal-size spleen. Adrenal glands: Normal. No mass. Kidneys and ureters: Normal-size kidneys with symmetrical enhancement. No retained renal stone or hydronephrosis appreciated. High attenuation 12 mm cortical mass that is partially exophytic at the lateral right mid kidney. Hounsfield unit measurement of 75. No definite ureteral stone is appreciated. There are 2 linear calcifications within the left pelvis that appear to be adjacent to but not definitely within the distal left ureter. The calcifications are probably phleboliths. Stomach and bowel: No distension of the stomach or gastric wall abnormality appreciated. No abnormality of the small bowel appreciated. No colonic distension. Left-sided diverticuli. No acute diverticulitis. Appendix: No evidence of appendicitis. Intraperitoneal space: No free fluid. Vasculature: Mild atherosclerotic plaquing abdominal aorta. No aneurysm. Normal enhancement of superior mesenteric and renal arteries. Coarse calcifications are noted within the distal splenic artery. Lymph nodes: Lymph nodes adjacent to the portal vein with short axis diameter of 12 mm. Multiple small central mediastinal lymph nodes that measure in the 9 mm range in short axis diameter. Mild associated mesenteric increased attenuation. Small 1 cm or less retroperitoneal paracaval and para-aortic lymph nodes. Right lower quadrant lymph nodes with a short axis diameter in the 1 cm range. Small iliac chain lymph nodes. Small reactive appearing inguinal lymph nodes. Urinary bladder: Unremarkable as visualized. Reproductive: Normal-sized anteverted uterus. Normal-sized ovaries. Probable bilateral tubal ligation. Bones/joints: No acute bony abnormality is appreciated. There is moderately advanced multilevel degenerative disc disease within the lumbar spine. There are median sternotomy wires. Soft tissues: Fat containing multicompartmental umbilical hernia that measures in the 6 x 3 cm range. No obstructive hernia. IMPRESSION: 1. No acute intraabdominal or intrapelvic abnormality appreciated. No left hydronephrosis or definite ureteral stone appreciated. 2. Multiple mesenteric and retroperitoneal lymph nodes that are 1.2 cm or less which are probably reactive. Possible mild central mesenteric panniculitis. 3. High attenuation 12 mm cortical mass lateral right kidney, possible hemorrhagic cyst. Follow-up nonemergent renal ultrasound recommended. 4. 5 mm noncalcified right middle lobe nodule.For patients at low risk (minimal or absent history of smoking and of other known risk factors), no routine follow-up is indicated. For patients at high risk (history of smoking or of other known risk factors), consider optional CT Chest at 12 months. (Reference: Ricardo) References: Ricardo Pena et al. Guidelines for Management of Incidental Pulmonary Nodules Detected on CT Images: From the Fleischner Society 2017. Radiology. 2017;284(1):228-243. 5. Other findings above. COMMENTS: Consistent with the [employer]'s Incidental Findings Committee white paper (J Am Billie Radiol 2018): Any incidental renal lesion less than 1 cm or classified as too small to characterize, or any incidental cystic renal lesion characterized as simple-appearing, is likely benign. No follow-up imaging is recommended for these lesions per consensus recommendations based on imaging criteria.
[2025-06-11] MEDS: ONDANSETRON 4MG/2ML VIAL 4 MG IV (19:06)
[2025-06-11] MEDS: KETOROLAC 15MG/ML VIAL 15 MG IV (19:06)
[2025-06-11 19:15] LABS: Hematocrit 43.9 % (37.0-47.0); Hemoglobin 14.1 g/dL (12.2-16.2); Immature Granulocytes % 0.2 %; Mean Corpuscular HGB Conc 32.1 g/dL (31.8-35.4); Mean Corpuscular Hemoglobin 26.9 pg (27.0-31.2); Mean Corpuscular Volume 83.8 fl (81-99); Nucleated Red Blood Cells % 0 %; Platelet Count 154 K/mm3 (142-424); Red Blood Count 5.24 M/mm3 (4.20-5.40); Red Cell Distribution Width-SD 42.7 fL; White Blood Count 9.3 K/mm3 (4.8-10.8)
[2025-06-11 19:25] LABS: Albumin Level 4.0 g/dl (3.5-5.0); Chloride 103 mmol/L (98-107)
[2025-06-11 19:26] LABS: Potassium 4.0 mmoL/L (3.5-5.1); Sodium 142 mmol/L (136-145)
[2025-06-11 19:28] LABS: Alanine Aminotransferase 21 U/L (12-78); Albumin/Globulin Ratio 1.1 (1.1-1.8); Alkaline Phosphatase 195 U/L (38-126); Anion Gap 15.0 mEq/L (5-15); Aspartate Amino Transferase 25 U/L (14-36); Bilirubin,Total 0.9 mg/dl (0.2-1.3); Blood Urea Nitrogen 16 mg/dl (7-17); Carbon Dioxide 28 mmol/L (22.0-30.0); Creatinine Clearance Estimated 69 mL/min (50-200); Creatinine,Serum 0.80 mg/dl (0.52-1.04); Estimated Glomerular Filt Rate 75 ml/min (>60); GFR (African American) 90 ML/MIN (>60); Globulin 3.6 g/dL (1.3-3.2); Total Protein,Serum 7.6 g/dl (6.3-8.2)
[2025-06-11 19:29] LABS: Calcium 8.9 mg/dl (8.4-10.2); Glucose 90 mg/dl (74-100); Lipase 24 U/L (23-300)
[2025-06-11] MEDS: SODIUM CHLORIDE 0.9% 10ML SYR (RAD ONLY) 10 ML IV (19:43)
[2025-06-11] MEDS: IOPAMIDOL-370 (76%);100ML BOTTLE 75 ML IV (19:43)
[2025-06-11 20:22] LABS: Microscopic, Urine URINE MICROSCOPIC (MICROSCOPIC)
[2025-06-11 20:24] LABS: Bilirubin,Urine Negative (Negative); Color,Urine YELLOW (Yellow); Glucose,Urine (UA) 3+ (Negative); Ketones,Urine Negative (Negative); Leukocyte Esterase,Urine Negative (Negative); PH,Urine 5.5 (5.0-8.5); Protein,Urine Negative (Negative); Specific Gravity, Urine 1.015 (1.005-1.030); Urobilinogen,Urine 0.2 EU/dl (0.2)
[2025-06-11 20:36] LABS: Bacteria,Urine 1+ /lpf; Mucus,Urine 4+ /lpf; WBC,Urine 20-50 #/hpf (0-3)
[2025-06-11] MEDS: CEFDINIR 300MG CAPSULE 300 MG PO (21:20)
[2025-06-11 21:32] VITALS: BP 162/67; PULSE 92; RESP 17; TEMP 37.1; O2SAT 96
== END 2025-06-11 21:34 | disposition home or self-care (01) ==
PROVIDERS: Physician Assistant; Emergency Provider Student in an Organized Health Care Education/Training Program; PCP Family Medicine
DX: N39.0 Urinary tract infection, site not specified (principal); M51.362 Other intervertebral disc degeneration, lumbar region with discogenic back pain and lower extremity pain; R91.1 Solitary pulmonary nodule; N28.89 Other specified disorders of kidney and ureter
CPT/HCPCS: 72131; 74177; 80053; 81001; 83605; 83690; 85025; 87086; 96374; 96375; 99285; J1885; J2405; Q9967

== ENCOUNTER 2025-07-12 22:07 | Emergency (ER) | payer MEDICARE, MEDICAID, SELFPAY ==
--- OUTSIDE RECORDS SUMMARY | 2024-12-20 08:09 | XMS_ITS | Encounter Summary ---
Author Organization [facility] Address [address] [place] [address] Care Team Providers Care General Handling Supervisor Name Role Phone Jorden Michael MD Primary Care Provider +1- [phone] Reason for Referral * Diagnostic Imaging (Routine) - Closed Specialty Diagnoses / Procedures Referred By Mirta haines Referred To Contact Radiology Diagnoses Thyroid nodule Procedures US Thyroid Kalyan Huston MD [address] [place] [address] Phone: tel: fax: Referral ID Status Reason Start Date Expiration Date Visits Re quested Visits Authorized [id number] Closed 12/20/2024 03/21/2026 1 1 Reason for Visit * Diagnostic Imaging (Routine) - Closed Specialty Diagnoses / Procedures Referred By Mirta haines Referred To Contact Radiology Diagnoses Thyroid nodule Procedures US Thyroid Kalyan Huston MD [address] [place] [address] Phone: tel: fax: Referral ID Status Reason Start Date Expiration Date Visits Re quested Visits Authorized [id number] Closed 12/20/2024 03/21/2026 1 1 Encounter Details Date Type Department Care Team (Late st Contact Info) Description 12/20/2024 9:09 AM EDT Hospital Encounter [facility] [address] [facility] [address] [place] [address] [phone] Thyroid nodule Social History Tobacco Use Types [...] 2:45 PM EDT Office Visit [facility] [address] [facility] [address] [place] [address] Kalyan Huston MD [address] [facility] [address] [place] [address] documented as of this encounter Procedures Procedure [...] goiter documented in this encounter Care Teams General Handling Supervisor Relationship Specialty Start Date End Date Jorden Michael MD [address] [phone] PCP - General Family Medicine 12/06/24 documented as of this encounter
[2025-07-12 22:10] VITALS: BP 128/95; PULSE 72; RESP 14; TEMP 36.9; O2SAT 95; BMI 47.2
--- NOTE | 2025-07-12 22:14 | HMH.EDGENADL ---
Discharge Plan Disposition Patient Disposition: Home, Self-Care Condition: Good Prescriptions Prescriptions: No Action (DME) Dexcom G7 Track Repairer Misc See Rx Instructions .Route Qty: 1 0RF Rx Instructions: As directed nitroglycerin 0.4 mg tablet, sublingual 0.4 mg sublingual Q5M PRN Rx Instructions: do not exceed 3 doses per episode fluconazole 150 mg tablet 150 mg PO Q3D Qty: 2 0RF (DME) Dexcom G7 Sensor Device See Rx Instructions .ROUTE .COMPLEX Qty: 3 10RF Dose Instruction: DIRECTED (EVERY 10 DAYS) Rx Instructions: DIRECTED (EVERY 10 DAYS) levocetirizine 5 mg tablet 5 mg PO HS Qty: 120 4RF methimazole 5 mg tablet 10 mg PO albuterol sulfate 90 mcg/actuation aerosol powdr breath activated 1 inh inhalation Q6H PRN (Reason: sob) Qty: 1 3RF (DME) Monoject Safety Syringes 3 mL 21 gauge x 1 syringe See Rx Instructions .Route Qty: 30 1RF Rx Instructions: once daily or As directed medroxyprogesterone 10 mg tablet See Rx Instructions .ROUTE .COMPLEX Qty: 90 1RF Dose Instruction: TAKE 1 TABLET BY MOUTH ONCE DAILY FOR ESTROGEN Rx Instructions: TAKE 1 TABLET BY MOUTH ONCE DAILY FOR ESTROGEN gabapentin 600 mg tablet 600 mg PO TID Qty: 90 5RF duloxetine 30 mg capsule,delayed release(DR/EC) 30 mg PO DAILY Qty: 90 1RF clopidogrel [Plavix] 75 mg tablet 75 mg PO DAILY Qty: 90 1RF insulin glargine [Lantus Solostar U-100 Insulin] 100 unit/mL (3 mL) insulin pen See Rx Instructions .ROUTE .COMPLEX Qty: 15 5RF Dose Instruction: INJECT 80 UNITS UNDER THE SKIN AT BEDTIME NIGHTLY Rx Instructions: INJECT 80 UNITS UNDER THE SKIN AT BEDTIME NIGHTLY (DME) pen needle, diabetic 32 gauge x 5/32 needle See Rx Instructions .ROUTE .COMPLEX Qty: 100 0RF Dose Instruction: USE FOUR TIMES DAILY Rx Instructions: USE FOUR TIMES DAILY aspirin [Adult Aspirin Regimen] 81 mg tablet,delayed release (DR/EC) 81 mg PO DAILY Qty: 90 1RF ferrous sulfate [FeroSul] 325 mg (65 mg iron) tablet See Rx Instructions .ROUTE .COMPLEX Qty: 180 0RF Dose Instruction: TAKE 1 TABLET BY MOUTH TWICE DAILY Rx Instructions: TAKE 1 TABLET BY MOUTH TWICE DAILY omeprazole 40 mg capsule,delayed release(DR/EC) See Rx Instructions .ROUTE .COMPLEX Qty: 90 3RF Dose Instruction: TAKE 1 CAPSULE BY MOUTH ONCE DAILY FOR GERD Rx Instructions: TAKE 1 CAPSULE BY MOUTH ONCE DAILY FOR GERD furosemide 40 mg tablet See Rx Instructions .ROUTE .COMPLEX Qty: 180 1RF Dose Instruction: TAKE 1 TABLET BY MOUTH TWICE DAILY Rx Instructions: TAKE 1 TABLET BY MOUTH TWICE DAILY insulin aspart U-100 [Novolog FlexPen U-100 Insulin] 100 unit/mL (3 mL) insulin pen 50 unit SQ BID Qty: 15 6RF atorvastatin 40 mg tablet See Rx Instructions .ROUTE .COMPLEX Qty: 90 0RF Dose Instruction: TAKE 1 TABLET BY MOUTH DAILY FOR CHOLESTEROL Rx Instructions: TAKE 1 TABLET BY MOUTH DAILY FOR CHOLESTEROL metoprolol tartrate 25 mg tablet See Rx Instructions .ROUTE .COMPLEX Qty: 180 0RF Dose Instruction: TAKE 1 TABLET BY MOUTH TWICE DAILY FOR HYPERTENSION Rx Instructions: TAKE 1 TABLET BY MOUTH TWICE DAILY FOR HYPERTENSION lisinopril 20 mg tablet See Rx Instructions .ROUTE .COMPLEX Qty: 180 0RF Dose Instruction: TAKE 1 TABLET BY MOUTH TWICE DAILY Rx Instructions: TAKE 1 TABLET BY MOUTH TWICE DAILY isosorbide mononitrate 60 mg tablet extended release 24 hr See Rx Instructions .ROUTE .COMPLEX Qty: 90 3RF Dose Instruction: TAKE 1 TABLET BY MOUTH ONCE DAILY Rx Instructions: TAKE 1 TABLET BY MOUTH ONCE DAILY Mounjaro 7.5 mg/0.5 mL pen injector 7.5 mg SQ WEEKLY Qty: 2 2RF (DME) pen needle, diabetic 32 gauge x 5/32 needle See Rx Instructions .ROUTE .COMPLEX Qty: 100 12RF Dose Instruction: USE FOUR TIMES DAILY Rx Instructions: USE FOUR TIMES DAILY Jardiance 25 mg tablet 25 mg PO DAILY Qty: 90 1RF glimepiride 4 mg tablet 4 mg PO DAILY cefdinir 300 mg capsule 300 mg PO BID 7 Days Qty: 14 0RF Referrals Follow up/Referrals: Jorden Michael MD [Primary Care Provider, Family Practice] - See instructions Activity Restrictions/Add. Instructions Additional Instructions/Restrictions: You were evaluated in the ER and are believed to be appropriate for discharge at this time. Continue taking any home medications as previously prescribed. Follow-up with cardiology as scheduled. Make an appointment with your primary care doctor for reevaluation in 2 to 3 days. Return to the ER with any new, worsening, or otherwise concerning symptoms. Clinical Impressions Clinical Impression: Chest pain Print Language Print Language: Z[place]ian Discharge ED Provider: Taz Molina General Adult HPI <Theresa Hair - Last Filed: 07/12/25 23:01> General Chief complaint: Chest Pain Stated complaint: chest pain Time Seen by Provider: 07/12/25 22:14 History of Present Illness HPI narrative: 55-year-old female with a history of previous CABG presents to the emergency department with complaints of sharp stabbing substernal chest pain that started since waking this morning. She reports when it initially started she took 1 sublingual nitro with mild relief of symptoms. He states the pain has been happening on and off throughout the day however this evening it became more frequent and intense so she took 2 baby aspirin's and came to ER for evaluation. She reports that she takes Plavix and baby aspirin daily. She states she has not followed up with her cardiology for 2 years but has an upcoming appointment with Dr. Lewis later this month. She denies fevers. Related Data Home Medications ?Medication ?Instructions ?Recorded ?Confirmed glimepiride 4 mg tablet 4 mg PO DAILY 10/28/23 05/13/25 nitroglycerin 0.4 mg sublingual 0.4 mg sublingual Q5M PRN 12/19/23 05/13/25 tablet methimazole 5 mg tablet 10 mg PO 03/04/25 05/13/25 Previous Rx's ?Medication ?Instructions ?Recorded syringe with needle, safety 3 mL #30 ea 09/19/23 21 gauge x 1 (Monoject Safety Syringes) blood-glucose,endless belt finisher,cont #1 ea 11/01/23 (Dexcom G7 Track Repairer) blood-glucose sensor (Dexcom G7 #3 ea 06/22/24 Sensor device) levocetirizine 5 mg tablet 5 mg PO HS #120 tabs 07/31/24 medroxyprogesterone 10 mg tablet See Rx Instructions .Route 11/21/24 .COMPLEX #90 tabs gabapentin 600 mg tablet 600 mg PO TID #90 tabs 11/26/24 clopidogrel 75 mg tablet (Plavix) 75 mg PO DAILY #90 tabs 02/01/25 duloxetine 30 mg capsule,delayed 30 mg PO DAILY #90 caps 02/01/25 release albuterol sulfate 90 mcg/actuation 1 inh inhalation Q6H PRN sob #1 ea 03/04/25 breath activated powder inhaler insulin glargine 100 unit/mL (3 See Rx Instructions .Route 03/19/25 mL) subcutaneous pen (Lantus .COMPLEX #15 mL Solostar U-100 Insulin) aspirin 81 mg tablet,delayed 81 mg PO DAILY #90 tabs 03/28/25 release (Adult Aspirin Regimen) pen needle, diabetic 32 gauge x #100 ea 03/28/25 ferrous sulfate 325 mg (65 mg See Rx Instructions .Route 04/29/25 iron) tablet (FeroSul) .COMPLEX #180 tabs omeprazole 40 mg capsule,delayed See Rx Instructions .Route 05/10/25 release .COMPLEX #90 caps fluconazole 150 mg tablet 150 mg PO Q3D 2 doses #2 tabs 05/13/25 furosemide 40 mg tablet See Rx Instructions .Route 05/19/25 .COMPLEX #180 tabs insulin aspart U-100 100 unit/mL 50 unit (0.5 mL) SQ BID for 06/03/25 (3 mL) subcutaneous pen (Novolog diabetes mellitus #15 mL FlexPen U-100 Insulin aspart) cefdinir 300 mg capsule 300 mg PO BID 7 days #14 caps 06/11/25 atorvastatin 40 mg tablet See Rx Instructions .Route 06/17/25 .COMPLEX #90 ea lisinopril 20 mg tablet See Rx Instructions .Route 06/17/25 .COMPLEX #180 tabs metoprolol tartrate 25 mg tablet See Rx Instructions .Route 06/17/25 .COMPLEX #180 tabs isosorbide mononitrate 60 mg See Rx Instructions .Route 06/18/25 tablet,extended release 24 hr .COMPLEX #90 tabs tirzepatide 7.5 mg/0.5 mL 7.5 mg (0.5 mL) SQ WEEKLY #2 mL 07/01/25 subcutaneous pen injector (Mounjaro) pen needle, diabetic 32 gauge x #100 ea 07/02/25 empagliflozin 25 mg tablet 25 mg PO DAILY #90 tabs 07/12/25 (Jardiance) Allergies Allergy/AdvReac Type Severity Reaction Status Date / Time metformin Allergy Intermediate Rash Verified 05/13/25 14:11 cephalexin (From Keflex) Allergy Unknown Verified 05/13/25 14:11 allergy reaction semaglutide (From Ozempic) AdvReac Intermediate Gastrointestinal Verified 05/13/25 14:11 Upset [facility] <Theresa Hair - Last Filed: 07/12/25 23:01> [facility] Disclaimer: The information contained in this section may have been updated after the patient was seen, as this information can be updated by other users. 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 species Multinodular goiter Diabetes mellitus Hyperthyroidism Elevated serum free T4 level Recurrent acute sinusitis Cholelithiasis Deep vein thrombosis, lower left extremity CHF (congestive heart failure) Hemolytic anemia Right ventricular dysfunction PASHA (obstructive sleep apnea) Edema of both lower extremities Dyspnea Typical angina HLD (hyperlipidemia) HTN (hypertension) GERD (gastroesophageal reflux disease) Type 2 diabetes mellitus Surgical History History of cataract removal with insertion of prosthetic lens History of laparoscopic cholecystectomy H/O tubal ligation Previous section History of right cataract extraction History of open heart surgery Family History Other Breast cancer Family history of diabetes mellitus type II Family history of hypertension Family history of myocardial infarction Gout Hyperlipidemia Lung cancer Thyroid disorder Social History Smoking Status: Never smoker alcohol intake: never substance use type: denies use current occupational status: unemployed Travel in the last 8 weeks?: None caffeine: Yes Have you lived/traveled outside [place] in past 30 days?: No Contact w/someone who lives/traveled outside US past 30 days?: No Exposure to someone with infectious disease in past 14 days?: No Do you have a fever (greater than 100.4 F or 38 C)?: No Have you tested positive for COVID-19?: No Exposed to someone with COVID-19 in past 14 days?: No Do you have a sore throat?: No Do you have a cough?: No Do you have any weakness?: No Do you have any diarrhea?: No Are you experiencing any unusual bleeding?: No Do you have any muscle aches/pain?: No Do you have any abdominal pain?: No Are you experiencing loss of taste or smell?: No Other Medical History Have you received the Flu Vaccine for this season: No Have you received the Pneumonia Vaccine: Yes <Theresa Hair - Last Filed: 07/12/25 23:01> ROS Obtained: Yes other Cardiovascular Cardiovascular: Reports chest pain Gastrointestinal Gastrointestingal: Reports nausea Physical Exam <Theresa Hair - Last Filed: 07/12/25 23:01> Narrative Physical exam: General: Awake, aware, in no acute distress HEENT: Normocephalic, no evidence of trauma CV: RRR, no murmurs, rubs, or gallops. Patient with hyperpigmented skin to bilateral lower extremities with nonpitting edema. Patient with 2+ pulses in all extremities. Pulm: CTA bilaterally with no rhonchi, rales, wheezes ABD: Nontender, no swelling, guarding, or rebound tenderness Psych, appropriate mood and affect General General appearance: alert Respiratory Respiratory exam: Present normal lung sounds bilaterally Cardiovascular Cardiovascular exam: Present regular rate Neurological Exam Neurological exam: Present alert Medical Decision Making <Theresa Hair - Tariq Filed: 07/12/25 23:01> Medical Records Screening: Per USPSTF and CDC recommendations, given the prevalence of disease in our region, it is our hospital?s policy to screen for HIV and viral Hepatitis for all patients aged 18 and over and those with ongoing risk factors. Papi Inquiry Pt receiving controlled substance: No Vital Signs: 07/12/25 22:10 07/12/25 22:19 07/12/25 22:31 Temperature 98.4 F Temperature Source Oral Pulse Rate 87 81 Pulse Rate [Right] 72 Respiratory Rate 14 13 Blood Pressure 124/59 L Blood Pressure [Right Arm] 128/95 H Blood Pressure Mean [Right Arm] 106 02 Sat by Pulse Oximetry 95 96 Oxygen Delivery Method Room Air 07/12/25 23:00 07/12/25 23:30 07/13/25 00:00 Temperature Temperature Source Pulse Rate 87 75 81 Pulse Rate [Right] Respiratory Rate 16 Blood Pressure 123/62 126/71 130/74 Blood Pressure [Right Arm] Blood Pressure Mean [Right Arm] 02 Sat by Pulse Oximetry 97 97 95 Oxygen Delivery Method 07/13/25 00:31 07/13/25 00:41 07/13/25 01:00 Temperature Temperature Source Pulse Rate 79 77 83 Pulse Rate [Right] Respiratory Rate 18 Blood Pressure 120/64 120/64 134/75 Blood Pressure [Right Arm] Blood Pressure Mean [Right Arm] 02 Sat by Pulse Oximetry 96 97 96 Oxygen Delivery Method Room Air 07/13/25 02:47 Temperature 97.8 F Temperature Source Pulse Rate 73 Pulse Rate [Right] Respiratory Rate 20 Blood Pressure 107/66 L Blood Pressure [Right Arm] Blood Pressure Mean [Right Arm] 02 Sat by Pulse Oximetry Oxygen Delivery Method Room Air Lab Data Lab Results 07/12/25 22:13: WBC 11.9 H, RBC 4.88, Hgb 13.4, Hct 41.7, MCV 85.5, MCH 27.5, MCHC 32.1, RDW 13.9, Plt Count 154, MPV 13.1 H, Neut % (Auto) 70.1, Lymph % (Auto) 21.1, [place] % (Auto) 5.7, Eos % (Auto) 2.4, Baso % (Auto) 0.4, Neut # (Auto) 8.3 H, Lymph # (Auto) 2.5, [place] # (Auto) 0.7, Eos # (Auto) 0.3, Baso # (Auto) 0.1, D-Dimer 0.62 H, Sodium 134 L, Potassium 4.1, Chloride 102, Carbon Dioxide 22, Anion Gap 14.1, BUN 21 H, Creatinine 0.90, Estimated Creat Clear 61, Estimated GFR 65, Est GFR ( Amer) 79, Glucose 355 H, Calcium 8.8, Total Bilirubin 1.3, AST 34, ALT 24, Alkaline Phosphatase 173 H, Troponin I < 0.01, NT-Pro-B Natriuret Pep 118, Total Protein 7.6, Albumin 4.0, Globulin 3.6 H, Albumin/Globulin Ratio 1.1 07/12/25 22:47: SARS-CoV-2 (PCR) Not detected, Influenza A Untype (PCR) Not detected, Influenza Type B (PCR) Not detected 07/13/25 02:02: Troponin I < 0.01 07/12/25 22:13 12/26/25 22:13 Orders (Tests/Meds): ED MEDICATIONS Discontinued Medications Generic Name Dose Route Start Last Admin Trade Name Josy PRN Reason Stop Dose Admin Nitroglycerin 0.4 mg 07/12/25 22:22 Nitroglycerin 0.4mg Sl Tablet SL 08/11/25 22:21 Q5MINP PRN Chest Pain ORDERS Category Date Time Status XR chest portable Stat Exams 07/12/25 22:15 Completed Complete Blood Count Auto Diff Stat Lab 07/12/25 22:13 Completed Comprehensive Metabolic Panel Stat Lab 07/12/25 22:13 Completed D-Dimer Stat Lab 07/12/25 22:13 Completed NT Pro Brain Natriuretic Pep. Stat Lab 07/12/25 22:13 Completed Rapid PCR Covid and Flu A/B Stat Lab 07/12/25 22:47 Completed Troponin I Q3H Lab 07/13/25 02:02 Completed Troponin I Stat Lab 07/12/25 22:13 Completed Medical Decision Narrative: Initial impression of presenting illness: 55-year-old female with a history of previous CABG presents to the emergency department with complaints of sharp shooting substernal chest pain that started this morning when she woke up. She states at that time she took 1 sublingual nitro that mildly improved her pain. She states that throughout the day the pain has been intermittent however this evening it became more frequent and intense so she took 2 baby aspirin and came to ER for evaluation. She denies fevers. She reports she takes Plavix and a baby aspirin daily. She states she has not followed up with her cutter in in the past 2 years but does have an appointment later this month with Dr. Lewis. Differential diagnosis includes but is not limited to: ACS, heart failure, pneumonia, PE, viral illness, GERD Patient arrives hemodynamically stable, afebrile, without respiratory distress with vital signs interpreted by myself. Initial physical exam reveals nonpitting edema to bilateral lower extremities. Patient with hyperpigmented skin to bilateral lower extremities as well. Abdomen soft nontender with normal active bowel sounds. Lung sounds are clear bilaterally. Patient with 2+ pulses in all extremities. Patient with normal heart sounds. Initial diagnostic plan: Heart failure workup, COVID and flu swab, sublingual nitro for pain relief Patient is D-dimer was elevated at 0.62 however she is YEARS criteria negative. Handoff of care given to ED attending Dr. Molina pending the completion of patient's workup. <Taz Molina MD - Last Filed: 07/12/25 23:21> Vital Signs: 07/12/25 22:10 07/12/25 22:19 07/12/25 22:31 Temperature 98.4 F Temperature Source Oral Pulse Rate 87 81 Pulse Rate [Right] 72 Respiratory Rate 14 13 Blood Pressure 124/59 L Blood Pressure [Right Arm] 128/95 H Blood Pressure Mean [Right Arm] 106 02 Sat by Pulse Oximetry 95 96 Oxygen Delivery Method Room Air 07/12/25 23:00 07/12/25 23:30 07/13/25 00:00 Temperature Temperature Source Pulse Rate 87 75 81 Pulse Rate [Right] Respiratory Rate 16 Blood Pressure 123/62 126/71 130/74 Blood Pressure [Right Arm] Blood Pressure Mean [Right Arm] 02 Sat by Pulse Oximetry 97 97 95 Oxygen Delivery Method 07/13/25 00:31 07/13/25 00:41 07/13/25 01:00 Temperature Temperature Source Pulse Rate 79 77 83 Pulse Rate [Right] Respiratory Rate 18 Blood Pressure 120/64 120/64 134/75 Blood Pressure [Right Arm] Blood Pressure Mean [Right Arm] 02 Sat by Pulse Oximetry 96 97 96 Oxygen Delivery Method Room Air 07/13/25 02:47 Temperature 97.8 F Temperature Source Pulse Rate 73 Pulse Rate [Right] Respiratory Rate 20 Blood Pressure 107/66 L Blood Pressure [Right Arm] Blood Pressure Mean [Right Arm] 02 Sat by Pulse Oximetry Oxygen Delivery Method Room Air Lab Data Lab results reviewed: Yes I reviewed the patient's lab results. Lab Results 07/12/25 22:13: WBC 11.9 H, RBC 4.88, Hgb 13.4, Hct 41.7, MCV 85.5, MCH 27.5, MCHC 32.1, RDW 13.9, Plt Count 154, MPV 13.1 H, Neut % (Auto) 70.1, Lymph % (Auto) 21.1, [place] % (Auto) 5.7, Eos % (Auto) 2.4, Baso % (Auto) 0.4, Neut # (Auto) 8.3 H, Lymph # (Auto) 2.5, [place] # (Auto) 0.7, Eos # (Auto) 0.3, Baso # (Auto) 0.1, D-Dimer 0.62 H, Sodium 134 L, Potassium 4.1, Chloride 102, Carbon Dioxide 22, Anion Gap 14.1, BUN 21 H, Creatinine 0.90, Estimated Creat Clear 61, Estimated GFR 65, Est GFR ( Amer) 79, Glucose 355 H, Calcium 8.8, Total Bilirubin 1.3, AST 34, ALT 24, Alkaline Phosphatase 173 H, Troponin I < 0.01, NT-Pro-B Natriuret Pep 118, Total Protein 7.6, Albumin 4.0, Globulin 3.6 H, Albumin/Globulin Ratio 1.1 07/12/25 22:47: SARS-CoV-2 (PCR) Not detected, Influenza A Untype (PCR) Not detected, Influenza Type B (PCR) Not detected 07/13/25 02:02: Troponin I < 0.01 Orders (Tests/Meds): ED MEDICATIONS Discontinued Medications Generic Name Dose Route Start Last Admin Trade Name Freq PRN Reason Stop Dose Admin Nitroglycerin 0.4 mg 07/12/25 22:22 Nitroglycerin 0.4mg Sl Tablet SL 08/11/25 22:21 Q5MINP PRN Chest Pain ORDERS Category Date Time Status XR chest portable Stat Exams 07/12/25 22:15 Completed Complete Blood Count Auto Diff Stat Lab 07/12/25 22:13 Completed Comprehensive Metabolic Panel Stat Lab 07/12/25 22:13 Completed D-Dimer Stat Lab 07/12/25 22:13 Completed NT Pro Brain Natriuretic Pep. Stat Lab 07/12/25 22:13 Completed Rapid PCR Covid and Flu A/B Stat Lab 07/12/25 22:47 Completed Troponin I Q3H Lab 07/13/25 02:02 Completed Troponin I Stat Lab 07/12/25 22:13 Completed Medical Decision Narrative: Initial impression of presenting illness: 55-year-old female with a history of previous CABG presents to the emergency department with complaints of sharp shooting substernal chest pain that started this morning when she woke up. She states at that time she took 1 sublingual nitro that mildly improved her pain. She states that throughout the day the pain has been intermittent however this evening it became more frequent and intense so she took 2 baby aspirin and came to ER for evaluation. She denies fevers. She reports she takes Plavix and a baby aspirin daily. She states she has not followed up with her cutter in in the past 2 years but does have an appointment later this month with Dr. Lewis. Differential diagnosis includes but is not limited to: ACS, heart failure, pneumonia, PE, viral illness, GERD Patient arrives hemodynamically stable, afebrile, without respiratory distress with vital signs interpreted by myself. Initial physical exam reveals nonpitting edema to bilateral lower extremities. Patient with hyperpigmented skin to bilateral lower extremities as well. Abdomen soft nontender with normal active bowel sounds. Lung sounds are clear bilaterally. Patient with 2+ pulses in all extremities. Patient with normal heart sounds. Initial diagnostic plan: Heart failure workup, COVID and flu swab, sublingual nitro for pain relief Patient is D-dimer was elevated at 0.62 however she is YEARS criteria negative. Handoff of care given to ED attending Dr. Molina pending the completion of patient's workup. Care transitioned to Dr. Mantilla at 11:20 PM pending second troponin. <Panchito Mantilla MD - Last Filed: 07/13/25 03:04> Medical Records Medical records reviewed: Yes I reviewed the patient's medical records. Vital Signs: 07/12/25 22:10 07/12/25 22:19 07/12/25 22:31 Temperature 98.4 F Temperature Source Oral Pulse Rate 87 81 Pulse Rate [Right] 72 Respiratory Rate 14 13 Blood Pressure 124/59 L Blood Pressure [Right Arm] 128/95 H Blood Pressure Mean [Right Arm] 106 02 Sat by Pulse Oximetry 95 96 Oxygen Delivery Method Room Air 07/12/25 23:00 07/12/25 23:30 07/13/25 00:00 Temperature Temperature Source Pulse Rate 87 75 81 Pulse Rate [Right] Respiratory Rate 16 Blood Pressure 123/62 126/71 130/74 Blood Pressure [Right Arm] Blood Pressure Mean [Right Arm] 02 Sat by Pulse Oximetry 97 97 95 Oxygen Delivery Method 07/13/25 00:31 07/13/25 00:41 07/13/25 01:00 Temperature Temperature Source Pulse Rate 79 77 83 Pulse Rate [Right] Respiratory Rate 18 Blood Pressure 120/64 120/64 134/75 Blood Pressure [Right Arm] Blood Pressure Mean [Right Arm] 02 Sat by Pulse Oximetry 96 97 96 Oxygen Delivery Method Room Air 07/13/25 02:47 Temperature 97.8 F Temperature Source Pulse Rate 73 Pulse Rate [Right] Respiratory Rate 20 Blood Pressure 107/66 L Blood Pressure [Right Arm] Blood Pressure Mean [Right Arm] 02 Sat by Pulse Oximetry Oxygen Delivery Method Room Air Lab Data Lab Results 07/12/25 22:13: WBC 11.9 H, RBC 4.88, Hgb 13.4, Hct 41.7, MCV 85.5, MCH 27.5, MCHC 32.1, RDW 13.9, Plt Count 154, MPV 13.1 H, Neut % (Auto) 70.1, Lymph % (Auto) 21.1, [place] % (Auto) 5.7, Eos % (Auto) 2.4, Baso % (Auto) 0.4, Neut # (Auto) 8.3 H, Lymph # (Auto) 2.5, [place] # (Auto) 0.7, Eos # (Auto) 0.3, Baso # (Auto) 0.1, D-Dimer 0.62 H, Sodium 134 L, Potassium 4.1, Chloride 102, Carbon Dioxide 22, Anion Gap 14.1, BUN 21 H, Creatinine 0.90, Estimated Creat Clear 61, Estimated GFR 65, Est GFR ( Amer) 79, Glucose 355 H, Calcium 8.8, Total Bilirubin 1.3, AST 34, ALT 24, Alkaline Phosphatase 173 H, Troponin I < 0.01, NT-Pro-B Natriuret Pep 118, Total Protein 7.6, Albumin 4.0, Globulin 3.6 H, Albumin/Globulin Ratio 1.1 07/12/25 22:47: SARS-CoV-2 (PCR) Not detected, Influenza A Untype (PCR) Not detected, Influenza Type B (PCR) Not detected 07/13/25 02:02: Troponin I < 0.01 Orders (Tests/Meds): ED MEDICATIONS Discontinued Medications Generic Name Dose Route Start Last Admin Trade Name Freq PRN Reason Stop Dose Admin Nitroglycerin 0.4 mg 07/12/25 22:22 Nitroglycerin 0.4mg Sl Tablet SL 08/11/25 22:21 Q5MINP PRN Chest Pain ORDERS Category Date Time Status XR chest portable Stat Exams 07/12/25 22:15 Completed Complete Blood Count Auto Diff Stat Lab 07/12/25 22:13 Completed Comprehensive Metabolic Panel Stat Lab 07/12/25 22:13 Completed D-Dimer Stat Lab 07/12/25 22:13 Completed NT Pro Brain Natriuretic Pep. Stat Lab 07/12/25 22:13 Completed Rapid PCR Covid and Flu A/B Stat Lab 07/12/25 22:47 Completed Troponin I Q3H Lab 07/13/25 02:02 Completed Troponin I Stat Lab 07/12/25 22:13 Completed Medical Decision Narrative: Initial impression of presenting illness: 55-year-old female with a history of previous CABG presents to the emergency department with complaints of sharp shooting substernal chest pain that started this morning when she woke up. She states at that time she took 1 sublingual nitro that mildly improved her pain. She states that throughout the day the pain has been intermittent however this evening it became more frequent and intense so she took 2 baby aspirin and came to ER for evaluation. She denies fevers. She reports she takes Plavix and a baby aspirin daily. She states she has not followed up with her cutter in in the past 2 years but does have an appointment later this month with Dr. Lewis. Differential diagnosis includes but is not limited to: ACS, heart failure, pneumonia, PE, viral illness, GERD Patient arrives hemodynamically stable, afebrile, without respiratory distress with vital signs interpreted by myself. Initial physical exam reveals nonpitting edema to bilateral lower extremities. Patient with hyperpigmented skin to bilateral lower extremities as well. Abdomen soft nontender with normal active bowel sounds. Lung sounds are clear bilaterally. Patient with 2+ pulses in all extremities. Patient with normal heart sounds. Initial diagnostic plan: Heart failure workup, COVID and flu swab, sublingual nitro for pain relief Patient is D-dimer was elevated at 0.62 however she is YEARS criteria negative. Handoff of care given to ED attending Dr. Molina pending the completion of patient's workup. Care transitioned to Dr. Mantilla at 11:20 PM pending second troponin. Mantilla: Upon my assumption of care patient is stable and resting comfortably, asymptomatic at this time. I agree with the assessment and plan from Dr. Molina. I reviewed labs which are currently nonactionable. COVID and flu negative. Repeat troponin undetectably low less than 0.01. Patient is appropriate for discharge at this time and comfortable with this plan. She has follow-up with cardiology 3 days from now which I believe is very appropriate. She was given instructions on continued symptomatic monitoring and management, follow-up, and return precautions for the ER. She indicated understanding and the patient was discharged in stable condition peer Critical Care <Theresa Hair - Last Filed: 07/12/25 23:01> Critical Care Time Critical Care Time: No
--- NOTE | 2025-07-12 22:15 | XR_ITS ---
PROCEDURE INFORMATION: Exam: XR Chest Exam date and time: 07/12/2025 10:35 PM Age: 55 years old Clinical indication: Pain; Left-sided; Additional info: Cp TECHNIQUE: Imaging protocol: Radiologic exam of the chest. Views: 1 view. COMPARISON: CR XR CHEST 2V 05/13/2025 2:58 PM FINDINGS: Lungs: Low lung volumes. No consolidation. Pleural spaces: Unremarkable. No pleural effusion. No pneumothorax. Heart/Mediastinum: Unremarkable. No cardiomegaly. Bones/joints: Midline sternotomy wires. IMPRESSION: No acute findings.
[2025-07-12 22:19] VITALS: PULSE 87
--- OUTSIDE RECORDS SUMMARY | 2025-07-12 22:20 | XMS_ITS | Encounter Summary ---
Author Organization Healthcare Address [address] [place] [address] Care Team Providers Care New Business Clerk Name Role Phone Unavailable Primary Care Provider Unavailabl e Encounter Details Date Type Department Care Team (Late st Contact Info) Description 08/16/2024 Orders Only External Location [address] [place] [address] Provider, External Social History Tobacco Use Types [...] Team (Late st Contact Info) Description 11/07/2025 10:00 AM EDT Consult Medical Office Building Surgical Specialties [address] [facility], [address] [place] [address] Dave Palacios MD [address] [address] documented as of this encounter [...]
--- OUTSIDE RECORDS SUMMARY | 2025-07-12 22:20 | XMS_ITS | Encounter Summary ---
Author Organization [facility] Address [address] [place] [address] Care Team Providers Care Manager Home Name Role Phone Jorden Michael MD Primary Care Provider +1- [phone] Reason for Visit * Reason Onset Date Comments REQUEST TO SEE SURGEON CLOSER TO HOME 07/01/2025 Encounter Details Date Type Department Care Team (Late st Contact Info) Description 07/01/2025 Telephone [facility] [address] [place] [address] Kalyan Huston MD [address] [place] [address] REQUEST TO SEE SURGEON CLOSER TO HOME Social History Tobacco Use Types Packs/Day Years [...] encounter Miscellaneous Notes * Telephone Encounter - Nery Vazquez MA - 07/02/2025 11:00 AM EST Detailed message left concerning appt and med * Telephone Encounter - Nery Vazquez MA - 07/02/2025 10:20 AM EST She would like to wait until september for better weather. And hopefully her brothers car be ready to transport her. * Telephone Encounter - Nery Vazquez MA - 07/01/2025 1:29 PM EST Left message to return call. * Telephone Encounter - Nery Vazquez MA - 07/01/2025 10:51 AM EST See message and advise. * Telephone Encounter - Carlin Wise RegSched Rep - 07/01/2025 10:29 AM EST Provider: REYNA Caller: Agustina Moraes Relationship to Patient: Self Reason for Call: PATIENT CALLED TO REQUEST IF WOULD BE SENDING A REFERRAL TO A THYROID SURGEON TO BE SCHEDULED AND IF COULD FIND A SURGEON CLOSER TO WHERE THE PATIENT LIVES IN [place].PATIENT STATES SHE DOES NOT HAVE TRANSPORTATION TO [place]. PLEASE CALL PATIENT ADVISE. documented in this encounter Plan of Treatment Upcoming Encounters Date Type Department Care Team (Late st Contact Info) Description 11/07/2025 2:45 PM EDT Office Visit [facility] [address] [phone] Kalyan Huston MD [address] [address] documented as of this encounter Visit Diagnoses Not on filedocumented in this encounter Care Teams Manager Home Relationship Specialty Start Date End Date Jorden Michael MD [address] [place] [id number] PCP - General Family Medicine 12/06/24 documented as of this encounter
--- OUTSIDE RECORDS SUMMARY | 2025-07-12 22:20 | XMS_ITS | Clinical Summary ---
Author Organization Healthcare Address [address] [id number] Care Team Providers Care Psychologist Social Name Role Phone Unavailable Primary Care Provider Unavailabl e Social History Tobacco Use Types Packs/Day Years Used Date Smoking Tobacco: Never Assessed Comments Unknown Sex and Gender Information Value Date Recorded Sex Assigned at Not on file Legal Sex Female 4:55 PM EDT Gender Identity Not on file Sexual Orientation Not on file Plan of Treatment Upcoming Encounters Date Type Department Care Team ([facility] st Contact Info) Description 11/07/2025 10:00 AM EDT Consult Medical Office Building Surgical Specialties [address] [facility], [address] [place] [address] Dave Palacios MD [address] [place] [address] Health Maintenance Due Date Last [...] [facility]-Zoster Vaccines (2 of 2) 01/23/2025 11/28/2024 [id number] Vaccine ( - 2024-26 season) 2025 [facility]-Influenza Vaccine (#1) 2025 04/27/2024 [facility]-DTaP,Tdap,and Td Vaccine s (3 - Td or Tdap) 09/20/2034 09/20/2024, 03/29/2023 [facility]-Pneumococcal Vaccine: 50 + Years Completed 04/27/2024 HPV Vaccines (No Doses Required) Completed [facility]-HIB Vaccines Aged Out No longer e [...]
--- OUTSIDE RECORDS SUMMARY | 2025-07-12 22:20 | XMS_ITS | Clinical Summary ---
Author Organization [facility] Address [address] [place] [address] Care Team Providers Care Freelance Recruiter Name Role Phone Jorden Michael MD Primary Care Provider [phone]- [phone] Allergies Active Allergy Reactions Criticality Noted Date Comments Metformin Hives 12/20/2024 Medications Aspirin Low Dose 81 MG EC tablet Take 1 tablet by mouth Daily. 11/22/19 25 Active atorvastatin (LIPITOR) 40 MG tablet Take 1 tablet by mouth Daily. 12/19/19 25 Active clopidogrel (PLAVIX) 75 MG tablet Take 1 tablet by mouth Daily. 09/19/19 25 Active Continuous Glucose Sensor ([employer] G7 Sensor) [facility] USE DIRECTED TO TEST BLOOD GLUCOSE LEVEL [...] into the appropriate area as directed. 12/01/19 Active BD Pen Needle Sary Ultrafine 32G X 4 MM misc 12/11/19 Active isosorbide mononitrate (IMDUR) 60 MG 24 hr tablet 12/19/19 Active levocetirizine (XYZAL) 5 MG tablet Take 1 tablet by mouth Every Evening. 10/11/19 25 Active lisinopril (PRINIVIL,ZESTRIL) 20 MG tablet Take 1 tablet by mouth Daily. 12/19/19 25 Active medroxyPROGESTERon e (PROVERA) 10 MG tablet Take 1 tablet by mouth Daily. 11/13/19 Active metoprolol tartrate (LOPRESSOR) 25 MG tablet [...] 5 MG UNDER THE SKIN WEEKLY 11/29/19 Active methIMAzole (TAPAZOLE) 10 MG tabletIndications: Other thyrotoxicosis without thyrotoxic crisis or storm TAKE ONE (1) TABLET BY MOUTH ONCE DAILY 90 tablet 05/31/20 Active Active Problems Problem Noted Date Diagnosed [...] upcoming nuclear medicine uptake and scan at [facility] next week, will get results [...] Encounters Date Type Department Care Team Description 07/01/2025 Telephone [facility] [address] [facility] [address] [place] [address] Kalyan Huston MD REQUEST TO SEE SURGEON CLOSER TO HOME 05/30/2025 Refill [facility] [address] [facility] [address] [place] [address] Kalyan Huston MD Other thyrotoxicosis without thyrotoxic [...] Description 11/07/2025 2:45 PM EDT Office Visit [facility] [address] [place] [address] Kalyan Huston MD [address] [place], [place] [id number] Health Maintenance Due Date Last Done Comments [...] Insurance [employer] MEDICAID [place] [employer] MEDICARE ADVANTAGE [facility] Care Teams Freelance Recruiter Relationship Specialty Start Date End Date Jorden Michael MD [address] [place] [address] PCP - General Family Medicine 12/06/24
--- OUTSIDE RECORDS SUMMARY | 2025-07-12 22:20 | XMS_ITS | Encounter Summary ---
Author Organization Healthcare Address [address] [id number] Care Team Providers Care Dog Pound Attendant Name Role Phone Unavailable Primary Care Provider Unavailabl e Encounter Details Date Type Department Care Team (Late st Contact Info) Description 10/01/2022 Orders Only External Location [address] [place] [address] Jacque Araiza, YEIMI [address] [facility] [address] [id number] Social History Tobacco Use Types Packs/Day Years [...] [facility], [address] [place] [address] Dave Palacios MD [address] [address] documented as of this encounter Procedures Procedure Name Priority Date/Time Associated Diagnosis Comments NM OUTSIDE IMAGES 10/01/2022 10:27 AM EDT documented in this encounter Results * NM OUTSIDE IMAGES (10/01/2022 10:27 AM EDT) Anatomical Region Laterality Modality Nuclear Medicine 10/01/2022 10:2 7 AM EDT us Jacque Araiza TOOL AND DIE MAKER APPRENTICE IMG NM PROCEDURES Final Resu lt documented in this encounter Visit Diagnoses Not on filedocumented in this encounter
--- OUTSIDE RECORDS SUMMARY | 2025-07-12 22:20 | XMS_ITS | Encounter Summary ---
Author Organization [facility] Address [address] [place] [address] Care Team Providers Care Firer Portable Boiler Name Role Phone Jorden Michael MD Primary Care Provider +1- [phone] Reason for Visit * Reason Comments Med Refill Encounter Details Date Type Department Care Team (Late st Contact Info) Description 05/30/2025 Refill [facility] [address] [place] [phone] Kalyan Huston MD [address] [place], [place] [phone] Other thyrotoxicosis without thyrotoxic crisis or storm [...] Description 11/07/2025 2:45 PM EDT Office Visit [facility] [address] [facility] [address] [place] [address] Kalyan Huston MD [address] [facility] [address] [place] [address] documented as of this encounter Visit Diagnoses Diagnosis Other thyrotoxicosis without thyrotoxic crisis or storm documented in this encounter Care Teams Firer Portable Boiler Relationship Specialty Start Date End Date Jorden Michael MD [address] [place] [phone] PCP - General Family Medicine 12/06/24 documented as of this encounter
--- OUTSIDE RECORDS SUMMARY | 2025-07-12 22:20 | XMS_ITS | Encounter Summary ---
Author Organization Healthcare Address [address] [place] [address] Care Team Providers Care Election Supervisor Name Role Phone Unavailable Primary Care Provider Unavailabl e Encounter Details Date Type Department Care Team (Late st Contact Info) Description 07/30/2024 Orders Only External Location [address] [place] [address] Provider, External Social History Tobacco Use Types [...] Office Building Surgical Specialties [address] [facility], [address] [place] [address] Dave Palacios MD [address] [address] documented as of this encounter [...]
--- OUTSIDE RECORDS SUMMARY | 2025-07-12 22:20 | XMS_ITS | Encounter Summary ---
Author Organization Healthcare Address [address] [place] [address] Care Team Providers Care Clinical Biostatistics Director Name Role Phone Unavailable Primary Care Provider Unavailabl e Encounter Details Date Type Department Care Team (Late st Contact Info) Description 05/24/2024 Orders Only External Location [address] [place] [address] Provider, External Social History Tobacco Use Types [...] [facility], [address] [place] [address] Dave Palaicos MD [address] [address] documented as of this [...]
[2025-07-12 22:31] VITALS: BP 124/59; PULSE 81; RESP 13; O2SAT 96
[2025-07-12 22:31] LABS: Alanine Aminotransferase 24 U/L (12-78); Albumin Level 4.0 g/dl (3.5-5.0); Albumin/Globulin Ratio 1.1 (1.1-1.8); Alkaline Phosphatase 173 U/L (38-126); Anion Gap 14.1 mEq/L (5-15); Aspartate Amino Transferase 34 U/L (14-36); Bilirubin,Total 1.3 mg/dl (0.2-1.3); Blood Urea Nitrogen 21 mg/dl (7-17); Calcium 8.8 mg/dl (8.4-10.2); Carbon Dioxide 22 mmol/L (22.0-30.0); Chloride 102 mmol/L (98-107); Creatinine Clearance Estimated 61 mL/min (50-200); Creatinine,Serum 0.90 mg/dl (0.52-1.04); Estimated Glomerular Filt Rate 65 ml/min (>60); GFR (African American) 79 ML/MIN (>60); Globulin 3.6 g/dL (1.3-3.2); Glucose 355 mg/dl (74-100); Potassium 4.1 mmoL/L (3.5-5.1); Sodium 134 mmol/L (136-145); Total Protein,Serum 7.6 g/dl (6.3-8.2)
[2025-07-12 22:44] LABS: Hematocrit 41.7 % (37.0-47.0); Hemoglobin 13.4 g/dL (12.2-16.2); Immature Granulocytes % 0.3 %; Mean Corpuscular HGB Conc 32.1 g/dL (31.8-35.4); Mean Corpuscular Hemoglobin 27.5 pg (27.0-31.2); Mean Corpuscular Volume 85.5 fl (81-99); NT Pro Brain Natriuretic Pep. 118 pg/mL (0-125); Nucleated Red Blood Cells % 0 %; Platelet Count 154 K/mm3 (142-424); Red Blood Count 4.88 M/mm3 (4.20-5.40); Red Cell Distribution Width-SD 42.9 fL; White Blood Count 11.9 K/mm3 (4.8-10.8)
[2025-07-12 22:49] LABS: Troponin I < 0.01 ng/ml (0.00-0.034)
[2025-07-12 22:50] LABS: D-Dimer 0.62 ug/mL (0.0-0.5)
[2025-07-12 22:51] LABS: Coronavirus 19, PCR Not Detected (NotDetected); Influenza A, PCR Not Detected (NotDetected); Influenza B, PCR Not Detected (NotDetected)
[2025-07-12 23:00] VITALS: BP 123/62; PULSE 87; RESP 16; O2SAT 97
[2025-07-12 23:30] VITALS: BP 126/71; PULSE 75; O2SAT 97
[2025-07-13] VITALS: BP 130/74; PULSE 81; O2SAT 95
[2025-07-13 00:31] VITALS: BP 120/64; PULSE 79; O2SAT 96
[2025-07-13 00:41] VITALS: BP 120/64; PULSE 77; RESP 18; O2SAT 97
[2025-07-13 01:00] VITALS: BP 134/75; PULSE 83; O2SAT 96
[2025-07-13 02:39] LABS: Troponin I < 0.01 ng/ml (0.00-0.034)
[2025-07-13 02:47] VITALS: BP 107/66; PULSE 73; RESP 20; TEMP 36.6; O2SAT 98
== END 2025-07-13 02:53 | disposition home or self-care (01) ==
PROVIDERS: Nurse Practitioner Family; Emergency Provider Student in an Organized Health Care Education/Training Program; PCP Family Medicine
DX: R07.9 Chest pain, unspecified (principal); E11.65 Type 2 diabetes mellitus with hyperglycemia; I11.0 Hypertensive heart disease with heart failure; I50.9 Heart failure, unspecified; E78.5 Hyperlipidemia, unspecified; Z86.79 Personal history of other diseases of the circulatory system; Z95.1 Presence of aortocoronary bypass graft; Z79.4 Long term (current) use of insulin
CPT/HCPCS: 36415; 71045; 80053; 83880; 84484; 85025; 85378; 87636; 93005; 99285